=== PATIENT | female | born 1955 | race Caucasian/White ===

== ENCOUNTER 2020-07-19 09:12 | Outpatient (CLI) | payer MEDICARE, OTHER, SELFPAY ==
--- NOTE | 2020-07-19 11:00 | NEURO_ITS ---
Patient Number: [id number] Impression: # Complains of numbness of hands. Non-insulin dependent diabetic. # Mild right Carpal Tunnel Syndrome. # Needle/EMG exam revealed early neurogenic changes in left APB. # Clinical correlation recommended. Nerve Conduction Studies Anti Sensory Summary Table Stim Site NR Peak (ms) P-T Amp (?V) Site1 Site2 Delta-P (ms) Dist (cm) Pan (m/s) Left Median Anti Sensory (2-3nd Digit) Wrist 3.3 36.8 Wrist 2-3nd Digit 3.3 14.0 42 Wrist 3.4 30.0 Wrist 2-3nd Digit 3.3 14.0 42 Right Median Anti Sensory (2-3nd Digit) Wrist 4.1 25.8 Wrist 2-3nd Digit 4.1 14.0 34 Wrist 4.8 11.2 Wrist 2-3nd Digit 4.1 14.0 34 Left Radial Anti Sensory (Base 1st Digit) Wrist 2.3 19.4 Wrist Base 1st Digit 2.3 0.0 Right Radial Anti Sensory (Base 1st Digit) Wrist 2.3 14.5 Wrist Base 1st Digit 2.3 0.0 Left Ulnar Anti Sensory (5th Digit) Wrist 2.5 20.3 Wrist 5th Digit 2.5 14.0 56 Right Ulnar Anti Sensory (5th Digit) Wrist 2.4 58.2 Wrist 5th Digit 2.4 14.0 58 Motor Summary Table Stim Site NR Onset (ms) O-P Amp (mV) Site1 Site2 Delta-0 (ms) Dist (cm) Pan (m/s) Left Median Motor (Abd Poll Brev) Wrist 3.4 4.0 Elbow Wrist 5.2 30.0 58 Elbow 8.6 3.2 Right Median Motor (Abd Poll Brev) Wrist 3.6 0.9 Elbow Wrist 4.8 28.0 58 Elbow 8.4 1.0 Left Ulnar Motor (Abd Dig Minimi) Wrist 2.5 4.8 A Elbow Wrist 5.2 31.0 60 A Elbow 7.7 4.0 Right Ulnar Motor (Abd Dig Minimi) Wrist 2.5 3.6 A Elbow Wrist 4.5 28.0 62 A Elbow 7.0 2.9 F Wave Studies NR F-Lat (ms) L-R F-Lat (ms) Left Median (Mrkrs) (Abd Poll Brev) 28.24 0.10 Right Median (Mrkrs) (Abd Poll Brev) 28.13 0.10 Left Ulnar (Mrkrs) (Abd Dig Min) 27.76 0.00 Right Ulnar (Mrkrs) (Abd Dig Min) 27.76 0.00 EMG Side Muscle Nerve Root Ins Act Fibs Amp Dur Recrt Comment Right 1stDorInt Ulnar C8-T1 Nml Nml Nml Nml Nml Right Ext Indicis Radial (Post Int) C7-8 Nml Nml Nml Nml Nml Right Ext Digitorum Radial (Post Int) C7-8 Nml Nml Nml Nml Nml Right BrachioRad Radial C5-6 Nml Nml Nml Nml Nml Right PronatorTeres Median C6-7 Nml Nml Nml Nml Nml Right Abd Poll Brev Median C8-T1 Nml Nml Incr >12ms Reduced Left 1stDorInt Ulnar C8-T1 Nml Nml Nml Nml Nml Left Ext Indicis Radial (Post Int) C7-8 Nml Nml Nml Nml Nml Left Ext Digitorum Radial (Post Int) C7-8 Nml Nml Nml Nml Nml Left BrachioRad Radial C5-6 Nml Nml Nml Nml Nml Left PronatorTeres Median C6-7 Nml Nml Nml Nml Nml Left Abd Poll Brev Median C8-T1 Nml Nml Nml Nml Nml Right ABD Dig Min Ulnar C8-T1 Nml Nml Nml Nml Nml Left ABD Dig Min Ulnar C8-T1 Nml Nml Nml Nml Nml MTDD
== END 2020-07-19 09:13 | disposition home or self-care (01) ==
PROVIDERS: PCP Internal Medicine; Visit Provider Plastic Surgery
DX: R20.2 Paresthesia of skin (principal); G56.01 Carpal tunnel syndrome, right upper limb
CPT/HCPCS: 95886; 95911

== ENCOUNTER 2020-08-09 01:40 | Outpatient (CLI) | payer MEDICARE, OTHER, SELFPAY ==
[2020-08-09 19:05] LABS: SARS-CoV-2 RNA PCR Negative
== END 2020-08-09 01:41 | disposition home or self-care (01) ==
LOC: ANHCOVIDDT 01:41
PROVIDERS: PCP Internal Medicine; Visit Provider Plastic Surgery
DX: Z01.812 Encounter for preprocedural laboratory examination (principal); Z20.828 Contact with and (suspected) exposure to other viral communicable diseases
CPT/HCPCS: 87635; C9803; U0003

== ENCOUNTER 2020-08-09 08:49 | Outpatient (CLI) | payer MEDICARE, OTHER, SELFPAY ==
--- NOTE | 2020-08-09 08:52 | ECG_ITS ---
Measurements Intervals [place] Rate: 69 P: 58 HI: 149 QRS: 0 QRSD: 96 T: -1 QT: 405 QTc: 436 Interpretive Statements SINUS RHYTHM NONSPECIFIC ST & T-WAVE ABNORMALITY- ANT/INF LEADS BASELINE ARTIFACT- I, II, III, AVR BORDERLINE ECG Electronically Signed On 08-09-2020 9:57:30 CDT by Rodrigo Austin D.O.
[2020-08-09 09:29] LABS: Anion Gap 10 mmol/L (8-16); Blood Urea Nitrogen 11 mg/dL (7-17); Calcium 9.3 mg/dL (8.4-10.2); Carbon Dioxide 25 mmol/L (22-30); Chloride 103 mmol/L (98-107); Estimated Glomerular Filt Rate > 60; Glucose 206 mg/dL (65-105); Potassium 4.2 mmol/L (3.4-5.0); Sodium 138 mmol/L (137-145)
== END 2020-08-09 08:50 | disposition home or self-care (01) ==
LOC: ANHSURGERY 08:52
PROVIDERS: Anesthesiology; PCP Internal Medicine; Visit Provider Plastic Surgery
DX: Z01.818 Encounter for other preprocedural examination (principal); I10 Essential (primary) hypertension; E11.9 Type 2 diabetes mellitus without complications
CPT/HCPCS: 36415; 80048; 87635; 93005; C9803; U0003

== ENCOUNTER 2020-08-11 01:12 | Day surgery (SDC) | payer MEDICARE, OTHER, SELFPAY ==
[2020-08-03 12:21] VITALS: BMI 27.7
--- NOTE | 2020-08-11 06:58 | WPDHPUPDATE1 ---
History and Physical Update Update Date/Time: 08/11/20 06:58 History and Physical has been reviewed, including an updated exam of the patient. There are NO changes in the patient's condition. Risks, benefits, and alternatives have been discussed and questions answered. Patient agrees to proceed with procedure.
[2020-08-11 08:00] VITALS: BP 105/64; PULSE 70; RESP 18; TEMP 36.9; O2SAT 97
[2020-08-11] MEDS: LACTATED RINGERS 1,000 ML 30 ML IV CONT (08:00)
[2020-08-11 08:14] LABS: Glucose Point of Care 194 (65-105)
--- NOTE | 2020-08-11 08:35 | WPDANESEPPF ---
Anes - Initial Pre Proc Eval Procedure: Operation Date: 08/11/20 09:30 Proposed Procedures p Right Open Carpal Tunnel Release - Chaka Villaseñor MD Date/Time: 08/11/20 08:35 Surgeon: Chaka Villaseñor MD Pre Op Diagnosis: Right Carpal Tunnel Syndrome Patient Data Age: 64 Gender: F Height: 5 ft 6 in Weight: 77.2 kg Last Vital Signs Temp 36.9 C 08/11/20 08:00 Pulse 70 08/11/20 08:00 Resp 18 08/11/20 08:00 BP 105/64 08/11/20 08:00 Pulse Ox 97 08/11/20 08:00 Allergies Allergy/AdvReac Type Severity Reaction Status Date / Time erythromycin base AdvReac Unknown Abdominal Verified 08/11/20 08:21 Pain TAPE SILK Allergy Mild BLISTERS--PEELS Uncoded 08/11/20 08:21 OFF SKIN Home Medications Medication Instructions Recorded Confirmed Type albuterol sulfate [ProAir HFA] 2 puff INHALATION QID PRN 08/03/20 08/03/20 History atenolol 50 mg PO HS 08/03/20 08/11/20 History atorvastatin 20 mg PO HS 08/03/20 08/03/20 History citalopram 40 mg PO HS 08/03/20 08/03/20 History estradiol 1 mg PO HS 08/03/20 08/03/20 History glimepiride 4 mg PO BID PRN 08/03/20 08/03/20 History glycopyrrolate 2 mg PO BID 08/03/20 08/03/20 History hydrocodone-acetaminophen 1 tablet PO TID PRN 08/03/20 08/03/20 History lorazepam 1 mg PO TID PRN 08/03/20 08/03/20 History metformin 500 mg PO BID 08/03/20 08/03/20 History pregabalin 100 mg PO BID 08/03/20 08/03/20 History ropinirole 0.5 mg PO HS 08/03/20 08/03/20 History sumatriptan-naproxen 1 tablet PO BID PRN 08/03/20 08/03/20 History valacyclovir 500 mg PO HS 08/03/20 08/03/20 History Laboratory Tests 08/11/20 08:09 POC Capillary Glucose 194 mg/dl H mg/dl (65-105) Patient hx anesthesia problems: none Family hx anesthesia problems: none [facility] Past Medical History Medical History (Updated 08/11/20 @ 08:37 by Solomon English MD) Chronic back pain Chronic pain HTN (hypertension) DANNY (obstructive sleep apnea) Family History Family History Other Diabetes mellitus Social History Social History Smoking packs per day: 0.25 Smoking cigarettes per day: 5.0 Years smoked: 2 Smoking pack-years: 0.50 Smoking status: Current every day smoker Alcohol intake: current Alcohol use details: 1 DRINK/MONTH Substance use: never Living arrangements: with family Spiritual care concerns: No Anes - Eval Final PreProcedure Day of Procedure 08/11/20 08:35 Patient weight: overweight Heart: regular rate and rhythm Lungs: clear to auscultation Airway: Mallampati scale class II Neurological: alert and oriented Last oral intake: >/= 8 hours ASA classification: III Emergent: no Anesthetic plan: proceed Anesthesia type and monitoring: general GIVS and standard monitoring Informed Consent: The patient's anesthetic plan and its attendant risks and benefits were discussed with the patient/family/POA. Questions were solicited and answers provided to the satisfaction of the patient/family/POA.
[2020-08-11] MEDS: LIDO 1%/EPINEPHRINE 1:100,000 20 ML VIAL INFILTRATE (09:04)
[2020-08-11 09:15] VITALS: BP 103/55; PULSE 74; RESP 14; O2SAT 96
--- NOTE | 2020-08-11 09:26 | PM.OP ---
Procedure Note - Brief Procedure Note - Brief Date of procedure: 08/11/20 Pre-op diagnosis: Right Carpal Tunnel Syndrome Post-op diagnosis: same Procedure performed: R OCTR Anesthesia: GLMA Surgeon: Chaka Villaseñor MD Estimated blood loss (mL): 3 Tourniquet time (min): 0 Drains: No Packing: No Pathology: none sent Complications: No immediate complications Condition: stable Disposition: same day
--- NOTE | 2020-08-11 09:27 | P.OP_ITS ---
Procedure Note - Detailed Date of procedure: 08/11/20 Pre-op diagnosis: Right Carpal Tunnel Syndrome Post-op diagnosis: same Procedure performed: Right open carpal tunnel release Description of procedure: the right wrist was marked as patient waited in the holding area. She was taken to the operating room and placed supine on the operating table. Time-out was held and confirmed. Extremity was prepped and draped in usual fashion she was given LMA intubation. The site was remarked and locally infiltrated with 1% lidocaine with epinephrine. No tourniquet was utilized. Incision was made in the palm and carried bluntly through the subcutaneous tissue to the palmar fascia. This and the carpal ligament were incised with a 15. Blade 0pening the canal. Under 3 point retraction the ligament was divided distally and proximally to completely release it. There was no unusual anatomy. The skin was closed with interrupted 5 0 nylon suture. Usual bandage was applied she is discharge instructions in wound care and fo llow-up. She has a regular dose of hydrocodone supply to her by her primary care physician. We are sending an extra 5 tablets of hydrocodone 02/13/2025 for use postop period. Anesthesia: GLMA Surgeon: Chaka Villaseñor MD Estimated blood loss (mL): 3 Tourniquet time (min): 0 Drains: No Packing: No Pathology: none sent Complications: No immediate complications Condition: stable Disposition: same day
[2020-08-11 09:29] LABS: Glucose Point of Care 166 (65-105)
[2020-08-11 09:45] VITALS: BP 112/46; PULSE 71
[2020-08-11] MEDS: fentaNYL CITRATE INJ (*CRX) 100 MCG/2 ML VIAL 25 MCG IV PUSH ×2 (09:53→10:11)
[2020-08-11 10:15] VITALS: BP 102/54; PULSE 69
[2020-08-11 10:45] VITALS: BP 111/51; PULSE 70
== END 2020-08-11 11:07 | disposition home or self-care (01) ==
PROVIDERS: PCP Internal Medicine; Visit Provider Plastic Surgery
PROC: (CPT 64721; principal; 2020-08-11 09:30)
DX: G56.01 Carpal tunnel syndrome, right upper limb (principal); I10 Essential (primary) hypertension; G47.33 Obstructive sleep apnea (adult) (pediatric); F17.210 Nicotine dependence, cigarettes, uncomplicated
CPT/HCPCS: 64721; A9270; J2250; J3010; J7120

== ENCOUNTER → 2021-02-25 02:44 | Outpatient (CLI) | payer MEDICARE, OTHER, SELFPAY ==
[2021-02-25 19:43] LABS: SARS-CoV-2 RNA PCR Negative
== END ==
PROVIDERS: PCP Internal Medicine; Visit Provider Internal Medicine Gastroenterology
DX: Z01.812 Encounter for preprocedural laboratory examination (principal); Z20.822 Contact with and (suspected) exposure to COVID-19
CPT/HCPCS: C9803; U0003; U0005

== ENCOUNTER 2021-02-28 02:16 | Day surgery (SDC) | payer MEDICARE, OTHER, SELFPAY ==
[2021-02-14 15:08] VITALS: BMI 27.7
[2021-02-28 08:13] VITALS: BP 107/67; PULSE 65; RESP 18; TEMP 36.7; O2SAT 98; BMI 27.0
--- NOTE | 2021-02-28 08:15 | PM.HPGS ---
History of Present Illness History of Present Illness Consent: Risks, benefits, and alternatives have been discussed and questions answered. Patient agrees to proceed with procedure. Chief complaint: Positive Cologuard Narrative: Lisa Gabriel is a 65 year old female referred for colon cancer screening. A recent Cologuard test was positive. Review of Systems Review of Systems: All systems reviewed & are unremarkable except as noted in HPI and below PMFSH Past Medical History Medical History Anxiety Chronic back pain Chronic bronchitis Chronic pain Chronic, continuous use of opioids Depression Diabetes type 2, controlled Fibromyalgia HTN (hypertension) DANNY (obstructive sleep apnea) PONV (postoperative nausea and vomiting) RLS (restless legs syndrome) Surgical History Surgical History History of x2 History of hysterectomy Family History Family History Other Diabetes mellitus Social History Social History Smoking packs per day: 0.25 Smoking cigarettes per day: 5.0 Years smoked: 0.5 Smoking pack-years: 0.13 Smoking status: Current every day smoker Tobacco type: cigarettes Alcohol intake: current Alcohol use details: social Substance use: never Substance use type: does not use Living arrangements: with family Spiritual care concerns: No Meds Home Medications and Allergies Home Medications Medication Instructions Recorded Confirmed Type albuterol sulfate [ProAir HFA] 2 puff INHALATION QID PRN 08/03/20 02/28/21 History atenolol 50 mg PO DAILY 08/03/20 02/28/21 History atorvastatin 20 mg PO DAILY 08/03/20 02/28/21 History citalopram 40 mg PO DAILY 08/03/20 02/28/21 History estradiol 1 mg PO DAILY 08/03/20 02/28/21 History glimepiride 4 mg PO BID PRN 08/03/20 02/28/21 History glycopyrrolate 2 mg PO BID 08/03/20 02/28/21 History hydrocodone-acetaminophen 1 tablet PO TID PRN 08/03/20 02/28/21 History lorazepam 1 mg PO TID PRN 08/03/20 02/28/21 History metformin 500 mg PO BID 08/03/20 02/28/21 History pregabalin 100 mg PO BID 08/03/20 02/28/21 History ropinirole 0.5 mg PO DAILY 08/03/20 02/28/21 History sumatriptan-naproxen 1 tablet PO BID PRN 08/03/20 02/28/21 History valacyclovir 500 mg PO DAILY 08/03/20 02/28/21 History hydrocodone-acetaminophen 1 tablet PO Q6H PRN #5 tablet 08/11/20 02/28/21 Rx Allergies Allergy/AdvReac Type Severity Reaction Status Date / Time erythromycin base AdvReac Unknown Abdominal Verified 02/28/21 08:09 Pain TAPE SILK Allergy Mild BLISTERS--PEELS Uncoded 02/28/21 08:09 OFF SKIN Exam Resp: Auscultation: clear to auscultation bilaterally Cardio: Rate: regular rate Rhythm: regular rhythm GI: GI Palp: Yes Soft to palpation and No Tenderness to palpation present (GI) Assessment and Plan Assessment and plan (1) Positive colorectal cancer screening using Cologuard test: Code(s): R19.5 - Other fecal abnormalities Status: Acute Assessment and Plan: Colonoscopy with possible biopsy or polypectomy or cautery or injection of substances.
[2021-02-28] MEDS: LACTATED RINGERS 1,000 ML 150 ML IV CONT (08:18)
--- NOTE | 2021-02-28 08:18 | WPDANESEPPF ---
Anes - Initial Pre Proc Eval Procedure: Operation Date: 02/28/21 09:00 Proposed Procedures p Colonoscopy - Chan Guerrero MD Date/Time: 02/28/21 08:18 Surgeon: Chan Guerrero MD Pre Op Diagnosis: Positive Cologuard Patient Data Age: 65 Gender: F Height: 1.68 m Weight: 76 kg Last Vital Signs Temp 36.7 C 02/28/21 08:13 Pulse 65 02/28/21 08:13 Resp 18 02/28/21 08:13 BP 107/67 02/28/21 08:13 Pulse Ox 98 02/28/21 08:13 Allergies Allergy/AdvReac Type Severity Reaction Status Date / Time erythromycin base AdvReac Unknown Abdominal Verified 02/28/21 08:09 Pain TAPE SILK Allergy Mild BLISTERS--PEELS Uncoded 02/28/21 08:09 OFF SKIN Home Medications Medication Instructions Recorded Confirmed Type albuterol sulfate [ProAir HFA] 2 puff INHALATION QID PRN 08/03/20 02/28/21 History atenolol 50 mg PO DAILY 08/03/20 02/28/21 History atorvastatin 20 mg PO DAILY 08/03/20 02/28/21 History citalopram 40 mg PO DAILY 08/03/20 02/28/21 History estradiol 1 mg PO DAILY 08/03/20 02/28/21 History glimepiride 4 mg PO BID PRN 08/03/20 02/28/21 History glycopyrrolate 2 mg PO BID 08/03/20 02/28/21 History hydrocodone-acetaminophen 1 tablet PO TID PRN 08/03/20 02/28/21 History lorazepam 1 mg PO TID PRN 08/03/20 02/28/21 History metformin 500 mg PO BID 08/03/20 02/28/21 History pregabalin 100 mg PO BID 08/03/20 02/28/21 History ropinirole 0.5 mg PO DAILY 08/03/20 02/28/21 History sumatriptan-naproxen 1 tablet PO BID PRN 08/03/20 02/28/21 History valacyclovir 500 mg PO DAILY 08/03/20 02/28/21 History hydrocodone-acetaminophen 1 tablet PO Q6H PRN #5 tablet 08/11/20 02/28/21 Rx Patient hx anesthesia problems: none Family hx anesthesia problems: none PMFSH Past Medical History Medical History Anxiety Chronic back pain Chronic bronchitis Chronic pain Chronic, continuous use of opioids Depression Diabetes type 2, controlled Fibromyalgia HTN (hypertension) DANNY (obstructive sleep apnea) PONV (postoperative nausea and vomiting) RLS (restless legs syndrome) Surgical History Surgical History History of x2 History of hysterectomy Family History Family History Other Diabetes mellitus Social History Social History Smoking packs per day: 0.25 Smoking cigarettes per day: 5.0 Years smoked: 0.5 Smoking pack-years: 0.13 Smoking status: Current every day smoker Tobacco type: cigarettes Alcohol intake: current Alcohol use details: social Substance use: never Substance use type: does not use Living arrangements: with family Spiritual care concerns: No Anes - Eval Final PreProcedure Day of Procedure 02/28/21 08:18 Patient weight: overweight Heart: regular rate and rhythm Lungs: clear to auscultation and normal air movement Airway: Mallampati scale class II Neurological: alert and oriented Last oral intake: >/= 8 hours ASA classification: III Emergent: no Anesthetic plan: proceed Anesthesia type and monitoring: general GIVS and standard monitoring Informed Consent: The patient's anesthetic plan and its attendant risks and benefits were discussed with the patient/family/POA. Questions were solicited and answers provided to the satisfaction of the patient/family/POA.
[2021-02-28 08:29] LABS: Glucose Point of Care 226 (65-105)
[2021-02-28 09:13] VITALS: BP 129/62; PULSE 73; RESP 24; O2SAT 99
[2021-02-28 09:23] VITALS: BP 120/98; PULSE 77; RESP 19; O2SAT 100
[2021-02-28 09:33] VITALS: BP 127/60; PULSE 72; RESP 16; O2SAT 100
== END 2021-02-28 09:40 | disposition home or self-care (01) ==
PROVIDERS: PCP Internal Medicine; Visit Provider Internal Medicine Gastroenterology
PROC: 0DJD8ZZ Inspection of Lower Intestinal Tract, Via Natural or Artificial Opening Endoscopic (ICD-10-PCS; CPT 45378; principal; 2021-02-28 09:00)
DX: Z12.11 Encounter for screening for malignant neoplasm of colon (principal); D12.4 Benign neoplasm of descending colon; R19.5 Other fecal abnormalities; E11.9 Type 2 diabetes mellitus without complications; I10 Essential (primary) hypertension; G47.33 Obstructive sleep apnea (adult) (pediatric); F41.8 Other specified anxiety disorders; G25.81 Restless legs syndrome; M79.7 Fibromyalgia; G89.29 Other chronic pain; Z79.891 Long term (current) use of opiate analgesic; Z79.51 Long term (current) use of inhaled steroids; Z79.84 Long term (current) use of oral hypoglycemic drugs; F17.210 Nicotine dependence, cigarettes, uncomplicated
CPT/HCPCS: 45385; 82948; 88305; J2704; J7120

== ENCOUNTER 2021-06-13 15:29 | Emergency (ER) | payer MEDICARE, OTHER, SELFPAY ==
--- NOTE | ~2021-06-13 | CT_ITS ---
EXAMINATION: CT abdomen pelvis w con DATE: 06/13/2021 22:37 INDICATION: Left lower quadrant abdominal pain. TECHNIQUE: Computed tomography (CT) of the abdomen and pelvis was performed with 100 mL Omnipaque 350 intravenous contrast. Automated exposure control and iterative reconstruction technique were employe d. The dose-length product was 452.43 mGy-cm. COMPARISON: CT abdomen and pelvis 05/07/2016 FINDINGS: The visualized portions of the lung bases demonstrate mild atelectasis. No pleural effusion . The heart size is normal. No pericardial effusion. There is a small sliding hiatal hernia. There is diffuse hepatic steatosis. The gallbladder, spleen, pancreas, adrenal glands, and right kidney are n ormal. There is a 1 mm stone in left kidney. There are no dilated loops of bowel. The appendix is nor mal. There are no pathologically enlarged lymph nodes. There is no free intraperitoneal fluid. There are epidural electrodes in thoracic spine. There is mild lumbar spondylosis. IMPRESSION: 1. Small sliding hiatal hernia. 2. Diffuse hepatic steatosis. Reviewed, dictated and finalized at location A.
[2021-06-13 16:10] VITALS: BP 126/75; PULSE 76; RESP 18; TEMP 37.2; O2SAT 98
[2021-06-13 16:47] LABS: Basophils Percent Auto 0.2 % (0.2-1.2); Eosinophils Absolute Auto 0.2 K/mm3 (0-0.3); Eosinophils Percent Auto 1.8 % (0-4.4); Hematocrit 34.7 % (37.0-47.0); Hemoglobin 11.9 g/dL (12.0-15.0); Immature Granulocyte Absolute 0.04 K/mm3 (0.00-0.031); Immature Granulocyte Percent A 0.4 % (0-0.5); Lymphocytes Absolute Auto 3.68 K/mm3 (0.9-3.2); Lymphocytes Percent Auto 35.2 % (18.3-44.2); Mean Corpuscular HGB Conc 34.3 g/dl (32-36); Mean Corpuscular Hemoglobin 31.6 pg (26-34); Mean Corpuscular Volume 92.3 fl (80-100); Mean Platelet Volume 9.7 fl (7.4-10.4); Monocytes Absolute Auto 0.9 K/mm3 (0.1-0.6); Monocytes Percent Auto 8.6 % (2.6-8.5); Neutrophils Absolute Auto 5.6 K/mm3 (1.3-6.7); Neutrophils Percent Auto 53.8 % (45.5-73.1); Platelet Count Result 251 k/mm3 (150-375); Red Blood Count 3.76 M/mm3 (4.2-5.4); White Blood Count 10.5 K/mm3 (4.5-10.0)
[2021-06-13 16:51] LABS: Add Urine Microscopic? NO; Alanine Aminotransferase 26 U/L (4-35); Albumin Level 4.5 g/dL (3.5-5.1); Alkaline Phosphatase 68 U/L (38-126); Anion Gap 7 mmol/L (8-16); Appearance Urine Clear (Clear); Aspartate Amino Transferase 28 U/L (14-36); Bilirubin Urine Negative (Negative); Bilirubin,Total 0.6 mg/dL (0.2-1.3); Blood Urea Nitrogen 11 mg/dL (7-17); Blood Urine Negative (Negative); Calcium 9.5 mg/dL (8.4-10.2); Carbon Dioxide 25 mmol/L (22-30); Chloride 107 mmol/L (98-107); Color Urine Yellow (Yellow); Estimated CRCL calculation 71 ml/min; Estimated Glomerular Filt Rate > 60; Glucose 114 mg/dL (65-110); Glucose Urine UA Negative (Negative); Ketones Urine Negative (Negative); Leukocyte Esterase Ur Negative LEU/UL (Negative); Lipase 37 U/L (23-300); Nitrate Urine Negative (Negative); Potassium 4.3 mmol/L (3.4-5.0); Protein Urine Negative (Negative); Sodium 139 mmol/L (137-145); Urobilinogen Urine Negative mg/dL (<2.0)
[2021-06-13 20:30] VITALS: BP 114/69; PULSE 74; RESP 18; TEMP 36.3; O2SAT 100
[2021-06-13 21:06] VITALS: BP 149/81; PULSE 68; RESP 16; O2SAT 98
--- NOTE | 2021-06-13 21:40 | ED.ABDPAIN ---
HPI - Abdominal Pain General Chief Complaint: Abdominal Pain Stated Complaint: left flank pain, urinary retention Time Seen by Provider: 06/13/21 21:09 Source: patient Mode of arrival: ambulatory Limitations: no limitations History of Present Illness HPI narrative: Patient is a 65-year-old female complaining of left lower quadrant pain, 7 out of 10, sharp, radiating to her left flank that started 2 days ago. Patient states that she saw her work station support specialist, Dr. Mikael Evans, and was advised to go to the emergency room for CT scan. Patient denies any chest pain, shortness of breath, nausea, vomiting, diarrhea, fever or chills. Patient currently on Cipro, Percocet and hyoscyamine for bladder spasms that was diagnosed by her DOG OR ANIMAL SITTER last week. Related Data Home Medications Medication Instructions Recorded Confirmed albuterol sulfate [ProAir HFA] 2 puff INHALATION QID PRN 08/03/20 02/28/21 atenolol 50 mg PO DAILY 08/03/20 02/28/21 atorvastatin 20 mg PO DAILY 08/03/20 02/28/21 citalopram 40 mg PO DAILY 08/03/20 02/28/21 estradiol 1 mg PO DAILY 08/03/20 02/28/21 glimepiride 4 mg PO BID PRN 08/03/20 02/28/21 glycopyrrolate 2 mg PO BID 08/03/20 02/28/21 hydrocodone-acetaminophen 1 tablet PO TID PRN 08/03/20 02/28/21 lorazepam 1 mg PO TID PRN 08/03/20 02/28/21 metformin 500 mg PO BID 08/03/20 02/28/21 pregabalin 100 mg PO BID 08/03/20 02/28/21 ropinirole 0.5 mg PO DAILY 08/03/20 02/28/21 sumatriptan-naproxen 1 tablet PO BID PRN 08/03/20 02/28/21 valacyclovir 500 mg PO DAILY 08/03/20 02/28/21 Allergies Allergy/AdvReac Type Severity Reaction Status Date / Time erythromycin base AdvReac Unknown Abdominal Verified 02/28/21 08:09 Pain TAPE SILK Allergy Mild BLISTERS--PEELS Uncoded 02/28/21 08:09 OFF SKIN Review of Systems Review of Systems: All systems reviewed & are unremarkable except as noted in HPI and below Constitutional: Constitutional: Denies body ache(s), Denies chills, Denies excessive sweating, Denies fatigue, Denies fever(s), Denies headache(s), Denies lethargy, Denies malaise, Denies weakness and Denies weight loss Eyes: Eyes: Denies blurry vision, Denies change in vision and Denies loss of vision ENT: Denies dizziness, Denies ear discharge, Denies headache(s), Denies lip swelling, Denies epistaxis, Denies nasal congestion, Denies neck pain, Denies throat swelling and Denies tongue swelling Cardiovascular: Cardiovascular: Denies chest pain, Denies chest pain at rest, Denies chest pain with activity, Denies diaphoresis, Denies rapid heart rate, Denies edema, Denies irregular heart rhythm, Denies lightheadedness, Denies palpitations, Denies dyspnea and Denies dyspnea on exertion Respiratory: Respiratory: Denies chest congestion, Denies cough, Denies hemoptysis, Denies dyspnea and Denies dyspnea on exertion Gastrointestinal: Gastrointestinal: Denies melena, Denies hematochezia, Denies diarrhea, Denies nausea, Denies vomiting and Denies hematemesis Musculoskeletal: Musculoskeletal: Denies abnormal gait, Denies deformity, Denies joint swelling, Denies limited range of motion, Denies neck pain and Denies numbness Neurologic: Denies Abnormal speech present, Denies abnormal gait, Denies confusion, Denies dizziness, Denies headache(s), Denies focal weakness, Denies loss of vision, Denies numbness, Denies Other visual disturbances, Denies Sensory deficit (Neuro) and Denies weakness Psychiatric: Psychiatric: Denies confusion, Denies depression, Denies auditory hallucinations, Denies homicidal ideation and Denies suicidal ideation Endocrine: Endocrine: Denies cold intolerance, Denies excessive sweating, Denies fatigue, Denies heat intolerance and Denies palpitations Hematologic/Lymphatic: Hematologic/Lymphatic: Denies easy bleeding and Denies easy bruising Allergic/Immunologic: Allergic/Immunologic: Denies lip swelling, Denies throat swelling and Denies tongue swelling PMFSH Past Medical History Medical History (Reviewed 06/13/21 @ 21:4
[2021-06-13] MEDS: LACTATED RINGERS 1,000 ML 999 ML IV CONT (22:14)
[2021-06-13] MEDS: PROMETHAZINE HCL 25 MG/ML AMPUL 12.5 MG IV PUSH (22:14)
[2021-06-13] MEDS: HYDROmorphone HCL INJ (*CRX) 1 MG/ML SYR IV PUSH (22:14)
--- NOTE | 2021-06-13 22:25 | PC.NURSE ---
Pt to Ct via stretcher at this time.
[2021-06-13 23:20] VITALS: BP 134/76; PULSE 71; RESP 16; O2SAT 93
[2021-06-14 00:16] VITALS: BP 114/54; PULSE 66; RESP 18; O2SAT 98
== END 2021-06-14 00:20 | disposition home or self-care (01) ==
PROVIDERS: Emergency Medicine; Emergency Provider Emergency Medicine; PCP Internal Medicine
DX: R10.32 Left lower quadrant pain (principal); K76.0 Fatty (change of) liver, not elsewhere classified; F41.9 Anxiety disorder, unspecified; G89.29 Other chronic pain; F32.9 Major depressive disorder, single episode, unspecified; E11.9 Type 2 diabetes mellitus without complications; M79.7 Fibromyalgia; I10 Essential (primary) hypertension; G47.33 Obstructive sleep apnea (adult) (pediatric); G25.81 Restless legs syndrome; F17.210 Nicotine dependence, cigarettes, uncomplicated; Z87.19 Personal history of other diseases of the digestive system; Z79.899 Other long term (current) drug therapy
CPT/HCPCS: 36415; 74177; 80053; 81003; 81025; 83690; 85025; 96361; 96374; 96375; 99284; J1170; J2550; J7120; Q9967

== ENCOUNTER 2021-12-21 20:49 | Inpatient (IN) | payer MEDICARE, OTHER, SELFPAY ==
[2021-12-21] VITALS (8 sets, daily range): BP systolic 104–129; BP diastolic 74–90; PULSE 111–161; RESP 16–26; O2SAT 96–99
--- NOTE | ~2021-12-21 | XR_ITS ---
EXAMINATION: XR chest 1V portable DATE: 12/21/2021 21:12 INDICATION: Chest tightness, dizziness and heart palpitations TECHNIQUE: frontal view of the chest was obtained. COMPARISON: Chest radiograph and CT dated 10/21/2016 FINDINGS: The lungs remain clear with no focal airspace opacities, pulmonary edema, pleural effusion or pneumot horax. The cardiomediastinal silhouette is normal. Spinal stimulator leads projecting over the lower thoracic central canal. IMPRESSION: 1. No acute cardiopulmonary disease. Reviewed, dictated and finalized at location A. IS DIRECTOR
--- NOTE | 2021-12-21 20:52 | ECG_ITS ---
Measurements Intervals [place] Rate: 154 P: DC: 0 QRS: -3 QRSD: 94 T: 53 QT: 264 QTc: 423 Interpretive Statements ATRIAL FIBRILLATION WITH RAPID VENTRICULAR RESPONSE NONSPECIFIC ST & T-WAVE ABNORMALITY ABNORMAL RHYTHM ECG COMPARED TO ECG 08/09/2020 10:15:07 ATRIAL FIBRILLATION REPLACES SINUS RHYTHM Electronically Signed On 12-22-2021 7:12:19 [employer] SPECIALIST by Emilio Harris M.D.
[2021-12-21 21:02] LABS: Basophils Percent Auto 0.3 % (0.2-1.2); Eosinophils Absolute Auto 0.2 K/mm3 (0-0.3); Eosinophils Percent Auto 1.5 % (0-4.4); Hematocrit 36.4 % (37.0-47.0); Hemoglobin 12.5 g/dL (12.0-15.0); Immature Granulocyte Absolute 0.04 K/mm3 (0.00-0.031); Immature Granulocyte Percent A 0.3 % (0-0.5); Lymphocytes Absolute Auto 5.13 K/mm3 (0.9-3.2); Lymphocytes Percent Auto 38.3 % (18.3-44.2); Mean Corpuscular HGB Conc 34.3 g/dl (32-36); Mean Corpuscular Volume 93.1 fl (80-100); Mean Platelet Volume 9.6 fl (7.4-10.4); Monocytes Absolute Auto 1.1 K/mm3 (0.1-0.6); Monocytes Percent Auto 7.8 % (2.6-8.5); Neutrophils Absolute Auto 6.9 K/mm3 (1.3-6.7); Neutrophils Percent Auto 51.8 % (45.5-73.1); Platelet Count Result 270 k/mm3 (150-375); Red Blood Count 3.91 M/mm3 (4.2-5.4); Red Cell Distribution Width 12.6 % (11.5-14.5); White Blood Count 13.4 K/mm3 (4.5-10.0)
--- NOTE | 2021-12-21 21:03 | ED.GENADULT ---
HPI - General Adult General Chief complaint: Arrhythmia/Palpitations Stated complaint: SOB, chest tightness, arrhthymia Time Seen by Provider: 12/21/21 20:51 Source: RN notes reviewed History of Present Illness HPI narrative: Patient presents emergency department from home for rapid heart rate. Patient states approximate 1 hour ago she began to feel like she had a rapid heart rate she says associated with a feeling of shortness of breath and tightness across the chest patient states that she did have an episode of nausea vomiting this morning but it felt fine throughout the rest of the day and only this evening had a feeling of her heart racing states she had had a history of of a dysrhythmia before in the past and is on atenolol but is never been diagnosed with atrial fibrillation is not on any blood thinners she denies any fevers or chills abdominal pain or any other symptoms Related Data Home Medications Medication Instructions Recorded Confirmed albuterol sulfate [ProAir HFA] 2 puff INHALATION QID PRN 08/03/20 02/28/21 atenolol 50 mg PO DAILY 08/03/20 12/21/21 atorvastatin 20 mg PO DAILY 08/03/20 12/21/21 citalopram 40 mg PO DAILY 08/03/20 12/21/21 estradiol 1 mg PO DAILY 08/03/20 12/21/21 glimepiride 2 mg PO BID PRN 08/03/20 12/21/21 glycopyrrolate 2 mg PO BID 08/03/20 12/21/21 hydrocodone-acetaminophen 1 tablet PO TID PRN 08/03/20 12/21/21 lorazepam 1 mg PO QID PRN 08/03/20 12/21/21 metformin 1,000 mg PO BID 08/03/20 12/21/21 pregabalin 100 mg PO TID 08/03/20 12/21/21 ropinirole 0.5 mg PO BID 08/03/20 12/21/21 valacyclovir 500 mg PO DAILY 08/03/20 12/21/21 insulin glargine [Lantus U-100 10 unit SUBCUT .AM 12/21/21 12/21/21 Insulin] insulin glargine [Lantus U-100 12 unit SUBCUT .PM 12/21/21 12/21/21 Insulin] Allergies Allergy/AdvReac Type Severity Reaction Status Date / Time erythromycin base AdvReac Unknown Abdominal Verified 02/28/21 08:09 Pain TAPE SILK Allergy Mild BLISTERS--PEELS Uncoded 02/28/21 08:09 OFF SKIN Review of Systems Review of Systems: Gen.: Denies fevers or chills Eyes: Denies eye pain or visual change ENT: Denies congestion Respiratory: Ports shortness of breath CV: See HPI GI: Denies abdominal pain reports nausea vomiting this morning Musculoskeletal: Denies back pain or muscle pain Neuro: Denies numbness, tingling, weakness or focal weakness Skin: Denies rash Except as documented, all other systems reviewed and negative [facility] Past Medical History Medical History Anxiety Chronic back pain Chronic bronchitis Chronic pain Chronic, continuous use of opioids Depression Diabetes type 2, controlled Fibromyalgia HTN (hypertension) DANNY (obstructive sleep apnea) PONV (postoperative nausea and vomiting) RLS (restless legs syndrome) Surgical History Surgical History History of x2 History of hysterectomy Family History Family History Other Diabetes mellitus Social History Social History Smoking packs per day: 0.25 Smoking cigarettes per day: 5.0 Years smoked: 0.5 Smoking pack-years: 0.13 Smoking status: Current every day smoker Tobacco type: cigarettes Alcohol intake: current Alcohol use details: social Substance use: never Substance use type: does not use Spiritual care concerns: No Exam Narrative: APPEARANCE: No acute distress, nontoxic, resting in bed EYES: EOMI HEENT: Normocephalic, atraumatic, OMM RESPIRATORY: No respiratory distress Clear to auscultation bilaterally with no rhonchi wheezing or rales. CARDIOVASCULAR: Tachycardic and irregular without murmurs rubs or gallops. ABDOMINAL: Soft, nontender, nondistended, no rebound or guarding MUSCULOSKELETAl: Moves all extremities. No clubbing, cyanosis or jeromy
[2021-12-21 21:10] LABS: Prothrombin Time 12.7 Seconds (11.1-14.7)
[2021-12-21] MEDS: dilTIAZem HCl INJ 25 MG/5 ML VIAL 5 MG IV PUSH (21:11)
[2021-12-21 21:12] LABS: Partial Thromboplastin Time 31.8 SECONDS (22.3-36.8)
[2021-12-21 21:13] LABS: Alanine Aminotransferase 45 U/L (4-35); Albumin Level 4.8 g/dL (3.5-5.1); Alkaline Phosphatase 63 U/L (38-126); Anion Gap 12 mmol/L (8-16); Aspartate Amino Transferase 53 U/L (14-36); Bilirubin,Total 0.5 mg/dL (0.2-1.3); Blood Urea Nitrogen 18 mg/dL (7-17); Calcium 9.2 mg/dL (8.4-10.2); Carbon Dioxide 25 mmol/L (22-30); Chloride 103 mmol/L (98-107); Estimated CRCL calculation 69 ml/min; Estimated Glomerular Filt Rate > 60; Glucose 172 mg/dL (65-110); Lipase 55 U/L (23-300); Magnesium 1.3 mg/dL (1.6-2.3); Potassium 3.9 mmol/L (3.4-5.0); Sodium 140 mmol/L (137-145)
[2021-12-21] MEDS: dilTIAZem 100 MG/100 ML 100 MG/100 ML BAG IV CONT (21:18)
[2021-12-21 21:23] LABS: NT Pro B Type Natriuretic Pept 46 pg/mL (5-100); Troponin I < 0.012 ng/mL (0.000-0.034)
[2021-12-21] MEDS: MAGNESIUM SULF 2 GM/WATER 50ML 2 GM/50 ML BAG IVPB (22:11)
[2021-12-21] MEDS: SODIUM CHLORIDE 0.9% IV 1,000 ML 999 ML IV CONT (22:19)
[2021-12-21] MEDS: HYDROcodone/acetaminophen (*CRX) 5-325 MG TABLET 1 TAB PO (23:27)
[2021-12-21] MEDS: ENOXAPARIN 80 MG/0.8 ML SYRINGE 76 MG SUB-Q (23:27)
[2021-12-22] VITALS (24 sets, daily range): BP systolic 99–143; BP diastolic 50–89; PULSE 56–135; RESP 14–22; TEMP 35.7–37.1; O2SAT 95–99; BMI 27.7
--- NOTE | 2021-12-22 | ECHO_ITS ---
Patient Info Name: Lisa Gabriel Age: 65 years : 1955 Gender: Female Ht: 65 in Wt: 169 lbs BSA: 1.89 m2 HR: 87 bpm BP: 114 / 69 mmHg Technical Quality: Good Exam Date: 12/22/2021 11:09 AM Exam Location: [facility] Room: 203 Patient Status: Inpatient Admit Date: 12/21/2021 Staff Ordering Physician: Cecile Esparza DO [employer] Supervisor: Josephine Perez RDCS Attending Provider: Cecile Esparza DO Referring Physician: Vilma MARTINEZ; Exam Type: CA echo doppler color flow Study Info Indications - afib rvr new onset Complete two-dimensional, color flow and Doppler transthoracic echocardiogram is performed. Summary 1. Complete two-dimensional, color flow and Doppler transthoracic echocardiogram is performed. 2. Left ventricular chamber dimension is normal. 3. Left ventricular systolic function is normal, estimated at 60-65%. 4. The left ventricular diastolic function is grade III diastolic dysfunction. 5. E/e' 16 is elevated. 6. Left atrial chamber dimension is mildly enlarged. 7. Right atrial chamber dimension is mildly enlarged. 8. There is mild mitral valve regurgitation. 9. There is mild tricuspid valve regurgitation. 10. No pulmonary hypertension, estimated pulmonary arterial systolic pressure is 22 mmHg. Left Ventricle E/e' 16 is elevated. Left ventricular chamber dimension is normal. Left ventricular systolic function is normal, estimated at 60-65%. The left ventricular diastolic function is grade III diastolic dysfunction. Right Ventricle Right ventricular chamber dimension is normal. Right ventricular systolic function is normal. Left Atria Left atrial chamber dimension is mildly enlarged. Right Atria Right atrial chamber dimension is mildly enlarged. Aortic Valve The aortic valve is probable trileaflet. There is no aortic valve stenosis. There is no aortic valve regurgitation. Pulmonic Valve There is no pulmonic regurgitation. Mitral Valve There is no mitral valve stenosis. There is mild mitral valve regurgitation. Tricuspid Valve There is mild tricuspid valve regurgitation. No pulmonary hypertension, estimated pulmonary arterial systolic pressure is 22 mmHg. Pericardium/Pleural There is no pericardial effusion. Inferior Vena Cava Normal inferior vena cava with >50% collapse upon inspiration consistent with normal right atrial pressure, 5 mmHg. Aorta The aortic root size at the sinus of Valsalva is normal. Left Ventricular Outflow Tract Name Value Normal LVOT 2D LVOT Diameter 2.0 cm LVOT Doppler LVOT Peak Gradient 6 mmHg LVOT Mean Gradient 3 mmHg LVOT VTI 27 cm LVOT Stroke Volume 85 ml LVOT CO 16.6 l/min LVOT CI 8.8 l/min/m2 Pulmonic Valve Name Value Normal
[2021-12-22 00:35] LABS: Troponin I < 0.012 ng/mL (0.000-0.034)
--- NOTE | 2021-12-22 01:06 | ADMGEN ---
This patient, Lisa Gabriel, was admitted to IMU Room 203-01. Patient/family oriented to hospital policies and general routines including ID bracelet, bed and alarms, visiting hours, pain management, procedures, bathroom and other care routines, personal items, smoking policy, room service/diet, and visiting hours. Information on how to activate the Rapid Response Team has been discussed. Patient/Family are encouraged to report perceived risks to care and to ask questions if they do not understand what they are told or what they should do.
--- NOTE | 2021-12-22 02:14 | PCRCNOTE ---
Pt does not want hospital BIPAP, states ahe will have bring her own
[2021-12-22 02:40] LABS: Basophils Percent Auto 0.2 % (0.2-1.2); Eosinophils Absolute Auto 0.2 K/mm3 (0-0.3); Eosinophils Percent Auto 1.5 % (0-4.4); Hematocrit 35.4 % (37.0-47.0); Immature Granulocyte Absolute 0.05 K/mm3 (0.00-0.031); Immature Granulocyte Percent A 0.4 % (0-0.5); Lymphocytes Absolute Auto 5.57 K/mm3 (0.9-3.2); Lymphocytes Percent Auto 39.3 % (18.3-44.2); Mean Corpuscular HGB Conc 33.9 g/dl (32-36); Mean Corpuscular Hemoglobin 31.8 pg (26-34); Mean Corpuscular Volume 93.9 fl (80-100); Mean Platelet Volume 9.7 fl (7.4-10.4); Monocytes Absolute Auto 1.2 K/mm3 (0.1-0.6); Monocytes Percent Auto 8.3 % (2.6-8.5); Neutrophils Absolute Auto 7.1 K/mm3 (1.3-6.7); Neutrophils Percent Auto 50.3 % (45.5-73.1); Platelet Count Result 280 k/mm3 (150-375); Red Blood Count 3.77 M/mm3 (4.2-5.4); Red Cell Distribution Width 12.6 % (11.5-14.5); White Blood Count 14.2 K/mm3 (4.5-10.0)
[2021-12-22 02:52] LABS: Anion Gap 9 mmol/L (8-16); Blood Urea Nitrogen 17 mg/dL (7-17); Calcium 8.7 mg/dL (8.4-10.2); Carbon Dioxide 24 mmol/L (22-30); Chloride 107 mmol/L (98-107); Estimated CRCL calculation 62 ml/min; Estimated Glomerular Filt Rate > 60; Glucose 215 mg/dL (65-110); Potassium 3.9 mmol/L (3.4-5.0); Sodium 140 mmol/L (137-145)
[2021-12-22 02:57] LABS: Glucose Point of Care 263 mg/dl (65-105)
[2021-12-22 03:04] LABS: Troponin I 0.013 ng/mL (0.000-0.034)
[2021-12-22] MEDS: rOPINIRole HCL 1 MG TABLET PO ×3 (03:21→20:49)
[2021-12-22] MEDS: MAGNESIUM SULF 2 GM/WATER 50ML 2 GM/50 ML BAG IVPB (03:22)
[2021-12-22] MEDS: INSULIN GLARGINE (*BKC) 100 UNITS/ML 14 UNITS SUB-Q (03:25)
[2021-12-22] MEDS: dilTIAZem 100 MG/100 ML 100 MG/100 ML BAG 15 MG IV CONT ×3 (04:00→15:57)
[2021-12-22 08:22] LABS: Glucose Point of Care 132 mg/dl (65-105)
--- NOTE | 2021-12-22 08:39 | PM.IMHP ---
H&P: HPI History of Present Illness Date/Time: 12/22/21 08:39 65-year-old female with diabetes and hyperlipidemia BMI of 27.7 presents to the hospital with chief complaint of irregular heart. Patient states that she has been feeling her heart irregular for a few days with associated symptoms of feeling tired but yesterday she noted her heart began to skip beats, symptoms became significant causing her to feel nauseated with an episode of vomiting and reports that she felt her palpitations in her neck. She became worried so she sought medical attention. She denies known history of atrial fibrillation but has been treated for irregular heart rate for approximately 20 years with atenolol. She is not on any anticoagulants therapy and denies the use of antiplatelets. Chief Complaint: irregular heart beat Review of Systems Review of Systems: All systems reviewed & are unremarkable except as noted in HPI and below PMFSH Past Medical History Medical History (Updated 12/22/21 @ 00:39 by Chaka Schultz DO) Anxiety Chronic back pain Chronic bronchitis Chronic pain Chronic, continuous use of opioids Depression Diabetes type 2, controlled Fibromyalgia HTN (hypertension) DANNY (obstructive sleep apnea) PONV (postoperative nausea and vomiting) RLS (restless legs syndrome) Surgical History Surgical History (Updated 12/22/21 @ 11:44 by Suri Connor MD) H/O bilateral breast reduction surgery H/O foot surgery History of x2 History of hysterectomy History of tonsillectomy Family History Family History (Updated 12/22/21 @ 11:45 by Suri Connor MD) Other Breast cancer Diabetes mellitus Hypertension Social History Social History Smoking packs per day: 0.25 Smoking cigarettes per day: 5.0 Years smoked: 0.5 Smoking pack-years: 0.13 Smoking status: Current some day smoker Tobacco type: e-cigarettes/vaping Additional smoking assessment comments: quit smoking cigarettes approximately 6 months ago. Vapes occassionally Alcohol intake: never Alcohol use details: social Substance use: never Substance use type: does not use Spiritual care concerns: No Meds Home Medications and Allergies Home Medications Medication Instructions Recorded Confirmed Type albuterol sulfate [ProAir HFA] 2 puff INHALATION QID PRN 08/03/20 12/22/21 History atenolol 50 mg PO HS 08/03/20 12/22/21 History atorvastatin 20 mg PO HS 08/03/20 12/22/21 History citalopram 40 mg PO HS 08/03/20 12/22/21 History estradiol 1 mg PO HS 08/03/20 12/22/21 History glimepiride 2 mg PO BID PRN 08/03/20 12/21/21 History glycopyrrolate 2 mg PO Q12H 08/03/20 12/22/21 History hydrocodone-acetaminophen 1 tablet PO Q4-6H PRN 08/03/20 12/22/21 History lorazepam 1 mg PO QID PRN 08/03/20 12/21/21 History metformin 1,000 mg PO Q12H 08/03/20 12/22/21 History pregabalin 100 mg PO TID 08/03/20 12/21/21 History ropinirole 1 mg PO Q12H 08/03/20 12/22/21 History valacyclovir 500 mg PO HS 08/03/20 12/22/21 History insulin glargine [Lantus U-100 10 unit SUBCUT .AM 12/21/21 12/21/21 History Insulin] insulin glargine [Lantus U-100 12 unit SUBCUT .PM 12/21/21 12/21/21 History Insulin] acetaminophen [Acetaminophen Extra 1,000 mg PO Q6H PRN 12/22/21 12/22/21 History Strength] melatonin 3 mg PO HS PRN 12/22/21 12/22/21 History Allergies Allergy/AdvReac Type Severity Reaction Status Date / Time erythromycin base AdvReac Unknown Abdominal Verified 02/28/21 08:09 Pain TAPE SILK Allergy Mild BLISTERS--PEELS Uncoded 02/28/21 08:09 OFF SKIN Vital Signs Vital Signs - 24 hr 12/21/21 20:53 12/21/21 20:59 12/21/21 21:18 Temperature Pulse Rate 161 H 138 H Respiratory Rate 20 Blood Pressure 112/90 114/74 Pulse Oximetry 99 98 12/21/21 21:21 12/21/21 21:39 12/21/21 21:40 Temperature Pulse Rate 147 H 119 H 137 H Respiratory Rate 16 [address]
[2021-12-22] MEDS: HYDROcodone/acetaminophen (*CRX) 5-325 MG TABLET 1 TAB PO (09:20)
[2021-12-22] MEDS: GLYCOPYRROLATE 1 MG TABLET 2 MG PO ×2 (09:22→20:45)
[2021-12-22] MEDS: metFORMIN HCL XR 500 MG TAB.SR.24H 1000 MG PO ×2 (09:22→16:46)
[2021-12-22] MEDS: INSULIN GLARGINE (*BKC) 100 UNITS/ML SUB-Q ×2 (09:32→20:48)
[2021-12-22] MEDS: PREGABALIN (*CRX) 50 MG CAPSULE 100 MG PO ×3 (09:32→16:43)
[2021-12-22 11:54] LABS: Glucose Point of Care 159 mg/dl (65-105)
[2021-12-22 12:11] LABS: Magnesium 1.9 mg/dL (1.6-2.3)
[2021-12-22] MEDS: ENOXAPARIN 80 MG/0.8 ML SYRINGE 76 MG SUB-Q ×2 (12:16→20:46)
[2021-12-22 12:32] LABS: Hemoglobin A1C 7.1 % (<5.7)
[2021-12-22 16:18] LABS: Glucose Point of Care 118 mg/dl (65-105)
[2021-12-22] MEDS: SODIUM CHLORIDE 0.9% IV 1,000 ML 100 ML IV CONT (16:42)
[2021-12-22] MEDS: ONDANSETRON INJ 4 MG/2 ML VIAL IV PUSH (16:43)
[2021-12-22] MEDS: PANTOPRAZOLE SODIUM IV 40 MG VIAL IV PUSH ×2 (16:44→20:44)
[2021-12-22] MEDS: SUCRALFATE SUSP 100 MG/ML 10 ML UDC 1000 MG PO ×2 (16:44→20:45)
[2021-12-22] MEDS: atenoloL 50 MG TABLET PO (17:00)
--- NOTE | 2021-12-22 20:02 | PC.NURSE ---
Turned down cardizem from 10mg/hr to 5mg/hr.
[2021-12-22] MEDS: valACYclovir HCL 500 MG TABLET PO (20:45)
[2021-12-22] MEDS: estradioL 1 MG TABLET PO (20:45)
[2021-12-22] MEDS: CITALOPRAM HYDROBROMIDE 20 MG TABLET 40 MG PO (20:45)
[2021-12-22 20:46] LABS: Glucose Point of Care 109 mg/dl (65-105)
[2021-12-22] MEDS: ATORVASTATIN 20 MG TABLET PO (20:46)
[2021-12-23] VITALS (15 sets, daily range): BP systolic 106–133; BP diastolic 52–72; PULSE 62–99; RESP 16–18; TEMP 36.1–36.9; O2SAT 92–98
[2021-12-23] MEDS: SODIUM CHLORIDE 0.9% IV 1,000 ML 100 ML IV CONT (01:38)
[2021-12-23 05:17] LABS: Basophils Percent Auto 0.4 % (0.2-1.2); Eosinophils Absolute Auto 0.2 K/mm3 (0-0.3); Eosinophils Percent Auto 2.4 % (0-4.4); Hematocrit 30.7 % (37.0-47.0); Hemoglobin 10.6 g/dL (12.0-15.0); Immature Granulocyte Absolute 0.03 K/mm3 (0.00-0.031); Immature Granulocyte Percent A 0.3 % (0-0.5); Lymphocytes Absolute Auto 3.84 K/mm3 (0.9-3.2); Lymphocytes Percent Auto 42.7 % (18.3-44.2); Mean Corpuscular HGB Conc 34.5 g/dl (32-36); Mean Corpuscular Hemoglobin 32.2 pg (26-34); Mean Corpuscular Volume 93.3 fl (80-100); Mean Platelet Volume 9.7 fl (7.4-10.4); Monocytes Absolute Auto 0.6 K/mm3 (0.1-0.6); Monocytes Percent Auto 7.1 % (2.6-8.5); Neutrophils Absolute Auto 4.2 K/mm3 (1.3-6.7); Neutrophils Percent Auto 47.1 % (45.5-73.1); Platelet Count Result 222 k/mm3 (150-375); Red Blood Count 3.29 M/mm3 (4.2-5.4); Red Cell Distribution Width 12.5 % (11.5-14.5)
[2021-12-23 05:21] LABS: Anion Gap 3 mmol/L (8-16); Blood Urea Nitrogen 13 mg/dL (7-17); Carbon Dioxide 26 mmol/L (22-30); Chloride 110 mmol/L (98-107); Estimated CRCL calculation 69 ml/min; Estimated Glomerular Filt Rate > 60; Glucose 119 mg/dL (65-110); Magnesium 1.7 mg/dL (1.6-2.3); Potassium 4.4 mmol/L (3.4-5.0); Sodium 139 mmol/L (137-145)
[2021-12-23] MEDS: SUCRALFATE SUSP 100 MG/ML 10 ML UDC 1000 MG PO ×3 (06:24→17:24)
[2021-12-23 08:26] LABS: Glucose Point of Care 124 mg/dl (65-105)
[2021-12-23] MEDS: metFORMIN HCL XR 500 MG TAB.SR.24H 1000 MG PO ×2 (08:53→17:23)
[2021-12-23] MEDS: ENOXAPARIN 80 MG/0.8 ML SYRINGE 76 MG SUB-Q (08:54)
[2021-12-23] MEDS: INSULIN GLARGINE (*BKC) 100 UNITS/ML SUB-Q (08:54)
[2021-12-23] MEDS: PANTOPRAZOLE SODIUM IV 40 MG VIAL IV PUSH (08:55)
[2021-12-23] MEDS: GLYCOPYRROLATE 1 MG TABLET 2 MG PO (08:55)
[2021-12-23] MEDS: rOPINIRole HCL 1 MG TABLET PO (08:57)
[2021-12-23] MEDS: PREGABALIN (*CRX) 50 MG CAPSULE 100 MG PO ×3 (08:57→17:24)
[2021-12-23] MEDS: SODIUM CHLORIDE 0.9% IV 1,000 ML 100 ML (11:38)
[2021-12-23 12:42] LABS: Glucose Point of Care 103 mg/dl (65-105)
--- NOTE | 2021-12-23 13:48 | PM.CNCAR ---
Assessment and Plan Assessment and plan (1) Paroxysmal atrial fibrillation: Code(s): I48.0 - Paroxysmal atrial fibrillation Status: Acute Assessment and Plan: The patient has some type of arrhythmia 20 years ago, and now was admitted with AFib RVR even though she is compliant with her atenolol 50 mg q.h.s.. She has converted to sinus rhythm on diltiazem. The AFib may be related to age, sleep apnea. No valvular heart disease or cardiomyopathy. She does have the risk of recurrent atrial fibrillation. Her CHADS2 Vasc score is 3 (gender, age, diabetes). I recommend anticoagulation with Xarelto 20 mg q.h.s.. I also recommend changing and atenolol to metoprolol succinate 75 mg q.p.m.. Okay for discharge today Check TSH prior to discharge Counseled patient extensively about atrial fibrillation, complications, treatment Outpatient follow-up. (2) Chest pain: Code(s): R07.9 - Chest pain, unspecified Status: Acute Assessment and Plan: Troponins negative, EKG did not show acute ischemic changes. Chest pain secondary to AFib RVR. (3) Sleep apnea: Code(s): G47.30 - Sleep apnea, unspecified Status: Acute Assessment and Plan: Compliant with CPAP. (4) Psychological stress: Code(s): F43.9 - Reaction to severe stress, unspecified Status: Acute Assessment and Plan: Psychological stress may be a contributing factor. History of Present Illness History of Present Illness Consult date/time: 12/23/21 13:48 Requesting physician: Suri Connor MD Consult reason: atrial fibrillation Reason For Visit: A. fib with RVR, hypomagnesia Narrative: Lisa Gabriel this 65-year-old white female whom we were asked to see at the request of hospitalist Dr. Yessica Connor for advice and opinion regarding her AFib RVR, in consultation. She has a history of sleep apnea, and diabetes. Also: Fibromyalgia, sleep apnea, restless leg syndrome, chronic pain and anxiety. She does smoke and uses E cigarettes. Twenty years ago the patient had episode of racing and skipping of her heart beat and was admitted to [facility]. She was told she had any arrhythmia and started on atenolol 100 mg daily which was later reduced to 50 mg daily. No further episodes. Last week when she was visiting her mother in a custodial she had a sudden onset of nausea and vomiting. Yesterday December 23 she went to bring her mother lunch and had skipping of her heart, nausea and vomiting and went home. She felt her heart racing and developed severe heartburn and chest pressure radiating to her jaw. She was brought to the emergency room and found to have atrial fibrillation with heart rate of 154. She converted to sinus rhythm with IV diltiazem. The patient denies any history of hypertension. She does have sleep apnea and is compliant with CPAP. Rare alcohol consumption. No thyroid disease. No history of heart disease in the family. No history of exertional chest pain or pressure. She does feel she is under lot of stress recently particular since her mother, who lives with her, is now in rehab after a hip fracture. No bleeding problems. Review of Systems Constitutional: Constitutional: Reports fatigue Eyes: Eyes: Reports no additional eye complaints ENT: Denies epistaxis Cardiovascular: Cardiovascular: Reports chest pain, Denies pedal edema, Denies leg edema and Reports palpitations Respiratory: Respiratory: Denies cough, Denies dyspnea and Denies dyspnea on exertion Gastrointestinal: Gastrointestinal: Denies abdominal pain, Denies melena and Denies hematemesis Genitourinary: Genitourinary: Denies hematuria Musculoskeletal: Musculoskeletal: Reports arthralgias Integumentary/Breasts: Skin/Breast: Denies rash Neurologic: Denies Abnormal speech present Psychiatric: Psychiatric: Reports anxiety Endocrine: Endocrine: Reports fatigue PMFSH Past Medical History Medical History (Updated
[2021-12-23 14:41] LABS: Thyroid Stimulating Hormone 0.873 uIU/mL (0.465-4.680)
--- NOTE | 2021-12-23 15:32 | PM.DS ---
DS: Admitting Diagnosis Discharge Date 12/23/21 Admitting Diagnosis (1) Atrial fibrillation with rapid ventricular response: Code(s): I48.91 - Unspecified atrial fibrillation Status: Acute (2) Chest pain: Code(s): R07.9 - Chest pain, unspecified Status: Acute (3) Hypomagnesemia: Code(s): E83.42 - Hypomagnesemia Status: Acute (4) JENNY (generalized anxiety disorder): Code(s): F41.1 - Generalized anxiety disorder Status: Acute (5) Hypotension: Code(s): I95.9 - Hypotension, unspecified Status: Acute (6) Bradycardia: Code(s): R00.1 - Bradycardia, unspecified Status: Acute (7) Diabetes mellitus: Code(s): E11.9 - Type 2 diabetes mellitus without complications Status: Acute (8) Hyperlipidemia associated with type 2 diabetes mellitus: Code(s): E11.69 - Type 2 diabetes mellitus with other specified complication; E78.5 - Hyperlipidemia, unspecified Status: Acute (9) Paroxysmal atrial fibrillation: Code(s): I48.0 - Paroxysmal atrial fibrillation Status: Acute DS: Discharge Diagnosis Discharge Diagnosis (1) Atrial fibrillation with rapid ventricular response: Code(s): I48.91 - Unspecified atrial fibrillation Status: Acute (2) Chest pain: Code(s): R07.9 - Chest pain, unspecified Status: Acute (3) Hypomagnesemia: Code(s): E83.42 - Hypomagnesemia Status: Acute (4) JENNY (generalized anxiety disorder): Code(s): F41.1 - Generalized anxiety disorder Status: Acute (5) Hypotension: Code(s): I95.9 - Hypotension, unspecified Status: Acute (6) Bradycardia: Code(s): R00.1 - Bradycardia, unspecified Status: Acute (7) Diabetes mellitus: Code(s): E11.9 - Type 2 diabetes mellitus without complications Status: Acute (8) Hyperlipidemia associated with type 2 diabetes mellitus: Code(s): E11.69 - Type 2 diabetes mellitus with other specified complication; E78.5 - Hyperlipidemia, unspecified Status: Acute (9) Paroxysmal atrial fibrillation: Code(s): I48.0 - Paroxysmal atrial fibrillation Status: Acute (10) Sleep apnea: Code(s): G47.30 - Sleep apnea, unspecified Status: Acute (11) Psychological stress: Code(s): F43.9 - Reaction to severe stress, unspecified Status: Acute DS: Summary Hospital Course Reason for hospitalization: irregular heart rate Hospital Course: 65-year-old female admitted to the hospital with AFib RVR. Patient was admitted and placed on Cardizem drip and converted to normal sinus rhythm prior to discharge. Cardiology was consulted. Her home dose atenolol was changed to metoprolol. Patient was discharged home in stable condition on Xarelto indications to follow-up in the office of Dr. Robledo. 12/22/21 hypotension bradycardia diabetes melitis hyperlipidemia JENNY I suspect patient has had atrial fibrillation for approximately 20 years treated with atenolol. ChadVasc score 3 Full-dose Lovenox Continue atenolol Continue diltiazem drip Consult placed to Cardiology Anticipate titration of medical therapy for the treatment of atrial fibrillation by Cardiology upon consultation. Recommendations appreciated Continue home medication ECHO pending magnesium repleted am labs ordered Anticipate discharge home in 24-48 ortho statics 250cc bolus then 100cc /hr titrate off gtt as soon as possible atenolol when BP improved cont insulin for DM management cont BZD from home med list Pt will require > 48hrs of hospitalization cardiology consult pending 12/23/21 pt reports an arrhythmia for approximately 20 years treated with atenolol. spoke w Cardiology could be tx for frequent PVCs or other arrhythmia not necessarily h/o afib ChadVasc score 3 Full-dose Lovenox -> Xarelto (morning caregiver has been able to get prior auth for this drug) atenolol -> Metoprolol Succinate weaned
[2021-12-23 17:03] LABS: Glucose Point of Care 97 mg/dl (65-105)
[2021-12-23] MEDS: RIVAROXABAN 20 MG TABLET PO (17:25)
== END 2021-12-23 18:10 | disposition home or self-care (01) | DRG 310 ==
LOC: ANHED 22:18 → ANHIMU 12-22 00:30
PROVIDERS: Internal Medicine Cardiovascular Disease; Admitting Provider Internal Medicine; Emergency Provider Emergency Medicine; PCP Internal Medicine; Visit Provider Hospitalist
DX: I48.0 Paroxysmal atrial fibrillation (principal); G89.29 Other chronic pain; M54.9 Dorsalgia, unspecified; F32.A Depression, unspecified; E11.9 Type 2 diabetes mellitus without complications; M79.7 Fibromyalgia; I10 Essential (primary) hypertension; G47.33 Obstructive sleep apnea (adult) (pediatric); G25.81 Restless legs syndrome; F17.210 Nicotine dependence, cigarettes, uncomplicated; E83.42 Hypomagnesemia; I95.9 Hypotension, unspecified; E78.5 Hyperlipidemia, unspecified; F41.1 Generalized anxiety disorder; F43.9 Reaction to severe stress, unspecified; R00.1 Bradycardia, unspecified
CPT/HCPCS: 36415; 71045; 80048; 80053; 82948; 83036; 83690; 83735; 83880; 84443; 84484; 85025; 85610; 85730; 93005; 93306; 96361; 96365; 96366; 96372; 96375; 96376; 99285; A9270; C9113; G0378; J1650; J1815; J2405; J3475; J7030

== ENCOUNTER 2022-02-06 23:13 | Observation (INO) | payer MEDICARE, OTHER, SELFPAY ==
[2022-02-06] VITALS (9 sets, daily range): BP systolic 109–128; BP diastolic 66–90; PULSE 90–177; RESP 13–21; O2SAT 95–97
--- NOTE | ~2022-02-06 | NM_ITS ---
EXAMINATION: NM oumar stress w perfusion DATE: 02/08/2022 12:48 INDICATION: Chest pain. TECHNIQUE: Rest images were obtained following intravenous administration of 9.8 mCi Tc99m tetrofosmi n (Myoview). The patient was infused intravenously with Lexiscan (regadenoson). Then, 31.7 mCi Tc99m tetrofosmin (Myoview) was administered intravenously, and stress images were obtained. Data was recon structed into short axis and horizontal and vertical long axis SPECT images. Gated SPECT images were also obtained. COMPARISON: CT abdomen and pelvis 06/13/2021 FINDINGS: There is no definite reversible or fixed perfusion abnormality to suggest ischemia or infar ction. There is no segmental wall motion abnormality. Left ventricular ejection fraction measures > 70%. IMPRESSION: 1. No definite ischemia or infarct. 2. Normal left ventricular ejection fraction measuring >70%. Reviewed, dictated and finalized at location A.
--- NOTE | ~2022-02-06 | XR_ITS ---
EXAMINATION: XR chest 1V portable DATE: 02/06/2022 23:55 INDICATION: Chest pain. TECHNIQUE: A single frontal view of the chest was obtained. COMPARISON: Chest single view 12/21/2021, CT abdomen and pelvis 06/13/2021 FINDINGS: There is mild atelectasis in the lower lung zones. No pleural effusion or pneumothorax. The heart size is normal. Epidural electrodes are noted. IMPRESSION: 1. Mild atelectasis in the lower lung zones. Reviewed, dictated and finalized at location A.
--- NOTE | 2022-02-06 23:17 | ECG_ITS ---
Measurements Intervals [place] Rate: 148 P: [place]: 0 QRS: -10 QRSD: 89 T: -58 QT: 266 QTc: 417 Interpretive Statements ATRIAL FIBRILLATION WITH RAPID VENTRICULAR RESPONSE NONSPECIFIC ST & T-WAVE ABNORMALITY ABNORMAL RHYTHM ECG COMPARED TO ECG 12/21/2021 21:04:27 NO SIGNIFICANT CHANGES Electronically Signed On 02-07-2022 13:43:00 CDT by Luisa Robledo M.D.
--- NOTE | 2022-02-06 23:26 | PC.NURSE ---
2326 20 MG diltiazem administered IVP VORB ERP Welch
--- NOTE | 2022-02-06 23:29 | ED.ARRPALP ---
HPI - Arrhythmia/Palpitations General Chief Complaint: Arrhythmia/Palpitations Stated Complaint: palpitations/ SOB Time Seen by Provider: 02/06/22 23:20 Source: patient Mode of arrival: ambulatory Limitations: no limitations History of Present Illness HPI narrative: Pt presents with palpitations and rapid HR since about 2100. Pt has some pressure in her chest. Pt has Hx of A fib with RVR and was in the hospital a few weeks ago for same. Pt on eliquis. Pt saw diamond die polisher last week and everything was fine. MD complaint: rapid heart beat, heart racing , palpitations and irregular heart beat Onset (ago): hour(s) (2) Duration: constant Severity: similar to previous episodes Arrhythmia history: atrial fibrillation and on anti-coagulants Associated symptoms: chest pain Related Data Home Medications Medication Instructions Recorded Confirmed albuterol sulfate [ProAir HFA] 2 puff INHALATION QID PRN 08/03/20 12/22/21 atorvastatin 20 mg PO HS 08/03/20 12/22/21 citalopram 40 mg PO HS 08/03/20 12/22/21 estradiol 1 mg PO HS 08/03/20 12/22/21 glimepiride 2 mg PO BID PRN 08/03/20 12/21/21 glycopyrrolate 2 mg PO Q12H 08/03/20 12/22/21 hydrocodone-acetaminophen 1 tablet PO Q4-6H PRN 08/03/20 12/22/21 lorazepam 1 mg PO QID PRN 08/03/20 12/21/21 metformin 1,000 mg PO Q12H 08/03/20 12/22/21 pregabalin 100 mg PO TID 08/03/20 12/21/21 ropinirole 1 mg PO Q12H 08/03/20 12/22/21 valacyclovir 500 mg PO HS 08/03/20 12/22/21 Lantus U-100 Insulin 12 unit SUBCUT .PM 12/21/21 12/21/21 insulin glargine 10 unit SUBCUT .AM 12/21/21 12/21/21 acetaminophen [Acetaminophen Extra 1,000 mg PO Q6H PRN 12/22/21 12/22/21 Strength] melatonin 3 mg PO HS PRN 12/22/21 12/22/21 Allergies Allergy/AdvReac Type Severity Reaction Status Date / Time erythromycin base AdvReac Unknown Abdominal Verified 02/28/21 08:09 Pain TAPE SILK Allergy Mild BLISTERS--PEELS Uncoded 02/28/21 08:09 OFF SKIN Review of Systems Review of Systems: All systems reviewed & are unremarkable except as noted in HPI and below PMFSH Past Medical History Medical History (Updated 02/07/22 @ 01:20 by Selina Welch III, DO) Anxiety Chronic back pain Chronic bronchitis Chronic pain Chronic, continuous use of opioids Depression Diabetes type 2, controlled Fibromyalgia Hepatic steatosis Noted by CT scan 05/2021 HTN (hypertension) DANNY (obstructive sleep apnea) Paroxysmal atrial fibrillation PONV (postoperative nausea and vomiting) Psychological stress RLS (restless legs syndrome) Sleep apnea Surgical History Surgical History H/O bilateral breast reduction surgery H/O foot surgery History of x2 History of hysterectomy History of tonsillectomy Family History Family History Other Breast cancer Diabetes mellitus Hypertension Social History Social History Smoking packs per day: 0.25 Smoking cigarettes per day: 5.0 Years smoked: 0.5 Smoking pack-years: 0.13 Smoking status: Current some day smoker Tobacco type: e-cigarettes/vaping Additional smoking assessment comments: quit smoking cigarettes approximately 6 months ago. Vapes occassionally Alcohol intake: never Alcohol use details: social Substance use: never Substance use type: does not use Spiritual care concerns: No Exam Const: General: no acute distress Orientation/consciousness: patient oriented x3 Resp: Effort & Inspection: normal respiratory effort Auscultation: clear to auscultation bilaterally Cardio: Rate: tachycardic Rhythm: abnormal rhythm GI: Auscultation: normal bowel sounds Skin: General skin exam: normal color Neuro: General: patient oriented x3, moves all extremities and no focal motor deficits Extrem: General: normal to inspection and no clubbing, cyanosis or edema Psych:
[2022-02-06] MEDS: dilTIAZem 100 MG/100 ML 100 MG/100 ML BAG IV CONT (23:43)
[2022-02-06 23:44] LABS: Basophils Percent Auto 0.3 % (0.2-1.2); Eosinophils Absolute Auto 0.2 K/mm3 (0-0.3); Eosinophils Percent Auto 1.7 % (0-4.4); Hematocrit 33.8 % (37.0-47.0); Hemoglobin 12.1 g/dL (12.0-15.0); Immature Granulocyte Absolute 0.03 K/mm3 (0.00-0.031); Immature Granulocyte Percent A 0.3 % (0-0.5); Lymphocytes Percent Auto 39.6 % (18.3-44.2); Mean Corpuscular HGB Conc 35.8 g/dl (32-36); Mean Corpuscular Hemoglobin 31.9 pg (26-34); Mean Corpuscular Volume 89.2 fl (80-100); Monocytes Absolute Auto 1.2 K/mm3 (0.1-0.6); Monocytes Percent Auto 11.4 % (2.6-8.5); Neutrophils Absolute Auto 5.1 K/mm3 (1.3-6.7); Neutrophils Percent Auto 46.7 % (45.5-73.1); Platelet Count Result 262 k/mm3 (150-375); Red Blood Count 3.79 M/mm3 (4.2-5.4); Red Cell Distribution Width 12.6 % (11.5-14.5); White Blood Count 10.9 K/mm3 (4.5-10.0)
[2022-02-06 23:56] LABS: INR 2.8; Prothrombin Time 28.9 Seconds (11.1-14.7)
[2022-02-06 23:57] LABS: Partial Thromboplastin Time 68.6 SECONDS (22.3-36.8)
[2022-02-07] VITALS (28 sets, daily range): BP systolic 88–110; BP diastolic 53–76; PULSE 74–121; RESP 14–26; TEMP 36.4–36.9; O2SAT 95–100; BMI 28.3
[2022-02-07 00:11] LABS: Troponin I < 0.012 ng/mL (0.000-0.034)
[2022-02-07 00:38] LABS: Alanine Aminotransferase 22 U/L (4-35); Albumin Level 4.5 g/dL (3.5-5.1); Alkaline Phosphatase 79 U/L (38-126); Anion Gap 10 mmol/L (8-16); Aspartate Amino Transferase 29 U/L (14-36); Bilirubin,Total 0.3 mg/dL (0.2-1.3); Blood Urea Nitrogen 12 mg/dL (7-17); Calcium 9.2 mg/dL (8.4-10.2); Carbon Dioxide 22 mmol/L (22-30); Chloride 104 mmol/L (98-107); Estimated CRCL calculation 60 ml/min; Estimated Glomerular Filt Rate > 60; Glucose 144 mg/dL (65-110); Potassium 3.7 mmol/L (3.4-5.0); Sodium 136 mmol/L (137-145)
[2022-02-07 00:49] LABS: NT Pro B Type Natriuretic Pept 114 pg/mL (5-100)
--- NOTE | 2022-02-07 01:03 | PM.IMHP ---
H&P: HPI History of Present Illness Date/Time: 02/07/22 01:03 Chief Complaint: Palpitations. Narrative: This is a 66-year-old female with past medical history significant for atrial fibrillation, rate control and anticoagulated, type 2 diabetes mellitus, insulin dependent, restless leg syndrome, gastroesophageal reflux disease, dyslipidemia. 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 Patient states that she has been having palpitations with minimal exertion and shortness of breath with dizziness and nausea but no vomiting and chest pain with these episodes as well. Patient denies any fevers, rigors, chills, cough, sputum production, PND, orthopnea, leg swelling, syncope or near syncope. Preliminary workup was significant for atrial fibrillation with rapid ventricular response. Review of Systems Review of Systems: Palpitations, shortness of breath, chest pain. Constitutional: Constitutional: Denies chills, Denies fever(s), Denies malaise, Denies poor appetite and Denies weakness Eyes: Eyes: Denies change in vision ENT: Denies dysphagia, Denies vertigo, Reports dizziness, Denies nasal congestion, Denies nasal discharge, Denies nasal obstruction and Denies odynophagia Cardiovascular: Cardiovascular: Reports chest pain, Denies syncope, Denies pedal edema, Reports irregular heart rhythm, Denies leg edema, Reports lightheadedness, Denies radiating jaw, neck or arm pain, Reports palpitations, Reports dyspnea, Reports dyspnea on exertion and Denies orthopnea Respiratory: Respiratory: Denies cough Gastrointestinal: Gastrointestinal: Denies abdominal pain, Denies dyspepsia, Denies heartburn, Denies diarrhea, Reports nausea and Denies vomiting Genitourinary: Genitourinary: Denies dysuria Musculoskeletal: Musculoskeletal: Denies myalgias, Denies arthralgias and Denies joint swelling Integumentary/Breasts: Skin/Breast: Denies rash Neurologic: Denies focal weakness and Denies Sensory deficit (Neuro) Psychiatric: Psychiatric: Reports no additional psychiatric complaints and Reports as per HPI Endocrine: Endocrine: Denies cold intolerance, Denies heat intolerance, Denies polyphagia, Denies polydipsia, Denies polyuria and Denies palpitations Hematologic/Lymphatic: Hematologic/Lymphatic: Reports no additional hematologic/lymphatic complaints and Reports as per HPI Allergic/Immunologic: Allergic/Immunologic: Reports no additional allergic/immunologic complaints and Reports as per HPI [facility] Past Medical History Medical History (Updated 02/07/22 @ 04:18 by Derick Iraheta MD) Anxiety Chronic back pain Chronic bronchitis Chronic pain Chronic, continuous use of opioids Depression Diabetes type 2, controlled Fibromyalgia Hepatic steatosis Noted by CT scan 05/2021 HTN (hypertension) DANNY (obstructive sleep apnea) Paroxysmal atrial fibrillation PONV (postoperative nausea and vomiting) Psychological stress RLS (restless legs syndrome) Sleep apnea Surgical History Surgical History H/O bilateral breast reduction surgery H/O foot surgery History of x2 History of hysterectomy History of tonsillectomy Family History Family History Other Breast cancer Diabetes mellitus Hypertension Social History Social History Smoking packs per day: 0.25 Smoking cigarettes per day: 5.0 Years smoked: 0.5 Smoking pack-years: 0.13 Smoking status: Current some day smoker Tobacco type: e-cigarettes/vaping Additional smoking assessment comments: quit smoking cigarettes approximately 6 months ago. Vapes occassionally Alcohol intake: never Alcohol use details
--- NOTE | 2022-02-07 01:14 | PC.NURSE ---
ERP aware of pt. low blood pressures. RN instructed to titrate diltiazem drip to 2
--- NOTE | 2022-02-07 03:27 | ADMGEN ---
This patient, Lisa Gabriel, was admitted to IMU Room 207-01. Patient/family oriented to hospital policies and general routines including ID bracelet, bed and alarms, visiting hours, pain management, procedures, bathroom and other care routines, personal items, smoking policy, room service/diet, and visiting hours. Information on how to activate the Rapid Response Team has been discussed. Patient/Family are encouraged to report perceived risks to care and to ask questions if they do not understand what they are told or what they should do.
[2022-02-07 05:56] LABS: Troponin I < 0.012 ng/mL (0.000-0.034)
[2022-02-07] MEDS: PREGABALIN (*CRX) 50 MG CAPSULE 100 MG PO ×3 (09:31→17:40)
[2022-02-07] MEDS: HYDROcodone/acetaminophen (*CRX) 5-325 MG TABLET 1 TAB PO ×2 (09:31→17:41)
[2022-02-07] MEDS: GLYCOPYRROLATE 1 MG TABLET 2 MG PO ×2 (09:32→20:16)
[2022-02-07] MEDS: rOPINIRole HCL 1 MG TABLET PO ×2 (09:32→20:17)
[2022-02-07] MEDS: INSULIN GLARGINE (*BKC) 100 UNITS/ML SUB-Q ×2 (09:36→17:42)
[2022-02-07 09:41] LABS: Glucose Point of Care 174 mg/dl (65-105)
--- NOTE | 2022-02-07 14:15 | PM.CNCAR ---
Assessment and Plan Assessment and plan (1) Paroxysmal atrial fibrillation: Code(s): I48.0 - Paroxysmal atrial fibrillation Status: Acute Assessment and Plan: Recurrent AFib RVR despite metoprolol 75 mg daily. Appears we will need to step up therapy with an antiarrhythmic medication. Propafenone and flecainide are generic antiarrhythmics, but contraindicated in patients with ischemic heart disease. We should rule out ischemic heart disease with a stress test tomorrow since she has risk factors and has had some chest pains. If negative, she can be discharged tomorrow on flecainide or propafenone. If abnormal she may need further evaluation for ischemia and we can consider sotalol instead, which requires 3-4 days of telemetry in the hospital to watch for any proarrhythmic effects. Also can consider a fib ablation, though that is usually pursued if the patient has failed antiarrhythmic therapy. Perhaps add prn Cardizem for episodes at home. 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 Eliquis costs more. Discussed the use of warfarin. Patient prefers to continue Xarelto. (We assist w/ office samples.) (3) Chest pain: Code(s): R07.9 - Chest pain, unspecified Status: Acute Assessment and Plan: Atypical chest pain, during AFib RVR with negative troponins. Has risk factors for CAD, stress Cardiolite tomorrow. Hold metooprolol in a.m. Also has some chest discomfort while lying on the left side with each heartbeat, which is odd. Nothing to suggest pericarditis. (4) Hyperlipidemia associated with type 2 diabetes mellitus: Code(s): E11.69 - Type 2 diabetes mellitus with other specified complication; E78.5 - Hyperlipidemia, unspecified Status: Acute (5) DANNY (obstructive sleep apnea): Code(s): G47.33 - Obstructive sleep apnea (adult) (pediatric) Status: Acute Assessment and Plan: Compliant with CPAP History of Present Illness History of Present Illness Consult date/time: 02/07/22 14:15 Requesting physician: Derick Iraheta MD Consult reason: atrial fibrillation Reason For Visit: a fib with rvr Narrative: Lisa Gabriel is a 66-year-old female we have been asked to see at the request of Dr. Liao for our advice and opinion regarding her recurrent atrial fibrillation, in consultation. She also has a history of diabetes, DANNY on CPAP, restless legs syndrome, GERD, and dyslipidemia. Ms. Gabriel was admitted with new onset AFib RVR on 12/23/2021. She converted to sinus rhythm on diltiazem. Her atenolol was changed to metoprolol, and she was started on Xarelto and discharged for outpatient follow-up. Echo on admission showed EF 60-65, diastolic dysfunction, mild biatrial enlargement, and mild mitral and tricuspid regurgitation. Troponins and TSH were normal. She saw our nurse practitioner on Saturday, complaining of intermittent skipped beats and tachycardia with exertion. she also has been feeling chest pains w/ each heartbeat when she lies on her left side. No fevers or pleuritic CP. Compliant w/ meds, though XArelto costs $80/month. We have scheduled a stress test to rule out underlying ischemia (and therefore allow us to use propafenone or flecainide as an anti rhythmic) and a monitor. The patient returned to the emergency room late last night with palpitations and then sudden onset of a rapid heart beat with some chest pressure ( felt like my heart exploded! ) since 2099 last night. This was associated with dizziness and nausea. She was in atrial fib HR 148, and was started on a CArdizem drip and quickly converted to NSR. Review of Systems Constitutional: Constitutional: Reports fatigue ENT: Denies epistaxis Cardiovascular: Cardiovascular: Reports chest pain, Denies pedal edema, Denies leg
[2022-02-07 14:16] LABS: Glucose Point of Care 106 mg/dl (65-105)
[2022-02-07 16:04] LABS: Glucose Point of Care 108 mg/dl (65-105)
[2022-02-07] MEDS: RIVAROXABAN 20 MG TABLET PO (17:41)
[2022-02-07 19:52] LABS: Glucose Point of Care 231 mg/dl (65-105)
[2022-02-07] MEDS: CITALOPRAM HYDROBROMIDE 20 MG TABLET 40 MG PO (20:16)
[2022-02-07] MEDS: valACYclovir HCL 500 MG TABLET PO (20:17)
[2022-02-07] MEDS: estradioL 1 MG TABLET PO (20:17)
[2022-02-07] MEDS: ATORVASTATIN 20 MG TABLET PO (20:18)
[2022-02-08] VITALS (10 sets, daily range): BP systolic 105–116; BP diastolic 47–66; PULSE 68–89; RESP 15–18; TEMP 36.1–36.6; O2SAT 96–99
--- NOTE | 2022-02-08 08:03 | EST_ITS ---
Patient Info Name: Lisa Gabriel Age: 66 years : 1955 Gender: Female Ht: 65 in Wt: 169 lbs BSA: 1.89 m2 Heart Rhythm: Sinus Rhythm Exam Date: 02/08/2022 11:45 AM Exam Location: [facility] [place] Stress Patient Status: Inpatient Admit Date: 02/07/2022 Staff Ordering Physician: Luisa Robledo MD Attending Provider: Derick Iraheta MD Nurse: DANNIELLE RONQUILLO NP Exam Type: CA stress oumar w NM Study Info Indications I48.0 - Paroxysmal atrial fibrillation R07.9 - Chest pain, unspecified A regadenoson stress test was performed. Summary 1. No abnormal ST-T wave changes with lexiscan. 2. Nuclear test results to follow. Protocol: Lexiscan Stress ECG Details Stage: REST Duration (min): 5 min : 57 sec HR (bpm): 73 SBP (mmHg): 124 DBP (mmHg): 71 Stage: REST Duration (min): 13 min : 10 sec HR (bpm): 80 SBP (mmHg): 124 DBP (mmHg): 71 Stage: STAGE 1 Duration (min): 1 min : 0 sec HR (bpm): 97 SBP (mmHg): 117 DBP (mmHg): 77 Stage: RECOVERY Duration (min): 1 min : 0 sec HR (bpm): 100 SBP (mmHg): 124 DBP (mmHg): 76 Stage: RECOVERY Duration (min): 2 min : 0 sec HR (bpm): 93 SBP (mmHg): 124 DBP (mmHg): 76 Stage: RECOVERY Duration (min): 3 min : 0 sec HR (bpm): 95 SBP (mmHg): 119 DBP (mmHg): 72 Stage: RECOVERY Duration (min): 3 min : 43 sec HR (bpm): 86 SBP (mmHg): 119 DBP (mmHg): 72 Rest HR: 80 bpm Peak HR: 106 bpm Rest Sys BP: 124 mmHg Peak Sys BP: 124 mmHg Max Pred HR: 152 bpm % Max Pred HR: 70 % Target HR: 129 bpm Max RPP: 13,144 bpm*mmHg BP Response: Normal blood pressure response Termination Reason: Completed protocol Cardiac Symptoms: None Total Time: 1 min : 0 sec Rest Proctor BP: 71 mmHg Peak Proctor BP: 76 mmHg Total Dose: 0.4 mg Resting ECG Normal sinus rhythm - normal ECG. Stress ECG No abnormal ST/T wave changes with exercise. Arrhythmias None. Report Signatures
--- NOTE | 2022-02-08 08:47 | PM.IMPN ---
Progress Note: A&P Additional Plan #Atrial fibrillation with rapid ventricular response: -now rate controlled -managed with diltiazem drip -continue home meds -continue to monitor. 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 -appreciate cardiology recs. #HTN (hypertension): -continue home meds #DANNY (obstructive sleep apnea): -uses CPAP at nighttime #Diabetes mellitus: -continue home meds -Accu-Cheks AC and HS -Carb consistent diet #Fibromyalgia: -continue home meds. #Chronic back pain: -continue home meds Tylenol as needed Follow-up in outpatient setting. #RLS (restless legs syndrome): -continue ropinirole Time Spent With Patient Time with patient: 15 - 25 minutes Subjective Date/time seen: 02/08/22 08:47 No new complains. Exam Const: General: cooperative, comfortable and no acute distress Resp: Effort & Inspection: normal respiratory effort and able to speak in complete sentences Cardio: Rate: regular rate Rhythm: abnormal rhythm Heart sounds: S1 normal heart sound present and S2 normal heart sound present GI: Inspection: normal to inspection GI Palp: No abdominal tenderness Auscultation: normal bowel sounds Skin: General skin exam: normal color and no rashes or lesions noted Objective Data Vital Signs Vital Signs: Vital Signs - 24 hr 02/07/22 10:00 02/07/22 12:00 02/07/22 14:00 Temperature 98.5 F Pulse Rate 77 76 80 Respiratory Rate 18 Blood Pressure 107/53 L Pulse Oximetry 98 02/07/22 16:00 02/07/22 18:00 02/07/22 19:57 Temperature 98.4 F 97.6 F Pulse Rate 78 75 81 Respiratory Rate 16 16 Blood Pressure 106/61 110/68 Pulse Oximetry 96 99 02/07/22 20:00 02/07/22 21:27 02/08/22 00:00 Temperature 97.6 F Pulse Rate 83 79 72 Respiratory Rate 16 15 Blood Pressure 116/66 Pulse Oximetry 99 99 02/08/22 02:00 02/08/22 02:48 02/08/22 04:00 Temperature 96.9 F L Pulse Rate 74 73 Respiratory Rate 15 Blood Pressure 106/47 L Pulse Oximetry 96 96 02/08/22 05:58 02/08/22 08:00 Temperature 97.7 F Pulse Rate 78 72 Respiratory Rate 16 Blood Pressure 105/56 L Pulse Oximetry 98 Intake/Output Intake/Output: Intake & Output 02/05/22 02/06/22 02/07/22 02/08/22 23:59 23:59 23:59 23:59 Intake Total 2140 350 Output Total 1200 600 Balance 940 -250 Meds/Results Medications: Active Medications Generic Name Dose Route Start Last Admin Trade Name Freq PRN Reason Stop Dose Admin Acetaminophen 1,000 mg 02/07/22 08:59 Acetaminophen 500 Mg Tablet PO Q6H PRN Pain (Scale Score 4-6) Hydrocodone Bitart/Acetaminophen 1 tab 02/07/22 08:59 02/07/22 17:41 Hydrocodone/Acetaminophen (*Crx) 5-325 Mg Tablet PO 1 tab Q4-6H PRN Administration Pain (Scale Score 7-10) Albuterol 2 puff 02/07/22 08:59 Albuterol Sulfate (*Sp) Aerosol 1 Puff INHALATION QIDRT PRN Dyspnea Atorvastatin Calcium 20 mg 02/07/22 21:00 02/07/22 20:18 Atorvastatin 20 Mg Tablet PO 20 mg HS GEN Administration Citalopram Hydrobromide 40 mg 02/07/22 21:00 02/07/22 20:16 Citalopram Hydrobromide 20 Mg Tablet PO 40 mg HS GEN Administration Estradiol 1 mg 02/07/22 21:00 02/07/22 20:17 Estradiol 1 Mg Tablet PO 1 mg HS GEN Administration Glycopyrrolate 2 mg 02/07/22 09:00 02/07/22 20:16 Glycopyrrolate 1 Mg Tablet PO 2 mg Q12HR GEN Administration Insulin Glargine 12 - 14 units 02/07/22 18:00 02/07/22 17:42 Insulin Glargine (*Bkc) 100 Units/Ml SUB-Q 12 units QPM GEN Administration Protocol Insulin Glargine 8 - 10 units 02/07/22 09:00 02/07/22 09:36 Insulin Glargine (*Bkc) 100 Units/Ml SUB-Q 10 units DAILY GEN Administration Protocol Lorazepam 1 mg 02/07/22 08:59 Lorazepam (*Crx) 1 Mg Tablet PO QID PRN Anxiety Melatonin 3 mg 02/07/22 08:59 Melatonin 3 Mg Tablet PO HS PRN Sleep Pregabalin 100 mg 02/07/22 09:00 02/07/22 17:40
[2022-02-08] MEDS: HYDROcodone/acetaminophen (*CRX) 5-325 MG TABLET 1 TAB PO (09:39)
[2022-02-08] MEDS: GLYCOPYRROLATE 1 MG TABLET 2 MG PO (09:40)
[2022-02-08] MEDS: rOPINIRole HCL 1 MG TABLET PO (09:40)
[2022-02-08] MEDS: PREGABALIN (*CRX) 50 MG CAPSULE 100 MG PO ×3 (09:44→16:46)
[2022-02-08 09:52] LABS: Glucose Point of Care 114 mg/dl (65-105)
--- NOTE | 2022-02-08 12:13 | PM.PNCARD ---
Progress Note: A&P Assessment and Plan (1) Paroxysmal atrial fibrillation: Code(s): I48.0 - Paroxysmal atrial fibrillation <YESENIA Hodge - Last Filed: 02/08/22 12:55> Status: Acute <YESENIA Hodge - Last Filed: 02/08/22 12:55> Assessment and Plan: Recurrent AFib RVR despite metoprolol 75 mg daily. Appears we will need to step up therapy with an antiarrhythmic medication. Propafenone and flecainide are generic antiarrhythmics, but contraindicated in patients with ischemic heart disease. Underwent lexiscan stress test to rule out ischemia. Results are pending. If negative, she can be discharged tomorrow on flecainide or propafenone. If abnormal she may need further evaluation for ischemia and we can consider sotalol instead, which requires 3-4 days of telemetry in the hospital to watch for any proarrhythmic effects. Also can consider a fib ablation, though that is usually pursued if the patient has failed antiarrhythmic therapy. Perhaps add prn Cardizem for episodes at home. 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 Naveed costs more. Discussed the use of warfarin. Patient prefers to continue Xarelto. (We assist w/ office samples.) <YESENIA Hodge - Last Filed: 02/08/22 12:55> (3) Chest pain: Code(s): R07.9 - Chest pain, unspecified <YESENIA Hodge - Last Filed: 02/08/22 12:55> Status: Acute <YESENIA Hodge - Last Filed: 02/08/22 12:55> Assessment and Plan: Atypical chest pain, during AFib RVR with negative troponins. Has risk factors for CAD, nm stress test performed. More recommendations to follow when results are available. Also has some chest discomfort while lying on the left side with each heartbeat, which is odd. Nothing to suggest pericarditis. <YESENIA Hodge - Last Filed: 02/08/22 12:55> (4) Hyperlipidemia associated with type 2 diabetes mellitus: Code(s): E11.69 - Type 2 diabetes mellitus with other specified complication; E78.5 - Hyperlipidemia, unspecified <YESENIA Hodge - Last Filed: 02/08/22 12:55> Status: Acute <YESENIA Hodge - Last Filed: 02/08/22 12:55> (5) DANNY (obstructive sleep apnea): Code(s): G47.33 - Obstructive sleep apnea (adult) (pediatric) <YESENIA Hodge - Last Filed: 02/08/22 12:55> Status: Acute <YESENIA Hodge - Last Filed: 02/08/22 12:55> Assessment and Plan: Compliant with CPAP <YESENIA Hodge - Last Filed: 02/08/22 12:55> Additional Plan Addendum: Attending physician note S: Feeling much better, no further palpitations. at the bedside. Expresses concern about the cost of Xarelto. Eliquis is also expensive. O: Physical exam: Vital signs reviewed. General: Sitting on bed, no distress SHEENT: Extraocular muscles intact Cardiac: Regular rate and rhythm, no murmurs or gallops Lungs: Distant breath sounds, clear to auscultation, no respiratory distress Abdomen: Soft and nontender Extremities: No edema Skin: No lesions Neurologic: Alert and oriented, moved all extremities Psychiatric: Normal affect Telemetry: Normal sinus rhythm, no APCs, PVCs or atrial fibrillation Lexiscan: Normal perfusion, EF greater than 70% Assessment: 1. Paroxysmal atrial fibrillation, with recurrent AFib despite metoprolol. No evidence of structural heart disease so she will be able to take flecainide or propafenone with low risk. Counseled patient and regarding atrial fibrillation, treatment options, use of an antiarrhythmic such a
--- NOTE | 2022-02-08 15:13 | ECG_ITS ---
Measurements Intervals [place] Rate: 71 P: 66 MT: 150 QRS: 4 QRSD: 97 T: 10 QT: 407 QTc: 442 Interpretive Statements SINUS RHYTHM COMPARED TO ECG 02/06/2022 23:22:59 SINUS RHYTHM HAS BEEN RESTORED Electronically Signed On 02-08-2022 20:57:33 CDT by Luisa Robledo M.D.
--- NOTE | 2022-02-08 16:14 | PM.DS ---
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 Status: Acute (3) DANNY (obstructive sleep apnea): Code(s): G47.33 - Obstructive sleep apnea (adult) (pediatric) Status: Acute (4) Hypertension: Code(s): I10 - Essential (primary) hypertension Status: Acute DS: Summary Hospital Course Hospital Course: 66-year-old female with atrial fibrillation, type 2 diabetes mellitus, insulin dependent, restless leg syndrome, gastroesophageal reflux disease, dyslipidemia who presented to the emergency room, brought by her due to palpitations, shortness of breath, patient stated that she was just recently at her web marketing intern's office and has an appointment for a stress test and heart monitor or in the coming week. Patient stated that she has been having palpitations with minimal exertion and shortness of breath with dizziness and nausea but no vomiting and chest pain with these episodes as well. Patient denied any fevers, rigors, chills, cough, sputum production, PND, orthopnea, leg swelling, syncope or near syncope. Preliminary workup was significant for atrial fibrillation with rapid ventricular response. She was managed with diltiazem drip and by continuing her home metoprolol 75mg BID while on telemetry and rate control was achieved. Personnel Representative was consulted, they did stress test on 02/08/2022 which was negative, hence PO Flecainide 50mg BID was started and the patient is to follow up with web marketing intern in the office in 1 week. OK to discharge home per web marketing intern. Time Spent with Patient Time attestation: Total time spent providing and/or coordinating discharge services: 40 minutes Time spent: Greater than 30 minutes Exam Const: General: cooperative, comfortable and no acute distress Resp: Effort & Inspection: normal respiratory effort and able to speak in complete sentences Auscultation: clear to auscultation bilaterally Cardio: Jugular venous distension: no JVD Rate: regular rate Heart sounds: S1 normal heart sound present and S2 normal heart sound present GI: Inspection: normal to inspection and no edema GI Palp: No abdominal tenderness Auscultation: normal bowel sounds Neuro: General: oriented to person, oriented to place, oriented to time, patient oriented x3 and moves all extremities Extrem: Right lower extremity: normal to inspection Left lower extremity: normal to inspection DS: Data Data Completed and Pending Labs on day of discharge: Labs from last 24 hours 02/08/22 02/07/22 09:38 19:48 POC Capillary Glucose 114 H 231 H Discharge Plan Discharge Attending physician on discharge: Nati Deras Consulting providers: Luisa Robledo Discharging Clinician: Nati Deras Patient Disposition: Home, Self-Care Activity: may shower Diet: heart healthy Patient Instructions: Antibiotic Form, Rivaroxaban (By mouth), A-fib (Atrial Fibrillation) (DC), How to Stop Smoking (DC), Electronic Cigarettes and Your Health (GEN) Stand Alone Forms: General Discharge Information Follow-up/Referrals: Myers,Yovanny Garner MD [Primary Care Provider] - Luisa Robledo MD [Physician] - (YOU ARE SCHEDULED FOR AN EKG ON 02/25/22 AT 1:15. PLEASE ARRIVE AT 1:00) Discharge Medications: New flecainide 50 mg tablet 50 mg PO Q12H Qty: 30 RF: 5 Continued glycopyrrolate 1 mg tablet 2 mg PO Q12H RF: 0 atorvastatin 20 mg tablet 20 mg PO HS RF: 0 citalopram 40 mg tablet 40 mg PO HS RF: 0 hydrocodone-acetaminophen 5-325 mg tablet 1 tablet PO Q4-6H PRN (Reason: Pain (Scale Score 7-10)) RF: 0
[2022-02-08] MEDS: RIVAROXABAN 20 MG TABLET PO (16:46)
[2022-02-08] MEDS: FLECAINIDE ACETATE 50 MG TABLET PO (16:46)
== END 2022-02-08 17:01 | disposition home or self-care (01) ==
LOC: ANHED 02-07 01:20 → ANHIMU 02-07 03:51
PROVIDERS: Admitting Provider Internal Medicine; Emergency Provider Emergency Medicine; PCP Internal Medicine; Visit Provider Internal Medicine
DX: I48.0 Paroxysmal atrial fibrillation (principal); R07.89 Other chest pain; F17.290 Nicotine dependence, other tobacco product, uncomplicated; Z79.01 Long term (current) use of anticoagulants; E11.9 Type 2 diabetes mellitus without complications; Z79.4 Long term (current) use of insulin; K21.9 Gastro-esophageal reflux disease without esophagitis; E78.5 Hyperlipidemia, unspecified; I10 Essential (primary) hypertension; G47.33 Obstructive sleep apnea (adult) (pediatric); G25.81 Restless legs syndrome; M79.7 Fibromyalgia; M54.9 Dorsalgia, unspecified; G89.29 Other chronic pain
CPT/HCPCS: 36415; 71045; 78452; 80053; 82948; 83880; 84484; 85025; 85610; 85730; 93005; 93017; 96365; 96366; 99285; A9270; A9502; G0378; J1815; J2785

== ENCOUNTER 2022-04-20 08:51 | Emergency (ER) | payer MEDICARE, OTHER, SELFPAY ==
--- NOTE | ~2022-04-20 | CT_ITS ---
EXAMINATION: CT BRAIN W/O DATE: 04/20/2022 09:31 INDICATION: Headache TECHNIQUE: Computed tomography (CT) of the head was performed without intravenous contrast. The dose- length product was 605.33 mGy-cm. Automated exposure control and iterative reconstruction technique w ere employed. COMPARISON: No prior studies for comparison. FINDINGS: Normal brain parenchymal volume for age. Normal chavira-white differentiation. No acute intrac ranial hemorrhage, infarction, mass or mass effect. There are scattered mild periventricular and subc ortical white matter changes, most likely related to small vessel ischemic disease (microangiopathy). No ventriculomegaly or midline shift. Midline sagittal images demonstrate a normal corpus callosum, c raniovertebral junction and sella turcica. Basilar cisterns are patent. Paranasal sinuses and mastoids are pneumatized. No depressed skull fractures. IMPRESSION: 1. No acute intracranial abnormality. 2: Chronic age-related findings. Reviewed, dictated and finalized at location A.
--- NOTE | ~2022-04-20 | XR_ITS ---
EXAMINATION: XR chest 2V DATE: 04/20/2022 09:35 INDICATION: Dizziness and lightheadedness TECHNIQUE: PA and lateral views of the chest are obtained. COMPARISON: 02/06/2022 FINDINGS: The lungs are free of acute opacities. No pleural effusion or pneumothorax. The cardiomedia stinal silhouette is normal. There is mild thoracic spondylosis. Neurostimulator leads project over t he midthoracic spine in the central spinal canal. IMPRESSION: 1. No acute cardiopulmonary abnormality. Reviewed, dictated and finalized at location B.
[2022-04-20 09:03] VITALS: BP 137/94; PULSE 81; RESP 14; TEMP 36.8; O2SAT 100
--- NOTE | 2022-04-20 09:19 | ECG_ITS ---
Measurements Intervals [place]bert Rate: 75 P: 220 MD: 360 QRS: -16 QRSD: 104 T: -7 QT: 403 QTc: 451 Interpretive Statements SINUS RHYTHM NONSPECIFIC ST & T-WAVE ABNORMALITY- ANT/INF LEADS BASELINE ARTIFACT- II, III, AVR, AVL, AVF, V1-V6 BORDERLINE ECG Electronically Signed On 04-20-2022 15:28:39 CDT by Rodrigo Austin D.O.
--- NOTE | 2022-04-20 09:24 | ED.RECABL ---
HPI - Recheck/Abnormal Lab/Rx General Chief Complaint: Recheck/Abnormal Lab/Rx <Jennifer Allen PA-C - Last Filed: 04/20/22 11:09> Stated Complaint: inr too high 8.5 <Jennifer Allen PA-C - Last Filed: 04/20/22 11:09> Time Seen by Provider: 04/20/22 09:09 <TAYLOR Mcintosh Last Filed: 04/20/22 11:09> Source: patient <TAYLOR Mcintosh Last Filed: 04/20/22 11:09> Mode of arrival: ambulatory <TAYLOR Mcintosh Last Filed: 04/20/22 11:09> Limitations: no limitations <Jennifer Allen PA-C - Last Filed: 04/20/22 11:09> History of Present Illness HPI narrative: This is a 66-year-old female that presents to the emergency department for abnormal labs. 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 She takes warfarin daily for her history of atrial fibrillation. She has been on this medication for the last couple of weeks. Reports she has had some lightheadedness upon standing. Also reports some intermittent headaches over the last couple of days. She does report she has been having trouble with her sinuses currently though. She is on azithromycin for acute sinusitis. She denies any signs/symptoms of bleeding. Denies epistaxis, hematemesis, hematochezia, or hematuria. <Jennifer Allen PA-C - Last Filed: 04/20/22 11:09> Related Data Home Medications: Home Medications Medication Instructions Recorded Confirmed albuterol sulfate 90 mcg/actuation 2 puff inhalation QID PRN Dyspnea 08/03/20 02/07/22 aerosol inhaler (ProAir HFA) atorvastatin 20 mg tablet 20 mg PO HS 08/03/20 02/07/22 citalopram 40 mg tablet 40 mg PO HS 08/03/20 02/07/22 estradiol 1 mg tablet 1 mg PO HS 08/03/20 02/07/22 glimepiride 2 mg tablet 2 mg PO BID 08/03/20 02/07/22 glycopyrrolate 1 mg tablet 2 mg PO Q12H 08/03/20 02/07/22 hydrocodone 5 mg-acetaminophen 325 1 tablet PO Q4-6H PRN Pain (Scale 08/03/20 02/07/22 mg tablet Score 7-10) lorazepam 1 mg tablet 1 mg PO QID PRN Anxiety 08/03/20 02/07/22 metformin 500 mg tablet,extended 1,000 mg PO Q12H 08/03/20 02/07/22 release 24 hr pregabalin 100 mg capsule 100 mg PO TID 08/03/20 02/07/22 ropinirole 0.5 mg tablet 1 mg PO Q12H 08/03/20 02/07/22 valacyclovir 500 mg tablet 500 mg PO HS 08/03/20 02/07/22 insulin glargine 100 unit/mL 10 unit subcut .AM 12/21/21 02/07/22 subcutaneous cartridge insulin glargine 100 unit/mL 12 unit subcut .PM 12/21/21 02/07/22 subcutaneous solution (Lantus U-100 Insulin) acetaminophen 500 mg tablet 1,000 mg PO Q6H PRN Pain (Scale 12/22/21 02/07/22 (Acetaminophen Extra Strength) Score 4-6) melatonin 3 mg tablet 3 mg PO HS PRN Sleep 12/22/21 02/07/22 <Jennifer Allen PA-C - Last Filed: 04/20/22 11:09> Allergies/Adverse Reactions: Allergies Allergy/AdvReac Type Severity Reaction Status Date / Time erythromycin base AdvReac Unknown Abdominal Verified 02/28/21 08:09 Pain TAPE SILK Allergy Mild BLISTERS--PEELS Uncoded 02/28/21 08:09 OFF SKIN <Jennifer Allen PA-C - Last Filed: 04/20/22 11:09> Review of Systems Review of Systems: CONSTITUTIONAL: Denies fever ENT: Reports congestion CARDIOVASCULAR: Denies chest pain RESPIRATORY: Denies dyspnea. GENITOURINARY: Denies hematuria. NEUROLOGIC: Reports headache. Denies numbness, or weakness. <TAYLOR Mcintosh Last Filed: 04/20/22 11:09> All systems reviewed & are unremarkable except as noted in HPI and below <Jennifer Allen PA-C - Last Filed: 04/20/22 11:09> [facility] Past Medical History Medical History: Medical History Anxiety Chronic back pain Chronic bronchitis Chronic pain Chronic, continuous use of opioids Depression Diabetes type 2, controlled Fibromyalgia Hepatic steatosis Noted by CT scan 05/2021 HTN (hypertension) DANNY (obstructive sleep apnea) Paroxysmal atrial fibrillation PONV (postoperative nausea and vomitin
[2022-04-20 09:42] LABS: Basophils Percent Auto 0.5 % (0.2-1.2); Eosinophils Absolute Auto 0.2 K/mm3 (0-0.3); Eosinophils Percent Auto 2.6 % (0-4.4); Hematocrit 36.4 % (37.0-47.0); Hemoglobin 12.3 g/dL (12.0-15.0); Immature Granulocyte Absolute 0.03 K/mm3 (0.00-0.031); Immature Granulocyte Percent A 0.4 % (0-0.5); Lymphocytes Absolute Auto 3.14 K/mm3 (0.9-3.2); Lymphocytes Percent Auto 37.5 % (18.3-44.2); Mean Corpuscular HGB Conc 33.8 g/dl (32-36); Mean Corpuscular Hemoglobin 30.6 pg (26-34); Mean Corpuscular Volume 90.5 fl (80-100); Mean Platelet Volume 9.8 fl (7.4-10.4); Monocytes Absolute Auto 0.7 K/mm3 (0.1-0.6); Monocytes Percent Auto 8.2 % (2.6-8.5); Neutrophils Absolute Auto 4.3 K/mm3 (1.3-6.7); Neutrophils Percent Auto 50.8 % (45.5-73.1); Platelet Count Result 305 k/mm3 (150-375); Red Blood Count 4.02 M/mm3 (4.2-5.4); Red Cell Distribution Width 13.5 % (11.5-14.5); White Blood Count 8.4 K/mm3 (4.5-10.0)
[2022-04-20] MEDS: SODIUM CHLORIDE 0.9% IV 500 ML 999 ML IV CONT (09:47)
[2022-04-20 09:54] LABS: Alanine Aminotransferase 22 U/L (6-35); Albumin Level 4.5 g/dL (3.5-5.1); Alkaline Phosphatase 82 U/L (38-126); Anion Gap 7 mmol/L (8-16); Aspartate Amino Transferase 29 U/L (14-36); Bilirubin,Total 0.3 mg/dL (0.2-1.3); Blood Urea Nitrogen 8 mg/dL (7-17); Calcium 9.1 mg/dL (8.4-10.2); Carbon Dioxide 27 mmol/L (22-30); Chloride 103 mmol/L (98-107); Estimated CRCL calculation 71 ml/min; Estimated Glomerular Filt Rate > 60; Glucose 145 mg/dL (65-110); Potassium 3.6 mmol/L (3.4-5.0); Sodium 137 mmol/L (137-145)
[2022-04-20 09:58] LABS: Prothrombin Time 73.5 Seconds (11.1-14.7)
[2022-04-20 09:59] LABS: Partial Thromboplastin Time 98.7 SECONDS (22.3-36.8)
[2022-04-20 10:09] LABS: INR 9.4
[2022-04-20] MEDS: PHYTONADIONE 2.5 MG TAB PO (10:52)
[2022-04-20 11:15] VITALS: BP 128/82; PULSE 74; RESP 16; O2SAT 100
== END 2022-04-20 11:17 | disposition home or self-care (01) ==
PROVIDERS: Physician Assistant; Emergency Provider Emergency Medicine; PCP Internal Medicine
DX: R79.1 Abnormal coagulation profile (principal); R42 Dizziness and giddiness; I48.0 Paroxysmal atrial fibrillation; E11.9 Type 2 diabetes mellitus without complications; G25.81 Restless legs syndrome; G47.30 Sleep apnea, unspecified; Z79.4 Long term (current) use of insulin; Z79.84 Long term (current) use of oral hypoglycemic drugs; Z79.01 Long term (current) use of anticoagulants; F17.290 Nicotine dependence, other tobacco product, uncomplicated
CPT/HCPCS: 36415; 70450; 71046; 80053; 85025; 85610; 85730; 93005; 96360; 99284; A9270; J7040

== ENCOUNTER 2022-07-04 11:37 | Emergency (ER) | payer OTHER, MEDICARE, SELFPAY ==
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
[2022-07-04 11:42] VITALS: BP 134/77; PULSE 72; RESP 18; TEMP 36.8; O2SAT 97
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
[2022-07-04 12:11] LABS: Basophils Absolute Auto 0.1 K/mm3 (0.0-0.1); Basophils Percent Auto 0.4 % (0.2-1.2); Eosinophils Absolute Auto 0.4 K/mm3 (0-0.3); Eosinophils Percent Auto 2.8 % (0-4.4); Hematocrit 36.4 % (37.0-47.0); Hemoglobin 12.5 g/dL (12.0-15.0); Immature Granulocyte Percent A 0.8 % (0-0.5); Lymphocytes Absolute Auto 5.16 K/mm3 (0.9-3.2); Lymphocytes Percent Auto 39.4 % (18.3-44.2); Mean Corpuscular HGB Conc 34.3 g/dl (32-36); Mean Corpuscular Hemoglobin 31.3 pg (26-34); Mean Platelet Volume 9.3 fl (7.4-10.4); Monocytes Absolute Auto 1.1 K/mm3 (0.1-0.6); Monocytes Percent Auto 8.3 % (2.6-8.5); Neutrophils Absolute Auto 6.3 K/mm3 (1.3-6.7); Neutrophils Percent Auto 48.3 % (45.5-73.1); Platelet Count Result 315 k/mm3 (150-375); Red Cell Distribution Width 13.9 % (11.5-14.5); White Blood Count 13.1 K/mm3 (4.5-10.0)
[2022-07-04] MEDS: SODIUM CHLORIDE 0.9% IV 1,000 ML 999 ML IV CONT (12:11)
[2022-07-04] MEDS: MORPHINE SULFATE (*CRX) 4 MG/ML INJ IV PUSH (12:11)
[2022-07-04] MEDS: ONDANSETRON INJ 4 MG/2 ML VIAL IV PUSH (12:13)
[2022-07-04 12:21] LABS: Alanine Aminotransferase 34 U/L (6-35); Albumin Level 4.5 g/dL (3.5-5.1); Alkaline Phosphatase 82 U/L (38-126); Anion Gap 13 mmol/L (8-16); Aspartate Amino Transferase 33 U/L (14-36); Bilirubin,Total 0.4 mg/dL (0.2-1.3); Blood Urea Nitrogen 9 mg/dL (7-17); Calcium 8.8 mg/dL (8.4-10.2); Carbon Dioxide 24 mmol/L (22-30); Chloride 105 mmol/L (98-107); Estimated CRCL calculation 70 ml/min; Estimated Glomerular Filt Rate > 60; Glucose 91 mg/dL (65-110); Lipase 48 U/L (23-300); Potassium 3.7 mmol/L (3.4-5.0); Sodium 142 mmol/L (137-145)
[2022-07-04 13:43] LABS: Appearance Urine Clear (Clear); Bilirubin Urine Negative (Negative); Blood Urine Negative (Negative); Color Urine Yellow (Yellow); Glucose Urine UA Negative (Negative); Ketones Urine Negative (Negative); Leukocyte Esterase Ur Trace LEU/UL (Negative); Nitrate Urine Positive (Negative); Protein Urine Negative (Negative); Specific Grav Ur <= 1.005 (1.001-1.035); Urobilinogen Urine 0.2 mg/dL (<2.0); pH Urine 5.5 (5.0-9.0)
[2022-07-04 13:47] LABS: Add Urine Microscopic? YES
[2022-07-04 14:00] LABS: Mucus Urine Rare /lpf; RBC Urine 0-2 /hpf (0-2); Squamous Epithelial Cell Urine Few /hpf (Few)
[2022-07-04 15:05] VITALS: BP 130/74; PULSE 70; RESP 20; O2SAT 97
== END 2022-07-04 15:07 | disposition home or self-care (01) ==
PROVIDERS: Emergency Provider Emergency Medicine; PCP Internal Medicine
DX: N39.0 Urinary tract infection, site not specified (principal); M54.9 Dorsalgia, unspecified; G89.21 Chronic pain due to trauma; I48.0 Paroxysmal atrial fibrillation; E11.9 Type 2 diabetes mellitus without complications; I10 Essential (primary) hypertension; M79.7 Fibromyalgia; G47.33 Obstructive sleep apnea (adult) (pediatric); G25.81 Restless legs syndrome; F41.9 Anxiety disorder, unspecified; F32.A Depression, unspecified; Z90.710 Acquired absence of both cervix and uterus; F17.290 Nicotine dependence, other tobacco product, uncomplicated; Z79.4 Long term (current) use of insulin; Z79.84 Long term (current) use of oral hypoglycemic drugs; Z79.01 Long term (current) use of anticoagulants; K76.0 Fatty (change of) liver, not elsewhere classified; M47.814 Spondylosis without myelopathy or radiculopathy, thoracic region; M47.816 Spondylosis without myelopathy or radiculopathy, lumbar region
CPT/HCPCS: 36415; 74177; 80053; 81001; 83690; 85025; 96361; 96365; 96375; 99284; J0696; J2270; J2405; J7030; Q9967

== ENCOUNTER 2022-09-20 14:18 | Outpatient (CLI) | payer MEDICARE, OTHER, SELFPAY ==
[2022-09-20 14:51] LABS: INR 1.2; Prothrombin Time 14.7 Seconds (11.1-14.7)
== END 2022-09-20 14:19 | disposition home or self-care (01) ==
LOC: ANHLAB 14:23
PROVIDERS: PCP Internal Medicine; Visit Provider Physician Assistant
DX: R79.1 Abnormal coagulation profile (principal)
CPT/HCPCS: 36415; 85610

== ENCOUNTER 2023-01-30 10:00 | Outpatient (RCR) | payer MEDICARE, OTHER, SELFPAY ==
[2023-01-25 09:58] LABS: INR 4.5; Prothrombin Time 41.2 Seconds (11.1-14.7)
[2023-01-30 10:44] LABS: INR 2.8; Prothrombin Time 28.2 Seconds (11.1-14.7)
== END 2023-04-25 23:59 | disposition home or self-care (01) ==
LOC: ANHLAB 10:00
PROVIDERS: PCP Internal Medicine; Visit Provider Internal Medicine Cardiovascular Disease
DX: I48.0 Paroxysmal atrial fibrillation (principal)
CPT/HCPCS: 36415; 85610

== ENCOUNTER 2023-02-03 05:45 | Emergency (ER) | payer MEDICARE, OTHER, SELFPAY ==
[2023-02-03] VITALS (13 sets, daily range): BP systolic 110–137; BP diastolic 50–79; PULSE 68–98; RESP 16–18; TEMP 36.5–36.9; O2SAT 96–98
--- NOTE | ~2023-02-03 | CT_ITS ---
EXAMINATION: CT abdomen pelvis wo con DATE: 02/03/2023 08:09 INDICATION: Left lower quadrant and left flank pain TECHNIQUE: Computed tomography (CT) of the left was performed without intravenous contrast. The dose- length product (DLP) was 595.12 mGy-cm. Automated exposure control and iterative reconstruction techn ique were employed. COMPARISON: 07/04/2022 FINDINGS: Minimal dependent atelectasis is present in the lung bases. The heart size is normal. There is a small sliding hiatal hernia. The liver, spleen, pancreas, gallbladder, and adrenal glands are n ormal. The kidneys are unremarkable. No stones are identified in the kidneys, ureters, or bladder. No hydronephrosis or hydroureter. No pathologically enlarged abdominal or pelvic lymph nodes are identi fied. No free intraperitoneal gas or evidence of bowel obstruction. The appendix is normal. A moderat e volume of colonic stool is present. There is mild lumbar spondylosis. IMPRESSION: 1. No CT correlate for the patient's symptoms. Reviewed, dictated and finalized at location A.
[2023-02-03 06:14] LABS: Basophils Percent Auto 0.3 % (0.2-1.2); Eosinophils Absolute Auto 0.2 K/mm3 (0-0.3); Eosinophils Percent Auto 2.5 % (0-4.4); Hematocrit 33.6 % (37.0-47.0); Hemoglobin 11.5 g/dL (12.0-15.0); Immature Granulocyte Absolute 0.04 K/mm3 (0.00-0.031); Immature Granulocyte Percent A 0.4 % (0-0.5); Lymphocytes Absolute Auto 2.85 K/mm3 (0.9-3.2); Lymphocytes Percent Auto 31.8 % (18.3-44.2); Mean Corpuscular HGB Conc 34.2 g/dl (32-36); Mean Corpuscular Hemoglobin 32.3 pg (26-34); Mean Corpuscular Volume 94.4 fl (80-100); Mean Platelet Volume 9.6 fl (7.4-10.4); Monocytes Percent Auto 11.6 % (2.6-8.5); Neutrophils Absolute Auto 4.8 K/mm3 (1.3-6.7); Neutrophils Percent Auto 53.4 % (45.5-73.1); Platelet Count Result 250 k/mm3 (150-375); Red Blood Count 3.56 M/mm3 (4.2-5.4); Red Cell Distribution Width 13.2 % (11.5-14.5)
[2023-02-03 06:23] LABS: Alanine Aminotransferase 28 U/L (6-35); Albumin Level 4.4 g/dL (3.5-5.1); Alkaline Phosphatase 69 U/L (38-126); Anion Gap 6 mmol/L (8-16); Aspartate Amino Transferase 33 U/L (14-36); Bilirubin,Total 0.6 mg/dL (0.2-1.3); Blood Urea Nitrogen 13 mg/dL (7-17); Carbon Dioxide 27 mmol/L (22-30); Chloride 105 mmol/L (98-107); Estimated CRCL calculation 59 ml/min; Estimated Glomerular Filt Rate > 60; Glucose 126 mg/dL (65-110); Lipase 44 U/L (23-300); Potassium 4.4 mmol/L (3.4-5.0); Sodium 138 mmol/L (137-145)
[2023-02-03] MEDS: ONDANSETRON INJ 4 MG/2 ML VIAL IV PUSH (07:40)
[2023-02-03] MEDS: SODIUM CHLORIDE 0.9% IV 1,000 ML 999 ML IV CONT (07:40)
[2023-02-03] MEDS: MORPHINE SULFATE (*CRX) 4 MG/ML INJ IV PUSH (07:41)
--- NOTE | 2023-02-03 08:13 | ED.ABDPAIN ---
HPI - Abdominal Pain General Chief Complaint: Abdominal Pain Stated Complaint: LLQ abd pain Time Seen by Provider: 02/03/23 07:00 History of Present Illness HPI narrative: Patient is a 67-year-old female who presents ER with left lower quadrant abdominal pain. Sudden onset yesterday evening. Persistent throughout the night. Has urinary frequency but no dysuria. Has history of kidney stones and this feels similar. She has been having waves of nausea but no vomiting. No fevers or chills or sweats. No aggravating or alleviating factors. Patient has history of atrial fibrillation and she currently takes Coumadin. Related Data Home Medications Medication Instructions Recorded Confirmed albuterol sulfate 90 mcg/actuation 2 puff inhalation QID PRN Dyspnea 08/03/20 02/07/22 aerosol inhaler (ProAir HFA) atorvastatin 20 mg tablet 20 mg PO HS 08/03/20 02/07/22 citalopram 40 mg tablet 40 mg PO HS 08/03/20 02/07/22 estradiol 1 mg tablet 1 mg PO HS 08/03/20 02/07/22 glimepiride 2 mg tablet 2 mg PO BID 08/03/20 02/07/22 glycopyrrolate 1 mg tablet 2 mg PO Q12H 08/03/20 02/07/22 hydrocodone 5 mg-acetaminophen 325 1 tablet PO Q4-6H PRN Pain (Scale 08/03/20 02/07/22 mg tablet Score 7-10) lorazepam 1 mg tablet 1 mg PO QID PRN Anxiety 08/03/20 02/07/22 metformin 500 mg tablet,extended 1,000 mg PO Q12H 08/03/20 02/07/22 release 24 hr pregabalin 100 mg capsule 100 mg PO TID 08/03/20 02/07/22 ropinirole 0.5 mg tablet 1 mg PO Q12H 08/03/20 02/07/22 valacyclovir 500 mg tablet 500 mg PO HS 08/03/20 02/07/22 insulin glargine 100 unit/mL 10 unit subcut .AM 12/21/21 02/07/22 subcutaneous cartridge insulin glargine 100 unit/mL 12 unit subcut .PM 12/21/21 02/07/22 subcutaneous solution (Lantus U-100 Insulin) acetaminophen 500 mg tablet 1,000 mg PO Q6H PRN Pain (Scale 12/22/21 02/07/22 (Acetaminophen Extra Strength) Score 4-6) melatonin 3 mg tablet 3 mg PO HS PRN Sleep 12/22/21 02/07/22 Allergies Allergy/AdvReac Type Severity Reaction Status Date / Time erythromycin base AdvReac Unknown Abdominal Verified 02/28/21 08:09 Pain TAPE SILK Allergy Mild BLISTERS--PEELS Uncoded 02/28/21 08:09 OFF SKIN Review of Systems Review of Systems: All systems reviewed & are unremarkable except as noted in HPI and below Constitutional: Constitutional: Denies chills and Denies fever(s) Gastrointestinal: Gastrointestinal: Reports abdominal pain, Denies diarrhea, Reports nausea and Denies vomiting Genitourinary: Genitourinary: Denies hematuria, Reports nocturia, Denies dysuria and Denies flank pain Musculoskeletal: Musculoskeletal: Denies back pain PMFSH Past Medical History Medical History Anxiety Chronic back pain Chronic bronchitis Chronic pain Chronic, continuous use of opioids Depression Diabetes type 2, controlled Fibromyalgia Hepatic steatosis Noted by CT scan 05/2021 HTN (hypertension) DANNY (obstructive sleep apnea) Paroxysmal atrial fibrillation PONV (postoperative nausea and vomiting) Psychological stress RLS (restless legs syndrome) Sleep apnea Surgical History Surgical History H/O bilateral breast reduction surgery H/O foot surgery History of x2 History of hysterectomy History of tonsillectomy Family History Family History Other Breast cancer Diabetes mellitus Hypertension Social History Social History Social History: Elderly mother lives w/ pt who is her full-time caregiver. Smoking packs per day: 0.25 Smoking cigarettes per day: 5.0 Years smoked: 0.5 Smoking pack-years: 0.13 Smoking status: Current some day smoker Tobacco type: e-cigarettes/vaping Additional smoking assessment comments: quit smoking cigarettes approximately 6 months ago. Vapes occassional
--- NOTE | 2023-02-03 08:55 | PC.NURSE ---
PT NOTED TO HAVE BRUISE TO L LOWER ABDOMEN SUPRAPUBIC WHEN PERFORMING BLADDER SCAN. DENIES ANY TRAUMA OR INJURY. DR MERRILL MADE AWARE.
[2023-02-03 09:01] LABS: Prothrombin Time 30.4 Seconds (11.1-14.7)
[2023-02-03 09:01] LABS: Appearance Urine Clear (Clear); Bilirubin Urine Negative (Negative); Blood Urine Negative (Negative); Color Urine Yellow (Yellow); Glucose Urine UA Negative (Negative); Ketones Urine Negative (Negative); Leukocyte Esterase Ur Negative LEU/UL (Negative); Nitrate Urine Negative (Negative); Protein Urine Negative (Negative); Specific Grav Ur 1.012 (1.001-1.035)
[2023-02-03 09:02] LABS: Partial Thromboplastin Time 48.3 SECONDS (22.3-36.8)
[2023-02-03 09:14] LABS: Add Urine Microscopic? NO
== END 2023-02-03 11:05 | disposition home or self-care (01) ==
PROVIDERS: Emergency Medicine; Emergency Provider Emergency Medicine; PCP Internal Medicine
DX: R10.32 Left lower quadrant pain (principal); S30.1XXA Contusion of abdominal wall, initial encounter; R10.9 Unspecified abdominal pain; F17.290 Nicotine dependence, other tobacco product, uncomplicated; F41.9 Anxiety disorder, unspecified; F32.A Depression, unspecified; E11.9 Type 2 diabetes mellitus without complications; M79.7 Fibromyalgia; I10 Essential (primary) hypertension; I48.91 Unspecified atrial fibrillation; Z79.4 Long term (current) use of insulin; Z79.01 Long term (current) use of anticoagulants; X58.XXXA Exposure to other specified factors, initial encounter
CPT/HCPCS: 36415; 74176; 80053; 81003; 83690; 85025; 85610; 85730; 96361; 96374; 96375; 99284; J2270; J2405; J7030

== ENCOUNTER 2023-02-06 09:35 | Outpatient (CLI) | payer MEDICARE, OTHER, SELFPAY ==
[2023-02-06 10:20] LABS: INR 2.2; Partial Thromboplastin Time 41.8 SECONDS (22.3-36.8)
== END 2023-02-06 09:36 | disposition home or self-care (01) ==
LOC: ANHSURGERY 09:40
PROVIDERS: Anesthesiology; PCP Internal Medicine; Visit Provider Obstetrics & Gynecology
DX: R10.2 Pelvic and perineal pain (principal); Z79.01 Long term (current) use of anticoagulants
CPT/HCPCS: 36415; 85610; 85730; 86850; 86900; 86901

== ENCOUNTER 2023-02-08 00:20 | Day surgery (SDC) | payer MEDICARE, OTHER, SELFPAY ==
[2023-02-05 14:47] VITALS: BMI 27.6
--- NOTE | 2023-02-05 15:17 | PC.NURSE ---
PRE-OP INSTRUCTIONS, PLEASE READ CAREFULLY Report to the Outpatient Waiting Room, entrance under the green pavilion located off [facility], at time _0930_ on date _02/08/23_. Planned Procedure Time: _1130_. Time changes happen often and if your time is changed the preop area will call you the afternoon before. - You and your visitor will be asked to self-screen and do not enter if you have any COVID symptoms. - A mask is optional within the hospital at this time. Patients may have clear liquids (water, carbonated beverages, clear teas, apple juice) until 3 hours prior to surgery (0830 AM) with a maximum of 20 ounces. - No food from midnight until time of surgery Take the following medications with a SIP of water the morning of surgery: _* 1/2 DOSE OF AM INSULIN, METOPROLOL, PAIN PILL, LORAZEPAM & INHALER IF NEEDED_ DO NOT STOP ANY OF YOUR OTHER PRESCRIPTION MEDICATIONS PRIOR TO SURGERY ?EXCEPT THE FOLLOWING Medications to discontinue _PATIENT STATES - LAST DOSE OF WARFARIN WAS 02/04/23__ Please no make-up, nail romanian, hairspray, perfume, deodorant, or body powder the day of surgery. No jewelry (including any body piercings) or valuables the day of surgery, leave them at home. Please take a shower or bath the night before, or the morning of, surgery with an antibacterial soap. Wear comfortable, loose fitting clothing. - Jewelry must be removed prior to entering the operating room. Rings and piercings that are not removed may be cut off. - The hospital will not accept responsibility for valuables. - Please leave all valuables, including medications, at home the day of surgery. If you are going home after surgery, a licensed stage driver must drive you home. - NO public transportation without another adult if you receive anesthesia. - We recommend that an adult stay with you for 24 hours following discharge. - We also recommend that you do not drive, make important decision, drink alcoholic beverages, or take any drugs that were not prescribed by your health care provider for at least 24 hours after your discharge time. Follow any additional instructions given to you from your surgeon. If you or anyone in your household have experienced Covid symptoms in the past week, please notify your surgeon or the nurse liaison at the phone number below for possible testing. Telephone instructions given to _PATIENT_and asked if any additional questions and then verbalized understanding. Patient advised to call surgeon office or pre surgery nurse liaison [phone] if any additional questions.
--- NOTE | 2023-02-07 16:15 | PM.IMHP ---
H&P: HPI History of Present Illness Date/Time: 02/07/23 16:15 Chief Complaint: Severe abdominal pain Narrative: this is a 67-year-old female admitted for laparoscopy secondary to severe abdominal pain. She was seen in the ER complaining of severe pain and had a normal CT with normal white count CMP etc.. Her pain has been worsening. She has long history of adhesions and is admitted for lysis of adhesions. Risks and benefits reviewed in great detail [facility] Past Medical History Medical History Anxiety Chronic back pain Chronic bronchitis Chronic pain Chronic, continuous use of opioids Depression Diabetes type 2, controlled Fibromyalgia Hepatic steatosis Noted by CT scan 05/2021 HTN (hypertension) DANNY (obstructive sleep apnea) Paroxysmal atrial fibrillation PONV (postoperative nausea and vomiting) Psychological stress RLS (restless legs syndrome) Sleep apnea Surgical History Surgical History H/O bilateral breast reduction surgery H/O foot surgery History of x2 History of hysterectomy History of tonsillectomy Family History Family History Other Breast cancer Diabetes mellitus Hypertension Social History Social History Social History: Elderly mother lives w/ pt who is her full-time caregiver. Smoking packs per day: 0.25 Smoking cigarettes per day: 5.0 Years smoked: 0.5 Smoking pack-years: 0.13 Smoking status: Former smoker Tobacco type: cigarettes and e-cigarettes/vaping Second hand tobacco smoke exposure: No Additional smoking assessment comments: STATES VAPES OCCASIONALLY Alcohol intake: current Alcohol use details: STATES RARELY 1-2/MONTH Substance use: never Substance use type: does not use Living arrangements: with family Spiritual care concerns: No Meds Home Medications and Allergies Home Medications Medication Instructions Recorded Confirmed Type albuterol sulfate 90 mcg/actuation 2 puff inhalation QID PRN Dyspnea 08/03/20 02/05/23 History aerosol inhaler (ProAir HFA) atorvastatin 20 mg tablet 20 mg PO HS 08/03/20 02/05/23 History citalopram 40 mg tablet 40 mg PO HS 08/03/20 02/05/23 History estradiol 1 mg tablet 1 mg PO HS 08/03/20 02/05/23 History glimepiride 2 mg tablet 2 mg PO BID 08/03/20 02/05/23 History glycopyrrolate 1 mg tablet 2 mg PO Q12H 08/03/20 02/05/23 History lorazepam 1 mg tablet 1 mg PO QID PRN Anxiety 08/03/20 02/05/23 History metformin 500 mg tablet,extended 1,000 mg PO Q12H 08/03/20 02/05/23 History release 24 hr pregabalin 100 mg capsule 100 mg PO TID 08/03/20 02/05/23 History ropinirole 0.5 mg tablet 1 mg PO Q12H 08/03/20 02/05/23 History valacyclovir 500 mg tablet 500 mg PO HS 08/03/20 02/05/23 History insulin glargine 100 unit/mL See Rx Instructions .Route .COMPLEX 12/21/21 02/05/23 History subcutaneous cartridge insulin glargine 100 unit/mL 12 unit subcut .PM 12/21/21 02/05/23 History subcutaneous solution (Lantus U-100 Insulin) acetaminophen 500 mg tablet 1,000 mg PO Q6H PRN Pain (Scale 12/22/21 02/05/23 History (Acetaminophen Extra Strength) Score 4-6) metoprolol succinate 25 mg 75 mg PO QPM 30 days #90 tabs 12/23/21 02/05/23 Rx tablet,extended release 24 hr (Toprol XL) flecainide 50 mg tablet 50 mg PO Q12H #30 tabs 02/08/22 02/05/23 Rx hydrocodone 5 mg-acetaminophen 325 1 tablet PO Q6H PRN pain #10 tabs 02/03/23 02/05/23 Rx mg tablet warfarin 4 mg tablet See Rx Instructions .Route .COMPLEX 02/05/23 02/05/23 History Allergies Allergy/AdvReac Type Severity Reaction Status Date / Time erythromycin base AdvReac Unknown Abdominal Verified 02/05/23 14:33 Pain TAPE SILK Allergy Mild BLISTERS--PEELS Uncoded 02/05/23 14:33 OFF SKIN Exam Const: Gen
[2023-02-08] VITALS (11 sets, daily range): BP systolic 95–124; BP diastolic 51–73; PULSE 64–83; RESP 12–16; TEMP 36.6; O2SAT 92–100; BMI 26.7
--- NOTE | 2023-02-08 05:58 | WPDHPUPDATE1 ---
History and Physical Update Update Date/Time: 02/08/23 05:58 History and Physical has been reviewed, including an updated exam of the patient. There are NO changes in the patient's condition. Risks, benefits, and alternatives have been discussed and questions answered. Patient agrees to proceed with procedure.
[2023-02-08] MEDS: LACTATED RINGERS 1,000 ML 30 ML IV CONT (10:00)
[2023-02-08] MEDS: ACETAMINOPHEN 500 MG TABLET 1000 MG PO (10:09)
[2023-02-08] MEDS: KETOROLAC 15 MG/ML VIAL (*BKC) IV PUSH (10:09)
[2023-02-08 10:39] LABS: INR 1.2; Prothrombin Time 16.1 Seconds (11.1-14.7)
[2023-02-08 10:40] LABS: Partial Thromboplastin Time 31.6 SECONDS (22.3-36.8)
--- NOTE | 2023-02-08 10:43 | WPDANESEPPF ---
Anes - Initial Pre Proc Eval Procedure: Operation Date: 02/08/23 11:30 Proposed Procedures p Laparoscopic Lysis of Adhesions - Solomon Evans MD Date/Time: 02/08/23 10:43 Surgeon: Solomon Evans MD Pre Op Diagnosis: severe pelvic pain Patient Data Age: 67 Gender: F Height: 1.66 m Weight: 76.36 kg Allergies Allergy/AdvReac Type Severity Reaction Status Date / Time erythromycin base AdvReac Unknown Abdominal Verified 02/05/23 14:33 Pain TAPE SILK Allergy Mild BLISTERS--PEELS Uncoded 02/05/23 14:33 OFF SKIN Home Medications Medication Instructions Recorded Confirmed Type albuterol sulfate 90 mcg/actuation 2 puff inhalation QID PRN Dyspnea 08/03/20 02/05/23 History aerosol inhaler (ProAir HFA) atorvastatin 20 mg tablet 20 mg PO HS 08/03/20 02/05/23 History citalopram 40 mg tablet 40 mg PO HS 08/03/20 02/05/23 History estradiol 1 mg tablet 1 mg PO HS 08/03/20 02/05/23 History glimepiride 2 mg tablet 2 mg PO BID 08/03/20 02/05/23 History glycopyrrolate 1 mg tablet 2 mg PO Q12H 08/03/20 02/05/23 History lorazepam 1 mg tablet 1 mg PO QID PRN Anxiety 08/03/20 02/05/23 History metformin 500 mg tablet,extended 1,000 mg PO Q12H 08/03/20 02/05/23 History release 24 hr pregabalin 100 mg capsule 100 mg PO TID 08/03/20 02/05/23 History ropinirole 0.5 mg tablet 1 mg PO Q12H 08/03/20 02/05/23 History valacyclovir 500 mg tablet 500 mg PO HS 08/03/20 02/05/23 History insulin glargine 100 unit/mL See Rx Instructions .Route .COMPLEX 12/21/21 02/05/23 History subcutaneous cartridge insulin glargine 100 unit/mL 12 unit subcut .PM 12/21/21 02/05/23 History subcutaneous solution (Lantus U-100 Insulin) acetaminophen 500 mg tablet 1,000 mg PO Q6H PRN Pain (Scale 12/22/21 02/05/23 History (Acetaminophen Extra Strength) Score 4-6) metoprolol succinate 25 mg 75 mg PO QPM 30 days #90 tabs 12/23/21 02/05/23 Rx tablet,extended release 24 hr (Toprol XL) flecainide 50 mg tablet 50 mg PO Q12H #30 tabs 02/08/22 02/05/23 Rx hydrocodone 5 mg-acetaminophen 325 1 tablet PO Q6H PRN pain #10 tabs 02/03/23 02/05/23 Rx mg tablet warfarin 4 mg tablet See Rx Instructions .Route .COMPLEX 02/05/23 02/05/23 History hydrocodone 5 mg-acetaminophen 325 1 tablet PO Q4H PRN pain #20 tabs 02/08/23 Rx mg tablet Laboratory Tests 02/08/23 10:00 PT Pending INR Pending APTT Pending Patient hx anesthesia problems: none Family hx anesthesia problems: post op nausea/vomiting Results Review: All pre-operative results and documents have been reviewed as part of the pre-operative evaluation. [facility] Past Medical History Medical History Anxiety Chronic back pain Chronic bronchitis Chronic pain Chronic, continuous use of opioids Depression Diabetes type 2, controlled Fibromyalgia Hepatic steatosis Noted by CT scan 05/2021 HTN (hypertension) DANNY (obstructive sleep apnea) Paroxysmal atrial fibrillation PONV (postoperative nausea and vomiting) Psychological stress RLS (restless legs syndrome) Sleep apnea Surgical History Surgical History H/O bilateral breast reduction surgery H/O foot surgery History of x2 History of hysterectomy History of tonsillectomy Family History Family History Other Breast cancer Diabetes mellitus Hypertension Social History Social History Social History: Elderly mother lives w/ pt who is her full-time caregiver. Smoking packs per day: 0.25 Smoking cigarettes per day: 5.0 Years smoked: 0.5 Smoking pack-years: 0.13 Smoking status: Former smoker Tobacco type: cigarettes and e-cigarettes/vaping Second hand tobacco smoke exposure: No Additional smoking assessment comments: STATES VAP
[2023-02-08] MEDS: SCOPOLAMINE 1.5 MG PATCH TRANSDERM (10:51)
--- NOTE | 2023-02-08 11:10 | SUR.PREOP ---
1110- Notified Dr. Mikael Evans and Dr. Mckeon of patient's coag results. Patient's PT 16.1 on today's lab draw- PTT and INR WNL both MD's OK to proceed.
[2023-02-08 11:15] LABS: Glucose Point of Care 106 mg/dl (65-105)
--- NOTE | 2023-02-08 12:22 | W.PM.PROC2 ---
Procedure Note - Detailed Date of Procedure 02/08/23 Pre-op Diagnosis severe pelvic pain Post-op Diagnosis Other (Pelvic adhesions) Procedure Performed laparoscopic lysis of adhesions Surgeon Solomon Evans MD Anesthesia General Indications this is 6 9 year status post hysterectomy bilateral salpingo-oophorectomy severe pelvic pain abnormal findings labs CT Findings absent uterus ovaries tubes. Multiple adhesions in pelvis bilaterally. Normal-appearing appendix gallbladder and liver edge Description of Procedure patient is prepped draped in the normal sterile fashion placed in dorsal lithotomy position. Under excellent general trach anesthesia sponge stick was placed in vagina. The bladder drained of clear urine the weighted speculum was removed. Gloves were changed. A supraumbilical incision made the Veress needle passed in the abdomen. Abdomen filled with CO2 gas to 15 of mercury. The 5mm trocar advanced under direct visualization assuring no injury. Patient placed in Trendelenburg and a suprapubic incision made. The 5mm trocar advanced under visualization assuring no injury. The above findings were seen in photo documentation was undertaken. Using sharp dissection the adhesions on the right the left-hand side were sharply dissected and then irrigation undertaken until clear the appendix gallbladder and liver edge all appeared within normal limits and photo documentation undertaken no other abnormality was seen. Lower site removed. The gas removed from the abdomen. The upper site removed. The incisions closed with 4-0 Monocryl glue. Instruments removed from the vagina and the patient went recovery in satisfactory condition. All sponge, needle, instrument counts were correct. There were no immediate complications noted Estimated Blood Loss 5 Drains No Packing No Pathology None sent Complications No immediate complications Condition Stable Disposition PACU
[2023-02-08] MEDS: fentaNYL CITRATE INJ (*CRX) 100 MCG/2 ML VIAL 25 MCG IV PUSH ×4 (12:55→13:06)
[2023-02-08 12:59] LABS: Glucose Point of Care 101 mg/dl (65-105)
[2023-02-08] MEDS: ONDANSETRON INJ 4 MG/2 ML VIAL IV PUSH (13:12)
[2023-02-08] MEDS: diphenhydrAMINE HCl INJ 50 MG/ML VIAL 25 MG IV PUSH (13:28)
[2023-02-08] MEDS: oxyCODONE HCL (*CRX) 5 MG TAB IR PO (14:59)
== END 2023-02-08 15:38 | disposition home or self-care (01) ==
PROVIDERS: Anesthesiology; PCP Internal Medicine; Visit Provider Obstetrics & Gynecology
PROC: (CPT 49320; principal; 2023-02-08 11:30)
DX: N73.6 Female pelvic peritoneal adhesions (postinfective) (principal); I10 Essential (primary) hypertension; E11.9 Type 2 diabetes mellitus without complications; I48.0 Paroxysmal atrial fibrillation; M79.7 Fibromyalgia; F41.9 Anxiety disorder, unspecified; F32.A Depression, unspecified; G47.30 Sleep apnea, unspecified; G25.81 Restless legs syndrome; Z79.891 Long term (current) use of opiate analgesic; Z79.51 Long term (current) use of inhaled steroids; Z79.84 Long term (current) use of oral hypoglycemic drugs; Z79.4 Long term (current) use of insulin; Z79.01 Long term (current) use of anticoagulants; F17.290 Nicotine dependence, other tobacco product, uncomplicated
CPT/HCPCS: 49329; 36415; 82948; 85610; 85730; A9270; J0330; J1100; J1200; J1885; J2250; J2405; J2704; J3010; J7030; J7120

== ENCOUNTER 2023-02-23 03:12 | Emergency (ER) | payer MEDICARE, OTHER, SELFPAY ==
[2023-02-23] VITALS (13 sets, daily range): BP systolic 101–137; BP diastolic 51–69; PULSE 69–87; RESP 14–22; TEMP 36.9; O2SAT 92–97
--- NOTE | 2023-02-23 04:40 | ED.GENADULT ---
HPI - General Adult General Chief complaint: Unspecified Stated complaint: back/injury Time Seen by Provider: 02/23/23 03:31 History of Present Illness HPI narrative: this is a 67-year-old female with chronic pain presenting to ED with neck pain. The patient says that she has been having neck and shoulder pain for the last week. She has been seeing her chiropractor daily for manipulations. It has been doing well until today when it became more severe. It is a shooting pain on the right side of her neck that radiates into her head. Is 10/10 in intensity and constant. She has had pain before like this in the past. Despite having multiple chronic pain issues she has not taken anything for pain control. She denies any other complaints. Related Data Home Medications Medication Instructions Recorded Confirmed albuterol sulfate 90 mcg/actuation 2 puff inhalation QID PRN Dyspnea 08/03/20 02/05/23 aerosol inhaler (ProAir HFA) atorvastatin 20 mg tablet 20 mg PO HS 08/03/20 02/05/23 citalopram 40 mg tablet 40 mg PO HS 08/03/20 02/05/23 estradiol 1 mg tablet 1 mg PO HS 08/03/20 02/05/23 glimepiride 2 mg tablet 2 mg PO BID 08/03/20 02/05/23 glycopyrrolate 1 mg tablet 2 mg PO Q12H 08/03/20 02/05/23 lorazepam 1 mg tablet 1 mg PO QID PRN Anxiety 08/03/20 02/05/23 metformin 500 mg tablet,extended 1,000 mg PO Q12H 08/03/20 02/05/23 release 24 hr pregabalin 100 mg capsule 100 mg PO TID 08/03/20 02/05/23 ropinirole 0.5 mg tablet 1 mg PO Q12H 08/03/20 02/05/23 valacyclovir 500 mg tablet 500 mg PO HS 08/03/20 02/05/23 insulin glargine 100 unit/mL See Rx Instructions .Route .COMPLEX 12/21/21 02/05/23 subcutaneous cartridge insulin glargine 100 unit/mL 12 unit subcut .PM 12/21/21 02/08/23 subcutaneous solution (Lantus U-100 Insulin) acetaminophen 500 mg tablet 1,000 mg PO Q6H PRN Pain (Scale 12/22/21 02/05/23 (Acetaminophen Extra Strength) Score 4-6) warfarin 4 mg tablet See Rx Instructions .Route .COMPLEX 02/05/23 02/05/23 Allergies Allergy/AdvReac Type Severity Reaction Status Date / Time erythromycin base AdvReac Unknown Abdominal Verified 02/23/23 03:14 Pain TAPE SILK Allergy Mild BLISTERS--PEELS Uncoded 02/08/23 11:15 OFF SKIN PMFSH Past Medical History Medical History Anxiety Chronic back pain Chronic bronchitis Chronic pain Chronic, continuous use of opioids Depression Diabetes type 2, controlled Fibromyalgia Hepatic steatosis Noted by CT scan 05/2021 HTN (hypertension) DANNY (obstructive sleep apnea) Paroxysmal atrial fibrillation PONV (postoperative nausea and vomiting) Psychological stress RLS (restless legs syndrome) Sleep apnea Surgical History Surgical History H/O bilateral breast reduction surgery H/O foot surgery History of x2 History of hysterectomy History of tonsillectomy Family History Family History Other Breast cancer Diabetes mellitus Hypertension Social History Social History Social History: Elderly mother lives w/ pt who is her full-time caregiver. Smoking packs per day: 0.25 Smoking cigarettes per day: 5.0 Years smoked: 0.5 Smoking pack-years: 0.13 Smoking status: Former smoker Tobacco type: cigarettes and e-cigarettes/vaping Second hand tobacco smoke exposure: No Additional smoking assessment comments: STATES VAPES OCCASIONALLY Alcohol intake: current Alcohol use details: STATES RARELY 1-2/MONTH Substance use: never Substance use type: does not use Living arrangements: with family Spiritual care concerns: No Exam Narrative: APPEARANCE: Patient is lying on her right side using her right arm to hold the hair on the side of her head to support her neck. Head: atraumatic. EYES: EOMI, NOSE: Atraumatic
[2023-02-23] MEDS: ONDANSETRON HCL ODT 4 MG TABLET PO (04:43)
[2023-02-23] MEDS: diazePAM (*CRX) 5 MG TABLET PO (04:48)
[2023-02-23] MEDS: ACETAMINOPHEN 325 MG TABLET 650 MG PO (04:48)
[2023-02-23] MEDS: HYDROcodone/acetaminophen (*CRX) 5-325 MG TABLET 1 TAB PO (04:48)
== END 2023-02-23 06:15 | disposition home or self-care (01) ==
PROVIDERS: Emergency Provider Emergency Medicine; PCP Internal Medicine
DX: M54.2 Cervicalgia (principal); I10 Essential (primary) hypertension; I48.0 Paroxysmal atrial fibrillation; E11.9 Type 2 diabetes mellitus without complications; Z87.891 Personal history of nicotine dependence
CPT/HCPCS: 99283; A9270

== ENCOUNTER 2023-04-01 04:26 | Emergency (ER) | payer MEDICARE, OTHER, SELFPAY ==
[2023-04-01 04:30] VITALS: BP 116/57; PULSE 80; RESP 18; TEMP 36.3; O2SAT 95
--- NOTE | 2023-04-01 05:03 | ED.GENADULT ---
HPI - General Adult General Chief complaint: Extremity Problem,Nontraumatic Stated complaint: I think i have a clot in my right foot. Time Seen by Provider: 04/01/23 04:51 History of Present Illness HPI narrative: this is a 67-year-old female presenting to the ED with pain in her right foot. Patient noticed a tiny lump on the top of her foot and was concerned that it was a blood clot. She has been rubbing it most of the day and is becoming more painful. She was then unable to sleep and has been pushing on it all day. Now she is complaining of burning and tingling to her entire foot. Patient states that she has a history of diabetic neuropathy but it feels different than this pain. Patient denies any other complaints. Related Data Home Medications Medication Instructions Recorded Confirmed albuterol sulfate 90 mcg/actuation 2 puff inhalation QID PRN Dyspnea 08/03/20 02/05/23 aerosol inhaler (ProAir HFA) atorvastatin 20 mg tablet 20 mg PO HS 08/03/20 02/05/23 citalopram 40 mg tablet 40 mg PO HS 08/03/20 02/05/23 estradiol 1 mg tablet 1 mg PO HS 08/03/20 02/05/23 glimepiride 2 mg tablet 2 mg PO BID 08/03/20 02/05/23 glycopyrrolate 1 mg tablet 2 mg PO Q12H 08/03/20 02/05/23 lorazepam 1 mg tablet 1 mg PO QID PRN Anxiety 08/03/20 02/05/23 metformin 500 mg tablet,extended 1,000 mg PO Q12H 08/03/20 02/05/23 release 24 hr pregabalin 100 mg capsule 100 mg PO TID 08/03/20 02/05/23 ropinirole 0.5 mg tablet 1 mg PO Q12H 08/03/20 02/05/23 valacyclovir 500 mg tablet 500 mg PO HS 08/03/20 02/05/23 insulin glargine 100 unit/mL See Rx Instructions .Route .COMPLEX 12/21/21 02/05/23 subcutaneous cartridge insulin glargine 100 unit/mL 12 unit subcut .PM 12/21/21 02/08/23 subcutaneous solution (Lantus U-100 Insulin) acetaminophen 500 mg tablet 1,000 mg PO Q6H PRN Pain (Scale 12/22/21 02/05/23 (Acetaminophen Extra Strength) Score 4-6) warfarin 4 mg tablet See Rx Instructions .Route .COMPLEX 02/05/23 02/05/23 Allergies Allergy/AdvReac Type Severity Reaction Status Date / Time erythromycin base AdvReac Unknown Abdominal Verified 04/01/23 04:44 Pain TAPE SILK Allergy Mild BLISTERS--PEELS Uncoded 04/01/23 04:44 OFF SKIN PMFSH Past Medical History Medical History Anxiety Chronic back pain Chronic bronchitis Chronic pain Chronic, continuous use of opioids Depression Diabetes type 2, controlled Fibromyalgia Hepatic steatosis Noted by CT scan 05/2021 HTN (hypertension) DANNY (obstructive sleep apnea) Paroxysmal atrial fibrillation PONV (postoperative nausea and vomiting) Psychological stress RLS (restless legs syndrome) Sleep apnea Surgical History Surgical History H/O bilateral breast reduction surgery H/O foot surgery History of x2 History of hysterectomy History of tonsillectomy Family History Family History Other Breast cancer Diabetes mellitus Hypertension Social History Social History Social History: Elderly mother lives w/ pt who is her full-time caregiver. Smoking packs per day: 0.25 Smoking cigarettes per day: 5.0 Years smoked: 0.5 Smoking pack-years: 0.13 Smoking status: Former smoker Tobacco type: cigarettes and e-cigarettes/vaping Second hand tobacco smoke exposure: No Additional smoking assessment comments: STATES VAPES OCCASIONALLY Alcohol intake: current Alcohol use details: STATES RARELY 1-2/MONTH Substance use: never Substance use type: does not use Living arrangements: with family Spiritual care concerns: No Exam Narrative: APPEARANCE: No apparent distress. Head: atraumatic. EYES: EOMI, NOSE: Atraumatic NECK: Trachea midline RESPIRATORY: No increased rate of breathing CARDIOVASCULAR: RRR, ABDOMINAL: Non-distende
== END 2023-04-01 05:15 | disposition home or self-care (01) ==
PROVIDERS: Emergency Provider Emergency Medicine; PCP Internal Medicine
DX: M79.7 Fibromyalgia (principal); R22.41 Localized swelling, mass and lump, right lower limb; F41.9 Anxiety disorder, unspecified; E11.9 Type 2 diabetes mellitus without complications; I10 Essential (primary) hypertension; G47.33 Obstructive sleep apnea (adult) (pediatric); I48.0 Paroxysmal atrial fibrillation; M54.9 Dorsalgia, unspecified; G89.29 Other chronic pain; G47.30 Sleep apnea, unspecified; G25.81 Restless legs syndrome; F32.A Depression, unspecified; Z90.710 Acquired absence of both cervix and uterus; F17.210 Nicotine dependence, cigarettes, uncomplicated; F17.290 Nicotine dependence, other tobacco product, uncomplicated; Z79.01 Long term (current) use of anticoagulants; Z79.4 Long term (current) use of insulin; Z79.84 Long term (current) use of oral hypoglycemic drugs
CPT/HCPCS: 99281

== ENCOUNTER 2023-05-29 10:37 | Outpatient (RCR) | payer MEDICARE, OTHER, SELFPAY ==
[2023-03-18 11:03] LABS: INR 3.8; Prothrombin Time 40.8 Seconds (11.1-14.7)
[2023-03-28 12:57] LABS: INR 2.4
[2023-04-23 08:57] LABS: INR 4.6; Prothrombin Time 47.7 Seconds (11.1-14.7)
[2023-05-24 12:36] LABS: INR 4.9; Prothrombin Time 50.3 Seconds (11.1-14.7)
[2023-05-29 11:17] LABS: INR 2.9; Prothrombin Time 32.8 Seconds (11.1-14.7)
== END 2023-06-16 23:59 | disposition home or self-care (01) ==
LOC: ANHLAB 10:37
PROVIDERS: PCP Internal Medicine; Visit Provider Internal Medicine Cardiovascular Disease
DX: Z51.81 Encounter for therapeutic drug level monitoring (principal); I48.0 Paroxysmal atrial fibrillation; Z79.01 Long term (current) use of anticoagulants
CPT/HCPCS: 36415; 85610

== ENCOUNTER 2023-09-30 09:39 | Outpatient (RCR) | payer MEDICARE, OTHER, SELFPAY ==
[2023-07-08 17:22] LABS: INR 1.5; Prothrombin Time 19.3 Seconds (11.1-14.7)
[2023-07-29 12:02] LABS: INR 1.6; Prothrombin Time 20.4 Seconds (11.1-14.7)
[2023-09-30 10:27] LABS: INR 1.3; Prothrombin Time 17.3 Seconds (11.1-14.7)
== END 2023-10-06 23:59 | disposition home or self-care (01) ==
LOC: ANHLAB 09:39
PROVIDERS: PCP Internal Medicine; Visit Provider Internal Medicine Cardiovascular Disease
DX: Z51.81 Encounter for therapeutic drug level monitoring (principal); I48.0 Paroxysmal atrial fibrillation; Z79.01 Long term (current) use of anticoagulants
CPT/HCPCS: 36415; 85610

== ENCOUNTER 2023-09-30 09:40 | Outpatient (CLI) | payer MEDICARE, OTHER, SELFPAY ==
[2023-09-30 10:17] LABS: Basophils Percent Auto 0.4 % (0.2-1.2); Eosinophils Absolute Auto 0.3 K/mm3 (0-0.3); Eosinophils Percent Auto 4.3 % (0-4.4); Hematocrit 34.6 % (37.0-47.0); Hemoglobin 11.6 g/dL (12.0-15.0); Immature Granulocyte Absolute 0.02 K/mm3 (0.00-0.031); Immature Granulocyte Percent A 0.3 % (0-0.5); Lymphocytes Absolute Auto 2.85 K/mm3 (0.9-3.2); Lymphocytes Percent Auto 39.5 % (18.3-44.2); Mean Corpuscular HGB Conc 33.5 g/dl (32-36); Mean Corpuscular Hemoglobin 31.4 pg (26-34); Mean Corpuscular Volume 93.5 fl (80-100); Mean Platelet Volume 9.6 fl (7.4-10.4); Monocytes Absolute Auto 0.6 K/mm3 (0.1-0.6); Monocytes Percent Auto 8.9 % (2.6-8.5); Neutrophils Absolute Auto 3.4 K/mm3 (1.3-6.7); Neutrophils Percent Auto 46.6 % (45.5-73.1); Platelet Count Result 240 k/mm3 (150-375); Red Cell Distribution Width 13.5 % (11.5-14.5); White Blood Count 7.2 K/mm3 (4.5-10.0)
[2023-09-30 10:34] LABS: Cholesterol 181 mg/dL (0-200); HDL Direct 40 mg/dL; Triglycerides 184 mg/dL (<150)
[2023-09-30 10:46] LABS: LDL Cholesterol Direct 78 mg/dL
[2023-09-30 11:03] LABS: Free T4 Free Thyroxine 1.06 ng/mL (0.78-2.19); Vitamin D 25 Hydroxy 38.7 ng/mL
== END 2023-09-30 09:41 | disposition home or self-care (01) ==
LOC: ANHLAB 09:43
PROVIDERS: PCP Internal Medicine; Visit Provider Internal Medicine
DX: I48.0 Paroxysmal atrial fibrillation (principal); E78.00 Pure hypercholesterolemia, unspecified; E55.9 Vitamin D deficiency, unspecified
CPT/HCPCS: 36415; 80061; 82306; 84439; 84443; 85025; 85610

== ENCOUNTER 2023-12-02 11:10 | Outpatient (CLI) | payer MEDICARE, OTHER, SELFPAY ==
[2023-12-03 17:53] LABS: Amphetamines NEGATIVE ng/mL (<500); Barbiturates NEGATIVE ng/mL (<300); Benzodiazepines NEGATIVE ng/mL (<100); Cocaine Metabolite NEGATIVE ng/mL (<150); Marijuana Metabolite NEGATIVE ng/mL (<20); Methadone Metabolite NEGATIVE ng/mL (<100); Opiates POSITIVE ng/mL (<100); Oxidant NEGATIVE mcg/mL (<200); pH 6.1 (4.5-9.0)
== END 2023-12-02 11:11 | disposition home or self-care (01) ==
PROVIDERS: PCP Internal Medicine; Visit Provider Internal Medicine
DX: Z79.891 Long term (current) use of opiate analgesic (principal)
CPT/HCPCS: 36415; 80307; 85610

== ENCOUNTER 2024-01-23 08:48 | Outpatient (CLI) | payer MEDICARE, OTHER, SELFPAY ==
[2024-01-23 09:29] LABS: Basophils Percent Auto 0.3 % (0.2-1.2); Eosinophils Absolute Auto 0.3 K/mm3 (0-0.3); Eosinophils Percent Auto 3.9 % (0-4.4); Hematocrit 35.9 % (37.0-47.0); Immature Granulocyte Absolute 0.04 K/mm3 (0.00-0.031); Immature Granulocyte Percent A 0.6 % (0-0.5); Lymphocytes Absolute Auto 2.28 K/mm3 (0.9-3.2); Lymphocytes Percent Auto 32.6 % (18.3-44.2); Mean Corpuscular HGB Conc 33.4 g/dl (32-36); Mean Corpuscular Hemoglobin 31.7 pg (26-34); Monocytes Absolute Auto 0.7 K/mm3 (0.1-0.6); Monocytes Percent Auto 9.3 % (2.6-8.5); Neutrophils Absolute Auto 3.7 K/mm3 (1.3-6.7); Neutrophils Percent Auto 53.3 % (45.5-73.1); Platelet Count Result 209 k/mm3 (150-375); Red Blood Count 3.78 M/mm3 (4.2-5.4); Red Cell Distribution Width 13.5 % (11.5-14.5)
[2024-01-23 09:50] LABS: Alanine Aminotransferase 34 U/L (6-35); Albumin Level 4.1 g/dL (3.5-5.1); Alkaline Phosphatase 89 U/L (38-126); Anion Gap 6 mmol/L (4-12); Aspartate Amino Transferase 39 U/L (14-36); Bilirubin,Total 0.6 mg/dL (0.2-1.3); Blood Urea Nitrogen 10 mg/dL (7-17); Calcium 8.8 mg/dL (8.4-10.2); Carbon Dioxide 24 mmol/L (22-30); Chloride 107 mmol/L (98-107); Cholesterol 179 mg/dL (0-200); Estimated Glomerular Filt Rate > 60; Glucose 174 mg/dL (65-110); HDL Direct 46 mg/dL; Potassium 4.2 mmol/L (3.4-5.0); Sodium 137 mmol/L (137-145); Triglycerides 256 mg/dL (<150)
[2024-01-23 10:01] LABS: LDL Cholesterol Direct 83 mg/dL
[2024-01-23 10:06] LABS: Creatinine Urine 97.6 mg/dL
[2024-01-23 10:09] LABS: MALB Creatinine Ratio 14.5 mg/g (0-30); Microalbumin Urine Random 14.2 mg/L (0-16.7)
[2024-01-23 10:47] LABS: Hemoglobin A1C 6.9 % (<5.7)
[2024-01-23 11:17] LABS: Free T4 Free Thyroxine 0.95 ng/mL (0.78-2.19)
== END 2024-01-23 08:49 | disposition home or self-care (01) ==
LOC: ANHLAB 08:53
PROVIDERS: PCP Internal Medicine; Visit Provider Internal Medicine
DX: E78.00 Pure hypercholesterolemia, unspecified (principal); E11.9 Type 2 diabetes mellitus without complications; Z79.01 Long term (current) use of anticoagulants
CPT/HCPCS: 36415; 80053; 80061; 82043; 83036; 84439; 84443; 85025; 85610

== ENCOUNTER 2024-01-28 08:25 | Outpatient (CLI) | payer MEDICARE, OTHER, SELFPAY ==
--- NOTE | 2024-02-04 19:51 | P.SLEEP_ITS ---
Sleep Study Date of Study: 01/28/24 Ordering Provider: Yovanny Myers, Interpreting Physician: Nuria Natarajan DO Sleep Study Type: Split Polysomnogram Height: 1.65 m Weight: 70.76 kg Body Mass Index: 25.9 Neck Circumference (inches): 16 [place]: 13 Reason for Sleep Study Snoring, daytime hypersomnia Sleep History The patient is a 68-year-old female with diabetes, paroxysmal atrial fibrillation, hyperlipidemia, osteoporosis, irritable bowel syndrome, neuropathy, migraine and chronic pain that had a sleep study ordered by her primary care physician for evaluation of sleep apnea. The patient denies awakening from sleep short of breath. She occasionally awakens at night with heartburn, belching or cough. She constantly snores loudly enough that others complain. She constantly has trouble sleeping when she has a cold. She rarely wakes up gasping for air throughout the night. She rarely has breathing problems at night observed by herself or others. She occasionally sweats excessively at night. She occasionally has heart palpitations or irregular heartbeats during the night. She constantly falls asleep during the day but rarely falls asleep while driving. She rarely experiences loss of muscle tone when extremely emotional. She constantly has trouble at school or work due to sleepiness. She denies sleep paralysis. She rarely experiences vivid dreamlike scenes upon awakening or falling asleep. She occasionally feels afraid of going to sleep. She frequently has nightmares. She rarely remembers her dreams. He rarely has thoughts racing through her mind. She rarely feels sad or depressed. She occasionally has anxiety. She occasionally has muscular tension. She occasionally notices part of her body jerk. She frequently kicks during the night. She constantly has crawling and aching feelings in her legs and constantly has leg pain during the night. She constantly grinds her teeth during sleep and occasionally awakens with morning jaw pain. She is occasionally bothered by pain during the day and frequently awakened by pain during the night. She frequently wakes up feeling stiff in the morning. She frequently wakes up with sore or achy muscles. She frequently wakes up with pain in the neck, spine and other joints. She goes to bed at 8:30 p.m. on both weekdays and weekends. It takes her 30-60 minutes to fall asleep. She wakes up 2-3 times throughout the night for unknown reasons. she wakes up at 6:30 a.m. on both weekdays and weekends. She typically gets 4-6 hours of sleep per night. She will stay in bed for 10 minutes after waking up in the morning. She currently lives with her . She denies consuming any caffeinated beverages within 2 hours of bedtime. She denies engaging in physical exercise before bedtime. She will read and watch television before falling asleep. She will take naps in the afternoon or the evening but they are not refreshing. She consumes 2 caffeinated beverages per day. She is a former smoker. She denies alcohol and recreational drug use. [facility] Past Medical History Medical History Anxiety Chronic back pain Chronic bronchitis Chronic pain Chronic, continuous use of opioids Depression Diabetes type 2, controlled Fibromyalgia Hepatic steatosis Noted by CT scan 05/2021 HTN (hypertension) DANNY (obstructive sleep apnea) Paroxysmal atrial fibrillation PONV (postoperative nausea and vomiting) Psychological stress RLS (restless legs syndrome) Sleep apnea Surgical History Surgical History H/O bilateral breast reduction surgery H/O foot surgery History of x2 History of hysterectomy History of tonsillectomy Family History Family History Other Breast cancer Diabetes mellitus Hypertension Social History Social History Social History: Elderly mother lives w/ pt who is her full-time caregiver. Smoking packs per day: 0.25 Smoking cigarettes per day: 5.0 Years smoked: 0.5 Smoking pack-years: 0.13 Smoking status: Former smoker Tobacco type: cigarettes and e-cigarettes/vaping Second hand tobacco smoke exposure: No Additional smoking assessment comments: STATES VAPES OCCASIONALLY Alcohol intake: current Alcohol use details: STATES RARELY 1-2/MONTH Substance use: never Substance use type: does not use Living arrangements: with family Spiritual care concerns: No Medications Home Medications Medication Instructions Recorded Confirmed Type albuterol sulfate 90 mcg/actuation 2 puff inhalation QID PRN Dyspnea 08/03/20 02/05/23 History aerosol inhaler (ProAir HFA) atorvastatin 20 mg tablet 20 mg PO HS 08/03/20 02/05/23 History citalopram 40 mg tablet 40 mg PO HS 08/03/20 02/05/23 History estradiol 1 mg tablet 1 mg PO HS 08/03/20 02/05/23 History glimepiride 2 mg tablet 2 mg PO BID 08/03/20 02/05/23 History glycopyrrolate 1 mg tablet 2 mg PO Q12H 08/03/20 02/05/23 History lorazepam 1 mg tablet 1 mg PO QID PRN Anxiety 08/03/20 02/05/23 History metformin 500 mg tablet,extended 1,000 mg PO Q12H 08/03/20 02/05/23 History release 24 hr pregabalin 100 mg capsule 100 mg PO TID 08/03/20 02/05/23 History ropinirole 0.5 mg tablet 1 mg PO Q12H 08/03/20 02/05/23 History valacyclovir 500 mg tablet 500 mg PO HS 08/03/20 02/05/23 History insulin glargine 100 unit/mL See Rx Instructions .Route .COMPLEX 12/21/21 02/05/23 History subcutaneous cartridge insulin glargine 100 unit/mL 12 unit subcut .PM 12/21/21 02/08/23 History subcutaneous solution (Lantus U-100 Insulin) acetaminophen 500 mg tablet 1,000 mg PO Q6H PRN Pain (Scale 12/22/21 02/05/23 History (Acetaminophen Extra Strength) Score 4-6) metoprolol succinate 25 mg 75 mg PO QPM 30 days #90 tabs 12/23/21 02/08/23 Rx tablet,extended release 24 hr (Toprol XL) flecainide 50 mg tablet 50 mg PO Q12H #30 tabs 02/08/22 02/05/23 Rx hydrocodone 5 mg-acetaminophen 325 1 tablet PO Q6H PRN pain #10 tabs 02/03/23 02/08/23 Rx mg tablet warfarin 4 mg tablet See Rx Instructions .Route .COMPLEX 02/05/23 02/05/23 History hydrocodone 5 mg-acetaminophen 325 1 tablet PO Q4H PRN pain #20 tabs 02/08/23 Rx mg tablet acetaminophen 500 mg tablet 1,000 mg PO TID PRN dale 7 days #42 02/23/23 Rx tabs diazepam 5 mg tablet (Valium) 5 mg PO BID PRN muscle spasm #10 02/23/23 Rx tabs methocarbamol 750 mg tablet 750 mg PO TID #30 tabs 02/23/23 Rx ondansetron 4 mg disintegrating 4 mg PO Q8H PRN nausea and 02/23/23 Rx tablet vomiting #30 tabs Sleep Procedure A full night polysomnogram using the [employer] multi-channel system recorded the standard physiologic parameters including EEG, EOG, submentalis EMG, anterior tibialis EMG, EKG, body position, nasal and oral airflow using nasal pressure sensor and thermistor.? Respiratory parameters of chest and abdominal movements were recorded with Respiratory Inductance Plethysmography belts. Oxygen saturation was recorded by pulse oximetry. Video monitoring was also performed. Sleep stages, periodic limb movements, and EEG arousals were scored in 30 second epochs according to the criteria of the AASM Scoring Manual. The Apnea-Hypopnea Index was calculated using CMS guidelines for definition of hypopnea with 4% O2 desaturations while scoring respiratory events. Sleep Architecture During the diagnostic portion of the study, the total recording time was 190.7 minutes. The total sleep time was 126.5 minutes. Sleep latency was 50.7 minutes.? REM sleep was not achieved during this portion of the study. Sleep Efficiency was 66.3%. The patient had 11 awakenings for an awakening index of 5.2. Wake after sleep onset time was 13.5 minutes. The patient spent 37.0 minutes, 29.2% of total sleep time in Stage N1. The patient spent 89.5 minutes, 70.8% in Stage N2. The patient spent 0.0 minutes, 0.0% in Stage N3. The patient spent 0.0 minutes, 0.0% in Stage REM sleep. ? At 12:49:18 AM the patient was placed on PAP treatment and was started on 5 cm [id number] further titration. During the treatment portion of the study, the total recording time was 303.5 minutes.? The total sleep time was 244.0 minutes. Sleep latency was 19.0 minutes. REM latency was 33.0 minutes. Sleep Efficiency was 80.4%. Wake after Sleep Onset time was 40.5 minutes. The patient spent 8.5 minutes, 3.5% of total sleep time in Stage N1. The patient spent 131.5 minutes, 53.9% in Stage N2. The patient spent 0.0 minutes, 0.0% in Stage N3. The patient spent 104.0 minutes, 42.6% in Stage REM. Respiratory Analysis During the diagnostic portion of the study, the patient had 5 hypopneas and 24 obstructive apneas for an overall Apnea Hypopnea Index of 13.8 events per hour. The REM Apnea Hypopnea Index was 0. The NREM Apnea Hypopnea Index was 13.8. The patient had a Central Apnea Hypopnea Index of 0. There was no evidence of Jeff-Hubbard Respirations. During the treatment portion of the study, the patient had no respiratory events for an overall Apnea Hypopnea Index of 0 events per hour. The REM Apnea Hypopnea Index was 0. The NREM Apnea Hypopnea Index was 0. The patient had a Central Apnea Hypopnea Index of 0. There was no evidence of Jeff-Hubbard Respirations. The patient was started on CPAP 5 cm H2O without further titration. She was able to achieve a residual AHI less than 5 with both NREM and REM sleep. On CPAP 5 cm H2O, the patint spent 140 minutes in NREM and 104 minutes in REM with no respiratory events, resulting in an AHI of 0. The patient had a sleep efficiency of 80.4% on this pressure. Arousals During the diagnostic portion of the study, there were a total of 138 arousals for an arousal index of 65.5.? There were 19 respiratory arousals for an index of 9.0. There were 3 periodic limb movement arousals for an index of 1.4.? There were no arousals due to isolated limb movements. There were 116 spontaneous arousals for an index of 55.0. During the treatment portion of the study, there were a total of 48 arousals for an index of 11.8.? There were no arousals due to respiratory events and isolated/periodic limb movements. There were 48 spontaneous arousals for an index of 11.8. Periodic Limb Movements During the diagnostic portion of the study, the patient had 0 isolated limb movements with an index of 0. The patient had 6 periodic limb movements with an index of 2.8. The patient had a total of 6 limb movements with a total limb movement index of 2.8. During the treatment portion of the study, the patient had 0 isolated limb movements with an index of 0. The patient had 0 periodic limb movements with an index of 0. The patient had a total of 0 limb movements with a total limb movement index of 0. Oximetry Data During the diagnostic portion of the study, the patient had an average oxygen saturation of 95% in wake with a minimum oxygen saturation of 89% and a maximum oxygen saturation of 98%. The patient had an average oxygen saturation of 94.7% in sleep with a minimum oxygen saturation of 89.0% and a maximum oxygen saturation of 97.0%. The patient had 11 oxygen desaturations resulting in an Oxygen Desaturation Index of 5.2. The patient spent 0 minutes of total sleep time with an oxygen saturation less than 88%. During the treatment portion of the study, the patient had an average oxygen saturation of 95.7% in wake with a minimum oxygen saturation of 92.0% and a maximum oxygen saturation of 98.0%. The patient had an average oxygen saturation of 95.4% in sleep with a minimum oxygen saturation of 94.0% and a maximum oxygen saturation of 97.0%. The patient had 0 oxygen desaturations resulting in an Oxygen Desaturation Index of 0. The patient spent 0 minutes of total sleep time with an oxygen saturation less than 88%. Snoring Profile Moderate to loud snoring was present in the baseline portion of the study. Cardiac Profile The EKG lead showed normal sinus rhythm. No arrhythmias or PVCs were seen. During the diagnostic portion of the study, the average pulse rate was 73.2 bpm.? The minimum pulse rate was 69.0 bpm. The maximum pulse rate was 91.0 bpm. During the treatment portion of the study, the average pulse rate was 65.7 bpm.? The minimum pulse rate was 60.0 bpm. The maximum pulse rate was 85.0 bpm. EEG Profile No signs of seizure activity seen. Assessment and Plan Assessment and Plan (1) DANNY (obstructive sleep apnea): Code(s): G47.33 - Obstructive sleep apnea (adult) (pediatric) Status: Acute Assessment and Plan: In the diagnostic portion of the study, the patient had an overall AHI of 13.8 with desaturation down to 89%. This is consistent with mild sleep apnea. Due to the patient's paroxysmal atrial fibrillation, she qualifies for PAP therapy. The patient was started on CPAP 5 cm H2O and further titration was not needed. I recommend that the patient be prescribed Resmed AirSense 11 CPAP at 5 cm H2O, size medium Resmed AirFit P30i nasal cushions, CPAP filters/tubing and heated humidity. This should be used with all episodes of sleep.? Compliance should be reviewed within 31-90 days of starting therapy for usage greater than 4 hours per night greater than 70% of the nights. The patient should be asked about symptoms such as?excessive daytime sleepiness, quality of sleep, decreased nocturia, increased?mental functioning such as memory, mood, and concentration. The patient's sleep history is suggestive of Restless Leg Syndrome which can be worsened by neuropathy. I recommend that the patient have a serum ferritin drawn for evaluation of iron deficiency anemia. If the patient has a serum ferritin less than 75 ng/mL, I recommend starting a daily iron supplement and a Vitamin C supplement for better absorption. If the serum ferritin is greater than 75 ng/mL, I recommend starting a dopamine agonist and titrating the dose until symptoms resolve. There are nonpharmacological methods to treat limb movements including daily exercise, stretching calf muscles before bed, avoiding excessive amounts of caffeine and alcohol, vitamin B supplementation, magnesium lotion massaged into legs before bed, and use of a weighted blanket. Data The data obtained during this sleep study is adequate for interpretation. Certification This sleep study has been reviewed by a board certified sleep medicine physician.
[2024-02-04 19:52] VITALS: BMI 25.9
== END 2024-01-29 06:21 | disposition home or self-care (01) ==
LOC: ANHCSM 08:28
PROVIDERS: PCP Internal Medicine; Visit Provider Internal Medicine
DX: G47.33 Obstructive sleep apnea (adult) (pediatric) (principal); G47.30 Sleep apnea, unspecified
CPT/HCPCS: 95811

== ENCOUNTER 2024-03-02 07:04 | Outpatient (RCR) | payer MEDICARE, OTHER, SELFPAY ==
[2024-03-02 07:54] LABS: INR 2.8; Prothrombin Time 31.4 Seconds (11.1-14.7)
== END 2024-05-31 23:59 | disposition home or self-care (01) ==
LOC: ANHLAB 07:04
PROVIDERS: PCP Internal Medicine; Visit Provider Internal Medicine Cardiovascular Disease
DX: Z51.81 Encounter for therapeutic drug level monitoring (principal); I48.0 Paroxysmal atrial fibrillation; Z79.01 Long term (current) use of anticoagulants
CPT/HCPCS: 36415; 85610

== ENCOUNTER 2024-04-10 00:18 | Day surgery (SDC) | payer MEDICARE, OTHER, SELFPAY ==
--- NOTE | 2024-04-09 06:45 | PM.IMHP ---
H&P: HPI History of Present Illness Date/Time: 04/09/24 06:45 Chief Complaint: pelvic pain Narrative: this is a 68-year-old female with history of severe pelvic adhesions admitted for laparoscopy. She has undergone an lysis of adhesions before the past and that was very helpful. She has had a colonoscopy within the last 3 years. Her pain is such that she asked for laparoscopy and lysis of adhesions. Risks and benefits reviewed degree detail. She received the ACOG handout entitled laparoscopy. She had all questions answered. She asked to proceed PMFSH Past Medical History Medical History Anxiety Chronic back pain Chronic bronchitis Chronic pain Chronic, continuous use of opioids Depression Diabetes type 2, controlled Fibromyalgia Hepatic steatosis Noted by CT scan 05/2021 HTN (hypertension) DANNY (obstructive sleep apnea) Paroxysmal atrial fibrillation PONV (postoperative nausea and vomiting) Psychological stress RLS (restless legs syndrome) Sleep apnea Surgical History Surgical History H/O bilateral breast reduction surgery H/O foot surgery History of x2 History of hysterectomy History of tonsillectomy Family History Family History Other Breast cancer Diabetes mellitus Hypertension Social History Social History Social History: Elderly mother lives w/ pt who is her full-time caregiver. Smoking packs per day: 0.25 Smoking cigarettes per day: 5.0 Years smoked: 0.5 Smoking pack-years: 0.13 Smoking status: Former smoker Tobacco type: cigarettes and e-cigarettes/vaping Second hand tobacco smoke exposure: No Additional smoking assessment comments: STATES VAPES OCCASIONALLY Alcohol intake: current Alcohol use details: STATES RARELY 1-2/MONTH Substance use: never Substance use type: does not use Living arrangements: with family Spiritual care concerns: No Meds Home Medications and Allergies Home Medications Medication Instructions Recorded Confirmed Type albuterol sulfate 90 mcg/actuation 2 puff inhalation QID PRN Dyspnea 08/03/20 02/05/23 History aerosol inhaler (ProAir HFA) atorvastatin 20 mg tablet 20 mg PO HS 08/03/20 02/05/23 History citalopram 40 mg tablet 40 mg PO HS 08/03/20 02/05/23 History estradiol 1 mg tablet 1 mg PO HS 08/03/20 02/05/23 History glimepiride 2 mg tablet 2 mg PO BID 08/03/20 02/05/23 History glycopyrrolate 1 mg tablet 2 mg PO Q12H 08/03/20 02/05/23 History lorazepam 1 mg tablet 1 mg PO QID PRN Anxiety 08/03/20 02/05/23 History metformin 500 mg tablet,extended 1,000 mg PO Q12H 08/03/20 02/05/23 History release 24 hr pregabalin 100 mg capsule 100 mg PO TID 08/03/20 02/05/23 History ropinirole 0.5 mg tablet 1 mg PO Q12H 08/03/20 02/05/23 History valacyclovir 500 mg tablet 500 mg PO HS 08/03/20 02/05/23 History insulin glargine 100 unit/mL See Rx Instructions .Route .COMPLEX 12/21/21 02/05/23 History subcutaneous cartridge insulin glargine 100 unit/mL 12 unit subcut .PM 12/21/21 02/08/23 History subcutaneous solution (Lantus U-100 Insulin) acetaminophen 500 mg tablet 1,000 mg PO Q6H PRN Pain (Scale 12/22/21 02/05/23 History (Acetaminophen Extra Strength) Score 4-6) metoprolol succinate 25 mg 75 mg PO QPM 30 days #90 tabs 12/23/21 02/08/23 Rx tablet,extended release 24 hr (Toprol XL) flecainide 50 mg tablet 50 mg PO Q12H #30 tabs 02/08/22 02/05/23 Rx hydrocodone 5 mg-acetaminophen 325 1 tablet PO Q6H PRN pain #10 tabs 02/03/23 02/08/23 Rx mg tablet warfarin 4 mg tablet See Rx Instructions .Route .COMPLEX 02/05/23 02/05/23 History hydrocodone 5 mg-acetaminophen 325 1 tablet PO Q4H PRN pain #20 tabs 02/08/23 Rx mg tablet acetaminophen 500 mg tablet 1,000 mg PO TID PRN dale 7 days
[2024-04-09 14:59] VITALS: BMI 26.7
--- NOTE | 2024-04-09 15:27 | PC.NURSE ---
Report to the Outpatient Waiting Room, entrance under the green pavilion located off [facility], at time __8:15AM on date ____04/10/24___. Planned Procedure Time: __10:15AM . Time changes happen often and if your time is changed the preop area will call you the afternoon before. - You and your visitor will be asked to self-screen and do not enter if you have any COVID symptoms. - A mask is optional within the hospital at this time. Patients may have clear liquids (water, carbonated beverages, clear teas, apple juice) until 3 hours prior to surgery with a maximum of 20 ounces. - No food from midnight until time of surgery - Infants may have breast milk until 4 hours before surgery, infant formula 6 hours prior to surgery. - Children will be allowed to drink immediately following surgery. If applicable, please bring a bottle or sippy cup to assist with drinking. Juice, water, soda, and popsicles are readily available. For infants on formula, please bring formula the day of surgery. Pacifiers are allowed. Take the following medications with a SIP of water the morning of surgery: ____CIPRO, FLECAINIDE, GLYCOPYRROLATE, PREGABALIN. MAY TAKE ALBUTEROL INHALER, DIAZEPAM, HYDROCODONE, LORAZEPAM, ZOFRAN DO NOT STOP ANY OF YOUR OTHER PRESCRIPTION MEDICATIONS PRIOR TO SURGERY ?EXCEPT THE FOLLOWING Medications to discontinue per physician ___HOLD COUMADIN PER DR LAU- STATES LAST DOSE 04/06/24. Please no make-up, nail belgian, hairspray, perfume, deodorant, or body powder the day of surgery. No jewelry (including any body piercings) or valuables the day of surgery, leave them at home. Please take a shower or bath the night before, or the morning of, surgery with an antibacterial soap. Wear comfortable, loose fitting clothing. Children are encouraged to wear pajamas. - Jewelry must be removed prior to entering the operating room. Rings and piercings that are not removed may be cut off. - The hospital will not accept responsibility for valuables. - Please leave all valuables, including medications, at home the day of surgery. If you are going home after surgery, a licensed [employer] driver must drive you home. - NO public transportation without another adult if you receive anesthesia. - We recommend that an adult stay with you for 24 hours following discharge. - We also recommend that you do not drive, make important decision, drink alcoholic beverages, or take any drugs that were not prescribed by your health care provider for at least 24 hours after your discharge time. For Pediatric surgeries, we recommend two adults accompany the child home. Follow any additional instructions given to you from your surgeon. If you or anyone in your household have experienced Covid symptoms in the past week, please notify your surgeon or the nurse liaison at the phone number below for possible testing. Telephone instructions given to ____PATIENT and asked if any additional questions and then verbalized understanding. Patient advised to call surgeon office or pre surgery nurse liaison [phone] if any additional questions.
--- NOTE | 2024-04-10 04:42 | WPDHPUPDATE1 ---
History and Physical Update Update Date/Time: 04/10/24 04:42 History and Physical has been reviewed, including an updated exam of the patient. There are NO changes in the patient's condition. Risks, benefits, and alternatives have been discussed and questions answered. Patient agrees to proceed with procedure.
[2024-04-10 07:52] VITALS: BP 109/56; PULSE 77; RESP 14; TEMP 36.7; O2SAT 97; BMI 27.1
--- NOTE | 2024-04-10 08:31 | ECG_ITS ---
Test Date: 2024-04-10 09:16:44 Measurements Intervals [place] Rate: 68 P: 45 MO: 164 QRS: -5 QRSD: 96 T: 6 QT: 438 QTc: 466 Interpretive Statements SINUS RHYTHM MINOR NONSPECIFIC ST AND T ABNORMALITY BORDERLINE ECG No previous ECG available for comparison Electronically Signed On 04-10-2024 15:46:29 CDT by Emilio Harris M.D.
[2024-04-10 09:07] LABS: Anion Gap 7 mmol/L (4-12); Blood Urea Nitrogen 13 mg/dL (7-17); Calcium 8.8 mg/dL (8.4-10.2); Carbon Dioxide 22 mmol/L (22-30); Chloride 109 mmol/L (98-107); Estimated CRCL calculation 47 ml/min; Estimated Glomerular Filt Rate > 60; Glucose 170 mg/dL (65-110); Potassium 4.1 mmol/L (3.4-5.0); Sodium 138 mmol/L (137-145)
[2024-04-10 09:12] LABS: Prothrombin Time 60.3 Seconds (11.1-14.7)
[2024-04-10 09:13] LABS: Partial Thromboplastin Time 75.2 Seconds (22.3-36.8)
--- NOTE | 2024-04-10 09:48 | SUR.PREOP ---
0948- Patient's providers Dr. Mikael Evans and Dr. Mckeon aware of elevated INR and have canceled procedure- patient aware.
--- NOTE | 2024-04-10 09:48 | SUR.PREOP ---
critical lab INR, 7, DR MEDINA AND DR LAU AWARE.
--- NOTE | 2024-04-10 09:51 | WPDHPUPDATE1 ---
History and Physical Update Update Date/Time: 04/10/24 09:51 History and Physical has been reviewed, including an updated exam of the patient. There are NO changes in the patient's condition. Risks, benefits, and alternatives have been discussed and questions answered. Patient agrees to proceed with procedure. INR elevated. reschedule procedure
[2024-04-10 15:07] VITALS: BMI 27.1
== END 2024-04-10 10:10 | disposition home or self-care (01) ==
PROVIDERS: Anesthesiology; PCP Internal Medicine; Visit Provider Obstetrics & Gynecology
PROC: (CPT 49320; principal; 2024-04-10 10:15)
DX: R10.2 Pelvic and perineal pain (principal); R79.1 Abnormal coagulation profile; Z53.09 Procedure and treatment not carried out because of other contraindication
CPT/HCPCS: 36415; 80048; 85610; 85730; 86850; 86900; 86901; 93005; 99212; G0463

== ENCOUNTER 2024-04-13 12:22 | Outpatient (CLI) | payer MEDICARE, OTHER, SELFPAY ==
[2024-04-13 13:34] LABS: INR 4.7; Partial Thromboplastin Time 67.4 Seconds (22.3-36.8); Prothrombin Time 45.3 Seconds (11.1-14.7)
== END 2024-04-13 12:23 | disposition home or self-care (01) ==
LOC: ANHSURGERY 12:33
PROVIDERS: Anesthesiology; PCP Internal Medicine; Visit Provider Obstetrics & Gynecology
DX: Z01.818 Encounter for other preprocedural examination (principal); Z92.29 Personal history of other drug therapy
CPT/HCPCS: 36415; 85610; 85730

== ENCOUNTER 2024-04-15 01:29 | Day surgery (SDC) | payer MEDICARE, OTHER, SELFPAY ==
--- NOTE | 2024-04-13 09:52 | PC.NURSE ---
Report to the Outpatient Waiting Room, entrance under the green pavilion located off [id number] AM on date __04/15/24 . Planned Procedure Time: _1200 NOON . Time changes happen often and if your time is changed the preop area will call you the afternoon before. - You and your visitor will be asked to self-screen and do not enter if you have any COVID symptoms. - A mask is optional within the hospital at this time. Patients may have clear liquids (water, carbonated beverages, clear teas, apple juice) until 3 hours prior to surgery( 9:00 AM) with a maximum of 20 ounces. - No food from midnight until time of surgery - Infants may have breast milk until 4 hours before surgery, infant formula 6 hours prior to surgery. - Children will be allowed to drink immediately following surgery. If applicable, please bring a bottle or sippy cup to assist with drinking. Juice, water, soda, and popsicles are readily available. For infants on formula, please bring formula the day of surgery. Pacifiers are allowed. Take the following medications with a SIP of water the morning of surgery: INHALER IF NEEDED,DIAZEPAM,FLECAINIDE,HYDROCODONE IF NEEDED FOR PAIN,,LORAZEPAM,PREGABALIN,TAKE HALF OF AM INSULIN DOSE DO NOT STOP ANY OF YOUR OTHER PRESCRIPTION MEDICATIONS PRIOR TO SURGERY ?EXCEPT THE FOLLOWING Medications to discontinue per physician ____PT STATES LAST DOSE WARFARIN 04/06/24 Please no make-up, nail citizen of [place], hairspray, perfume, deodorant, or body powder the day of surgery. No jewelry (including any body piercings) or valuables the day of surgery, leave them at home. Please take a shower or bath the night before, or the morning of, surgery with an antibacterial soap. Wear comfortable, loose fitting clothing. Children are encouraged to wear pajamas. - Jewelry must be removed prior to entering the operating room. Rings and piercings that are not removed may be cut off. - The hospital will not accept responsibility for valuables. - Please leave all valuables, including medications, at home the day of surgery. If you are going home after surgery, a licensed van driver must drive you home. - NO public transportation without another adult if you receive anesthesia. - We recommend that an adult stay with you for 24 hours following discharge. - We also recommend that you do not drive, make important decision, drink alcoholic beverages, or take any drugs that were not prescribed by your health care provider for at least 24 hours after your discharge time. For Pediatric surgeries, we recommend two adults accompany the child home. Follow any additional instructions given to you from your surgeon. If you or anyone in your household have experienced Covid symptoms in the past week, please notify your surgeon or the nurse liaison at the phone number below for possible testing. Telephone instructions given to ___PATIENT and asked if any additional questions and then verbalized understanding. Patient advised to call surgeon office or pre surgery nurse liaison [phone] if any additional questions.
[2024-04-13 11:06] VITALS: BMI 27.1
[2024-04-15] VITALS (9 sets, daily range): BP systolic 97–151; BP diastolic 60–74; PULSE 67–82; RESP 13–18; TEMP 36–36.9; O2SAT 96–98
--- NOTE | 2024-04-15 05:56 | WPDHPUPDATE1 ---
History and Physical Update Update Date/Time: 04/15/24 05:56 History and Physical has been reviewed, including an updated exam of the patient. There are NO changes in the patient's condition. Risks, benefits, and alternatives have been discussed and questions answered. Patient agrees to proceed with procedure.
[2024-04-15] MEDS: ACETAMINOPHEN 500 MG TABLET 1000 MG PO (10:35)
[2024-04-15] MEDS: LACTATED RINGERS 1,000 ML 30 ML IV CONT ×3 (10:50→12:59)
[2024-04-15 10:56] LABS: Glucose Point of Care 138 mg/dl (65-105)
[2024-04-15] MEDS: KETOROLAC 15 MG/ML VIAL (*BKC) IV PUSH (11:02)
[2024-04-15 11:11] LABS: INR 2.4; Prothrombin Time 26.7 Seconds (11.1-14.7)
--- NOTE | 2024-04-15 11:40 | WPDANESEPPF ---
Anes - Initial Pre Proc Eval Procedure: Operation Date: 04/15/24 12:00 Proposed Procedures p Laparoscopy with Lysis of Adhesions - Solomon Evans MD Date/Time: 04/15/24 11:40 Surgeon: Solomon Evans MD Pre Op Diagnosis: pelvic pain, pelvic adhesions Patient Data Age: 68 Gender: F Height: 1.66 m Weight: 76.1 kg Last Vital Signs Temp 36.9 C 04/15/24 10:56 Pulse 71 04/15/24 10:56 Resp 16 04/15/24 10:56 BP 119/71 04/15/24 10:56 Pulse Ox 97 04/15/24 10:56 O2 Del Method Room Air 04/15/24 10:56 Allergies Allergy/AdvReac Type Severity Reaction Status Date / Time erythromycin base AdvReac Unknown Abdominal Verified 04/15/24 10:56 Pain TAPE SILK AdvReac Mild BLISTERS--PEELS Uncoded 04/15/24 10:56 OFF SKIN, REDNESS Home Medications Medication Instructions Recorded Confirmed Type albuterol sulfate 90 mcg/actuation 2 puff inhalation QID PRN Dyspnea 08/03/20 04/15/24 History aerosol inhaler (ProAir HFA) atorvastatin 20 mg tablet 20 mg PO HS 08/03/20 04/15/24 History citalopram 40 mg tablet 40 mg PO HS 08/03/20 04/15/24 History estradiol 1 mg tablet 1 mg PO HS 08/03/20 04/15/24 History glimepiride 2 mg tablet 2 mg PO BID 08/03/20 04/15/24 History glycopyrrolate 1 mg tablet 2 mg PO Q12H 08/03/20 04/15/24 History (Antonio) lorazepam 1 mg tablet 1 mg PO QID PRN Anxiety 08/03/20 04/15/24 History metformin 500 mg tablet,extended 1,000 mg PO QAM 08/03/20 04/15/24 History release 24 hr pregabalin 100 mg capsule 100 mg PO TID 08/03/20 04/15/24 History ropinirole 0.5 mg tablet 1 mg PO Q12H 08/03/20 04/15/24 History valacyclovir 500 mg tablet 500 mg PO HS 08/03/20 04/15/24 History insulin glargine 100 unit/mL 12 unit subcut DIRECTED 12/21/21 04/15/24 History subcutaneous solution (Lantus U-100 Insulin) acetaminophen 500 mg tablet 1,000 mg PO Q6H PRN Pain (Scale 12/22/21 04/15/24 History (Acetaminophen Extra Strength) Score 4-6) metoprolol succinate 25 mg 75 mg PO QPM 30 days #90 tabs 12/23/21 04/15/24 Rx tablet,extended release 24 hr (Toprol XL) flecainide 50 mg tablet 50 mg PO Q12H #30 tabs 02/08/22 04/15/24 Rx hydrocodone 5 mg-acetaminophen 325 1 tablet PO Q6H PRN pain #10 tabs 02/03/23 04/15/24 Rx mg tablet warfarin 4 mg tablet See Rx Instructions .Route .COMPLEX 02/05/23 04/15/24 History diazepam 5 mg tablet (Valium) 5 mg PO BID PRN muscle spasm #10 02/23/23 04/15/24 Rx tabs ondansetron 4 mg disintegrating 4 mg PO Q8H PRN nausea and 02/23/23 04/15/24 Rx tablet vomiting #30 tabs semaglutide 0.25 mg or 0.5 mg (2 0.5 mg subcut WEEKLY 04/09/24 04/15/24 History mg/3 mL) subcutaneous pen injector (Ozempic) hydrocodone 5 mg-acetaminophen 325 1 tablet PO Q4H PRN pain #20 tabs 04/10/24 04/13/24 Rx mg tablet Laboratory Tests 04/15/24 04/15/24 10:31 10:52 PT 26.7 H D Seconds (11.1-14.7) INR 2.4 APTT 42.0 H Seconds (22.3-36.8) POC Capillary Glucose 138 H mg/dl (65-105) Patient hx anesthesia problems: none Family hx anesthesia problems: none Results Review: All pre-operative results and documents have been reviewed as part of the pre-operative evaluation. [facility] Past Medical History Medical History Anxiety Chronic back pain Chronic bronchitis Chronic pain Chronic, continuous use of opioids Depression Diabetes type 2, controlled Fibromyalgia Hepatic steatosis Noted by CT scan 05/2021 HTN (hypertension) DANNY (obstructive sleep apnea) Paroxysmal atrial fibrillation PONV (postoperative nausea and vomiting) Psychological stress RLS (restless legs syndrome) Sleep apnea Surgical History Surgical History H/O bilateral breast reduction surgery H/O foot surgery History of x2 History of hysterectomy History of tonsillectomy Family History Family
--- NOTE | 2024-04-15 12:20 | W.PM.PROC2 ---
Procedure Note - Detailed Date of Procedure 04/15/24 Pre-op Diagnosis pelvic pain, pelvic adhesions Post-op Diagnosis Same Procedure Performed Laparoscopic lysis of adhesions Surgeon Solomon Evans MD Anesthesia General Indications cis 68-year-old female history of adhesions status hysterectomy Findings absent uterus ovaries and tubes. Multiple adhesions especially to the left side of the pelvis Description of Procedure patient was prepped draped in sterile fashion placed in dorsal lithotomy position. Under excellent general endotracheal anesthesia sponge stick was placed vagina. Bladder was drained with red rubber catheter of clear urine. The weighted speculum was removed and the gloves were changed. A supraumbilical incision made the Veress needle passed in the abdomen. Abdomen filled with CO2 gas [id number]. The 5mm trocar advanced in the abdomen under direct visualization assuring injury. Patient placed in Trendelenburg and a suprapubic incision made. 5Mm trocar advanced under direct visualization assuring injury ovaries tubes and uterus were absent the right side was fairly clear with some adhesions using Endo Jackie as were sharply dissected. The colon was markedly adherent on the left side and using Endo Jackie the adhesions were sharply dissected until the colon moved freely. Irrigation undertaken to clear and hemostasis assured. A sponge stick was in the vagina was used for manipulation and showed total freedom in the vaginal cuff area. The gas removed from the abdomen the. The trocars removed and the incisions closed with 4-0 Monocryl and glue. Patient was awakened and went to recovery in satisfactory condition. All sponge, needle, instrument counts were correct. There were no immediate complications blood loss was 5cc Estimated Blood Loss 5 Drains No Packing No Pathology None sent Complications No immediate complications Condition Stable Disposition PACU
--- NOTE | 2024-04-15 12:22 | SUR.PREOP ---
1030- Pt INR 2.5. Reviewed with Dr. Mikael Evans and he stated pt can go back to OR.
[2024-04-15 12:56] LABS: Glucose Point of Care 125 mg/dl (65-105)
[2024-04-15] MEDS: fentaNYL CITRATE INJ (*CRX) 100 MCG/2 ML VIAL 25 MCG IV PUSH (13:08)
[2024-04-15] MEDS: oxyCODONE HCL (*CRX) 5 MG TAB IR PO (13:46)
--- NOTE | 2024-04-15 17:07 | SUR.PHASEII ---
Patient contacted on when to resume blood thinner. Patient states she will call her Quirk Sander in the morning. Per Mikael Evans d/kp instructions patient to follow up with provider.
== END 2024-04-15 14:26 | disposition home or self-care (01) ==
PROVIDERS: PCP Internal Medicine; Visit Provider Obstetrics & Gynecology
PROC: (CPT 49320; principal; 2024-04-15 12:00)
DX: K66.0 Peritoneal adhesions (postprocedural) (postinfection) (principal); R10.2 Pelvic and perineal pain; I48.0 Paroxysmal atrial fibrillation; I10 Essential (primary) hypertension; G47.33 Obstructive sleep apnea (adult) (pediatric); E11.9 Type 2 diabetes mellitus without complications; M79.7 Fibromyalgia; G25.81 Restless legs syndrome; F41.9 Anxiety disorder, unspecified; F32.A Depression, unspecified; M54.9 Dorsalgia, unspecified; G89.29 Other chronic pain; K76.0 Fatty (change of) liver, not elsewhere classified; Z87.891 Personal history of nicotine dependence; Z79.891 Long term (current) use of opiate analgesic; Z79.51 Long term (current) use of inhaled steroids; Z79.84 Long term (current) use of oral hypoglycemic drugs; Z79.4 Long term (current) use of insulin; Z79.01 Long term (current) use of anticoagulants; Z79.85 Long-term (current) use of injectable non-insulin antidiabetic drugs
CPT/HCPCS: 44180; 36415; 82948; 85610; 85730; A9270; J1100; J1885; J2250; J2405; J2704; J3010; J7120

== ENCOUNTER 2024-06-29 15:17 | Outpatient (CLI) | payer MEDICARE, OTHER, SELFPAY ==
[2024-06-29 11:49] LABS: Cholesterol 175 mg/dL (0-200); HDL Direct 45 mg/dL; Triglycerides 301 mg/dL (<150)
[2024-06-29 12:00] LABS: LDL Cholesterol Direct 61 mg/dL
[2024-06-29 12:16] LABS: Hemoglobin A1C 6.6 % (<5.7)
== END 2024-06-29 15:18 | disposition home or self-care (01) ==
PROVIDERS: PCP Internal Medicine; Visit Provider Internal Medicine
DX: E78.00 Pure hypercholesterolemia, unspecified (principal); E11.9 Type 2 diabetes mellitus without complications
CPT/HCPCS: 36415; 80061; 83036

== ENCOUNTER 2024-08-04 15:18 | Emergency (ER) | payer MEDICARE, OTHER, SELFPAY ==
--- NOTE | ~2024-08-04 | XR_ITS ---
XR toe 2nd LT min 2V Ordering provider: Lorie Woods MD History: . NO INJURY/ PAST INJURY OR SURGERY PAIN, 2ND DIGIT . Comparison: None. FINDINGS: BONES: Healing fracture is seen in the proximal metaphysis of the first left metatarsal tarsal bone m ost likely postsurgical. JOINT SPACES: Normal. SOFT TISSUES: Normal. IMPRESSION: Healing fracture in the proximal metaphysis of the first metatarsal bone which may be postsurgical. C linical correlation advised. Reviewed, dictated and finalized at location A. IMPRESSION: Healing fracture in the proximal metaphysis of the first metatarsal bone which may be postsurgical. Clinical correlation advised.
[2024-08-04 15:28] VITALS: BP 104/48; PULSE 69; RESP 17; TEMP 36.7; O2SAT 96
--- NOTE | 2024-08-04 15:29 | ED.GENADULT ---
HPI - General Adult General Chief complaint: Unspecified Stated complaint: toe pain Time Seen by Provider: 08/04/24 15:29 History of Present Illness HPI narrative: Patient presents with severe left 2nd toe pain, atraumatic. Related Data Home Medications Medication Instructions Recorded Confirmed albuterol sulfate 90 mcg/actuation 2 puff inhalation QID PRN Dyspnea 08/03/20 04/15/24 aerosol inhaler (ProAir HFA) atorvastatin 20 mg tablet 20 mg PO HS 08/03/20 04/15/24 citalopram 40 mg tablet 40 mg PO HS 08/03/20 04/15/24 estradiol 1 mg tablet 1 mg PO HS 08/03/20 04/15/24 glimepiride 2 mg tablet 2 mg PO BID 08/03/20 04/15/24 glycopyrrolate 1 mg tablet 2 mg PO Q12H 08/03/20 04/15/24 (Antonio) lorazepam 1 mg tablet 1 mg PO QID PRN Anxiety 08/03/20 04/15/24 metformin 500 mg tablet,extended 1,000 mg PO QAM 08/03/20 04/15/24 release 24 hr pregabalin 100 mg capsule 100 mg PO TID 08/03/20 04/15/24 ropinirole 0.5 mg tablet 1 mg PO Q12H 08/03/20 04/15/24 valacyclovir 500 mg tablet 500 mg PO HS 08/03/20 04/15/24 insulin glargine 100 unit/mL 12 unit subcut DIRECTED 12/21/21 04/15/24 subcutaneous solution (Lantus U-100 Insulin) acetaminophen 500 mg tablet 1,000 mg PO Q6H PRN Pain (Scale 12/22/21 04/15/24 (Acetaminophen Extra Strength) Score 4-6) warfarin 4 mg tablet See Rx Instructions .Route .COMPLEX 02/05/23 04/15/24 semaglutide 0.25 mg or 0.5 mg (2 0.5 mg subcut WEEKLY 04/09/24 04/15/24 mg/3 mL) subcutaneous pen injector (Ozempic) Allergies Allergy/AdvReac Type Severity Reaction Status Date / Time adhesive tape AdvReac Mild SILK TAPE= Verified 04/15/24 11:45 BLISTERS,PEELS OFF SKIN, REDNESS erythromycin base AdvReac Unknown Abdominal Verified 04/15/24 10:56 Pain Review of Systems Review of Systems: All systems reviewed & are unremarkable except as noted in HPI and below PMFSH Past Medical History Medical History Anxiety Chronic back pain Chronic bronchitis Chronic pain Chronic, continuous use of opioids Depression Diabetes type 2, controlled Fibromyalgia Hepatic steatosis Noted by CT scan 05/2021 HTN (hypertension) DANNY (obstructive sleep apnea) Paroxysmal atrial fibrillation PONV (postoperative nausea and vomiting) Psychological stress RLS (restless legs syndrome) Sleep apnea Surgical History Surgical History H/O bilateral breast reduction surgery H/O foot surgery History of x2 History of hysterectomy History of tonsillectomy Family History Family History Other Breast cancer Diabetes mellitus Hypertension Social History Social History Social History: Elderly mother lives w/ pt who is her full-time caregiver. Smoking packs per day: 0.2 Smoking cigarettes per day: 4.0 Years smoked: 3 Smoking pack-years: 0.60 Smoking status: Former smoker Tobacco type: cigarettes Second hand tobacco smoke exposure: No Smoking end date: 04/13/19 Additional smoking assessment comments: STATES VAPES OCCASIONALLY Alcohol intake: current Alcohol use details: 2 DRINK PER MONTH Substance use: never Substance use type: does not use Living arrangements: with family Additional living arrangements comments: HUSB Spiritual care concerns: No Exam Narrative: EXAMINATION OF ORGAN SYSTEMS/BODY AREAS: Constitutional: Vital signs per nursing GENERAL: Wincing every so often HEAD: Normal with no signs of head trauma. EYES: EOMI, conjunctiva normal ENT: Hearing grossly intact LUNGS: Nonlabored breathing. HEART: [Regular rate and rhythm], normal capillary refill, normal and strong DP pulse ABD: [Soft], [nontender to palpation] EXT: Normal range of motion; no swelling or deformity to toes. Tender to palpation to the 2nd left toe SKIN: [No rashes or lesions.] No overlying redness. NEURO: [Alert and oriented x 3. No gross focal sensory or strength deficits.] PSYCH: Normal affect Course Vital Signs Vital signs: Vital Signs Temperature 98.0 F 10/22/24 15:28 Pulse Rate 69 08/04/24 15:28 Respiratory Rate 17 08/04/24 15:28 Blood Pressure 104/48 L 08/04/24 15:28 Pulse Oximetry 96 08/04/24 15:28 Temperature 98.0 F 08/04/24 15:28 Pulse Rate 69 08/04/24 15:28 Respiratory Rate 17 08/04/24 15:28 Blood Pressure 104/48 L 08/04/24 15:28 Pulse Oximetry 96 08/04/24 15:28 Procedures Nerve Block Nerve Block 1: Nerve block date: 08/04/24 Local Anesthetic: bupivacaine 0.5% Amount of anesthesia used (mL): 2 Side: left Nerve Blocks: digital Procedure Successful: Yes Patient Tolerated Procedure: well and no complications Medical Decision Making MDM Narrative Medical decision making narrative: Patient presents with severe atraumatic pain to her 2nd left toe, she has great pulses, there is no leg swelling or pain and she is already on warfarin for DVT. She is neurovascularly intact. X-ray did not show any obvious acute fracture. I will trial a course of steroids, I have low concern for infection without any overlying redness, fevers or chills, or pain with movement of her toes. Will trial nerve block with improvement in symptoms. Follow-up to psychological stress evaluator provided. She was discharged with return precautions. Vital Signs Vital Signs: Vital Signs Temperature 98.0 F 08/04/24 15:28 Pulse Rate 69 08/04/24 15:28 Respiratory Rate 17 08/04/24 15:28 Blood Pressure 104/48 L 08/04/24 15:28 Pulse Oximetry 96 08/04/24 15:28 Temperature 98.0 F 08/04/24 15:28 Pulse Rate 69 08/04/24 15:28 Respiratory Rate 17 08/04/24 15:28 Blood Pressure 104/48 L 08/04/24 15:28 Pulse Oximetry 96 08/04/24 15:28 Discharge Plan Discharge Clinical Impression: Pain in toe Patient Disposition: Home, Self-Care Condition: Stable Instructions: Antibiotic Form, Arthralgia (ED) Additional Instructions: Please follow-up with a psychological stress evaluator, try the steroids as prescribed, and come back to the emergency room for any worsening pain or other issues. Prescriptions: New prednisone 20 mg tablet 40 mg PO DAILY 5 Days Qty: 10 0RF No Action warfarin 4 mg tablet See Rx Instructions .ROUTE .COMPLEX Rx Instructions: 2MG-SATURDAY, SATURDAY, SATURDAY, SATURDAY, SATURDAY. 4MG- SATURDAY AND SATURDAY glycopyrrolate [Robinul] 1 mg tablet 2 mg PO Q12H Rx Instructions: EXCESSIVE SWEATING atorvastatin 20 mg tablet 20 mg PO HS citalopram 40 mg tablet 40 mg PO HS valacyclovir 500 mg tablet 500 mg PO HS glimepiride 2 mg tablet 2 mg PO BID estradiol 1 mg tablet 1 mg PO HS ropinirole 0.5 mg tablet 1 mg PO Q12H lorazepam 1 mg tablet 1 mg PO QID PRN (Reason: Anxiety) albuterol sulfate [ProAir HFA] 90 mcg/actuation HFA aerosol inhaler 2 puff INHALATION QID PRN (Reason: Dyspnea) metformin 500 mg tablet extended release 24 hr 1,000 mg PO QAM Rx Instructions: 1,000 mg orally pregabalin 100 mg capsule 100 mg PO TID insulin glargine [Lantus U-100 Insulin] 100 unit/mL Solution 12 unit SUBCUT DIRECTED Rx Instructions: Pt takes 12 units AM AND 14 UNITS PM. PLUS if <120 if >120 takes 14 units acetaminophen [Acetaminophen Extra Strength] 500 mg Tablet 1,000 mg PO Q6H PRN (Reason: Pain (Scale Score 4-6)) metoprolol succinate [Toprol XL] 25 mg Tablet Extended Release 24 Hr 75 mg PO QPM 30 Days Qty: 90 0RF flecainide 50 mg tablet 50 mg PO Q12H Qty: 30 5RF hydrocodone-acetaminophen 5-325 mg tablet 1 tablet PO Q6H PRN (Reason: pain) Qty: 10 0RF ondansetron 4 mg tablet,disintegrating 4 mg PO Q8H PRN (Reason: nausea and vomiting) Qty: 30 0RF diazepam [Valium] 5 mg tablet 5 mg PO BID PRN (Reason: muscle spasm) Qty: 10 0RF Rx Instructions: MUSCLE SPASMS OR ANXIETY Ozempic 0.25 mg or 0.5 mg (2 mg/3 mL) pen injector 0.5 mg SUBCUT WEEKLY Rx Instructions: FRIDAYS hydrocodone-acetaminophen 5-325 mg tablet 1 tablet PO Q4H PRN (Reason: pain) Qty: 20 0RF Follow-up/Referrals: Clemente Serna Jr., DPM [Physician] - 2 Days Louis,Yovanny Garner MD [Primary Care Provider] -
[2024-08-04] MEDS: predniSONE 20 MG TABLET 40 MG PO (16:00)
== END 2024-08-04 16:10 | disposition home or self-care (01) ==
PROVIDERS: Emergency Provider Emergency Medicine; PCP Internal Medicine
DX: M79.675 Pain in left toe(s) (principal); I10 Essential (primary) hypertension; I48.0 Paroxysmal atrial fibrillation; E11.9 Type 2 diabetes mellitus without complications; G47.33 Obstructive sleep apnea (adult) (pediatric); G25.81 Restless legs syndrome; G47.30 Sleep apnea, unspecified; M79.7 Fibromyalgia; F41.9 Anxiety disorder, unspecified; F32.A Depression, unspecified; F17.290 Nicotine dependence, other tobacco product, uncomplicated; Z90.710 Acquired absence of both cervix and uterus; Z79.899 Other long term (current) drug therapy; Z79.4 Long term (current) use of insulin; Z79.85 Long-term (current) use of injectable non-insulin antidiabetic drugs; Z79.84 Long term (current) use of oral hypoglycemic drugs; Z79.01 Long term (current) use of anticoagulants
CPT/HCPCS: 64455; 73660; 99283; J7512

== ENCOUNTER 2024-08-10 14:44 | Emergency (ER) | payer MEDICARE, OTHER, SELFPAY ==
--- NOTE | ~2024-08-10 | XR_ITS ---
EXAMINATION: XR foot RT min 3V DATE: 08/10/2024 15:32 INDICATION: Right toe injury. TECHNIQUE: 4 views of right foot were obtained. COMPARISON: Right foot radiographs 02/20/2013 FINDINGS: There are changes of bunionectomy. There is a screw in neck of second metatarsal. No fractu re. There is mild osteoarthritis of first metatarsophalangeal joint and some of the midfoot joints. T here are enthesophytes at the posterior and plantar aspects of calcaneal tuberosity. IMPRESSION: 1. Mild polyarticular osteoarthritis. Reviewed, dictated and finalized at location B.
[2024-08-10 14:54] VITALS: BP 124/58; PULSE 85; RESP 16; TEMP 36.5; O2SAT 97
--- NOTE | 2024-08-10 15:09 | ED.LOWEXIN ---
HPI - Extremity Injury (Lower) General Chief Complaint: Extremity Injury, Lower <Madison Rodriguez APRN - Last Filed: 08/10/24 15:13> Stated Complaint: R great toe injury <Madison Rodriguez APRN - Last Filed: 08/10/24 15:13> Time Seen by Provider: 08/10/24 15:00 <Madison Rodriguez APRN - Last Filed: 08/10/24 15:13> Focused HPI: Patient is a 68-year-old female who reports to the ER with complaints of right toe pain. She reports approximately 5 days ago she bumped her foot while she was walking at night. Patient reports since then her right toe has been oozing pus and bleeding. She reports last night she was pacing because she could not sleep due to the pain. Patient reports this morning the swelling seemed to have gone up her foot. She denies being febrile. Patient reports she has a history of diabetes and is concerned she will lose her right big toe. She denies any other pertinent medical history related to this ER. GENERAL: Well-appearing, well-nourished, and in no acute distress. HEAD: Normocephalic, atraumatic. CHEST: Clear to auscultation. ?No respiratory distress. HEART: Regular rate and rhythm.? NEURO: ?Alert and oriented x3. SKIN: R great toe is swollen, red, and has pus coming from the inner L portion toenail. Patient screened in triage and initial orders placed.? ?Additional care and disposition to be based upon?diagnostic testing and treatment. <Madison Rodriguez APRN - Last Filed: 08/10/24 15:13> Related Data Home Medications: Home Medications Medication Instructions Recorded Confirmed albuterol sulfate 90 mcg/actuation 2 puff inhalation QID PRN Dyspnea 08/03/20 04/15/24 aerosol inhaler (ProAir HFA) atorvastatin 20 mg tablet 20 mg PO HS 08/03/20 04/15/24 citalopram 40 mg tablet 40 mg PO HS 08/03/20 04/15/24 estradiol 1 mg tablet 1 mg PO HS 08/03/20 04/15/24 glimepiride 2 mg tablet 2 mg PO BID 10/21/20 07/03/24 glycopyrrolate 1 mg tablet 2 mg PO Q12H 08/03/20 04/15/24 (Robinul) lorazepam 1 mg tablet 1 mg PO QID PRN Anxiety 08/03/20 04/15/24 metformin 500 mg tablet,extended 1,000 mg PO QAM 08/03/20 04/15/24 release 24 hr pregabalin 100 mg capsule 100 mg PO TID 08/03/20 04/15/24 ropinirole 0.5 mg tablet 1 mg PO Q12H 08/03/20 04/15/24 valacyclovir 500 mg tablet 500 mg PO HS 08/03/20 04/15/24 insulin glargine 100 unit/mL 12 unit subcut DIRECTED 12/21/21 04/15/24 subcutaneous solution (Lantus U-100 Insulin) acetaminophen 500 mg tablet 1,000 mg PO Q6H PRN Pain (Scale 12/22/21 04/15/24 (Acetaminophen Extra Strength) Score 4-6) warfarin 4 mg tablet See Rx Instructions .Route .COMPLEX 02/05/23 04/15/24 semaglutide 0.25 mg or 0.5 mg (2 0.5 mg subcut WEEKLY 04/09/24 04/15/24 mg/3 mL) subcutaneous pen injector (Ozempic) <Madison Rodriguez APRN - Last Filed: 08/10/24 15:13> Allergies/Adverse Reactions: Allergies Allergy/AdvReac Type Severity Reaction Status Date / Time adhesive tape AdvReac Mild SILK TAPE= Verified 08/10/24 14:55 BLISTERS,PEELS OFF SKIN, REDNESS erythromycin base AdvReac Unknown Abdominal Verified 08/10/24 14:55 Pain <Mdaison Rodriguez APRN - Last Filed: 08/10/24 15:13> Review of Systems Review of Systems: CONSTITUTIONAL: Denies fever SKIN: Reports redness and swelling MUSCULOSKELETAL: Reports joint pain, and myalgia. NEUROLOGIC: Denies numbness <Jennifer Allen PA-C - Last Filed: 08/10/24 20:31> All systems reviewed & are unremarkable except as noted in HPI and below <Jennifer Allen PA-C - Last Filed: 08/10/24 20:31> [facility] Past Medical History Medical History: Medical History Anxiety Chronic back pain Chronic bronchitis Chronic pain Chronic, continuous use of opioids Depression Diabetes type 2, controlled Fibromyalgia Hepatic steatosis Noted by CT scan 05/2021 HTN (hypertension) DANNY (obstructive sleep apnea) Paroxysmal atrial fibrillation PONV (postoperative nausea and vomiting) Psychological stress RLS (restless legs syndrome) Sleep apnea <Madison Rodriguez APRN - Last Filed: 08/10/24 15:13> Surgical History Surgical History: Surgical History H/O bilateral breast reduction surgery H/O foot surgery History of x2 History of hysterectomy History of tonsillectomy <Madison Rodriguez APRN - Last Filed: 08/10/24 15:13> Family History Family History: Family History Other Breast cancer Diabetes mellitus Hypertension <Madison Rodriguez APRN - Last Filed: 08/10/24 15:13> Social History Social History: Social History Social History: Elderly mother lives w/ pt who is her full-time caregiver. Smoking packs per day: 0.2 Smoking cigarettes per day: 4.0 Years smoked: 3 Smoking pack-years: 0.60 Smoking status: Former smoker Tobacco type: cigarettes Second hand tobacco smoke exposure: No Smoking end date: 04/13/19 Additional smoking assessment comments: STATES VAPES OCCASIONALLY Alcohol intake: current Alcohol use details: 2 DRINK PER MONTH Substance use: never Substance use type: does not use Living arrangements: with family Additional living arrangements comments: [facility] Spiritual care concerns: No <Madison Rodriguez APRN - Last Filed: 08/10/24 15:13> Exam Narrative: GENERAL: Well-appearing, well-nourished, and in no acute distress. HEAD: Normocephalic, atraumatic. EYES: EOMI. EXTREMITIES: Normal range of motion. Mild edema about the right great toe with some redness surrounding an area of swelling to the medial nail. No lymphangitic streaking. Normal DP pulse SKIN: Warm, dry, no rash. NEURO: No focal deficits. Alert and oriented x3. PSYCH: Normal mood and affect <Jennifer Allen PA-C - Last Filed: 08/10/24 20:31> Course Course Emergency Course: Patient updated on her workup and agrees with plan of care <TAYLOR Mcintosh Last Filed: 08/10/24 20:31> Consultations Consultation #1: Spoke with Dr. Harris, will get message to his office to follow up for further management of her Warfarin <Jennifer Allen PA-C - Last Filed: 08/10/24 20:31> Date: 08/10/24 <TAYLOR Mcintosh Last Filed: 08/10/24 20:31> Vital Signs Vital signs: Vital Signs Temperature 97.7 F 08/10/24 14:54 Pulse Rate 85 08/10/24 14:54 Respiratory Rate 16 08/10/24 14:54 Blood Pressure 124/58 L 08/10/24 14:54 Pulse Oximetry 97 08/10/24 14:54 Temperature 97.7 F 08/10/24 14:54 Pulse Rate 73 08/10/24 18:10 Respiratory Rate 18 08/10/24 18:10 Blood Pressure 111/66 08/10/24 18:10 Pulse Oximetry 98 08/10/24 18:10 <Madison Rodriguez APRN - Last Filed: 08/10/24 15:13> Vital Signs Temperature 97.7 F 08/10/24 14:54 Pulse Rate 85 08/10/24 14:54 Respiratory Rate 16 08/10/24 14:54 Blood Pressure 124/58 L 08/10/24 14:54 Pulse Oximetry 97 08/10/24 14:54 Temperature 97.7 F 08/10/24 14:54 Pulse Rate 73 08/10/24 18:10 Respiratory Rate 18 08/10/24 18:10 Blood Pressure 111/66 08/10/24 18:10 Pulse Oximetry 98 08/10/24 18:10 <TAYLOR Mcintosh Last Filed: 08/10/24 20:31> Procedures Abscess I/D foot: Date of Incision: 08/10/24 <TAYLOR Mcintosh Filed: 08/10/24 20:31> Time of Incision: 20:30 <Jennifer Allen PA-C - Last Filed: 08/10/24 20:31> Side (if applicable): right <TAYLOR Mcintosh Last Filed: 08/10/24 20:31> Local Anesthetic: lidocaine 1% <Jennifer Allen PA-C - Last Filed: 08/10/24 20:31> Amount of anesthesia used (mL): 2 <TAYLOR Mcintosh Last Filed: 08/10/24 20:31> Technique: incised with #11 blade <TAYLOR Mcintosh Last Filed: 08/10/24 20:31> Irrigation: Yes <TAYLOR Mcintosh Last Filed: 08/10/24 20:31> Packing used?: none <TAYLOR Mcintosh Last Filed: 08/10/24 20:31> I&D Results: Blood <TAYLOR Mcintosh Last Filed: 08/10/24 20:31> MDM - Extremity Injury (Lower) MDM Narrative Medical decision making narrative: Patient presents to the emergency department after a toe injury 4 days ago. Started to have some redness and swelling yesterday. She is afebrile and nontoxic appearing. CBC with mild leukocytosis to 11.3. Inflammatory markers are mildly elevated. Right foot x-ray shows osteoarthritis. I did trim patient's ingrown toenail, attempt at I and D just produced blood. Instructed on further care with warm soapy soaks and antibiotic ointment. Patient will be started on oral antibiotics. She was given 1st dose of antibiotics in the ER. She does have follow-up with a driller machine in 2 days. Patient had reported to me that she was unable to get her INR checked recently and it has been elevated in the past. INR is elevated at 5.1. She has no other signs of active bleeding. Given a dose of oral vitamin K. Will hold her warfarin. Spoke with Dr. Harris, will get message to his office to follow up for further management of her Warfarin. She was given warnings to return to the ER <Jennifer Allen PA-C - Last Filed: 08/10/24 20:31> Differential Diagnosis Differential diagnosis: Likely fracture of toe and other (Paronychia, abscess) <Jennifer Allen PA-C - Last Filed: 08/10/24 20:31> Lab Data Attestation: I reviewed the patient's lab results. <Jennifer Allen PA-C - Last Filed: 08/10/24 20:31> Result diagrams: 08/10/24 19:27 08/10/24 19:27 <Madison Rodriguez APRN - Last Filed: 08/10/24 15:13> Labs: Lab Results 08/10/24 Range/Units 19:27 WBC 11.3 H (4.5-10.0) K/mm3 RBC 3.48 L (4.2-5.4) M/mm3 Hgb 11.3 L (12.0-15.0) g/dL Hct 32.5 L (37.0-47.0) % MCV 93.4 (80-100) fl MCH 32.5 (26-34) pg MCHC 34.8 (32-36) g/dl RDW 14.0 (11.5-14.5) % Plt Count 240 (150-375) k/mm3 MPV 9.7 (7.4-10.4) fl Immature Gran % (Auto) 1.0 H (0-0.5) % Neut % (Auto) 53.6 (45.5-73.1) % Lymph % (Auto) 32.4 (18.3-44.2) % [place] % (Auto) 9.4 H (2.6-8.5) % Eos % (Auto) 3.3 (0-4.4) % Baso % (Auto) 0.3 (0.2-1.2) % Lymph # (Auto) 3.65 H (0.9-3.2) K/mm3 [place] # (Auto) 1.1 H (0.1-0.6) K/mm3 Eos # (Auto) 0.4 H (0-0.3) K/mm3 Baso # (Auto) 0.0 (0.0-0.1) K/mm3 Abs Immat Gran (auto) 0.11 H (0.00-0.031) K/mm3 Absolute Neuts (auto) 6.0 (1.3-6.7) K/mm3 Absolute Nucleated RBC 0.000 (0.0-0.012) K/mm3 Nucleated RBC % 0.0 (0.0-0.2) % ESR 32 H (0-20) mm/hr PT 47.1 H (11.1-14.7) Seconds INR 5.1 H* APTT 73.9 H (22.3-36.8) Seconds Sodium 138 (137-145) mmol/L Potassium 4.3 (3.4-5.0) mmol/L Chloride 103 (98-107) mmol/L Carbon Dioxide 27 (22-30) mmol/L Anion Gap 8 (4-12) mmol/L BUN 13 (7-17) mg/dL Creatinine 0.80 (0.7-1.0) mg/dL Estim Creat Clear Calc 53 ml/min Estimated GFR > 60 (59 - ) Glucose 147 H (65-110) mg/dL Calcium 8.8 (8.4-10.2) mg/dL C-Reactive Protein 1.6 H (<1.0) mg/dL <Madison Rodriguez, [employer]BB[employer]OM [employer]AVER - Last Filed: 08/10/24 15:13> Lab Results 08/10/24 Range/Units 19:27 WBC 11.3 H (4.5-10.0) K/mm3 RBC 3.48 L (4.2-5.4) M/mm3 Hgb 11.3 L (12.0-15.0) g/dL Hct 32.5 L (37.0-47.0) % MCV 93.4 (80-100) fl MCH 32.5 (26-34) pg MCHC 34.8 (32-36) g/dl RDW 14.0 (11.5-14.5) % Plt Count 240 (150-375) k/mm3 MPV 9.7 (7.4-10.4) fl Immature Gran % (Auto) 1.0 H (0-0.5) % Neut % (Auto) 53.6 (45.5-73.1) % Lymph % (Auto) 32.4 (18.3-44.2) % [place] % (Auto) 9.4 H (2.6-8.5) % Eos % (Auto) 3.3 (0-4.4) % Baso % (Auto) 0.3 (0.2-1.2) % Lymph # (Auto) 3.65 H (0.9-3.2) K/mm3 [place] # (Auto) 1.1 H (0.1-0.6) K/mm3 Eos # (Auto) 0.4 H (0-0.3) K/mm3 Baso # (Auto) 0.0 (0.0-0.1) K/mm3 Abs Immat Gran (auto) 0.11 H (0.00-0.031) K/mm3 Absolute Neuts (auto) 6.0 (1.3-6.7) K/mm3 Absolute Nucleated RBC 0.000 (0.0-0.012) K/mm3 Nucleated RBC % 0.0 (0.0-0.2) % ESR 32 H (0-20) mm/hr PT 47.1 H (11.1-14.7) Seconds INR 5.1 H* APTT 73.9 H (22.3-36.8) Seconds Sodium 138 (137-145) mmol/L Potassium 4.3 (3.4-5.0) mmol/L Chloride 103 (98-107) mmol/L Carbon Dioxide 27 (22-30) mmol/L Anion Gap 8 (4-12) mmol/L BUN 13 (7-17) mg/dL Creatinine 0.80 (0.7-1.0) mg/dL Estim Creat Clear Calc 53 ml/min Estimated GFR > 60 (59 - ) Glucose 147 H (65-110) mg/dL Calcium 8.8 (8.4-10.2) mg/dL C-Reactive Protein 1.6 H (<1.0) mg/dL <Jennifer Allen PA-C - Last Filed: 08/10/24 20:31> Imaging Data Radiologist's impression: ITS Impressions Foot X-Ray 08/10/24 15:34 IMPRESSION: 1. Mild polyarticular osteoarthritis. <Jennifer Allen PA-C - Last Filed: 08/10/24 20:31> Critical Care Time Critical Care Time Critical Care Time: No <Jennifer Allen PA-C - Last Filed: 08/10/24 20:31> Discharge Plan Discharge Clinical Impression: Ingrowing toenail of right foot, Supratherapeutic INR <Madison Rodriguez APRN - Last Filed: 08/10/24 15:13> Patient Disposition: Home, Self-Care <Madison Rodriguez APRN - Last Filed: 08/10/24 15:13> Condition: Stable <Madison Rodriguez APRN - Last Filed: 08/10/24 15:13> Instructions: Antibiotic Form, Paronychia (ED), Ingrown Nail (ED) <Madison Rodriguez APRN - Last Filed: 08/10/24 15:13> Additional Instructions: Return if symptoms worsen or concerns: any increase in redness, swelling, pain or fever over 101 Take antibiotics as directed. Soak your toe in warm soapy water for 10 minutes twice daily. Apply antibiotic ointment and a nonstick bandage. DO NOT take your Warfarin today or tomorrow. Your cardiologists office should be calling you tomorrow for further management of your Warfarin Follow up with your driller machine at your scheduled appointment <Madison Rodriguez APRN - Last Filed: 08/10/24 15:13> Prescriptions: New cephalexin 500 mg capsule 500 mg PO Q6H 7 Days Qty: 28 0RF No Action warfarin 4 mg tablet See Rx Instructions .ROUTE .COMPLEX Rx Instructions: 2MG-SATURDAY, SATURDAY, SATURDAY, SATURDAY, SATURDAY. 4MG- SATURDAY AND SATURDAY glycopyrrolate [Robinul] 1 mg tablet 2 mg PO Q12H Rx Instructions: EXCESSIVE SWEATING atorvastatin 20 mg tablet 20 mg PO HS citalopram 40 mg tablet 40 mg PO HS valacyclovir 500 mg tablet 500 mg PO HS glimepiride 2 mg tablet 2 mg PO BID estradiol 1 mg tablet 1 mg PO HS ropinirole 0.5 mg tablet 1 mg PO Q12H lorazepam 1 mg tablet 1 mg PO QID PRN (Reason: Anxiety) albuterol sulfate [ProAir HFA] 90 mcg/actuation HFA aerosol inhaler 2 puff INHALATION QID PRN (Reason: Dyspnea) metformin 500 mg tablet extended release 24 hr 1,000 mg PO QAM Rx Instructions: 1,000 mg orally pregabalin 100 mg capsule 100 mg PO TID insulin glargine [Lantus U-100 Insulin] 100 unit/mL Solution 12 unit SUBCUT DIRECTED Rx Instructions: Pt takes 12 units AM AND 14 UNITS PM. PLUS if <120 if >120 takes 14 units acetaminophen [Acetaminophen Extra Strength] 500 mg Tablet 1,000 mg PO Q6H PRN (Reason: Pain (Scale Score 4-6)) metoprolol succinate [Toprol XL] 25 mg Tablet Extended Release 24 Hr 75 mg PO QPM 30 Days Qty: 90 0RF flecainide 50 mg tablet 50 mg PO Q12H Qty: 30 5RF hydrocodone-acetaminophen 5-325 mg tablet 1 tablet PO Q6H PRN (Reason: pain) Qty: 10 0RF ondansetron 4 mg tablet,disintegrating 4 mg PO Q8H PRN (Reason: nausea and vomiting) Qty: 30 0RF diazepam [Valium] 5 mg tablet 5 mg PO BID PRN (Reason: muscle spasm) Qty: 10 0RF Rx Instructions: MUSCLE SPASMS OR ANXIETY Ozempic 0.25 mg or 0.5 mg (2 mg/3 mL) pen injector 0.5 mg SUBCUT WEEKLY Rx Instructions: FRIDAYS hydrocodone-acetaminophen 5-325 mg tablet 1 tablet PO Q4H PRN (Reason: pain) Qty: 20 0RF prednisone 20 mg tablet 40 mg PO DAILY 5 Days Qty: 10 0RF <Madison Rodriguez APRN - Last Filed: 08/10/24 15:13> Follow-up/Referrals: Myers,Yovanny Garner MD [Primary Care Provider] - <Madison Rodriguez APRN - Last Filed: 08/10/24 15:13>
[2024-08-10] MEDS: HYDROcodone/acetaminophen (*CRX) 5-325 MG TABLET 1 TAB PO (15:32)
[2024-08-10 18:10] VITALS: BP 111/66; PULSE 73; RESP 18; O2SAT 98
[2024-08-10 19:35] LABS: Basophils Percent Auto 0.3 % (0.2-1.2); Eosinophils Absolute Auto 0.4 K/mm3 (0-0.3); Eosinophils Percent Auto 3.3 % (0-4.4); Hematocrit 32.5 % (37.0-47.0); Hemoglobin 11.3 g/dL (12.0-15.0); Immature Granulocyte Absolute 0.11 K/mm3 (0.00-0.031); Lymphocytes Absolute Auto 3.65 K/mm3 (0.9-3.2); Lymphocytes Percent Auto 32.4 % (18.3-44.2); Mean Corpuscular HGB Conc 34.8 g/dl (32-36); Mean Corpuscular Hemoglobin 32.5 pg (26-34); Mean Corpuscular Volume 93.4 fl (80-100); Mean Platelet Volume 9.7 fl (7.4-10.4); Monocytes Absolute Auto 1.1 K/mm3 (0.1-0.6); Monocytes Percent Auto 9.4 % (2.6-8.5); Neutrophils Percent Auto 53.6 % (45.5-73.1); Platelet Count Result 240 k/mm3 (150-375); Red Blood Count 3.48 M/mm3 (4.2-5.4); White Blood Count 11.3 K/mm3 (4.5-10.0)
[2024-08-10 19:48] LABS: Prothrombin Time 47.1 Seconds (11.1-14.7)
[2024-08-10 19:49] LABS: Partial Thromboplastin Time 73.9 Seconds (22.3-36.8)
[2024-08-10 19:52] LABS: INR 5.1
[2024-08-10 19:55] LABS: Anion Gap 8 mmol/L (4-12); Blood Urea Nitrogen 13 mg/dL (7-17); CRP 1.6 mg/dL (<1.0); Calcium 8.8 mg/dL (8.4-10.2); Carbon Dioxide 27 mmol/L (22-30); Chloride 103 mmol/L (98-107); Estimated CRCL calculation 53 ml/min; Estimated Glomerular Filt Rate > 60; Glucose 147 mg/dL (65-110); Potassium 4.3 mmol/L (3.4-5.0); Sodium 138 mmol/L (137-145)
[2024-08-10 20:03] LABS: Erythrocyte Sedimentation Rate 32 mm/hr (0-20)
[2024-08-10] MEDS: CEPHALEXIN 500 MG CAPSULE PO (20:21)
[2024-08-10] MEDS: PHYTONADIONE 2.5 MG TAB PO (20:21)
[2024-08-10 20:35] VITALS: BP 127/63; PULSE 78; RESP 18; TEMP 36.7; O2SAT 99
== END 2024-08-10 20:36 | disposition home or self-care (01) ==
PROVIDERS: Emergency Provider Physician Assistant; PCP Internal Medicine
DX: L60.0 Ingrowing nail (principal); L03.031 Cellulitis of right toe; E11.9 Type 2 diabetes mellitus without complications; I10 Essential (primary) hypertension; I48.0 Paroxysmal atrial fibrillation; J42 Unspecified chronic bronchitis; G47.33 Obstructive sleep apnea (adult) (pediatric); M79.7 Fibromyalgia; G25.81 Restless legs syndrome; F41.9 Anxiety disorder, unspecified; F32.A Depression, unspecified; M19.071 Primary osteoarthritis, right ankle and foot; Z79.01 Long term (current) use of anticoagulants; Z79.4 Long term (current) use of insulin; Z79.84 Long term (current) use of oral hypoglycemic drugs; Z79.85 Long-term (current) use of injectable non-insulin antidiabetic drugs; Z79.899 Other long term (current) drug therapy
CPT/HCPCS: 10060; 10140; 11750; 36415; 73630; 80048; 85025; 85610; 85652; 85730; 86140; 99283; A9270

== ENCOUNTER 2024-08-14 07:09 | Outpatient (RCR) | payer MEDICARE, OTHER, SELFPAY ==
[2024-06-02 11:04] LABS: INR 3.6; Prothrombin Time 36.9 Seconds (11.1-14.7)
[2024-06-22 09:36] LABS: INR 2.6; Prothrombin Time 28.4 Seconds (11.1-14.7)
[2024-08-14 08:08] LABS: Prothrombin Time 22.6 Seconds (11.1-14.7)
== END 2024-08-31 23:59 | disposition home or self-care (01) ==
LOC: ANHLAB 07:09
PROVIDERS: PCP Internal Medicine; Visit Provider Internal Medicine
DX: Z51.81 Encounter for therapeutic drug level monitoring (principal); I48.0 Paroxysmal atrial fibrillation; Z79.01 Long term (current) use of anticoagulants
CPT/HCPCS: 36415; 85610

== ENCOUNTER 2024-08-27 14:53 | Outpatient (CLI) | payer MEDICARE, OTHER, SELFPAY ==
--- NOTE | ~2024-08-27 | XR_ITS ---
Clinical Indication: Wheezing PA and lateral views of the chest: Comparison: 04/20/2022 Findings: The lungs are clear, without evidence of focal consolidation or pleural effusion. Possible COPD. Cardiomediastinal silhouette is within normal limits. Bones and soft tissues are stable. Impression: Clear lungs. Possible COPD. Reviewed, dictated and finalized at location . 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 Possible COPD.
== END 2024-08-27 14:54 | disposition home or self-care (01) ==
LOC: GOSHIMG 14:55
PROVIDERS: PCP Internal Medicine; Visit Provider Internal Medicine
DX: R06.2 Wheezing (principal)
CPT/HCPCS: 71046

== ENCOUNTER 2024-11-12 14:52 | Outpatient (CLI) | payer MEDICARE, OTHER, SELFPAY ==
--- OUTSIDE RECORDS SUMMARY | 2024-11-12 15:27 | XMS_ITS | CONTINUITY OF CARE DOCUMENT ---
Author Name payam, payam Address Unknown Organization [facility] Address [address] [facility] [address] [place] [address] Phone [phone] Care Team Providers Care Healthcare Risk Control Consultant Name Role Phone Reji SULLIVAN, Carmen Unavailable DOLORES SULLIVAN, JORGE Unavailable [phone] JORGE BERNAL MD Unavailable [phone] PROBLEMS Condition Status Date Provider Notes DIABETES MELLITUS active Navjot Harding MD HYPERLIPIDEMIA active Navjot Harding MD Tobacco abuse active Carmen Mendoza MD Chest pain-improved, nl stre ss nuclear and echo active Carmen Mendoza MD Fibromyalgia active Carmen Mendoza MD PALPITATIONS active Charles Lin MD CHEST PAIN, NON-CARDIAC completed - Carmen Mendoza MD ENCOUNTERS Date Type Provider Location Encounter Diag nosis - In-person encounter Office Visit Carmen Mendoza MD [facility] Chest pain-improved, nl stress nuclear and echo - In-person encounter Office Visit Carmne Mendoza MD [facility] CHEST PAIN, NON-CARDIACFibromyalg iaChest pain-improved, nl stress nuclear and echoTobacco abuse - In-person encounter Office Visit Navjot Harding MD [facility] - In-person encounter Office Visit Charles Lin MD [facility] PALPITATIONS - In-person encounter Office Visit Navjot Harding MD [facility] - In-person encounter Office Visit Navjot Harding MD [facility] VITAL SIGNS Date Observation Value Provider Body Mass Index (Ratio) 25.98 kg/m2 Shawn Mendoza MD blood pressure, cuff size regular Micheal Smith blood pressure, diastolic 70 mm[Hg] Rosamaria Santiago blood pressure, systolic 110 mm[Hg] Concha fatimahzach Santiago oxygen saturation, oximetry 97 % Luba Santiago respiratory rate E&M 16 /min Luba Santiago pulse rate 80 /min Luba Santiago weight E&M 161 [lb_av] Luba Santiago height E&M 66 [in_i] Luba Santiago Body Mass Index (Ratio) 25.24 kg/m2 Shawn Mendoza MD blood pressure, diastolic 80 mm[Hg] Radha Garner blood pressure, systolic 126 mm[Hg] Umu Garner oxygen saturation, oximetry 94 % Nyasia Garner respiratory rate E&M 18 /min Kee Garner pulse rate 82 /min Nyasia mueller weight E&M 156.4 [lb_av] Nyasia fraga height E&M 66 [in_i] Nyasia mueller blood pressure, diastolic 70 mm[Hg] Te carolyn Fagan blood pressure, systolic 106 mm[Hg] Mederos pulse rate 79 /min Liss Fagan oxygen saturation, oximetry 97 % Liss Fagan respiratory rate E&M 16 /min Liss connell weight E&M 167 [lb_av] Liss Fagan blood pressure, diastolic 76 mm[Hg] Te carolyn Fagan blood pressure, systolic 114 mm[Hg] Mederos pulse rate 78 /min Liss Fagan oxygen saturation, oximetry 99 % Liss Fagan respiratory rate E&M 18 /min Liss connell weight E&M 168 [lb_av] Liss Fagan blood pressure, diastolic 79 mm[Hg] Te carolyn Fagan blood pressure, systolic 125 mm[Hg] Mederos pulse rate 82 /min Liss Fagan oxygen saturation, oximetry 98 % Liss Fagan respiratory rate E&M 18 /min Liss connell blood pressure, diastolic, right arm 80 m m[Hg] Liss Fagan blood pressure, systolic, right arm 122 m m[Hg] Liss Fagan blood pressure, diastolic 79 mm[Hg] Te carolyn Fagan blood pressure, systolic 125 mm[Hg] Mederos pulse rate 82 /min Liss Fagan oxygen saturation, oximetry 98 % Liss Fagan respiratory rate E&M 18 /min Liss connell weight E&M 173 [lb_av] Liss Fagan ALLERGIES Allergy Name Onset Date Reaction Criticality Status ZOCOR muscle pain muscle pain Low Critical ity active CODEINE High Criticality active ERYTHROMYCIN High Criticality active HISTORY OF MEDICATION USE Medication Status Instructions Dates Provider Indications Com ments PRAVASTATIN SODIUM 10 MG ORAL TABLET active ONE TAB. DAILY Carmen Mendoza MD ZOCOR 20 MG ORAL TABLET completed ONE TAB. AT BEDTIME - Luba Santiago TREXIMET 85-500 MG ORAL TABLET active as directed Nyasia Garner ROBINUL 1 MG ORAL TABLET active 2 tabs in AM, 3 tabs in PM Nyasia Garner REQUIP 0.5 MG ORAL TABLET active 1 tab in AM, 2 tabs in PM Nyasia Garner OSCAL 500/200 D-3 TABLET active twice daily Nyaisa Garner LYRICA 100 MG ORAL CAPSULE active twice daily Nyasia Garner INVOKAMET XR 150-500 MG ORAL TABLET EXTENDED RELEASE 24 HOUR active twice daily Nyasia Garner ESTRADIOL 1 MG ORAL TABLET completed once daily - Luba Santiago COVARYX 1.25-2.5 MG ORAL TABLET active once daily Nyasia Garner CELEXA 40 MG ORAL TABLET active ONE TAB. DAILY Nyasia Garner ATIVAN 1 MG ORAL TABLET active once daily Nyasia Garner ATENOLOL 50 MG ORAL TABLET active ONE TAB. DAILY Nyasia Garner AMARYL 2 MG ORAL TABLET active once daily Nyasia Garner ESTRATEST 1.25-2.5 MG TABS completed q hs - Nyasia Garner CITALOPRAM HYDROBROMIDE TABLET completed daily - Nyasia Garner GLYCOPYRROLATE SOLN completed - Nyasia Garner VITAMIN D-400 TABLET completed - Nyasia Pascual SIMVASTATIN 20 MG ORAL TABLET completed hs - Nyasia Garner ASPIRIN 81 MG ORAL TABLET completed ONE TAB. DAILY - Liss Fagan LOPRESSOR completed - Lsis Fagan ATENOLOL 100 MG ORAL TABLET completed ONE TAB. DAILY - Liss Fagan METFORMIN HCL 500 MG ORAL TABLET completed - Nyasia Garner ZOCOR completed - Liss Fagan SOCIAL HISTORY Date Observation Value Provider social history reviewed E&M ricco ewed - no changes required Carmen Mendoza MD smoking, year quit 2016 Luba saenz physical exercise, frequency, days per week yes Luba Santiago alcohol use, average drinks per day social basis only Luba Santiago caffeine use, averag e drinks per day yes Luba Santiago cigarette use yes Luba Santiago smoking status Former smoker Luba Santiago social history reviewed E&M ricco priceed - no changes required Carmen Mendoza MD cigarette use yes Nyasia fraga smoking status Current some day smoker Radha Garner social history reviewed E&M reviewed Navjot Harding MD social history E&M Marital Statu s: Addy weinberg with family/friends E thnicity: Charles Lin MD physical exercise, frequency, days per week yes [facility] caffeine use, averag e drinks per day yes [facility] alcohol use, average drinks per day social basis only [facility] smoking status Non-smoker [facility] physical exercise, frequency, days per week yes [facility] caffeine use, averag e drinks per day yes [facility] alcohol use, average drinks per day social basis only [facility] smoking status Non-smoker [facility] physical exercise, frequency, days per week yes [facility] caffeine use, averag e drinks per day yes [facility] alcohol use, average drinks per day social basis only [facility] smoking status Non-smoker [facility] physical exercise, frequency, days per week yes [facility] caffeine use, averag e drinks per day yes [facility] alcohol use, average drinks per day social basis only [facility] smoking status Non-smoker [facility] alcohol use, average drinks per day social basis only [facility] smoking status Non-smoker [facility] MENTAL STATUS Date Observation Value Provider assessment of judgme nt and insight E&M Alert and oriented to time, place and person. Mood and affect are normal. Navjot Harding MD assessment of judgme nt and insight E&M Alert and oriented to time, place and person. Mood and affect are normal. Charles Lin MD FAMILY HISTORY Family Member Condition First Degree Blood Relative No Known Fam puja History INSURANCE PROVIDERS Payer name Policy type / Coverage type Waterproof red democrat ID Pet Insurance Quotes [id number] ADVANCE DIRECTIVES Name Date DISCUSSED - NO DECISION MADE TREATMENT PLAN Date Name Performer Cardiology Follow up Carmen ryan MD Cardiology Follow up Carmen ryan MD Cardiology Follow up Carmen ryan MD Cardiology Carmen Mendoza MD Cardiology Carmen Mendoza MD Cardiology Carmen Mendoza MD Cardiology Carmen Mendoza MD Cardiology Carmen Mendoza MD routine:due to palps. Navjot allred MD routine: H er updated medication list for this problem includes: Simvastatin 20 Mg Tabs (Simvastatin) ..... Hs Navjot Harding MD routine:appears to h ave worsened. her bp is borderline and seems to be quite affected . I am not comfortable giving an antiarrhythmic so i will restart atnolol and she can let me know if it has helped. i will at that time refer her to ep if this does not help. 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 Navjot Harding MD ov : T he following medications were removed from the medication list: Atenolol 100 Mg Tabs (Atenolol) ..... One tab. daily Aspirin 81 Mg Tabs (Aspirin) ..... One tab. daily Charles Lin MD ov : H er updated medication list for this problem includes: Simvastatin 20 Mg Tabs (Simvastatin) ..... Hs Charles Lin MD ov : T he following medications were removed from the medication list: Atenolol 100 Mg Tabs (Atenolol) ..... One tab. daily Aspirin 81 Mg Tabs (Aspirin) ..... One tab. daily Orders: C omplete Echo ([id number]) E vent Recorder (*) Charles Lin MD ov : T he following medications were removed from the medication list: Aspirin 81 Mg Tabs (Aspirin) ..... One tab. daily Her updated medication list for this problem includes: Metformin Hcl 500 Mg Tabs (Metformin hcl) Charles Lin MD Date Name Event Recorder Complete Echo HISTORY OF PROCEDURES Procedure Date Procedure Name Provider Procedure Notes S tatus SNOMED-CT: 63591417 Physical Exam, Performed: Pulse Exam of Foot Carmen Mendoza MD completed SNOMED-CT: 918191519 [id number] Current Medications Documented Carmen Mendoza MD completed Stress EKG Dhaval Will MD complet ed Regadenoson, 4 units Carmen Mendoza MD completed Cardiolite, 2 units Carmen Mendoza MD completed SPECT Images Dhaval Will MD compl eted SNOMED-CT: 05593255 Physical Exam, Performed: Pulse Exam of Foot Carmen Mendoza MD completed EKG Carmen Mendoza MD completed SNOMED-CT: 368153176 [id number] Current Medications Documented Carmen Mendoza MD completed
--- OUTSIDE RECORDS SUMMARY | 2024-11-12 15:27 | XMS_ITS | Referral Summary ---
Author Organization [place] [id number] [facility] Address [address] [place] [address] Care Team Providers Care Acoustical Engineer Name Role Phone Yovanny Myers MD Primary Care Provider Encounters Date Type Department Care Team Description 09/24/2024 Anticoagulation Visit [facility] Cardiology [address] [address] [address] [place] [address] Maya Sorensen RN Paroxysmal atrial fibrillation (CMS/HCC) (HCC) (Primary Dx) 09/18/2024 Telephone [facility] Card[facility] [address] [place] [address] [place] [phone] Alla Sheets MD 08/14/2024 Anticoagulation Visit [facility]iology [address] [place] [address] [place] [phone] Maya Sorensen RN Paroxysmal atrial fibrillation (CMS/HCC) (HCC) (Primary Dx) 08/14/2024 Telephone [facility] Cardiology [address] [facility] [address] [place] [phone] Alla Sheets MD from Last 3 Months Allergies Active Allergy Reactions Criticality Noted Date Comments Adhesive Itching,Rash,Blisters High 02/27/2022 Erythromycin Medications atorvastatin (LIPITOR) 20 mg tablet Take 1 tablet (20 mg total) by mouth daily Active citalopram (CeleXA) 40 mg tablet Take 1 tablet (40 mg total) by mouth daily 2 Active valACYclovir (VALTREX) 500 mg tablet Take 1 tablet (500 mg total) by mouth daily 2 Active LANTUS 100 unit/mL (3 mL) pen for injection Inject 8 Units under the skin 2 (two) times a day 2 Active metFORMIN (GLUCOPHAGE) 1,000 mg tablet Take 1 tablet (1,000 mg total) by mouth daily with breakfast 2 Active Ozempic 0.25 mg or 0.5 mg(2 mg/1.5 mL) pen injector injection Inject 2 mg under the skin once a week 2 Active rOPINIRole (REQUIP) 0.5 mg tablet Take 1 tablet (0.5 mg total) by mouth 2 (two) times a day Active LORazepam (ATIVAN) 1 mg tablet Take 1 tablet (1 mg total) by mouth as needed 2 Active albuterol HFA (PROVENTIL HFA,VENTOLIN HFA,PROAIR HFA) 90 mcg/actuation inhaler Active estradioL (ESTRACE) 1 mg tablet 2 Active HYDROcodone-thierry taminophen (NORCO) 5-325 mg per tablet hydrocodone 5 mg-acetaminophen 325 mg tablet TAKE 1 TABLET BY MOUTH THREE TIMES DAILY DX: G43.90 Active hyoscyamine ER (LEVBID) 0.375 mg 12 hr tablet Acti ve glycopyrrolate (ROBINUL) 1 mg tablet 3 Active ondansetron (ZOFRAN) 4 mg tablet 3 Active metoprolol XL (TOPROL-XL) 25 mg extended release tablet TAKE 1 TABLET EVERY DAY 90 tablet 3 3 Active warfarin (COUMADIN) 4 mg tablet TAKE 1 TABLET EVERY DAY 90 tablet 3 4 Active flecainide (TAMBOCOR) 50 mg tablet Take 1 tablet (50 mg total) by mouth every 12 (twelve) hours 28 tablet 4 Active Active Problems Problem Noted Date Diagnosed Date Chronic fatigue 12/25/2023 Low blood pressure reading 12/25/2023 Chronic anticoagulation 06/25/2022 Hyperlipidemia associated with type 2 diabetes mackenzie lux 06/25/2022 Medication monitoring encounter 06/25/2022 Former tobacco use 06/25/2022 Obstructive sleep apnea 06/25/2022 Paroxysmal atrial fibrillation (CMS/HCC) 022 Disorder of breast 04/06/2015 Social History Tobacco Use Types Packs/Day Years Used Date Smoking Tobacco: Former Cigarettes Q uit: 02/03/2020 Tobacco Cessation:Counseling Given: Not Answered Personal Safety Answer Date Recorded Getting School Help Needed Not on file 09/30 Comments Unknown Sex and Gender Information Value Date Recorded Sex Assigned at Not on file Legal Sex Female 2:24 AM PUBLIC HEALTH TECHNOLOGIST Gender Identity Not on file Sexual Orientation Not on file Last Filed Vital Signs Vital Sign Reading Time Taken Comments Blood Pressure 96/52 12/25/2023 8:56 AM CDT Pulse 80 12/25/2023 8:56 AM CDT Temperature - - Respiratory Rate - - Oxygen Saturation 96% 12/25/2023 8:56 AM CDT Inhaled Oxygen Concentration - - Weight 74.4 kg (164 lb) 12/25/2023 8:56 AM CDT Height 167.6 cm (5' 6 ) 12/25/2023 8:56 AM CDT Body Mass Index 26.47 12/25/2023 8:56 AM CDT Plan of Treatment Not on file Procedures Procedure Name Priority Date/Time Associated Diagnosis Comments PROTIME-INR Routine 09/24/2024 PROTIME-INR Routine 08/14/2024 DIAGNOSTIC MAMMOGRAM BILATERAL W JAY Routine 01/09/2024 8:26 AM CDT Abnormal mammogram LIPID PANEL Routine 09/30/2023 3:03 PM PUBLIC HEALTH TECHNOLOGIST from Last 3 Months or Most Recently Relevant to Health Maintenance Results * (ABNORMAL) Protime-INR (09/24/2024) INR 2.30(A) 0.90 - 1.10 [facility] Blood us Historical Provider LAB BLOOD ORDERABLES Liliana alvarez Result [facility] * (ABNORMAL) Protime-INR (08/14/2024) INR 2.00(A) 0.90 - 1.10 [facility] Blood us Historical Provider LAB BLOOD ORDERABLES Liliana alvarez Result EXTERNAL LAB * Diagnostic Mammogram Bilateral W Jay (01/09/2024 8:26 AM CDT) Anatomical Region Laterality Modality Breast Bilateral Mammography 01/09/2024 8:36 AM CDT Impressions 01/09/2024 9:51 AM CDT Postsurgical changes of bilateral breast reduction. Previously seen bilateral developing asymmetries do not persist on additional views and represent normal dense breast tissue. OVERALL FINAL ASSESSMENT: BI-RADS Category 2: Benign. RECOMMENDATION: Annual screening mammography is recommended. Dictated by: Barbara Zavala MD The radiology attending physician has personally reviewed this study, and had reviewed and/or edited this written report and agrees with it. Electronically signed by: Sujatha Fields M.D. Narrative 01/09/2024 9:51 AM CDT EXAMINATION: BILATERAL DIGITAL DIAGNOSTIC MAMMOGRAM INCLUDING CAD AND BILATERAL DIGITAL BREAST TOMOSYNTHESIS HISTORY: 68-year-old woman here as screening call back for 2 developing asymmetries in the right breast and one developing asymmetry in the left breast. ??History of bilateral breast reduction in 1999. COMPARISON: Multiple prior studies dating back to 04/29/2015, most recently screening mammogram 12/11/2023 TECHNIQUE: ??Full field digital mammographic views of BOTH breasts were performed, including computer aided detection (CAD) and BILATERAL digital breast tomosynthesis (DBT). BREAST PARENCHYMAL COMPOSITION: The breasts are heterogenously dense, which may obscure small masses. MAMMOGRAM FINDINGS: Previously seen 2 developing asymmetries in the right upper outer breast and 1 developing asymmetry in the left upper outer breast do not persist on spot compression views and likely represent normal dense breast tissue. Postsurgical changes of bilateral breast reduction. ??No suspicious finding in either breast. ?? Procedure Note Sujatha Fields MD - 01/09/2024 EXAMINATION: BILATERAL DIGITAL DIAGNOSTIC MAMMOGRAM INCLUDING CAD AND BILATERAL DIGITAL BREAST TOMOSYNTHESIS HISTORY: 68-year-old woman here as screening call back for 2 developing asymmetries in the right breast and one developing asymmetry in the left breast. History of bilateral breast reduction in 1999. COMPARISON: Multiple prior studies dating back to 04/29/2015, most recently screening mammogram 12/11/2023 TECHNIQUE: Full field digital mammographic views of BOTH breasts were performed, including computer aided detection (CAD) and BILATERAL digital breast tomosynthesis (DBT). BREAST PARENCHYMAL COMPOSITION: The breasts are heterogenously dense, which may obscure small masses. MAMMOGRAM FINDINGS: Previously seen 2 developing asymmetries in the right upper outer breast and 1 developing asymmetry in the left upper outer breast do not persist on spot compression views and likely represent normal dense breast tissue. Postsurgical changes of bilateral breast reduction. No suspicious finding in either breast. IMPRESSION: Postsurgical changes of bilateral breast reduction. Previously seen bilateral developing asymmetries do not persist on additional views and represent normal dense breast tissue. OVERALL FINAL ASSESSMENT: BI-RADS Category 2: Benign. RECOMMENDATION: Annual screening mammography is recommended. Dictated by: Barbara Zavala MD The radiology attending physician has personally reviewed this study, and had reviewed and/or edited this written report and agrees with it. Electronically signed by: Sujatha Fields M.D. Yovanny Myers MD IMG MAMMO PROCEDURES F inal Result * (ABNORMAL) Lipid panel (09/30/2023 3:03 PM PUBLIC HEALTH TECHNOLOGIST) SCRIBED Cholesterol, Total 181 < - 200 EXTERNAL LAB SCRIBED HDL 10 > - 40 EXTERNAL LAB SCRIBED LDL 78 < - 100 EXTERNAL LAB SCRIBED Triglycerides 184(A) < - 150 EXTERNAL LAB Blood Historical Provider LAB BLOOD ORDERABLES Edit ed Result - Final EXTERNAL LAB from Last 3 Months or Most Recently Relevant to Health Maintenance Insurance MEDICARE [facility] MEDICARE [facility] [place] [id number] Care Teams Acoustical Engineer Relationship Specialty Start Date End Date Yovanny Myers MD PCP - General 01/11/17
--- OUTSIDE RECORDS SUMMARY | 2024-11-12 15:27 | XMS_ITS | Data Portability ---
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 Plan of Treatment Reminders Order Date Submit Date Provider Last Modified By Organization Details Last Modified Time Details Appointments None recorded. Lab HbA1c (hemoglobi n A1c), blood 2023 024 [facility], [address], [place], [address], 4 16:02:09 microalbum in/creatin ine, mass ratio, urine 2023 024 [id number] [facility], [address], [place], [address], 4 16:02:09 lipid panel, serum 2023 024 [id number] [facility], [address], [place], [address], 4 16:02:08 CMP, serum or plasma 2023 024 [id number] [facility], [address], [place], [address], 4 16:02:09 TSH, ultra-sens itive, serum 2023 024 [id number] [facility], [address], [place], [address], 4 16:02:09 unlisted lab - T4, free 2023 024 [facility], [address], [place], [address], 4 16:02:09 CBC w/ auto diff 2023 024 [email or web address] [facility], [address], [place], [address], 4 16:02:09 HbA1c (hemoglobi n A1c), blood 2023 024 [id number] [facility], [address], [place], [address], 4 17:48:22 lipid panel, serum 2023 024 [email or web address] [facility], [address], [place], [address], 4 17:48:22 Referral None recorded. Procedures None recorded. Surgeries None recorded. Imaging None recorded. Medication Orders None recorded. Patient TargetsNo targets recorded. Patient Instructions Encounter Date Encounter Id Patient Instructions Last Modified By Organization Details Last Modified Time 12/27/2023 [id number] Follow-up hyperlipidemia, type 2 diabetes, paroxysmal atrial fibrillation, sleep apnea and chronic pain syndrome. The patient is having problems with wearing her mask at home. Wishes to consider the possibility inspire device. Will set up for a home sleep study see what the current status of her sleep apnea is and proceed accordingly. Does need blood work in the form of CBC, CMP, lipid, thyroid, hemoglobin A1c and microalbumin. Follow-up in four months Portions of the record may have been created with voice recognition software. Occasional wrong-word or ? [id number]? substitutions may have occurred due to the inherent limitations of voice recognition software. Read the chart carefully and recognize, using context, where substitutions have occurred. Needs to be set up for home sleep study to assess her current control status of her sleep apnea. He is being considered for possible inspire device. Not available 12/27/2023 15:23:40 04/28/2024 [id number] dementia rating scale-2* [email or web address] Not available 04/28/2024 15:44:09 alcohol misuse* [email or web address] Not available 04/28/2024 15:44:09 depression screening* [email or web address] Not available 04/28/2024 15:44:09 Timed Up and Go test (TUG)* Not available 04/28/2024 15:44:09 multi-dimensiona health assessment questionnaire* Not available 04/28/2024 15:44:08 Personalized [facility] lt Plan and Screening Recommendations Advance Directives - Do you have one? Advance Directives - Do we have your advance directive on file in your health record? Primary Prevention/Interven tion (prevents or decreases the chance of common diseases from occurring) Smoking Risk: Non Smoker Alcohol Misuse Screening: Negative Weight: Appropriate Physical activity: Nutrition: Good Average Fall Risk (screened today): Low Vaccines Pneumococcal: Ordered Recommended today Recommended today, but you have declined No further needed Influenza: Chronic Disease Risks Stroke: Low Risk Intermediate Risk I have no recommendations Act edd diagnosis, Continue current treatment plan Heart Attack: Low risk Intermediate Risk I have no recommendations Act edd diagnosis, Continue current treatment plan Clogging of the Arteries: Low risk Intermediate Risk I have no recommendations Act edd diagnosis, Continue current treatment plan Diabetes: Low Risk Intermediate Risk Secondary Prevention/Interven tion (detects treatable diseases before they may cause symptoms, disability, or ) Breast Cancer Screening with mammogram: Cervical/Uterine/Ov garth Cancer Screening: Osteoporosis Screening: Your next DEXA in: Ordered Recomme nded today Date Screening Last Performed: Colon Cancer Screening: Colonoscopy In: Ordered Recomme nded Date Screening Last Performed: ___2020___ Eye Disease Screening: Dementia Risk: Low I have no recommendations Depression Screening: Negative [email or web address] Not available 04/28/2024 15:23:42 [facility] risk assessment stable. Follow-up for paroxysmal atrial fibrillation, hyperlipidemia, type 2 diabetes, neuropathy secondary to diabetes and chronic pain syndrome secondary to diabetic neuropathy. Plan at this time continue on current Rx. Is followed by Endocrinology as well as Neurology and Cardiology. Will continue on current Rx at this time. Will check a hemoglobin A1c and lipid panel. Needs be set up for a bone density scan already has a colonoscopy scheduled. Additional Orders and/or Directives: 1. Bone density scan 2. Colonoscopy Next Appointment: 4 Months Approximate Date: 08/26/2024 Portions of the record may have been created with voice recognition software. Occasional wrong-word or ? [id number]? substitutions may have occurred due to the inherent limitations of voice recognition software. Read the chart carefully and recognize, using context, where substitutions have occurred. [email or web address] Not available 04/28/2024 15:43:51 08/31/2024 [id number] Bronchitis slowl y improving. Will continue on current medications. Follow-up in six months Follow Up: 6 Months Approximate Date: 02/27/2025 [email or web address] Not available 08/31/2024 12:23:44 Reason for Referral None Reported. Results Created Date Observation Date Name Description Value Unit Range Abnormal Flag Note LastModifiedBy Organization Detail LastModifiedTime 12/31/19 24 12/11/2023 MAMMO , scree shayla, bilat eral No observ ation record ed. [email or web address] Not Available 2023 12:33:18 02/04/20 24 01/28/2024 sleep study , diagn ostic (PROC ) No observ ation record ed. [address], [address], 02/05/2024 06:49:55 02/24/20 sleep study , diagn ostic (PROC ) No observ ation record ed. [email or web address] Not Available 2023 12:11:29 02/24/2001/28/2024 sleep study , diagn ostic (PROC ) No observ ation record ed. [address], [address], 02/24/2024 14:10:24 08/04/20 24 08/04/2024 XR, foot No observ ation record ed. [address], [address], 08/04/2024 17:55:01 08/10/20 24 08/10/2024 XR, foot No observ ation record ed. [address], [place], [address], 08/11/2024 07:51:57 08/27/20 24 08/27/2024 XR, chest , 1 view No observ ation record ed. [email or web address] Not Available 2023 21:28:35 Result Notes None recorded. Problems Name Problem SNOMED Code Status Onset Date Resolution Date Notes Provider Name and Address Organization Details Recorded Time Renewal of prescription Active 2021 Not Available [facility] 3 06:10:52 Irritable bowel syndrome 37348475 Active Not Available [facility] 3 06:10:52 Acute sinusitis 21343430 Active 2022 Not Available [facility] 3 06:10:52 Right flank pain 208851903 Active 2021 Not Available [facility] 3 06:10:52 Nausea and vomiting 14602655 Active 2021 Not Available [facility] 3 06:10:53 Senile osteoporosis 76088295 Active 2021 Not Available [facility] 3 06:10:53 Menopausal symptom 74022419 Active Not Available [facility] 3 06:10:53 Sciatica 44962306 Active Not Available [facility] 3 06:10:53 Neuropathy due to diabetes mellitus 312375842 Active Not Available [facility] 3 06:10:53 Pure hypercholeste rolemia 520016050 Active Not Available [facility] 3 06:10:53 Paroxysmal atrial fibrillation 406578041 Active 2021 Not Available [facility] 3 06:10:53 Premature beats 36467730 Active Not Available [facility] 3 06:10:53 Chronic pain syndrome 969055075 Active 2018 Not Available [facility] 3 06:10:53 Migraine 96330933 Active Not Available [facility] 3 06:10:53 Acute urinary tract infection 623307139 Active 2021 Not Available [facility] 3 06:10:53 Type 2 diabetes mellitus 10919514 Active Not Available [facility] 3 06:10:53 Cervical radiculopathy 76767893 Active Not Available [facility] 3 06:10:53 Sleep apnea 51622590 Active Not Available [facility] 3 06:10:53 Diabetes mellitus without complication 790748768 Active 2022 DAVID Freeman, [place] [facility] 3 16:19:33 Vitamin D deficiency 30232176 Active 2022 Jorge Myers MD [address] [facility], [address], [address] , [facility] 3 16:04:28 Chronic sinusitis 05074081 Active 2023 Annmarie Pham CMA null, [place] [facility] 4 12:46:04 Acute bronchitis 04723639 Active 2023 Jorge Myers MD [address] [facility], [address], [address] , [facility] 4 10:36:45 Wheezing 68862817 Active 2023 Annmarie Pham CMA null, [place] [facility] 4 15:36:50 Problem Notes None recorded. Procedures Surgical History Date Name Laterality Status Provider Name and Address Organization Details Recorded Time 04/28/20 Medicare Wellness CPT Code, subsequent completed Ele Castaneda RN [facility] [employer] [facility] 04/28/2024 15:17:35 04/09/20 Chronic care management services completed Ilana Posada RN [facility] [employer] [facility] 04/09/2024 16:41:07 03/06/20 Chronic care management services completed Ilana Posada RN [facility] [employer] [facility] 03/11/2024 17:44:36 02/20/20 23 Medicare Wellness CPT Code, subsequent completed Sara Ramirez RN [place] [facility] 02/19/2023 16:17:59 02/29/20 21 Date of Last Colonoscopy completed Not Available [facility] 12/12/2022 06:07:34 Imaging Results Imaging Date Name Status LastModified by Organiz ation Details LastModified Time 12/11/2023 MAMMO, screening, bilateral completed [email or web address] Information not available 12/31/2023 12:33:18 01/28/2024 sleep study, diagnostic (PROC) completed [address], [address], 02/05/2024 06:49:55 02/24/2024 sleep study, diagnostic (PROC) completed [email or web address] Information not available 03/03/2024 12:11:29 01/28/2024 sleep study, diagnostic (PROC) completed [address], [address], 02/24/2024 14:10:24 08/04/2024 XR, foot completed [address], [address], 08/04/2024 17:55:01 08/10/2024 XR, foot completed [address], [address], 08/11/2024 07:51:57 08/27/2024 XR, chest, 1 view completed [email or web address] Information not available 08/27/2024 21:28:35 Procedure Notes None recorded. Medical Equipment None Reported. Allergies Allergen ID Allergen Name Allergen Category Reaction Reaction Severity Criticality Documentation Date Start Date Code Code System Note Provider Name and Address Organization Details Recorded Time 87793 erythromy manda medicatio n nausea Not available Not available 12/12/2022 4053 RxNorm Not Available [facility] 3 06:15:34 07038 Zocor medicatio n myalgias (muscle pain) Not available Not available 12/12/2022 77557 3 RxNorm Not Available [facility] 3 06:15:34 00811 Substance with sulfonami de structure and antibacte rial mechanism of action (substanc e) medicatio n rash Not available Not available 12/12/2022 72354 8003 SNOMED Not Available [facility] 3 06:15:34 37761 codeine medicatio n other Not available Not available 12/12/2022 2670 RxNorm abdom inal pain Not Available [facility] 3 06:15:34 58295 E-Mycin medicatio n other Not available Not available 12/12/2022 02424 8 RxNorm abdom inal pain Not Available [facility] 3 06:15:35 35264 Glucophag e medicatio n other Not available Not available 12/12/2022 00511 7 RxNorm GI Distu rbanc e Not Available [facility] 3 06:15:35 Medications Name Sig Start Date Stop Date Status Note LastModified by Organization Details LastModified Time glycopyrr olate 1 mg tablet TAKE 2 TABLETS IN THE MORNING AND TAKE 3 TABLETS IN THE EVENING active Not Available Not Available No t Available cyclobenz aprine 10 mg tablet Take 1 tablet 3 times a day by oral route. 04/28 completed Not Available Not Available Not Available amoxicill in 500 mg capsule TAKE 1 CAPSULE BY MOUTH THREE TIMES DAILY FOR 7 DAYS active Not Available Not Available No t Available clotrimaz ole 10 mg ty Take 1 tablet 5 times a day by oral route. 10/11 completed Not Available Not Available Not Available neomycin- polymyxin -hydrocor t 3.5 mg/mL-10, 000 unit/mL-1 % ear solution INSTILL 4 DROPS INTO AFFECTED EAR(S) BY OTIC ROUTE 3 TIMES PER DAY 05/29 completed Not Available Not Available Not Available doxycycli ne hyclate 100 mg capsule TAKE 1 CAPSULE BY MOUTH TWICE DAILY active Not Available Not Available No t Available atorvasta tin 20 mg tablet TAKE 1 TABLET EVERY DAY 2024 active Not Available Not Available Not Avai lable clindamyc in HCl 300 mg capsule TAKE 1 CAPSULE BY MOUTH TWICE DAILY FOR 7 DAYS active Not Available Not Available No t Available citalopra m 40 mg tablet TAKE 1 TABLET EVERY DAY 2024 active Not Available Not Available Not Avai lable azithromy manda 250 mg tablet TAKE 2 TABLETS BY MOUTH ON DAY 1, AND THEN TAKE 1 TABLET BY MOUTH ONCE A DAY ON DAY 2 THROUGH DAY 5 04/28 completed Not Available Not Available Not Available fluconazo le 150 mg tablet Take 1 tablet every day by oral route. 04/21 completed Not Available Not Available Not Available benzonata te 200 mg capsule TAKE 1 CAPSULE BY MOUTH THREE TIMES DAILY active Not Available Not Available No t Available sumatript an 100 mg tablet Take one tablet at onset of headache and may repeat times one in two hours not to exceed two tablets (200 mg) daily 12/17 completed Not Available Not Available Not Available hydrocodo ne 5 mg-acetam inophen 325 mg tablet active Not Available Not Available Not Available fluconazo le 200 mg tablet TAKE 2 TABLETS BY MOUTH TODAY THEN ONE TABLET DAILY FOR 14 DAYS TOTAL active Not Available Not Available No t Available phenazopy ridine 200 mg tablet TAKE 1 TABLET BY MOUTH THREE TIMES DAILY active Not Available Not Available No t Available metronida zole 0.75 % (37.5 mg/5 gram) vaginal gel INSERT ONE APPLICAT ORFUL VAGINALL Y ONCE DAILY AT BEDTIME FOR FIVE NIGHTS 04/28 completed Not Available Not Available Not Available ondansetr on HCl 4 mg tablet TAKE 2 TABLETS BY MOUTH TWICE DAILY 04/28 completed Not Available Not Available Not Available prednison e 20 mg tablet TAKE 2 TABLETS BY MOUTH ONCE DAILY FOR 5 DAYS active Not Available Not Available No t Available alclometa sone 0.05 % topical cream 02/19 completed Not Available Not Available Not Available Tuberculi n Syringe 1 mL 02/22 completed [facility] # [id number] 2-21 Not Available Not Available Not Available metronida zole 500 mg tablet TAKE 1 TABLET BY MOUTH EVERY 8 HOURS UNTIL GONE 04/28 completed Not Available Not Available Not Available valacyclo vir 500 mg tablet TAKE 1 TABLET EVERY DAY active Not Available Not Available No t Available ciproflox acin 500 mg tablet TAKE 1 TABLET BY MOUTH TWICE DAILY FOR 7 DAYS 04/28 completed Not Available Not Available Not Available Tamiflu 75 mg capsule Take 1 capsule twice a day by oral route for 5 days. 06/14 completed Not Available Not Available Not Available sulfameth oxazole 800 mg-trimet hoprim 160 mg tablet TAKE 1 TABLET BY MOUTH EVERY 12 HOURS 04/28 completed Not Available Not Available Not Available doxycycli ne monohydra te 100 mg tablet Take 1 tablet twice a day by oral route. 02/20 completed Not Available Not Available Not Available tramadol 50 mg tablet 04/28 completed Not Available Not Available Not Available glimepiri de 2 mg tablet TAKE 1 TABLET BY MOUTH EVERY DAY 02/20 completed Not Available Not Available Not Available warfarin 4 mg tablet TAKE ONE TABLET BY MOUTH ONCE DAILY FIVE DAYS A WEEK AND ONE-HALF TABLET THE OTHER TWO DAYS OF THE WEEK OR DIRECTED BY THE DOCTOR. PT NEEDS INR DRAWN FOR NEXT REFILL active Not Available Not Available No t Available Macrobid 100 mg capsule Take 1 capsule every 12 hours by oral route for 7 days. 06/27 completed Not Available Not Available Not Available Amaryl 1 mg tablet Take 1 tablet every day by oral route. 12/18 completed Not Available Not Available Not Available oxycodone -acetamin ophen 5 mg-325 mg tablet TAKE 1 TO 2 TABLETS BY MOUTH EVERY 6 HOURS NEEDED FOR PAIN 02/20 completed Not Available Not Available Not Available Tessalon Perles 100 mg capsule Take 1 capsule 3 times a day by oral route. 05/29 completed Not Available Not Available Not Available amoxicill in 875 mg tablet TK 1 T PO BID TAT 12/13 completed Not Available Not Available Not Available citalopra m 20 mg tablet Take 1 tablet every day by oral route. 02/22 completed Not Available Not Available Not Available potassium chloride ER 20 mEq tablet,ex tended release(p art/cryst ) Take 1 tablet every day by oral route. 2012 active Not Available Not Available Not Avai lable methocarb micah 750 mg tablet TAKE 1 TABLET BY MOUTH THREE TIMES DAILY 04/28 completed Not Available Not Available Not Available estradiol 1 mg tablet TAKE 1 TABLET BY MOUTH EVERY DAY active Not Available Not Available No t Available hyoscyami ne ER 0.375 mg tablet,ex tended release,1 2 hr TAKE 1 TO 2 TABLETS BY MOUTH EVERY 12 HOURS NEEDED active Not Available Not Available No t Available OneTouch Ultra Test strips USE TO TEST BLOOD SUGAR TWICE DAILY DIRECTED active Not Available Not Available No t Available Proctozon e-HC 2.5 % topical cream perineal applicato r SUSSY THIN LAYER EXT AA 2 TO 4 XD 02/20 completed Not Available Not Available Not Available meclizine 25 mg tablet Take 1 tablet 3 times a day by oral route. active Not Available Not Available No t Available baclofen 10 mg tablet Take 1 tablet 3 times a day by oral route. 04/28 completed Not Available Not Available Not Available Xanax 0.25 mg tablet Take 1 tablet 3 times a day by oral route. 10/11 completed Not Available Not Available Not Available dexametha sone 2 mg tablet One Tablet TID for 3 Days One Tablet BID for 3 Days One Table once daily 3 days 02/20 completed Not Available Not Available Not Available cephalexi n 500 mg capsule TAKE 1 CAPSULE BY MOUTH EVERY 6 HOURS FOR 7 DAYS active Not Available Not Available No t Available simvastat in 20 mg tablet TAKE 1 TABLET BY MOUTH EVERY DAY AT BEDTIME 06/01 completed Not Available Not Available Not Available metformin 1,000 mg tablet TAKE 1 TABLET TWICE DAILY active Not Available Not Available No t Available neomycin- polymyxin -dexameth 3.5 mg/mL-10, 000 unit/mL-0 .1% eye drops INSTILL 1 DROP INTO RIGHT EYE 4 TIMES DAILY, SHAKE WELL BEFORE USE 04/28 completed Not Available Not Available Not Available ropinirol e 0.5 mg tablet TAKE 2 TABLETS BY MOUTH EVERY MORNING AND 3 TABLETS BY MOUTH IN THE EVENING active Not Available Not Available No t Available clotrimaz ole-betam ethasone 1 %-0.05 % topical cream APPLY TO THE AFFECTED AND SURROUND ING AREAS OF SKIN BY TOPICAL ROUTE 2 TIMES PER DAY IN THE MORNING AND EVENING FOR 2 WEEKS 08/25 completed Not Available Not Available Not Available warfarin 2 mg tablet alternat e 2mg and 4mg 2021 active Not Available Not Available Not Avai lable flecainid e 50 mg tablet TAKE 1 TABLET BY MOUTH EVERY 12 HOURS active Not Available Not Available No t Available Levaquin 500 mg tablet Take 1 tablet every 24 hours by oral route. 12/18 completed Not Available Not Available Not Available permethri n 1 % topical liquid APPLY A SUFFICIE NT AMOUNT OF SHAMPOO BY TOPICAL ROUTE ONCE ALLOW TO REMAIN ON HAIR FOR 10 MINUTES BEFORE RINSING OFF WITH WATER 05/29 completed Not Available Not Available Not Available metoprolo l succinate ER 25 mg tablet,ex tended release 24 hr TAKE 1 TABLET BY MOUTH ONCE DAILY active Not Available Not Available No t Available lorazepam 1 mg tablet TAKE 1 TO 2 TABLETS AT BEDTIME NEEDED active Not Available Not Available No t Available methylpre dnisolone 4 mg tablets in a dose pack Take by oral route as per package insert 02/19 completed Not Available Not Available Not Available albuterol sulfate HFA 90 mcg/actua tion aerosol inhaler INHALE 2 PUFFS BY MOUTH EVERY 4 HOURS active Not Available Not Available No t Available Vitamin D2 1,250 mcg (50,000 unit) capsule Take 1 capsule every week by oral route. 05/29 completed Not Available Not Available Not Available ondansetr on 4 mg disintegr ating tablet DISSOLVE 1 TABLET IN MOUTH EVERY 8 HOURS NEEDED FOR NAUSEA AND VOMITING active Not Available Not Available No t Available cefdinir 300 mg capsule Take 1 capsule every 12 hours by oral route. active Not Available Not Available No t Available metformin ER 500 mg tablet,ex tended release 24 hr TAKE 1 TABLET TWICE A DAY WITH MEALS active Not Available Not Available No t Available atenolol 50 mg tablet TAKE 1 TABLET DAILY 01/16 completed Not Available Not Available Not Available diazepam 5 mg tablet TAKE 1 TABLET BY MOUTH TWICE DAILY NEEDED FOR MUSCLE SPASM 04/28 completed Not Available Not Available Not Available amoxicill in 875 mg-potass ium clavulana te 125 mg tablet TAKE 1 TABLET BY MOUTH EVERY 12 HOURS 04/28 completed Not Available Not Available Not Available neomycin 3.5 mg/g-poly myxin B 10,000 unit/g-de xameth 0.1 % eye oint APPLY A SMALL AMOUNT TO EYELID THREE TIMES DAILY 04/28 completed Not Available Not Available Not Available metoprolo l tartrate 25 mg tablet Take 1 tablet twice a day by oral route. 06/02 completed was used as a substitu e when atenolol was on back order Not Available Not Available Not Available pregabali n 100 mg capsule TAKE 1 CAPSULE THREE TIMES DAILY 2024 active Not Available Not Available Not Avai lable Bactrim DS 1 twice daily x 10 days 04/28 completed Not Available Not Available Not Available Os-Marie 500 + D3 one twice a day 04/28 completed Not Available Not Available Not Available Culturell e 1 daily while on ATB and for 2 wks after 04/28 completed Not Available Not Available Not Available metformin ER 500 mg 24 hr tablet,ex tended release (gastric retention ) one tablet twice daily with meals 08/25 completed Not Available Not Available Not Available Covaryx 1.25 mg-2.5 mg tablet TAKE 1 TABLET BY ORAL ROUTE FOR 21 CONSECUT EDD DAYS, FOLLOWED BY 7 DAYS OFF 10/11 completed Not Available Not Available Not Available Lantus Solostar U-100 Insulin 100 unit/mL (3 mL) subcutane ous pen 8-10 untis am and 12-14 units pm active Not Available Not Available No t Available sumatript an 85 mg-naprox en 500 mg tablet one as directed 04/28 completed Not Available Not Available Not Available Xarelto 20 mg tablet Take 1 tablet every day by oral route. 05/11 completed Not Available Not Available Not Available Vascepa 1 gram capsule Take 2 capsules twice a day by oral route before meals for 90 days. active Not Available Not Available No t Available Invokana 100 mg tablet Take 1 tablet every day by oral route. 08/25 completed Not Available Not Available Not Available Farxiga 5 mg tablet Take 1 tablet every day by oral route. 09/18 completed Not Available Not Available Not Available Tanzeum 30 mg/0.5 mL subcutane ous pen injector Inject subcutan eously 0.5 mL every week 05/29 completed Not Available Not Available Not Available Invokamet 150 mg-500 mg tablet Take 1 tablet twice a day by oral route. 08/01 completed Not Available Not Available Not Available Droplet Pen Needle 29 gauge x 1/2 USE TO INJECT INSULIN EVERY NIGHT AT BEDTIME active Not Available Not Available No t Available metoprolo l tartrate 75 mg tablet Take 1 tablet every day by oral route. 04/28 completed Not Available Not Available Not Available Bydureon BCise 2 mg/0.85 mL subcutane ous auto-inje ctor Inject 2 mg every week by subcutan eous route with meals for 30 days. 06/14 completed Not Available Not Available Not Available Ozempic 0.25 mg or 0.5 mg (2 mg/1.5 mL) subcutane ous pen injector Inject 0.5 mg every week by subcutan eous route at dinner for 90 days. 06/19 completed Not Available Not Available Not Available OneTouch Ultra Blue Test Strip TEST BLOOD SUGAR TWICE DAILY DIRECTED active Not Available Not Available No t Available FreeStyle Emiliano 2 Sensor kit USE DAILY active Not Available Not Available No t Available FreeStyle Emiliano 2 [place] DAILY active Not Available Not Available Not Available FreeStyle Emiliano 2 Sensor use to monitor blood sugar daily active Not Available Not Available No t Available Ozempic 0.25 mg or 0.5 mg (2 mg/3 mL) subcutane ous pen injector INJECT 0.5MG SUBCUTAN EOUSLY ONCE WEEKLY FOR FOUR WEEKS THEN CALL OFFICE FOR FURTHER INSTRUCT IONS active Not Available Not Available No t Available Vitals Date Recorded Body height Body mass index (BMI) Body weight Heart rate Body temperature Oxygen saturation Oxygen saturation in Arterial blood by Pulse oximetry Systolic blood pressure Diastolic blood pressure Provider Name and Address Organization Details Last Updated DateTime 4 170.18 cm 25.7 kg/m2 42125.1 5 g 69 /min 97 [degF] 96 % 96 % 128 mm[Hg] 64 mm[Hg] Yuki [employer] [address] 4 14:49:07 Date Recorded Body height Provider Name an d Address Organization Details Last Updated DateTime 04/08/2024 170.18 cm Ilana Posada RN [facility] [employer] 04/09/2024 16:11:49 Date Recorded Body height Body mass index (BMI) Body weight Heart rate Body temperature Oxygen saturation Oxygen saturation in Arterial blood by Pulse oximetry Systolic blood pressure Diastolic blood pressure Provider Name and Address Organization Details Last Updated DateTime 4 170.18 cm 25.2 kg/m2 26136.3 7 g 71 /min 97 [degF] 97 % 97 % 118 mm[Hg] 60 mm[Hg] Yuki [employer] [address] 4 15:12:14 Date Recorded Body height Body mass index (BMI) Body weight Heart rate Body temperature Oxygen saturation Oxygen saturation in Arterial blood by Pulse oximetry Systolic blood pressure Diastolic blood pressure Provider Name and Address Organization Details Last Updated DateTime 4 170.18 cm 25.9 kg/m2 84231.5 4 g 62 /min 97 [degF] 97 % 97 % 128 mm[Hg] 70 mm[Hg] JAN Olivares [facility] 4 11:55:12 Social History Question Answer Notes LastModified by Organizat ion Details LastModified Time Tobacco Smoking Status Former Smoker Ele Castaneda RN [facility], [facility] 04/28/2024 15:18:24 Do You Have An Advance Directive? No [id number] Information not available 12/12/2022 What Is Your Level Of Alcohol Consumption? Occasional [email or web address] Information not available 04/28/2024 Are You Blind Or Do You Have Difficulty Seeing? No MIGRATION.[id number] Information not available 12/12/2022 Is Blood Transfusion Acceptable In An Emergency? Yes Information not available 04/09/2024 What Is Your Level Of Caffeine Consumption? Moderate MIGRATION.[id number] Information not available 12/12/2022 Are You Deaf Or Do You Have Serious Difficulty Hearing? No MIGRATION.59671 [id number] Information not available 12/12/2022 What Type Of Diet Are You Following? REGULAR MIGRATION.10269 69204 Information not available 12/12/2022 Have There Been Any Changes To Your Family Or Social Situation? No MIGRATION.11442 96494 Information not available 12/12/2022 What Is The Fluoride Status Of Your Home? Unknown [email or web address] Information not available 04/28/2024 Are There Any Guns Present In Your Home? No MIGRATION.10090 55597 Information not available 12/12/2022 Do You Use Insect Repellent Routinely? Yes Information not available 02/19/2023 Where Do You Live? [place] MIGRATION.[id number] Information not available 12/12/2022 Presence Of Domestic Violence No Information not available 02/19/2023 Guns Present In The Home? No Information not available 02/19/2023 Are You Able To Care For Yourself? Yes Information not available 02/19/2023 Are You Blind Or Do Yo Have Difficulty Seeing? No Information not available 02/19/2023 Are You Deaf Or Do You Have Serious Difficulty Hearing? No Information not available 02/19/2023 General Stress Level? Low Information not available 02/19/2023 Live Alone Of With Others? With Others Information not available 02/19/2023 Are You Following A Low Salt Diet? No MIGRATION.00874 49060 Information not available 12/12/2022 Do You Have A Medical Power Of Nursing Program Director? No MIGRATION.32351 [id number] Information not available 12/12/2022 What Was The Date Of Your Most Recent Tobacco Screening? 04/28/2024 [email or web address] Information not available 04/28/2024 Have You Ever Been Counseled For Unhealthy Alcohol Use? No MIGRATION.13454 54763 Information not available 12/12/2022 Do You Have Any Pets? Yes [email or web address] Information not available 04/28/2024 What Is Your Relationship Status? MIGRATION.[id number] Information not available 12/12/2022 Do You Use Your Seat Belt Or Car Seat Routinely? Yes MIGRATION.43098 73043 Information not available 12/12/2022 Do You Have Smoke And Carbon Monoxide Detectors In Your Home? Yes MIGRATION.80132 13387 Information not available 12/12/2022 Are You Passively Exposed To Smoke? No MIGRATION.09069 91021 Information not available 12/12/2022 Are There Any Smokers In Your House? No Information not available 02/19/2023 Do You Feel Stressed (tense, Restless, Nervous, Or Anxious, Or Unable To Sleep At Night)? [id number] Information not available 04/09/2024 Do You Use Sunscreen Routinely? Yes Information not available 02/19/2023 Have You Recently Traveled Abroad? No MIGRATION.13238 68413 Information not available 12/12/2022 Do You Have Any Dietary Restrictions? Yes Diabetic MIGRATION.01647 15456 Information not available 12/12/2022 Do You Or Have You Ever Used Any Other Forms Of Tobacco Or Nicotine? Yes Information not available 02/19/2023 Sex: Female Functional Status Question Answer Note LastModified by Organizat ion Details LastModified Time Do you have difficulty walking or climbing stairs? No MIGRATION.[id number] Information not available 12/12/2022 Do you have transportation difficulties? No MIGRATION.[id number] 026 Information not available 12/12/2022 Are you able to walk? YESWOREST MIGRATION.[id number] 026 Information not available 12/12/2022 Do you have difficulty doing errands alone? No MIGRATION.[id number] 026 Information not available 12/12/2022 Are you able to care for yourself? Yes MIGRATION.[id number] 026 Information not available 12/12/2022 Do you have difficulty dressing or bathing? No MIGRATION.[id number] 026 Information not available 12/12/2022 What is your exercise level? None Information not available 02/19/2023 Mental Status Question Answer Note LastModified by Organizat ion Details LastModified Time Do you have difficulty concentrating, remembering or making decisions? No MIGRATION.[id number] Information not available 12/12/2022 Family History Relationship Description Onset Age of this Age Resolved Age Notes LastModified by Organization Details LastModified Time Mother Osteoporosis MIGRATION.0 [id number] Not available 12/12/2022 06:07:35 Mother Malignant tumor of breast MIGRATION.[id number] Not available 12/12/2022 06:07:35 Maternal Grandmother Type 1 diabetes mellitus MIGRATION.[id number] Not available 12/12/2022 06:07:35 Notes:Mother 88 yea rs old Father 45 years old 3 Brothers 3 Living 1 Sisters 1 Living Mother Hx Ca of Breast, dementia, PE, DVT Father Hx Accidental Medical History Condition Response NERVE DISEASE N BLINDNESS N RHEUMATIC FEVER N KIDNEY STONES N BLADDER PROBLEMS N MRSA N OTHER # 1 N POLIO N LUNG DISEASE/DISORDER N RADIATION / CHEMOTHERAPY N COPD N Other # 2 N BLOOD DISEASES N EAR OR HEARING PROBLEMS N MUMPS N DEPRESSION (INCLUDING POST ) N BOWEL PROBLEMS Y STROKE/TIA N ULCERS N BENIGN PROSTATIC HYPERPLASIA N MEASLES N MYOCARDIAL INFARCTION N OBESITY N GERD/NAUSEA N ANEURYSM N URINARY/BLADDER/KIDNEY PROBLEMS N CORONARY ARTERY DISEASE (CAD) N ADDICTION CONCERNS N Impotence N ENDOMETRIOSIS N USE OF BLOOD THINNERS N SKIN PROBLEMS N GASTROINTESTINAL DISORDER N PERIPHERAL VASCULAR DISEASE N MUSCLE,JOINT OR BONE PROBLEMS N GASTROINTESTINAL BLEEDING N BLOOD CLOTS Y ASTHMA N CATARACTS N ERECTILE DYSFUNCTION N VARICOSITIES N GI PROBLEMS N Low Testosterone N INFERTILITY N AIDS/HIV N CHEMOTHERAPY / RADIATION N LIVER DISEASE N MALE HYPOGONADISM N HYPERTENSION N Deficiency N TOURETTE'S N ANXIETY DISORDER N BLOOD TRANSFUSION N ANEMIA/BLOOD DISORDER N CHRONIC EAR INFECTIONS N BRONCHITIS N TUBERCULOSIS N GLAUCOMA N FOOT PROBLEM N DIVERTICULITIS N SLEEP APNEA Y CHICKENPOX N INFECTIOUS DISEASE N PROSTATE N HEART ARRHYTHMIA N INSOMNIA Y HIGH CHOLESTEROL / HYPERLIPIDEMIA Y HYPERTHYROIDISM N EYE PROBLEMS Y EDEMA N CHRONIC PAIN SYNDROME N HYPOTHYROIDISM N CONSTIPATION N CAROTID BLOCKAGE N BACK / NECK PROBLEMS Y HAVE YOU BEEN HOSPITALIZED OR SEEN IN [facility] IN THE PAST YEAR ? Y ATHEROSCLEROSIS N BREAST PROBLEMS N DIALYSIS N ECZEMA N OSTEOPOROSIS N ARTHRITIS N NO SIGNIFICANT PAST MEDICAL HISTORY N APPENDICITIS N DIABETES, TYPE Y BAD TEETH N ENT N HEARTBURN / REFLUX N AUTISM SPECTRUM DISORDER (ASD) N HEPATITIS / LIVER DISEASE N GOUT N SLEEP DISORDER N ALZHEIMER'S DISEASE N Brain Problems N HERPES N DEMENTIA N SEIZURES/EPILEPSY N HEADACHES/MIGRAINES Y VASCULAR DISEASE N PACEMAKER N Blood Disorder N DIZZINESS N KIDNEY DISEASE N HEART DISEASE/HEART PROBLEMS N MULTIPLE SCLEROSIS N CARDIAC ARRHYTHMIA Y CANCER: SPECIFY N Gall Stones N ATRIAL FIBRILLATION N PULMONARY EMBOLISM N AUTOIMMUNE DISEASE N Gynecological History Statement/Question Response Date of Last Mammogram 02/20/2021 Date of Last Colonoscopy 02/28/2021 Obstetrics History GPAL:G 0 P 0 0 0 0 Immunizations Vaccine Type Date Status Note Provider [facility] e and Address Organization Details Recorded Time pneumococcal polysaccharide PPV23 0 completed SUZAN Marr, [facility] [employer] [facility] 02/19/2023 16:18:31 Pneumococcal conjugate PCV 13 0 completed SUZAN Marr, [facility] [employer] [facility] 02/19/2023 16:18:49 SARS-COV-2 (COVID-19) vaccine, UNSPECIFIED 1 completed Not Available [facility] 12/12/2022 06:15:23 SARS-COV-2 (COVID-19) vaccine, UNSPECIFIED 1 completed Not Available [facility] 12/12/2022 06:15:23 Influenza, split virus, quadrivalent, preservative 2 completed Not Available [facility] 12/12/2022 06:15:23 COVID-19, mRNA, LNP-S, bivalent, PF, 10 mcg/0.2 mL dose 2 completed Not Available [facility] 12/12/2022 06:15:23 SARS-COV-2 (COVID-19) vaccine, UNSPECIFIED 1 completed Not Available [facility] 12/12/2022 06:15:23 Influenza, split virus, quadrivalent, preservative 1 completed Not Available [facility] 12/12/2022 06:15:23 Influenza, split virus, quadrivalent, PF 8 completed Not Available [facility] 12/12/2022 06:15:23 Past Encounters Encounter ID Performer Location Encounter Start Date Encounter Closed Date Diagnosis/Indication Diagnosis SNOMED-CT Code Diagnosis ICD10 Code Diagnosis Note [id number] [facility] [place] [address] [place] [address] y , [place] [address] 12/13/2020 00:00:00 12/13/2020 14:55:46 [id number] [facility] [place] [address] [place] [address] [place] [address] 04/25/2021 00:00:00 04/25/2021 17:22:51 [id number] [facility] [address] [place] [address] [place] [address] 08/22/2021 00:00:00 08/22/2021 17:03:57 [id number] [facility] [place] [address] [place] [address] 11/20/2021 00:00:00 11/20/2021 15:52:57 [id number] [facility] [place] [address] [place] [address] 01/22/2022 00:00:00 01/22/2022 15:14:03 [id number] [facility] [place] [address] [place] [address] y , [place] [address] 02/20/2022 00:00:00 02/20/2022 16:47:44 [id number] [facility] [address], [facility] [address] [place] [address] 06/27/2022 00:00:00 06/27/2022 14:41:43 [id number] [facility] [place] [address] [facility] [place] [address] 08/21/2022 00:00:00 08/21/2022 16:17:05 [id number] Jorge Myers MD [facility] [place] [address] [facility] y , [place] [address] 02/19/2023 15:42:12 02/19/2023 16:47:12 Adult health examination 934311983 Z00.00 Screening for disorder 071425214 Z13.9 Paroxysmal atrial fibrillation 148780464 I48.0 Pure hypercholesterolemia 530392442 E78.00 Type 2 debora betes mellitus 66203990 E11.9 Sleep apnea 45800742 G47 .30 [id number] Jorge Myers MD [facility] [place] [address] [facility] y , [place] [address] 09/20/2023 15:02:22 09/20/2023 16:09:34 Neuropathy due to diabetes mellitus 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 Pure hypercholesterolemia 895928821 E78.00 Type 2 debora betes mellitus 13612752 E11.9 Migraine 94403944 G43.90 9 Paroxysmal atrial fibrillation 985574128 I48.0 Vitamin D deficiency 347 51827 E55.9 [id number] Jorge Myers MD [facility] [place] [address] [facility] y , [place] [address] 12/27/2023 14:29:41 12/27/2023 15:30:31 Chronic pain syndrome 033559673 G89.4 Pure hypercholesterolemia 920866408 E78.00 Type 2 debora betes mellitus 45245439 E11.9 Paroxysmal atrial fibrillation 876409976 I48.0 Sleep apnea 03068321 G47 .30 [id number] Jorge Myers MD [facility] Internal Med [facility] [address] [address] 03/06/2024 16:56:36 07/16/2024 11:38:48 Diabetes mellitus without complication 175500583 E11.9 Chronic pain syndrome 37 7203818 G89.4 Pure hypercholesterolemia 637542563 E78.00 Paroxysmal atrial fibrillation 976829782 I48.0 [id number] Jorge Myers MD [facility] Internal Med [facility] [address] [address] 04/09/2024 12:33:03 04/10/2024 09:26:15 Acute urinary tract infection 586194146 N39.0 Chronic pain syndrome 37 3882268 G89.4 Type 2 debora betes mellitus 03778934 E11.9 Pure hypercholesterolemia 089771885 E78.00 Paroxysmal atrial fibrillation 608114689 I48.0 [id number] Jorge Myers MD [facility] Internal [address] [place] [address] 04/28/2024 14:39:03 04/28/2024 16:02:23 Adult health examination 343797298 Z00.00 Screening for disorder 350791687 Z13.9 Paroxysmal atrial fibrillation 715055148 I48.0 Pure hypercholesterolemia 954281209 E78.00 Type 2 debora betes mellitus 27549731 E11.9 Neuropathy due to diabetes mellitus 341942208 E11.40 Chronic pain syndrome 37 4491534 G89.4 [id number] Jorge Myers MD [facility] Internal [facility] [address] [address] 08/31/2024 11:15:49 08/31/2024 12:28:08 Acute bronchitis 19107852 J20.9 Goals Section Goal Description Status Start Date LastModified by Organization Details LastModified Time Effective Pain Management Reports or exhibits adequate pain relief as determined by appropriate pain scale Goal not achieved Ilana Posada RN Information not available 04/09/2024 20:44:04 Exercise Regularly Follows a regular exercise regimen or instructed exercise plan as per care team recommendation( s) Goal not achieved Ilana Posada RN Information not available 04/09/2024 20:44:06 Medication Regimen Follows medication regimen as per care team recommendation( s) Goal not achieved 024 Ilana Posada RN Information not available 05/12/2024 00:01:57 Blood Glucose Maintains blood glucose within target range Goal not achieved 024 Ilana Posada RN Information not available 04/09/2024 20:44:12 Healthy Diet Stress i mportance of and maintaining a healthy diet for both Diabetes & HLD as recommended by your care team Goal not achieved Ilana Posada RN Information not available 04/09/2024 20:44:15 awareness of Heart beat Pt will report and/or schedule appt to be seen for any episodes of A-Fib Goal not achieved Ilana Posada RN Information not available 04/09/2024 20:44:18 Smoking Cessation Quits smoking Goal not achieved Ilana Posada RN Information not available 04/09/2024 20:45:25 Exercise Regularly Follows a regular exercise regimen or instructed exercise plan as per care team recommendation( s) Goal not achieved Ilana Posada RN Information not available 04/09/2024 20:45:25 Food Security Reports ability to access and obtain foods to meet nutritional needs Goal not achieved Ilana Posada RN Information not available 04/09/2024 20:45:25 Activities of Daily Living Performs activities of daily living independently or with minimal assistance Goal not achieved Ilana Posada RN Information not available 04/09/2024 20:45:25 Medication Regimen Follows medication regimen as per care team recommendation( s) Goal not achieved Ilana Posada RN Information not available 04/09/2024 20:45:25 Follow-up Appointment(s) Attends referral and/or follow-up appointment(s) as per care team recommendation( s) Goal not achieved Ilana Posada RN Information not available 04/09/2024 20:45:25 Vaccination Status Remains up to date on vaccines as per care team recommendation( s) Goal not achieved Ilana Posada RN Information not available 04/09/2024 20:45:26 Decreased Alcohol Consumption Reports decreased alcohol consumption as per care team recommendation( s) Goal not achieved Ilana Posada RN Information not available 04/09/2024 20:45:26 Chronic Disease Symptom Management Reports no new or worsening symptoms Goal not achieved Ilana Posada RN Information not available 04/09/2024 20:45:26 Stroke/TIA Risk Reduction Reduces risk factors for stroke Goal not achieved Ilana Posada RN Information not available 04/09/2024 20:45:26 Effective Coping Manages life events with effective coping methods Goal not achieved Ilana Posada RN Information not available 04/09/2024 20:45:26 Heart Rate Control Achieves target heart rate as defined by care team Goal not achieved Ilana Posada RN Information not available 04/09/2024 20:45:26 Fall Safety Reports no recent falls and/or fall injuries Goal not achieved Ilana Posada RN Information not available 04/09/2024 20:45:26 Knowledge of Disease or Condition Demonstrates understanding of disease(s) or condition(s) Goal not achieved Ilana Posada RN Information not available 04/09/2024 20:45:26 Diet Adherence Follows prescribed or recommended diet Goal not achieved Ilana Posada RN Information not available 04/09/2024 20:45:27 Financial Stability Reports financial status and/or income meets needs Goal not achieved Ilana Posada RN Information not available 04/09/2024 20:45:27 Chronic Condition Action Plan Follows action plan for any worsening of chronic condition(s) as per care team recommendation( s) Goal not achieved Ilana Posada RN Information not available 05/12/2024 00:01:57 Adequate Sleep Achieves adequate, well-rested sleep with minimal disruption Goal not achieved Ilana Posada RN Information not available 04/09/2024 20:45:27 Family and Social Support Reports family and/or social support needs are met Goal not achieved Ilana Posada RN Information not available 05/12/2024 00:01:57 Mobility Maintains or improves baseline mobility and/or moves independently Goal not achieved Ilana Posada RN Information not available 04/09/2024 20:45:27 Home/Environme nt Safety Reports having a safe environment that promotes independence and prevents injury Goal not achieved Ilana Posada RN Information not available 04/09/2024 20:45:27 Quality of Life Reports satisfaction with quality of life Goal not achieved Ilana Posada RN Information not available 04/09/2024 20:45:27 Self-Advocacy Advocates effectively for self by communicating desires, feelings and concerns to care team Goal not achieved Ilana Posada RN Information not available 04/09/2024 20:45:27 Effective Pain Management Reports or exhibits adequate pain relief as determined by appropriate pain scale Goal not achieved Ilana Posada RN Information not available 04/09/2024 20:45:27 Balance Maintains or improves baseline balance Goal not achieved Ilana Posada RN Information not available 04/09/2024 20:45:28 Pain Management Plan Reports satisfaction with current pain management plan (e.g., medication and non-medication pain relief interventions) Goal not achieved Ilana Posada RN Information not available 04/09/2024 20:45:28 Blood Glucose Maintains blood glucose within target range Goal not achieved Ilana Posada RN Information not available 04/09/2024 20:45:28 Hemoglobin A1C Lowers or maintains hemoglobin A1C (HbA1c) as per care team recommendation( s) [TARGET: less than or equal to 7%] Goal not achieved Ilana Posada RN Information not available 04/09/2024 20:45:28 Lipid Levels Maintains normal lipid levels as defined by care team Goal not achieved Ilana Posada RN Information not available 04/09/2024 20:45:28 Weight Loss Decreases body weight as per care team recommendation( s) Goal not achieved Ilana Posada RN Information not available 04/09/2024 20:45:28 Recreational Activities Participates in recreational activities Goal not achieved Ilana Posada RN Information not available 04/09/2024 20:45:29 Healthy Weight Maintain a healthy body weight as recommended by your care team Goal not achieved Ilana Posada RN Information not available 04/09/2024 20:45:29 Blood Pressure Maintains blood pressure goal as defined by care team Goal not achieved Ilana Posada RN Information not available 04/09/2024 20:45:29 Smoking Cessation Quits smoking Goal not achieved Ilana Posada RN Information not available 04/09/2024 20:49:17 Exercise Regularly Follows a regular exercise regimen or instructed exercise plan as per care team recommendation( s) Goal not achieved Ilana Posada RN Information not available 04/09/2024 20:49:18 Activities of Daily Living Performs activities of daily living independently or with minimal assistance Goal not achieved Ilana Posada RN Information not available 04/09/2024 20:49:18 Food Security Reports ability to access and obtain foods to meet nutritional needs Goal not achieved Ilana Posada RN Information not available 04/09/2024 20:49:18 Follow-up Appointment(s) Attends referral and/or follow-up appointment(s) as per care team recommendation( s) Goal not achieved Ilana Posada RN Information not available 04/09/2024 20:49:18 Decreased Alcohol Consumption Reports decreased alcohol consumption as per care team recommendation( s) Goal not achieved Ilana Posada RN Information not available 04/09/2024 20:49:18 Medication Regimen Follows medication regimen as per care team recommendation( s) Goal not achieved Ilana Posada RN Information not available 04/09/2024 20:49:18 Heart Rate Control Achieves target heart rate as defined by care team Goal not achieved Ilana Posada RN Information not available 04/09/2024 20:49:19 Chronic Disease Symptom Management Reports no new or worsening symptoms Goal not achieved Ilana Posada RN Information not available 04/09/2024 20:49:19 Vaccination Status Remains up to date on vaccines as per care team recommendation( s) Goal not achieved Ilana Posada RN Information not available 04/09/2024 20:49:19 Knowledge of Disease or Condition Demonstrates understanding of disease(s) or condition(s) Goal not achieved Ilana Posada RN Information not available 04/09/2024 20:49:19 Stroke/TIA Risk Reduction Reduces risk factors for stroke Goal not achieved Ilana Posada RN Information not available 04/09/2024 20:49:20 Effective Coping Manages life events with effective coping methods Goal not achieved Ilana Posada RN Information not available 04/09/2024 20:49:20 Diet Adherence Follows prescribed or recommended diet Goal not achieved Ilana Posada RN Information not available 04/09/2024 20:49:20 Financial Stability Reports financial status and/or income meets needs Goal not achieved Ilana Posada RN Information not available 04/09/2024 20:49:20 Fall Safety Reports no recent falls and/or fall injuries Goal not achieved Ilana Posada RN Information not available 04/09/2024 20:49:20 Chronic Condition Action Plan Follows action plan for any worsening of chronic condition(s) as per care team recommendation( s) Goal not achieved Ilana Posada RN Information not available 04/09/2024 20:49:20 Quality of Life Reports satisfaction with quality of life Goal not achieved Ilana Posada RN Information not available 04/09/2024 20:49:21 Home/Environme nt Safety Reports having a safe environment that promotes independence and prevents injury Goal not achieved Ilana Posada RN Information not available 04/09/2024 20:49:21 Effective Pain Management Reports or exhibits adequate pain relief as determined by appropriate pain scale Goal not achieved Ilana Posada RN Information not available 05/12/2024 00:01:57 Self-Advocacy Advocates effectively for self by communicating desires, feelings and concerns to care team Goal not achieved Ilana Posada RN Information not available 04/09/2024 20:49:21 Balance Maintains or improves baseline balance Goal not achieved Ilana Posada RN Information not available 04/09/2024 20:49:21 Family and Social Support Reports family and/or social support needs are met Goal not achieved Ilana Posada RN Information not available 04/09/2024 20:49:22 Hemoglobin A1C Lowers or maintains hemoglobin A1C (HbA1c) as per care team recommendation( s) [TARGET: less than or equal to 7%] Goal not achieved Ilana Posada RN Information not available 04/09/2024 20:49:22 Pain Management Plan Reports satisfaction with current pain management plan (e.g., medication and non-medication pain relief interventions) Goal not achieved Ilana Posada RN Information not available 04/09/2024 20:49:22 Adequate Sleep Achieves adequate, well-rested sleep with minimal disruption Goal not achieved Ilana Posada RN Information not available 04/09/2024 20:49:23 Blood Glucose Maintains blood glucose within target range Goal not achieved Ilana Posada RN Information not available 04/09/2024 20:49:23 Mobility Maintains or improves baseline mobility and/or moves independently Goal not achieved Ilana Posada RN Information not available 04/09/2024 20:49:23 Lipid Levels Maintains normal lipid levels as defined by care team Goal not achieved Ilana Posada RN Information not available 04/09/2024 20:49:23 Weight Loss Decreases body weight as per care team recommendation( s) Goal not achieved Ilana Posada RN Information not available 04/09/2024 20:49:23 Blood Pressure Maintains blood pressure goal as defined by care team Goal not achieved Ilana Posada RN Information not available 04/09/2024 20:49:23 Recreational Activities Participates in recreational activities Goal not achieved Ilana Posada RN Information not available 04/09/2024 20:49:24 Healthy Weight Maintain a healthy body weight as recommended by your care team Goal not achieved Ilana Posada RN Information not available 04/09/2024 20:49:24 Exercise Regularly Follows a regular exercise regimen or instructed exercise plan as per care team recommendation( s) Goal not achieved Ilana Posada RN Information not available 05/12/2024 00:01:57 Food Security Reports ability to access and obtain foods to meet nutritional needs Goal not achieved Ilana Posada RN Information not available 04/09/2024 20:57:28 Activities of Daily Living Performs activities of daily living independently or with minimal assistance Goal not achieved Ilana Posada RN Information not available 04/09/2024 20:57:28 Smoking Cessation Quits smoking Goal not achieved Ilana Posada RN Information not available 04/09/2024 20:57:28 Medication Regimen Follows medication regimen as per care team recommendation( s) Goal not achieved Ilana Posada RN Information not available 04/09/2024 20:57:28 Follow-up Appointment(s) Attends referral and/or follow-up appointment(s) as per care team recommendation( s) Goal not achieved Ilana Posada RN Information not available 04/09/2024 20:57:28 Decreased Alcohol Consumption Reports decreased alcohol consumption as per care team recommendation( s) Goal not achieved Ilana Posada RN Information not available 04/09/2024 20:57:29 Chronic Disease Symptom Management Reports no new or worsening symptoms Goal not achieved Ilana Posada RN Information not available 04/09/2024 20:57:29 Vaccination Status Remains up to date on vaccines as per care team recommendation( s) Goal not achieved Ilana Posada RN Information not available 04/09/2024 20:57:30 Stroke/TIA Risk Reduction Reduces risk factors for stroke Goal not achieved Ilana Posada RN Information not available 04/09/2024 20:57:30 Heart Rate Control Achieves target heart rate as defined by care team Goal not achieved Ilana Posada RN Information not available 04/09/2024 20:57:30 Effective Coping Manages life events with effective coping methods Goal not achieved Ilana Posada RN Information not available 04/09/2024 20:57:30 Knowledge of Disease or Condition Demonstrates understanding of disease(s) or condition(s) Goal not achieved Ilana Posada RN Information not available 04/09/2024 20:57:31 Diet Adherence Follows prescribed or recommended diet Goal not achieved Ilana Posada RN Information not available 04/09/2024 20:57:31 Financial Stability Reports financial status and/or income meets needs Goal not achieved Ilana Posada RN Information not available 04/09/2024 20:57:31 Fall Safety Reports no recent falls and/or fall injuries Goal not achieved Ilana Posada RN Information not available 04/09/2024 20:57:31 Chronic Condition Action Plan Follows action plan for any worsening of chronic condition(s) as per care team recommendation( s) Goal not achieved Ilana Posada RN Information not available 04/09/2024 20:57:31 Adequate Sleep Achieves adequate, well-rested sleep with minimal disruption Goal not achieved Ilana Posada RN Information not available 04/09/2024 20:57:31 Quality of Life Reports satisfaction with quality of life Goal not achieved Ilana Posada RN Information not available 04/09/2024 20:57:33 Mobility Maintains or improves baseline mobility and/or moves independently Goal not achieved Ilana Posada RN Information not available 04/09/2024 20:57:33 Effective Pain Management Reports or exhibits adequate pain relief as determined by appropriate pain scale Goal not achieved Ilana Posada RN Information not available 04/09/2024 20:57:33 Self-Advocacy Advocates effectively for self by communicating desires, feelings and concerns to care team Goal not achieved Ilana Posada RN Information not available 04/09/2024 20:57:33 Family and Social Support Reports family and/or social support needs are met Goal not achieved Ilana Posada RN Information not available 04/09/2024 20:57:33 Home/Environme nt Safety Reports having a safe environment that promotes independence and prevents injury Goal not achieved Ilana Posada RN Information not available 04/09/2024 20:57:33 Pain Management Plan Reports satisfaction with current pain management plan (e.g., medication and non-medication pain relief interventions) Goal not achieved Ilana Posada RN Information not available 04/09/2024 20:57:34 Balance Maintains or improves baseline balance Goal not achieved Ilana Posada RN Information not available 04/09/2024 20:57:34 Hemoglobin A1C Lowers or maintains hemoglobin A1C (HbA1c) as per care team recommendation( s) [TARGET: less than or equal to 7%] Goal not achieved Ilana Posada RN Information not available 04/09/2024 20:57:34 Lipid Levels Maintains normal lipid levels as defined by care team Goal not achieved Ilana Posada RN Information not available 04/09/2024 20:57:34 Blood Glucose Maintains blood glucose within target range Goal not achieved Ilana Posada RN Information not available 04/09/2024 20:57:35 Weight Loss Decreases body weight as per care team recommendation( s) Goal not achieved Ilana Posada RN Information not available 04/09/2024 20:57:35 Healthy Weight Maintain a healthy body weight as recommended by your care team Goal not achieved Ilana Posada RN Information not available 04/09/2024 20:57:36 Recreational Activities Participates in recreational activities Goal not achieved Ilana Posada RN Information not available 04/09/2024 20:57:36 Blood Pressure Maintains blood pressure goal as defined by care team Goal not achieved Ilana Posada RN Information not available 04/09/2024 20:57:36 Activities of Daily Living Performs activities of daily living independently or with minimal assistance Goal not achieved Ilana Posada RN Information not available 04/09/2024 21:05:32 Medication Regimen Follows medication regimen as per care team recommendation( s) Goal not achieved Ilana Posada RN Information not available 04/09/2024 21:07:54 Food Security Reports ability to access and obtain foods to meet nutritional needs Goal not achieved Ilana Posada RN Information not available 04/09/2024 21:05:33 Smoking Cessation Quits smoking Goal not achieved Ilana Posada RN Information not available 04/09/2024 21:05:33 Follow-up Appointment(s) Attends referral and/or follow-up appointment(s) as per care team recommendation( s) Goal not achieved Ilana Posada RN Information not available 04/09/2024 21:05:33 Exercise Regularly Follows a regular exercise regimen or instructed exercise plan as per care team recommendation( s) Goal not achieved Ilana Posada RN Information not available 04/09/2024 21:05:34 Decreased Alcohol Consumption Reports decreased alcohol consumption as per care team recommendation( s) Goal not achieved Ilana Posada RN Information not available 04/09/2024 21:05:34 Vaccination Status Remains up to date on vaccines as per care team recommendation( s) Goal not achieved Ilana Posada RN Information not available 04/09/2024 21:05:35 Stroke/TIA Risk Reduction Reduces risk factors for stroke Goal not achieved Ilana Posada RN Information not available 04/09/2024 21:05:35 Heart Rate Control Achieves target heart rate as defined by care team Goal not achieved Ilana Posada RN Information not available 04/09/2024 21:05:36 Effective Coping Manages life events with effective coping methods Goal not achieved Ilana Posada RN Information not available 04/09/2024 21:05:36 Chronic Disease Symptom Management Reports no new or worsening symptoms Goal not achieved Ilana Posada RN Information not available 05/12/2024 00:01:57 Diet Adherence Follows prescribed or recommended diet Goal not achieved Ilana Posada RN Information not available 04/09/2024 21:07:35 Chronic Condition Action Plan Follows action plan for any worsening of chronic condition(s) as per care team recommendation( s) Goal not achieved Ilana Posada RN Information not available 04/09/2024 21:05:37 Knowledge of Disease or Condition Demonstrates understanding of disease(s) or condition(s) Goal not achieved Ilana Posada RN Information not available 05/12/2024 00:01:57 Fall Safety Reports no recent falls and/or fall injuries Goal not achieved Ilana Posada RN Information not available 05/12/2024 00:01:57 Adequate Sleep Achieves adequate, well-rested sleep with minimal disruption Goal not achieved Ilana Posada RN Information not available 05/12/2024 00:01:57 Financial Stability Reports financial status and/or income meets needs Goal not achieved Ilana Posada RN Information not available 04/09/2024 21:05:38 Quality of Life Reports satisfaction with quality of life Goal not achieved Ilana Posada RN Information not available 04/09/2024 21:05:38 Mobility Maintains or improves baseline mobility and/or moves independently Goal not achieved Ilana Posada RN Information not available 04/09/2024 21:05:39 Self-Advocacy Advocates effectively for self by communicating desires, feelings and concerns to care team Goal not achieved Ilana Posada RN Information not available 04/09/2024 21:07:22 Family and Social Support Reports family and/or social support needs are met Goal not achieved Ilana Posada RN Information not available 04/09/2024 21:05:40 Home/Environme nt Safety Reports having a safe environment that promotes independence and prevents injury Goal not achieved Ilana Posada RN Information not available 04/09/2024 21:05:40 Effective Pain Management Reports or exhibits adequate pain relief as determined by appropriate pain scale Goal not achieved Ilana Posada RN Information not available 04/09/2024 21:05:41 Balance Maintains or improves baseline balance Goal not achieved Ilana Posada RN Information not available 04/09/2024 21:05:41 Pain Management Plan Reports satisfaction with current pain management plan (e.g., medication and non-medication pain relief interventions) Goal not achieved Ilana Posdaa RN Information not available 04/09/2024 21:07:11 Blood Glucose Maintains blood glucose within target range Goal not achieved Ilana Posada RN Information not available 04/09/2024 21:05:42 Weight Loss Decreases body weight as per care team recommendation( s) Goal not achieved 024 Ilana Posada RN Information not available 04/09/2024 21:05:43 Lipid Levels Maintains normal lipid levels as defined by care team Goal not achieved 024 Ilana Posada RN Information not available 04/09/2024 21:05:43 Hemoglobin A1C Lowers or maintains hemoglobin A1C (HbA1c) as per care team recommendation( s) [TARGET: less than or equal to 7%] Goal not achieved 024 Ilana Posada RN Information not available 04/09/2024 21:05:43 Health Concerns Section Related Observation LastModified by Organization Detai ls LastModified Time Not Available Not Available Not Available Not Availabl e Concern Status LastModified by Organization Details LastModified Time Pure hypercholesterolemia Active Ludmila Posada RN Not Available 03/11/2024 20:31:34 Chronic pain syndrome Active Ilana Posada RN Not Available 03/11/2024 20:31:04 Type 2 diabetes mellitus Active Arpit Posada RN Not Available 03/11/2024 20:31:49 Paroxysmal atrial fibrillation Active Ilana Posada RN Not Available 03/11/2024 20:31:19 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 Ilana Posada RN Not Available 05/12/2024 00:01:57 Advance Directives Directive N: Payers Encounter Date Sequence Insurance Name Policy Number Policy Nguyen Covered Member ID Nguyen Member ID Guarantor Name 12/27/2023 2 [email or web address] (MEDICARE SUPPLEMENT) Lisa A Berends [id number] Lisa A Berends 12/27/2023 1 [place] Lisa A Berends [id number] Lisa A Berends 03/06/2024 2 [email or web address] (MEDICARE SUPPLEMENT) Lisa A Berends [id number] Lisa A Berends 03/06/2024 1 [place] Lisa A Berends [id number] Lisa A Berends 04/08/2024 2 [email or web address] (MEDICARE SUPPLEMENT) Lisa A Berends [id number] Lisa A Berends 04/08/2024 1 [place] Lisa A Berends [id number] Lisa A Berends 04/28/2024 2 [email or web address] (MEDICARE SUPPLEMENT) Ilsa A Berends [id number] Lisa A Berends 04/28/2024 1 [place] Lisa A Berends [id number] Lisa A Berends 08/31/2024 2 [employer] (MEDICARE SUPPLEMENT) Lisa A Berends [id number] Lisa A Berends 08/31/2024 1 [place] Lisa A Berends [id number] Lisa A Berends Notes Date Note Type Note Provider Name and Address Organization Details Recorded Time 12/27/2023 text/html Patient Name: Ilene GabrielDate Of Service: Saturday ( 12.27.2023 ): 1955 Age: 67 There has been approximately a 2 lb weight loss since 02/19/2023. This represents approximately a 1.2% change in weight. Weight change attributable to lifestyle changes. Vital Signs:Blood Pressure: Sitting Rt. Arm 128/64Pulse: Sitting 96 /min and RegularRespiratory Rate: 12Height 67 in or 1.7 mWeight 164 lb or 74.4 kgBMI 25.7Temperature: 97 F or 36.1 CPulse Oximetry: 96 % at rest on no oxygen Chief Complaint: Addressed in HPI Problems or conditions discussed in the HPI were the only ones reviewed during the encounter.Only social and family history addressed in the HPI were reviewed during this encounter. Attendant(s): NoneConstitutional and Systemic Symptoms:none Medication Reconciliation: by patient. Cakzplmxglr26/19/2000 22: Holter monitor 14 days duration on 2021 showed no significant arrhythmias. 02/03/2023: CT scan of the abdomen and pelvis for left lower quadrant and flank pain negative for any type of renal calculi or any other findings suggestive of an explanation for the pain. History of Present Illness #1. Type II Hypercholesterolaemia: Currently taking medication and tolerating well. No interval complaints of any muscle pain or arthralgia. No significant liver changes with medications. Last lipid panel: fair control. Therapy reviewed regarding treatment of cholesterol management and include diet and Lipitor. #2. Type II Diabetes: Has had no polyuria polyphagia or polydipsia. Has had no hypoglycemic like responses. No new history of any numbness, tingling, weakness or visual problems. No nausea, anorexia or other constitutional symptoms. There has been no foot problems or non healing lesions. The last HAIC was DCCT HAIC: 7.0 Calculated MB mg%. Average blood sugars 100-115 mg%. Checking sugars : several times a week Medication Types Include: Metformin and GLP-1 Secondary complications include none. Macro-vascular complications include none. Therapy reviewed regarding diabetic management and include Metformin Hydrochloride and Ozempic Compliance: good Renal Protection: not required at this stage Lipid management: statins Urinary microalbumin: A1 . Ophthalmological: has seen eye doctor within the last year #3. Atrial Fibrillation: Type: Paroxysmal with recurrent episodes lasting less than 7 days. Further classification: Non-valvular. Associated history of none. No attending hx of any shortness of breath, palpitations, syncopal or neurological symptoms. Current medications: Flecainide Acetate. Rate control: rapid ventricular response [id number] Criteria: Age 65-74 for embolic phenomenon. Anticoagulation: Warfarin #4. Sleep Apnea: Type: DANNY Current doing well. No significant daytime somnolence or problems performing daily chores. Intermittently using because she cannot tolerate the apparatus. . Overall has shown considerable improvement.[place] Sleepiness ScaleSitting and ReadinWatching TV: 2Sitting Inactive in a Public Place: 2Passenger in a Car: 2Lying Down in Afternoon: 1Sitting and Talking to someone: 1Sitting quietly after lunch: 2In a car while stopped or drivinScore Interpretation: 10-15 Abnormally sleepy #5. Dd: #6. Chronic pain management for chronic generalized joint pain Since last examination no significant change since last examination Interval Testing: noneHas tried NSAIDS not tried. Pain Description: exacerbated by activity and interferes with enjoyment and ability to perform activities of daily living. Currently seeing or has seen in the past a [employer]: Yes .Pain - Enjoyment of Life - General Activity ScalePain on Average: 4Enjoyment of Live: 4General Activity: 5Enjoyment of Life - General Activity Scale: 4Currently regimen consists of [place] as prescribed with no evidence of abuse or self prescribing. Current Average Morphine Milligram Approximate Equivalent: 20 mg approximated if taking full dosage daily. Recommend: NA.Benzodiazepines or other hypnotics: yes and have discussed reducing dose.Alternative pain management modalities (acupuncture - behavior therapy- additional PT - SNRIs) have been discussed and have either been tried in the past or not acceptable alternatives to patient or not available in our location.Will kept medications the same.Urine Testing: not indicated and this time.Controlled substance database yes and no discrepancies or multiple prescribers noted. Pill counts when available have been acceptable. No other signs of any abuse.Patient reports condition is stable and is able to function with the medication. Denies any misuse or adverse effects.TREATMENT OBJECTIVE: Enhance ability to manage pain independently, improved function and sustain quality of life. Recommendations or alternative therapies and lifestyle changes are discussed on each visit. Has shown improvement inf functionality. Has been educated on the side effects,risks and any black box warnings. Has verbalized the dangers of some of the medications regarding driving and cooperating heavy machinery and have advised against this. Active Medication ListEstradiol 1 MG (TABLET - ORAL) DailyRobinul 1 MG (TABLET - ORAL) Two Am And Three HsAtivan 1 MG (TABLET - ORAL) 1-2 Tablets At BedtimeOs-marie D 500 MG One BidCpap 13 Cm P01Skfvyz 0.5 MG (TABLET - ORAL) Two Am And Three Hs For Restless LegTreximet 500 MG- 85 MG (TABLET - ORAL) One At Onset Of Headache And May Repeat In 2 HoursWarfarin Sodium 2 MG (TABLET - ORAL) Alternate 1 And 2 TabletsLantus 100 UNITS/ ML (INJECTABLE - INJECTION) 8-10 Units Am And 12-14 In PmMetoprolol Tartrate 75 MG (TABLET - ORAL) Once DailyLyrica 100 MG (CAPSULE - ORAL) One Three Times DailyLipitor 20 MG (TABLET - ORAL) Once DailyOzempic 0.25 MG Once WeeklyFlecainide Acetate 50 MG (TABLET - ORAL) One BidNorco 325 MG-5 MG (TABLET - ORAL) One Four Times A DayMetformin Hydrochloride 1 GM (TABLET - ORAL) One BidValtrex 500 MG (TABLET - ORAL) Qd Prn Adverse Drug Reactions ReviewedE-mycin Abdominal PainCodeine Abdominal DiscomfortSulfa Drugs RashGlucophage Gi Vaccination and [id number] Kjjushywf0842-28 Covid [id number] [id number] Prevnar 13 Gc Surgical Yggibxo1674-52 Rt. [id number] Spinal Cord Mlyyeifaii8583-57 Right Trigger [id number] Laporoscopy for Epzunrcsn0782-65 Breast Llyatcyhh5050-51 Cory. Foot Amtawjl1274-19 [facility] [id number] Xlckofpxyws0586-09 Laporoscopy Preventative Tnkixob3109/17/2022 MAMMOGRAM / ALBUMIN 4.3 G/DL N110/30/2020 MICRO ALBUMIN 9.5 UG/ML N110/30/2020 HAIC 7.0 % H002/28/2021 COLONOSCOPY (3 YEARS) /09/2021 COLOGUARD /03/2021 OWKODNPFX14/09/2005 CT THORAX Social HistoryDoes not smoke cigarettes. Drinking Hx: 1 Cup of coffee per day.Exercise: WeeklySexual Hx: Sexually Active Family HistoryMother 88 years oldFather 45 years old3 Brothers 3 Living1 Sisters 1 LivingMother Hx: Ca of Breast, dementia, PE, DVTFather Hx: Accidental Jorge Myers MD [address], [place] [address], [place], [address], [employer] 12/27/2023 15:24:05 04/08/2024 text/html Pt currently has an UTI. Placed on Bactrim DS. Suggested [place] while on ATB and for 2 wks after Jorge Myers MD [address], [address], [place], [address], [employer] 04/09/2024 16:50:39 04/28/2024 text/html Patient Name: Ilene GabrielDate Of Service: Saturday ( 04.28.2024 ): 1955 Age: 68 There has been approximately a 3 lb weight gain since 12/27/2023. This represents approximately a 1.8% change in weight. Weight change attributable to lifestyle changes. Vital Signs:Blood Pressure: Sitting Rt. Arm 118/60Pulse: Sitting 71 /min and RegularRespiratory Rate: 14Height 67 in or 1.7 mWeight 167 lb or 75.7 kgBMI 26.2Temperature: 97 F or 36.1 CPulse Oximetry: 97 % at rest on no oxygen Chief Complaint: Addressed in HPI Problems or conditions discussed in the HPI were the only ones reviewed during the encounter.Only social and family history addressed in the HPI were reviewed during this encounter. A significant, separate E/M service was performed to evaluate the current and new problems. Attendant(s): NoneConstitutional and Systemic Symptoms:none Medication Reconciliation: from medication list. Qthkqpxcnvw04/23/2023: CT scan of the abdomen and pelvis for left lower quadrant and flank pain negative for any type of renal calculi or any other findings suggestive of an explanation for the pain. History of Present Illness Reviewed the findings of the preventative health visit. Addressed all areas with the patient, patient's family or caregivers. Preventative examinations and testing immunizations - vaccinations, colonic neoplasm screening and mammograms all reviewed and ordered where patient was amenable to the recommendations. Cognitive function was normal. Depression addressed and where necessary medications were adjusted or instituted. End of life and living will briefly discussed with patient and where these can be filled out and legally executed. Other blood and imaging studies were ordered if considered necessary. Other recommendations may be found in the encounter note. #1. Atrial Fibrillation: Type: Paroxysmal with recurrent episodes lasting less than 7 days. Further classification: Non-valvular. Associated history of HTN and diabetes. No attending hx of any shortness of breath, palpitations, syncopal or neurological symptoms. Current medications: Flecainide Acetate and Metoprolol Succinate Er. Rate control: controlled ventricular response [id number] Criteria: Age 65-74 for embolic phenomenon. Anticoagulation: Warfarin #2. Type II Hypercholesterolaemia: Currently taking medication and tolerating well. No interval complaints of any muscle pain or arthralgia. No significant liver changes with medications. Last lipid panel: fair control. Therapy reviewed regarding treatment of cholesterol management and include diet and Lipitor. #3. Type II Diabetes: Has had no polyuria polyphagia or polydipsia. Has had no hypoglycemic like responses. No new history of any numbness, tingling, weakness or visual problems. No nausea, anorexia or other constitutional symptoms. There has been no foot problems or non healing lesions. The last HAIC was 6.5-7.0. Average blood sugars 116-125 mg%. Checking sugars : with a FreeStyle Linda and doing well. Medication Types Include: Metformin, GLP-1 and Insulin Secondary complications include neuropathy. Macro-vascular complications include none. Therapy reviewed regarding diabetic management and include Lantus, Metformin Hydrochloride and Ozempic Compliance: excellent Renal Protection: not required at this stage Lipid management: statins Urinary microalbumin: A1 . Ophthalmological: has seen eye doctor within the last year #4. Neuropathy: History of neuropathy involving both legs. No interval complaints of any increasing numbness, tingling, weakness or ataxia. ADL: no limitations Number(s) of falls: none since last examination. Using support device: none Medication: Brinkhaven. #5. Chronic pain management for chronic neuropathy Since last examination somewhat improved Interval Testing: noneHas tried NSAIDS partial relief requiring additional medication. Pain Description: constant, exacerbated by activity and interferes with enjoyment and ability to perform activities of daily living. Currently seeing or has seen in the past a Electronic Equipment Repairmen: No .Pain - Enjoyment of Life - General Activity ScalePain on Average: 5Enjoyment of Live: 5General Activity: 4Enjoyment of Life - General Activity Scale: 5Currently regimen consists of Lyrica and Brink[place] as prescribed with no evidence of abuse or self prescribing. Current Average Morphine Milligram Approximate Equivalent: 20 mg approximated if taking full dosage daily. Recommend: NA.Benzodiazepines or other hypnotics: yes and have discussed reducing dose.Alternative pain management modalities (acupuncture - behavior therapy- additional PT - SNRIs) have been discussed and have either been tried in the past or not acceptable alternatives to patient or not available in our location.Will kept medications the same.Urine Testing: not indicated and this time.Controlled substance database yes and no discrepancies or multiple prescribers noted. Pill counts when available have been acceptable. No other signs of any abuse.Patient reports condition is stable and is able to function with the medication. Denies any misuse or adverse effects.TREATMENT OBJECTIVE: Enhance ability to manage pain independently, improved function and sustain quality of life. Recommendations or alternative therapies and lifestyle changes are discussed on each visit. Has shown improvement inf functionality. Has been educated on the side effects,risks and any black box warnings. Has verbalized the dangers of some of the medications regarding driving and cooperating heavy machinery and have advised against this. Active Medication ListEstradiol 1 MG (TABLET - ORAL) DailyRobinul 1 MG (TABLET - ORAL) Two Am And Three HsAtivan 1 MG (TABLET - ORAL) 1-2 Tablets At BedtimeOs-marie D 500 MG One BidCpap 13 Cm E89Cmnzdz 0.5 MG (TABLET - ORAL) Two Am And Three Hs For Restless LegTreximet 500 MG- 85 MG (TABLET - ORAL) One At Onset Of Headache And May Repeat In 2 HoursWarfarin Sodium 2 MG (TABLET - ORAL) 4mg Alt 2 MgLantus 100 UNITS/ ML (INJECTABLE - INJECTION) 8-10 Units Am And 12-14 In PmMetoprolol Succinate Er 25 MG TABLET, EXTENDED RELEASE Once DailyLyrica 100 MG (CAPSULE - ORAL) One Three Times DailyLipitor 20 MG (TABLET - ORAL) Once DailyOzempic 0.25 MG Once WeeklyFlecainide Acetate 50 MG (TABLET - ORAL) One BidNorco 325 MG-5 MG (TABLET - ORAL) One Four Times A DayMetformin Hydrochloride 1 GM (TABLET - ORAL) One BidValtrex 500 MG (TABLET - ORAL) Qd PrnFreeStyle Linda Adverse Drug Reactions ReviewedE-mycin Abdominal PainCodeine Abdominal DiscomfortSulfa Drugs RashGlucophage Gi Vaccination and Manbjxlzhldo4983-45 Qzbjoehjv5554-04 Covid Uwjvsa2309-44 Pdpvgvfkz3769-85 Prevnar 13 Gc Surgical Edhjhcm7718-29 Laparoscopic pamhqbmcr9738-56 Rt. AIY1222-50 Spinal Cord Mffvbcuhof0198-06 Right Trigger Elcziz0661-01 Laporoscopy for Eqqtmcscq5543-12 Breast Piwsplcxm6266-98 Cory. Foot Pjpwgfz8302-69 [facility] IFO0474-01 Vtcimquqdyd5274-17 Laporoscopy Preventative Kmhejql1701/09/2024 MAMMOGRAM 511/ ALBUMIN 4.3 G/DL N110/30/2020 MICRO ALBUMIN 9.5 UG/ML N110/30/2020 HAIC 7.0 % H002/28/2021 COLONOSCOPY (3 YEARS) /09/2021 COLOGUARD /03/2021 MAZVBDRTF58/09/2005 CT [place] Social HistoryDoes not smoke cigarettes. Drinking Hx: 1 Cup of coffee per day.Exercise: WeeklySexual Hx: Sexually Active Family HistoryMother 88 years oldFather 45 years old3 Brothers 3 Living1 Sisters 1 LivingMother Hx: Ca of Breast, dementia, PE, DVTFather Hx: Accidental Deathental Jorge Myers MD [address] [facility], [facility] [address], [place], [address], [facility] [place] [place] [employer] 04/28/2024 15:50:40 08/31/2024 text/html Patient Name: Ilene LindquistendsDate Of Service: Saturday ( 08.31.2024 ): 1955 Age: 68 There has been approximately a 1.5 lb weight loss since 04/28/2024. This represents approximately a .9% change in weight. Weight change attributable to lifestyle changes. Vital Signs:Blood Pressure: Sitting Rt. Arm 128/70Pulse: Sitting 62 /min and RegularRespiratory Rate: 16Height 67 in or 1.7 mWeight 165.5 lb or 75.1 kgBMI 25.9Temperature: 97 F or 36.1 CPulse Oximetry: 97 % at rest on no oxygen Chief Complaint: Addressed in HPI Problems or conditions discussed in the HPI were the only ones reviewed during the encounter.Only social and family history addressed in the HPI were reviewed during this encounter. Attendant(s): NoneConstitutional and Systemic Symptoms:none Medication Reconciliation: from medication list. History of Present Illness #1. Resolving bronchitis clinically stable. Nonproductive cough persist. Will continue on current medications. Instructed let us know if there is any deterioration symptomatology in the form due to shortness of breath, fever, chills or any additional cardiovascular symptoms.: Active Medication ListEstradiol 1 MG (TABLET - ORAL) DailyRobinul 1 MG (TABLET - ORAL) Two Am And Three HsAtivan 1 MG (TABLET - ORAL) 1-2 Tablets At BedtimeOs-marie D 500 MG One BidCpap 13 Cm I53Oirvmu 0.5 MG (TABLET - ORAL) Two Am And Three Hs For Restless LegTreximet 500 MG- 85 MG (TABLET - ORAL) One At Onset Of Headache And May Repeat In 2 HoursWarfarin Sodium 2 MG (TABLET - ORAL) 4mg Alt 2 MgFreestyle Emiliano One DailyLantus 100 UNITS/ ML (INJECTABLE - INJECTION) 8-10 Units Am And 12-14 In PmMetoprolol Succinate Er 25 MG TABLET, EXTENDED RELEASE Once DailyLyrica 100 MG (CAPSULE - ORAL) One Three Times DailyLipitor 20 MG (TABLET - ORAL) Once DailyOzempic 0.25 MG Once WeeklyFlecainide Acetate 50 MG (TABLET - ORAL) One BidNorco 325 MG-5 MG (TABLET - ORAL) One Four Times A DayMetformin Hydrochloride 1 GM (TABLET - ORAL) One BidValtrex 500 MG (TABLET - ORAL) Qd Prn Adverse Drug Reactions ReviewedE-mycin Abdominal PainCodeine Abdominal DiscomfortSulfa Drugs RashGlucophage Gi Vaccination and Immunization(X) 2022- INFLUENZA( ) 2019-10 PREVNAR 13 GC( ) 2020-09 PNEUMOVAX(X) 2021-08 COVID Secret Escapes Surgical Avbhegl0298-88 Laparoscopic whiszjkkh2658-09 Rt. FKK9860-61 Spinal Cord Khcwvdcdfl2458-74 Right Trigger Hdrrey8713-27 Laporoscopy for Bxozxmjmk3428-32 Breast Ciqvbfrlj0861-42 Cory. Foot Pbzognf6560-03 HAILEE JVA4134-61 Ifowiveogla4072-63 Laporoscopy Preventative Testing( ) 06/29/2024 HAIC 6.6( ) 01/09/2024 Mammogram 01/08/2026( ) 08/30/2021 Albumin 4.3 G/DL N( ) 08/30/2021 Micro Albumin 9.5 UG/ML N(X) 02/28/2021 Colonoscopy (3 Years) 02/29/2024( ) 11/19/2020 Optometry( ) 12/20/2004 CT [place] Social HistoryDoes not smoke cigarettes. Drinking Hx: 1 Cup of coffee per day.Exercise: WeeklySexual Hx: Sexually Active Family HistoryMother 88 years oldFather 45 years old3 Brothers 3 Living1 Sisters 1 LivingMother Hx: Ca of Breast, dementia, PE, DVTFather Hx: Accidental Jorge Myers MD [address] [facility], [facility] [address], [place], [address], [place] [facility] [place] [facility] 08/31/2024 12:24:37 OBGyn Episode No OBEpisode recorded.
--- OUTSIDE RECORDS SUMMARY | 2024-11-12 15:27 | XMS_ITS | Clinical Summary ---
Author Organization [address] Address [facility] [place] [address] Care Team Providers Care Education Officer Name Role Phone Yovanny Myers MD Primary Care Provider Allergies Active Allergy Reactions Criticality Noted Date [...] 06/25/2022 Hyperlipidemia associated with type 2 diabetes m abigailitus 06/25/2022 Medication monitoring encounter 06/25/2022 Former tobacco use 06/25/2022 Obstructive sleep apnea 06/25/2022 Paroxysmal atrial fibrillation (CMS/HCC) 022 Disorder of breast 04/06/2015 Encounters Date Type Department Care Team Description 09/24/2024 Anticoagulation Visit [facility] [address] [facility] [address] [place] [address] Maya Sorensen RN Paroxysmal atrial fibrillation (CMS/HCC) (HCC) (Primary Dx) 09/18/2024 Telephone [facility]iology [address] [place] [address] [address] [facility] [place] [address] Alla Sheets MD 08/14/2024 Anticoagulation Visit [facility] [address] [facility] [address] [place] [address] Maya Sorensen RN Paroxysmal atrial fibrillation (CMS/HCC) (HCC) (Primary Dx) 08/14/2024 Telephone [facility] Cardiology [address] [place] [address] Alla Sheets MD from Last 3 Months Surgical History Surgery Date Site/Laterality Comments HYSTERECTOMY SECTION FOOT SURGERY TONSILLECTOMY REDUCTION MAMMAPLASTY Medical History Medical History Date Comments Hypertension High cholesterol Diabetes (HCC) Anemia Sleep apnea Chronic back pain Chronic bronchitis (HCC) Depression Fibromyalgia Restless legs syndrome (RLS) Atrial fibrillation (CMS/HCC) (HCC) Chest pain Hypomagnesemia JENNY (generalized anxiety disorder) Bradycardia Family History Medical History Relation Name Comments No Known Problems Brother Father Breast cancer Mother Adenocarcinoma of breast - (Added by TW Conv) Dementia Mother No Known Problems Sister Relation Name Status Comments Brother Alive Father (Age 30) Mother Alive Sister Alive Social History Tobacco Use Types Packs/Day Years Used Date Smoking Tobacco: Former Cigarettes Q uit: 02/03/2020 Tobacco Cessation:Counseling Given: Not Answered Personal Safety Answer Date Recorded Getting School Help Needed Not on file 09/30 Comments Unknown Sex and Gender Information Value Date Recorded Sex Assigned at Not on file Legal Sex 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 Gender Identity Not on file Sexual Orientation Not on file Obstetrics History Last Filed Vital Signs Vital Sign Reading [...] 12/25/2023 8:56 AM CDT Plan of Treatment Health Maintenance Due Date Last Done Comments Albumin Creatinine Ratio, Urine 1955 Colon Cancer Screening-Colonoscopy 1955 Depression Screening 1955 Fall Risk Assessment 1955 Hemoglobin A1C 1955 Hepatitis C Screening 1955 Osteoporosis Screening-Bone Density Scan 1955 eGFR 1955 Dilated Eye Exam 1955 Foot Exam 1955 DTaP/Tdap/Td Vaccine (1 - Tdap) 1964 Hepatitis B Screening 12/29/1971 Zoster Vaccine (1 of 2) 12/29/2003 Well Visit 65+ 2018 Covid-19 Vaccine (5 - 2023-2 5 season) 2024 07/23/2022, 08/14/2021, 01/07/2021, Additional history exists Influenza Vaccine (#1) 2024 , 07/23/2022, 08/14/2021, Additional history exists Lipid Panel 09/30/2024 09/30/2023 Breast Cancer Screening-Mammogram 01/08/2025 01/09/2024, 12/31/2023, 12/11/2023, Additional history exists Pneumococcal vaccine 65+ Completed 020, 09/20/2020, 10/14/2019, Additional history exists Procedures Procedure Name Priority Date/Time Associated Diagnosis Comments PROTIME-INR Routine 09/24/2024 PROTIME-INR Routine 08/14/2024 DIAGNOSTIC MAMMOGRAM BILATERAL W JAY Routine 01/09/2024 8:26 AM CDT Abnormal mammogram LIPID PANEL Routine 09/30/2023 3:03 PM MANAGER OF CORPORATE COMMUNICATIONS from Last 3 Months or Most Recently Relevant to Health Maintenance Results * (ABNORMAL) Protime-INR (09/24/2024) INR 2.30(A) 0.90 - 1.10 [facility] Blood Historical Provider LAB BLOOD ORDERABLES Liliana alvarez Result [facility] * (ABNORMAL) Protime-INR (08/14/2024) INR 2.00(A) 0.90 - 1.10 [facility]TER[facility] LAB Blood Historical Provider LAB BLOOD ORDERABLES Liliana kim Result EXTERNAL LAB * Diagnostic Mammogram Bilateral [...] * (ABNORMAL) Lipid panel (09/30/2023 3:03 PM MANAGER OF CORPORATE COMMUNICATIONS) SCRIBED Cholesterol, Total 181 < - 200 EXTERNAL LAB SCRIBED HDL 10 > - 40 EXTERNAL LAB SCRIBED LDL 78 < - 100 EXTERNAL LAB SCRIBED Triglycerides 184(A) < - 150 EXTERNAL LAB Blood Historical Provider LAB BLOOD ORDERABLES Edit ed Result - Final EXTERNAL LAB from Last 3 Months or Most Recently Relevant to Health Maintenance Insurance MEDICARE [employer] MEDICARE [employer] MEDICARE [facility] Care Teams Education Officer Relationship Specialty Start Date End Date Yovanny Myers MD PCP - General 01/11/17
[2024-11-13 22:44] LABS: Amphetamines NEGATIVE ng/mL (<500); Barbiturates NEGATIVE ng/mL (<300); Benzodiazepines NEGATIVE ng/mL (<100); Cocaine Metabolite NEGATIVE ng/mL (<150); Marijuana Metabolite NEGATIVE ng/mL (<20); Methadone Metabolite NEGATIVE ng/mL (<100); Opiates POSITIVE ng/mL (<100); Oxidant NEGATIVE mcg/mL (<200); PCP NEGATIVE ng/mL (<25); pH 5.7 (4.5-9.0)
== END 2024-11-12 14:53 | disposition home or self-care (01) ==
PROVIDERS: PCP Internal Medicine; Visit Provider Internal Medicine
DX: Z79.891 Long term (current) use of opiate analgesic (principal)
CPT/HCPCS: 80307

== ENCOUNTER 2024-11-12 14:55 | Outpatient (RCR) | payer MEDICARE, OTHER, SELFPAY ==
[2024-09-24 11:59] LABS: INR 2.3
[2024-11-12 17:20] LABS: INR 1.6; Prothrombin Time 19.9 Seconds (11.1-14.7)
== END 2024-12-23 23:59 | disposition home or self-care (01) ==
LOC: ANHLAB 14:55
PROVIDERS: PCP Internal Medicine; Visit Provider Internal Medicine
DX: Z51.81 Encounter for therapeutic drug level monitoring (principal); I48.0 Paroxysmal atrial fibrillation; Z79.01 Long term (current) use of anticoagulants
CPT/HCPCS: 36415; 85610

== ENCOUNTER 2025-03-10 10:35 | Outpatient (RCR) | payer MEDICARE, OTHER, SELFPAY ==
[2025-01-06 11:58] LABS: INR 3.8; Prothrombin Time 38.6 Seconds (11.1-14.7)
[2025-01-15 09:55] LABS: INR 3.5; Prothrombin Time 35.2 Seconds (11.1-14.7)
[2025-03-10 11:50] LABS: Prothrombin Time 22.5 Seconds (11.1-14.7)
== END 2025-04-06 23:59 | disposition home or self-care (01) ==
LOC: ANHLAB 10:35
PROVIDERS: PCP Internal Medicine; Visit Provider Internal Medicine
DX: Z51.81 Encounter for therapeutic drug level monitoring (principal); I48.0 Paroxysmal atrial fibrillation; Z79.01 Long term (current) use of anticoagulants
CPT/HCPCS: 36415; 85610

== ENCOUNTER 2025-04-13 11:09 | Outpatient (CLI) | payer MEDICARE, OTHER, SELFPAY ==
--- NOTE | ~2025-04-13 | XR_ITS ---
XR finger 1st RT min 2V Ordering provider: Kizzy Bird MD History: . M67.449 - Ganglion, unspecified hand . Comparison: None. FINDINGS: BONES: Possible fracture at the base of the distal phalanx of the right thumb which is seen in the ob lique view. Clinical correlation and follow-up advised. JOINT SPACES: Osteoarthritic changes of the first metacarpophalangeal and interphalangeal joints. SOFT TISSUES: Soft tissue swelling over the interphalangeal joint of the right thumb IMPRESSION: Possible bone fracture at the base of the distal phalanx of the right thumb. Polyarticular osteoarthritic changes. Reviewed, dictated and finalized at location A.
== END 2025-04-13 11:10 | disposition home or self-care (01) ==
PROVIDERS: PCP Internal Medicine; Visit Provider Plastic Surgery
DX: M79.644 Pain in right finger(s) (principal); M67.449 Ganglion, unspecified hand
CPT/HCPCS: 73140

== ENCOUNTER 2025-05-03 07:35 | Outpatient (CLI) | payer MEDICARE, OTHER, SELFPAY ==
--- OUTSIDE RECORDS SUMMARY | 2025-05-03 07:39 | XMS_ITS | Encounter Summary ---
Author Organization [facility] Healthcare Address [address] [place] [address] Care Team Providers Care Clerical Administrative Assistant Name Role Phone Yovanny Myers MD Primary Care Provider Encounter Details Date Type Department Care Team (Late st Contact Info) Description 08/14/2024 Orders Only [facility] Health Information Management [address] [place] [address] Scanning, Provider Social History Tobacco Use Types Packs/Day Years Used Date Smoking Tobacco: Former Cigarettes Q uit: 02/03/2020 Comments Unknown Sex and Gender Information Value Date Recorded Sex Assigned at Not on file 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
--- OUTSIDE RECORDS SUMMARY | 2025-05-03 07:39 | XMS_ITS | Referral Summary ---
Author Organization [place] [id number] Address [address] [place] [address] Care Team Providers Care Wrapper Hand Name Role Phone Yovanny Myers MD Primary Care Provider Encounters Date Type Department Care Team Description 04/29/2025 Telephone [facility] Card[facility] [address] [place] [address] [place] [phone] Emilio Harris MD 04/28/2025 10:00 AM CDT Office Visit [facility] Cardiology at [address] [place] [address] Emilio Harris MD Paroxysmal atrial fibrillation (HCC) (Primary Dx); Lipid screening 03/19/2025 Telephone [facility] Cardiology [address] [place] [address] [place] [phone] Emilio Harris MD 03/11/2025 Anticoagulation Visit [facility] Cardiology [address] [place] [address] [address] [place] [phone] Anselmo Chang RN Paroxysmal atrial fibrillation (HCC) (Primary Dx) from Last 3 Months Allergies Active Allergy Reactions Criticality Noted Date Comments Adhesive Itching,Rash,Blisters High 02/27/2022 Erythromycin Medications atorvastatin (LIPITOR) 20 mg tablet Take 1 tablet (20 mg total) by mouth daily Active citalopram (CeleXA) 40 mg tablet Take 1 tablet (40 mg total) by mouth daily 12/26/19 22 Active valACYclovir (VALTREX) 500 mg tablet Take 1 tablet (500 mg total) by mouth daily 01/31/20 22 Active LANTUS 100 unit/mL (3 mL) pen for injection Inject 8 Units under the skin 2 (two) times a day 01/31/20 22 Active metFORMIN (GLUCOPHAGE) 1,000 mg tablet Take 1 tablet (1,000 mg total) by mouth daily with breakfast 11/16/19 22 Active Ozempic 0.25 mg or 0.5 mg(2 mg/1.5 mL) pen injector injection Inject 2 mg under the skin once a week 11/20/19 22 Active rOPINIRole (REQUIP) 0.5 mg tablet Take 1 tablet (0.5 mg total) by mouth 2 (two) times a day Active LORazepam (ATIVAN) 1 mg tablet Take 1 tablet (1 mg total) by mouth as needed 11/17/19 22 Active albuterol HFA (PROVENTIL HFA,VENTOLIN HFA,PROAIR HFA) 90 mcg/actuation inhaler Active estradioL (ESTRACE) 1 mg tablet 12/14/19 22 Active HYDROcodone-thierry taminophen (NORCO) 5-325 mg per tablet hydrocodone 5 mg-acetaminoph en 325 mg tablet TAKE 1 TABLET BY MOUTH THREE TIMES DAILY DX: G43.90 Active hyoscyamine ER (LEVBID) 0.375 mg 12 hr tablet Acti ve glycopyrrolate (ROBINUL) 1 mg tablet 10/21/19 23 Active ondansetron (ZOFRAN) 4 mg tablet 10/19/19 23 Active warfarin (COUMADIN) 4 mg tablet TAKE 1 TABLET EVERY DAY 90 tablet 3 09/17/20 24 Active flecainide (TAMBOCOR) 50 mg tablet Take 1 tablet (50 mg total) by mouth 2 (two) times a day 60 tablet 01/16/20 25 026 Active warfarin (COUMADIN) 2 mg tabletIndicatio ns:atrial fibrillation Take 1 tablet (2 mg total) by mouth daily 30 tablet 3 01/16/20 25 Active metoprolol XL (TOPROL-XL) 25 mg extended release tablet TAKE 1 TABLET DAILY 90 tablet 04/06/20 25 Active flecainide (TAMBOCOR) 50 mg tablet TAKE 1 TABLET EVERY 12 HOURS 180 tablet 04/06/20 25 Active metoprolol XL (TOPROL-XL) 25 mg extended release tablet Take 1 tablet (25 mg total) by mouth daily 90 tablet 01/16/20 25 025 Discontinued flecainide (TAMBOCOR) 50 mg tablet Take 1 tablet (50 mg total) by mouth every 12 (twelve) hours 180 tablet 01/16/20 25 025 Discontinued Active Problems Problem Noted Date Diagnosed Date Chronic fatigue 12/25/2023 Low blood pressure reading 12/25/2023 Chronic anticoagulation 06/25/2022 Hyperlipidemia associated with type 2 diabetes m ellitus 06/25/2022 Medication monitoring encounter 06/25/2022 Former tobacco use 06/25/2022 Obstructive sleep apnea 06/25/2022 Paroxysmal atrial fibrillation 02/02/2022 Disorder of breast 04/06/2015 Social History Tobacco Use Types Packs/Day Years Used Date Smoking Tobacco: Former Cigarettes Q uit: 02/03/2020 Tobacco Cessation:Counseling Given: Not Answered Comments Unknown Sex and Gender Information Value Date Recorded Sex Assigned at Not on file Legal Sex 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 Gender Identity Not on file Sexual Orientation Not on file Last Filed Vital Signs Vital Sign Reading Time Taken Comments Blood Pressure 118/70 04/28/2025 10:05 AM CDT Pulse 82 04/28/2025 10:05 AM CDT Temperature - - Respiratory Rate - - Oxygen Saturation 97% 04/28/2025 10:05 AM CDT Inhaled Oxygen Concentration - - Weight 76.2 kg (168 lb) 04/28/2025 10:05 AM CDT Height 166.4 cm (5' 5.5) 04/28/2025 10:05 AM CD T Body Mass Index 27.53 04/28/2025 10:05 AM CDT Plan of Treatment Not on file Procedures Procedure Name Priority Date/Time Associated Diagnosis Comments POCT LIPID PANEL Routine 04/28/2025 9:59 AM CDT Lipid screening PROTIME-INR Routine 03/10/2025 DIAGNOSTIC MAMMOGRAM BILATERAL W JAY Routine 01/09/2024 8:26 AM CDT Abnormal mammogram from Last 3 Months or Most Recently Relevant to Health Maintenance Results * (ABNORMAL) POCT lipid panel (04/28/2025 9:59 AM CDT) Cholesterol, POC 183 <200 MG/DL HDL, POC 33(A) >=40 mg/dL Triglycerides, POC 230(A) <=149 mg/dL LDL Cholesterol POC 104 <=129 mg/dL Chol/HDL Ratio, POC 5.5 NONE Non-HDL Cholesterol, POC 149 NONE mg/dL Cholesterol Total, POC 183 30 - 199 mg/dL Capillary blood 04/28/2025 9 :59 AM CDT Emilio Harris MD POINT OF CARE TEST ORDER MARCIN Final Result * (ABNORMAL) Protime-INR (03/10/2025) INR 2.00(A) 0.90 - 1.10 EXTERNAL LAB Blood 03/10/2025 Historical Provider LAB BLOOD ORDERABLES Edit ed Result - Final EXTERNAL LAB * Diagnostic Mammogram Bilateral W [...] reduction. No suspicious finding in either breast. Procedure Note Sujatha Fields MD - 01/09/2024 [...] it. Electronically signed by: Sujatha Fields M.D. us Yovanny Myers MD IMG MAMMO PROCEDURES F inal Result from Last 3 Months or Most Recently Relevant to Health Maintenance Insurance MEDICARE [facility] MEDICARE [facility] Care Teams Wrapper Hand Relationship Specialty Start Date End Date Yovanny Myers MD PCP - General 01/11/17
--- OUTSIDE RECORDS SUMMARY | 2025-05-03 07:39 | XMS_ITS | Patient Health Record ---
Author Organization [facility] Address [address] [address] Care Team Providers Care Supervisor Sign Shop Name Role Phone MEET MALAGON Unavailable [phone] Allergies Allergen (clinical drug ingredient) Drug/Non Drug Allergy documented on EMR Reaction Allergy Type Onset Date Status azithromycin Azithromycin Unknown Drug Allergy A ctive Reason For Referral No Information Medications Medication SIG (Take, Route, Fr equency, Duration) Notes Start Date End Date Status CeleXA 20 MG 1 tablet Orally Once a day for 30 day(s) Active Atenolol 50 MG 1 tablet Orally Once a day for 30 day(s) Active Robinul Active Social History Tobacco Use: Social History Observation Description Date Details (start date - stop date) Never Smoker NA - NA Tobacco Use/Smoking Question Answer Notes Are you a nonsmoker Problems Problem Type SNOMED Code ICD Code Onset Dates Problem Status W/U Status Risk Notes Problem [id number] Spider veins (I78.1) Active confirmed Plan Of Treatment No Information Insurance Providers Payer Name Payer Address Payer Phone Subscriber Number Group Number Insured Name Patient Relationship to Insured Coverage Start Date Coverage End Date [address] [place], [place] [id number] Lisa Gabriel Self - patient is the insured 0 Medical (General) History Medical History History ICD Code varicose veins
--- OUTSIDE RECORDS SUMMARY | 2025-05-03 07:39 | XMS_ITS | Data Portability ---
Author Organization [place] - [facility], Main Office Address [address] [place] [address] Care Team Providers Care Chest Painting Leader Name Role Phone JORGE MYERS Primary Care Provider ILANA POSADA Ash Handler Assessment No assessment recorded. Plan of Treatment Reminders Order Date Submit Date Provider Last Modified By Organization Details Last Modified Time Details Appointments None recorded. Lab HbA1c (hemoglobi n A1c), blood 2023 024 [facility], [address], [place], [address], 4 17:48:22 lipid panel, serum 2023 024 [email or web address] [facility], 2022 [address], [place], [address], 4 17:48:22 HbA1c (hemoglobi n A1c), blood 2023 024 [facility], [address], [place], [address], 4 16:02:09 microalbum in/creatin ine, mass ratio, urine 2023 024 [facility], 20[address], [place], [address], 4 16:02:09 lipid panel, serum 2023 024 [email or web address] [facility], 2022 [address], [place], [address], 4 16:02:08 CMP, serum or plasma 2023 024 [facility], [address], [place], [address], 4 16:02:09 TSH, ultra-sens itive, serum 2023 024 [email or web address] [facility], 20[address], [place], [address], 4 16:02:09 unlisted lab - T4, free 2023 [email or web address] [facility], [address], [place], [address], 4 16:02:09 CBC w/ auto diff 2023 024 [email or web address] [facility], [address], [place], [address], 4 16:02:09 Referral None recorded. Procedures None recorded. Surgeries None recorded. Imaging None recorded. Medication Orders None recorded. Patient TargetsNo targets recorded. Patient Instructions Encounter Date Encounter Id Patient Instructions Last Modified By Organization Details Last Modified Time 12/27/2023 [id number] Follow-up hyperlipidemia, type 2 diabetes, paroxysmal atrial [...] with voice recognition software. Occasional wrong-word or sefxt-v-gyse substitutions may have occurred due to the inherent limitations of voice recognition software. Read the chart carefully and recognize, using context, where substitutions have occurred. Needs to be set up for home sleep study to assess her current control status of her sleep apnea. He is being considered for possible inspire device. [email or web address] Not available 12/27/2023 15:23:40 04/28/2024 [id number] dementia rating scale-2* [email or web address] Not available 04/28/2024 15:44:09 alcohol misuse* [email or web address] Not available 04/28/2024 15:44:09 depression screening* [email or web address] Not available 04/28/2024 15:44:09 Timed Up and Go test (TUG)* [email or web address] Not available 04/28/2024 15:44:09 multi-dimensiona health assessment questionnaire* [email or web address] Not available 04/28/2024 15:44:08 [facility] Plan and Screening Recommendations Advance Directives - Do you have one? No Advance Directives - Do we have your advance directive on file in your health record? Primary Prevention/Interven tion (prevents or decreases the chance of common diseases from occurring) Smoking Risk: Non Smoker Alcohol Misuse Screening: Negative Weight: Appropriate Physical activity: Need more exercise/physical activity Nutrition: Average Eat heart healthy diet Fall Risk (screened today): Low Vaccines Pneumococcal: No further needed Influenza: Your next one in the fall of this year Chronic Disease Risks Stroke: Intermediate Risk Active diagnosis, Continue current treatment plan Heart Attack: Intermediate Risk Active diagnosis, Continue current treatment plan Clogging of the Arteries: Intermediate Risk Active diagnosis, Continue current treatment plan Diabetes: Intermediate Risk Active diagnosis, Continue current treatment plan Secondary Prevention/Interven tion (detects treatable diseases before they may cause symptoms, disability, or ) Breast Cancer Screening with mammogram: up to date Cervical/Uterine/Ov garth Cancer Screening: No screening necessary Osteoporosis Screening: Recommended today Date Screening Last Performed: Colon Cancer Screening: Colonoscopy Recommended Date Screening Last Performed: ___2020___ Eye Disease Screening: Your next exam in: goes yearly Dementia Risk: Low I have no recommendations Depression Screening: Negative I have no recommendations [email or web address] Not available 04/28/2024 15:23:42 Medicare [facility] evaluation risk assessment stable. Follow-up for [...] with voice recognition software. Occasional wrong-word or vcpda-d-tghz substitutions may have occurred due to the inherent limitations of voice recognition software. Read the chart carefully and recognize, using context, where substitutions have occurred. [email or web address] Not available 04/28/2024 15:43:51 08/31/2024 [id number] Bronchitis slowl y improving. Will continue on current medications. Follow-up in six months Follow Up: 6 Months Approximate Date: 02/27/2025 [email or web address] Not available 08/31/2024 12:23:44 Reason for Referral None Reported. Results Created Date Observation Date Name Description Value Unit Range Abnormal Flag Note LastModifiedBy Organization Detail LastModifiedTime 12/31/19 24 12/11/2023 MAMMO , scree shayla, bilat eral No observ ation record ed. [email or web address] Not Available 2023 12:33:18 02/04/20 24 01/28/2024 sleep study , diagn ostic (PROC ) No observ ation record ed. [address], [address], 02/05/2024 06:49:55 02/24/20 sleep study , diagn ostic (PROC ) No observ ation record ed. [email or web address] Not Available 2023 12:11:29 02/24/2001/28/2024 sleep study , diagn ostic (PROC ) No observ ation record ed. [address], [address], 02/24/2024 14:10:24 08/04/20 24 08/04/2024 XR, foot No observ ation record ed. [address], [address], 08/04/2024 17:55:01 08/10/20 24 08/10/2024 XR, foot No observ ation record ed. [place] [address] [facility] [address], [place], [address], 08/11/2024 07:51:57 08/27/20 24 08/27/2024 XR, chest , 1 view No observ ation record ed. [email or web address] Not Available 2023 21:28:35 04/14/20 25 04/13/2025 XR, hand No observ ation record ed. [address] [facility] [address], [place], [address], 04/14/2025 19:41:11 Result Notes None recorded. 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 Not Available [facility] 3 06:10:53 Pure hypercholeste rolemia 561635034 Active Not Available [facility] 3 06:10:53 Premature beats 45608810 Active Not Available [facility] 3 06:10:53 Migraine 23639236 Active Not Available [facility] 3 06:10:53 Type 2 diabetes mellitus 71329095 Active Not Available [facility] 3 06:10:53 Cervical radiculopathy 15032914 Active Not Available [facility] 3 06:10:53 Sleep apnea 87674976 Active Not Available [facility] 3 06:10:53 Chronic pain syndrome 272100246 Active 2018 Not Available [facility] 3 06:10:53 Renewal of prescription Active 2021 Not Available [facility] 3 06:10:52 Nausea and vomiting 47611506 Active 2021 Not Available [facility] 3 06:10:53 Senile osteoporosis 85034853 Active 2021 Not Available [facility] 3 06:10:53 Paroxysmal atrial fibrillation 593167019 Active 2021 Not Available [facility] 3 06:10:53 Acute urinary tract infection 451466422 Active 2021 Not Available [facility] 3 06:10:53 Right flank pain 840842627 Active 2021 Not Available [facility] 3 06:10:52 Acute sinusitis 26269199 Active 2022 Not Available [facility] 3 06:10:52 Diabetes mellitus without complication 326206667 Active 2022 DAVID Freeman, [place] [facility] 3 16:19:33 Vitamin D deficiency 00282003 Active 2022 Jorge Myers MD [address] [facility], [address], [address] , [place] [facility] 3 16:04:28 Chronic sinusitis 46589963 Active 2023 DAVID Freeman[place] [facility] 4 12:46:04 Acute bronchitis 91764852 Active 2023 Jorge Myers MD [address] [facility], [facility] [address], [place], [address] , [place] [facility] 4 10:36:45 Wheezing 19770264 Active 2023 DAVID Freeman, [place] [facility] 4 15:36:50 Hyperhidrosis 489405009 Active 2024 DAVID [place] [facility] 5 15:58:03 Nausea 118586450 Active 2024 DAVID Freeman[place] [facility] 5 15:58:42 Problem Notes None recorded. Procedures Surgical History Date Name Laterality Status Provider Name and Address Organization Details Recorded Time 04/28/20 24 Medicare Wellness CPT Code, subsequent completed Ele Castaneda RN [facility] 04/28/2024 15:17:35 04/09/20 24 Chronic care management services completed Ilana Posada RN [facility] 04/09/2024 16:41:07 03/06/20 24 Chronic care management services completed Ilana Posaad RN [facility] 03/11/2024 17:44:36 02/20/20 23 Medicare Wellness CPT Code, subsequent completed Sara Ramirez RN [facility] 02/19/2023 16:17:59 02/29/20 21 Date of Last Colonoscopy completed Not Available [facility] 12/12/2022 06:07:34 Imaging Results None recorded. Procedure Notes None recorded. Medical Equipment None Reported. Allergies Allergen ID Allergen Name Allergen Category Reaction Reaction Severity Criticality Documentation Date Start Date Code Code System Note Provider Name and Address Organization Details Recorded Time 00363 erythromy manda medicatio n nausea Not available Not available 12/12/2022 4053 RxNorm Not Available [facility] 3 06:15:34 14701 Zocor medicatio n myalgias (muscle pain) Not available Not available 12/12/2022 94919 3 RxNorm Not Available [facility] 3 06:15:34 80089 Substance with sulfonami de structure and antibacte rial mechanism of action (substanc e) medicatio n rash Not available Not available 12/12/2022 00037 8003 SNOMED Not Available [facility] 3 06:15:34 97131 codeine medicatio n other Not available Not available 12/12/2022 2670 RxNorm abdom inal pain Not Available [facility] 3 06:15:34 34664 E-Mycin medicatio n other Not available Not available 12/12/2022 05922 8 RxNorm abdom inal pain Not Available [facility] 3 06:15:35 28277 Glucophag e medicatio n other Not available Not available 12/12/2022 72664 7 RxNorm GI Distu rbanc e Not Available [facility] 3 06:15:35 Medications Name Sig Start Date Stop Date Status Note LastModified by Organization Details LastModified Time glycopyrr olate 1 mg tablet TAKE 2 TABLETS IN THE MORNING AND TAKE 3 TABLETS IN THE EVENING 2024 active Not Available Not Available Not Avai lable cyclobenz aprine 10 mg tablet Take 1 [...] ne 5 mg-acetam inophen 325 mg tablet TAKE 1 TABLET BY MOUTH THREE TIMES DAILY FOR CHRONIC MIGRAINE S active Not Available Not Available No t Available fluconazo le 200 mg tablet TAKE [...] Tuberculi n Syringe 1 mL 02/22 completed [facility] # [id number] 2-21 Not Available Not Available Not Available [...] Available Not Available warfarin 2 mg tablet TAKE 1 TABLET BY MOUTH ONCE DAILY active Not Available Not Available No t Available flecainid e 50 mg tablet TAKE 1 TABLET BY MOUTH TWICE DAILY active Not Available [...] 8 HOURS NEEDED FOR NAUSEA AND VOMITING 2024 active Not Available Not Available Not Avai lable cefdinir 300 mg capsule Take 1 capsule [...] n 100 mg capsule TAKE 1 CAPSULE BY MOUTH THREE TIMES DAILY active Not Available Not Available No t Available Bactrim DS 1 twice daily x 10 [...] Available No t Available FreeStyle Emiliano 2 [place] DAILY active Not Available Not Available Not [...] in Arterial blood by Pulse oximetry Systolic And Diastolic Provider Name and Address Organization Details Last Updated DateTime 4 170.18 cm 25.7 kg/m2 62271.1 5 g 69 /min 97 [degF] 96 % 96 % 128/64 mm[Hg] [facility] 4 14:49:07 Date Recorded Body height Provider Name an d Address Organization Details Last Updated DateTime 04/08/2024 170.18 cm Ilana Posada RN [facility] [facility] 04/09/2024 16:11:49 Date Recorded Body height Body mass index (BMI) Body weight Heart rate Body temperature Oxygen saturation Oxygen saturation in Arterial blood by Pulse oximetry Systolic And Diastolic Provider Name and Address Organization Details Last Updated DateTime 4 170.18 cm 25.2 kg/m2 28432.3 7 g 71 /min 97 [degF] 97 % 97 % 118/60 mm[Hg] [facility] 4 15:12:14 Date Recorded Body height Body mass index (BMI) Body weight Heart rate Body temperature Oxygen saturation Oxygen saturation in Arterial blood by Pulse oximetry Systolic And Diastolic Provider Name and Address Organization Details Last Updated DateTime 4 170.18 cm 25.9 kg/m2 77159.5 4 g 62 /min 97 [degF] 97 % 97 % 128/70 mm[Hg] JAN Olivares [facility] [employer] [facility] 4 11:55:12 Social History Question Answer Notes LastModified by Organizat ion Details LastModified Time Tobacco Smoking Status Former Smoker Ele Castaneda RN [facility], [facility] [facility] 04/28/2024 15:18:24 Do You Have An Advance Directive? No MIGRATION.[id number] Information not available 12/12/2022 Are You Blind Or Do You Have Difficulty Seeing? No MIGRATION.01054 71749 Information not available 12/12/2022 Is Blood Transfusion Acceptable In An Emergency? Yes Information not available 04/09/2024 What Is Your Level Of Caffeine Consumption? Moderate MIGRATION.21873 88539 Information not available 12/12/2022 Are You Deaf Or Do You Have Serious Difficulty Hearing? No MIGRATION.90948 55614 Information not available 12/12/2022 What Type Of Diet Are You Following? REGULAR MIGRATION.21495 55353 Information not available 12/12/2022 Have There Been Any Changes To Your Family Or Social Situation? No MIGRATION.48424 93485 Information not available 12/12/2022 What Is The Fluoride Status Of Your Home? Unknown [email or web address] Information not available 04/28/2024 Are There Any Guns Present In Your Home? No MIGRATION.17526 34508 Information not available 12/12/2022 Do You Use Insect Repellent Routinely? Yes Information not available 02/19/2023 Where Do You Live? [place]House MIGRATION.02045 42039 Information not available 12/12/2022 Presence Of Domestic [...] You Following A Low Salt Diet? No MIGRATION.91874 59627 Information not available 12/12/2022 Do You Have A Medical Power Of Internet Marketing Analyst? No MIGRATION.53756 16316 Information not available 12/12/2022 What Was The Date Of Your Most Recent Tobacco Screening? 04/28/2024 [email or web address] Information not available 04/28/2024 Have You Ever Been Counseled For Unhealthy Alcohol Use? No MIGRATION.73511 24380 Information not available 12/12/2022 Do You Have Any Pets? Yes [email or web address] Information not available 04/28/2024 What Is Your Relationship Status? MIGRATION.76691 41859 Information not available 12/12/2022 Do You Use Your Seat Belt Or Car Seat Routinely? Yes MIGRATION.15222 92543 Information not available 12/12/2022 Do You Have Smoke And Carbon Monoxide Detectors In Your Home? Yes MIGRATION.61897 28864 Information not available 12/12/2022 Are You Passively Exposed To Smoke? No MIGRATION.78010 61454 Information not available 12/12/2022 Are There Any Smokers In Your House? No Information not available 02/19/2023 Do You Use Sunscreen Routinely? Yes Information not available 02/19/2023 Have You Recently Traveled Abroad? No MIGRATION.98434 27083 Information not available 12/12/2022 Do You Have Difficulty Walking Or Climbing Stairs? No MIGRATION.80242 86777 Information not available 12/12/2022 Do You Have Any Dietary Restrictions? Yes Diabetic MIGRATION.72398 95729 Information not available 12/12/2022 Sex: Female Functional Status Question Answer Note LastModified by Visier ion Details LastModified Time Do you or have you ever used any other forms of tobacco or nicotine? Yes Information not available 02/19/2023 What is your level of alcohol consumption? Occasional [email or web address] Information not available 04/28/2024 Do you have transportation difficulties? No MIGRATION.8033231 026 Information not available 12/12/2022 Are you able to walk? YESWOREST MIGRATION.5461277 026 Information not available 12/12/2022 Do you have difficulty doing errands alone? No MIGRATION.2517217 026 Information not available 12/12/2022 Are you able to care for yourself? Yes MIGRATION.4167360 026 Information not available 12/12/2022 Do you have difficulty dressing or bathing? No MIGRATION.9449961 026 Information not available 12/12/2022 What is your exercise level? None Information not available 02/19/2023 Mental Status Question Answer Note LastModified by Organizat ion Details LastModified Time Do you feel stressed (tense, restless, nervous, or anxious, or unable to sleep at night)? [id number] Information not available 04/09/2024 Do you have difficulty concentrating, remembering or making decisions? No MIGRATION.29262571 26 Information not available 12/12/2022 Family History Relationship Description Onset Age of this Age Resolved Age Notes LastModified by Organization Details LastModified Time Mother Osteoporosis MIGRATION.0 30 [id number] Not available 12/12/2022 06:07:35 Mother Malignant tumor of breast MIGRATION.733 [id number] Not available 12/12/2022 06:07:35 Maternal Grandmother Type 1 diabetes mellitus MIGRATION.976 [id number] Not available 12/12/2022 06:07:35 Notes:Mother 88 yea [...] EAR OR HEARING PROBLEMS N MUMPS N BOWEL PROBLEMS Y DEPRESSION (INCLUDING POST ) N STROKE/TIA N ULCERS N BENIGN PROSTATIC HYPERPLASIA N MEASLES N MYOCARDIAL INFARCTION N OBESITY N GERD/NAUSEA N ANEURYSM N URINARY/BLADDER/KIDNEY PROBLEMS N CORONARY ARTERY DISEASE (CAD) N ADDICTION CONCERNS N ENDOMETRIOSIS N Impotence N USE OF BLOOD THINNERS N SKIN [...] APNEA Y CHICKENPOX N INFECTIOUS DISEASE N HEART ARRHYTHMIA N PROSTATE N INSOMNIA Y HIGH CHOLESTEROL / HYPERLIPIDEMIA Y HYPERTHYROIDISM N EYE PROBLEMS Y EDEMA N CHRONIC PAIN SYNDROME N HYPOTHYROIDISM N CAROTID BLOCKAGE N CONSTIPATION N BACK / NECK PROBLEMS Y HAVE YOU BEEN HOSPITALIZED OR SEEN IN [facility] IN THE PAST YEAR ? Y ATHEROSCLEROSIS [...] Brain Problems N HERPES N DEMENTIA N HEADACHES/MIGRAINES Y SEIZURES/EPILEPSY N VASCULAR DISEASE N PACEMAKER N Blood Disorder N DIZZINESS N HEART DISEASE/HEART PROBLEMS N KIDNEY DISEASE N MULTIPLE SCLEROSIS N CARDIAC ARRHYTHMIA Y CANCER: SPECIFY N ATRIAL FIBRILLATION N Gall Stones N PULMONARY EMBOLISM N AUTOIMMUNE DISEASE N Gynecological History Statement/Question Response Date of Last Mammogram 02/20/2021 Date of Last Colonoscopy 02/28/2021 Obstetrics History GPAL:G 0 P 0 0 0 0 Immunizations Vaccine Type Date Status Note Provider Nam e and Address Organization Details Recorded Time pneumococcal polysaccharide PPV23 0 completed Sara Ramirez RN null, [facility] 02/19/2023 16:18:31 Pneumococcal conjugate PCV 13 0 completed Sara Ramirez RN null, [facility] 02/19/2023 16:18:49 SARS-COV-2 (COVID-19) vaccine, UNSPECIFIED 1 completed Not Available [facility] 12/12/2022 06:15:23 SARS-COV-2 (COVID-19) vaccine, UNSPECIFIED 1 completed Not Available [facility] 12/12/2022 06:15:23 Influenza, split virus, quadrivalent, preservative 2 completed Not Available [facility] 12/12/2022 06:15:23 COVID-19, mRNA, LNP-S, bivalent, PF, 10 mcg/0.2 mL dose 2 completed Not Available [facility] 12/12/2022 06:15:23 SARS-COV-2 (COVID-19) vaccine, UNSPECIFIED 1 completed Not Available [facility] 12/12/2022 06:15:23 Influenza, split virus, quadrivalent, preservative 1 completed Not Available [facility] 12/12/2022 06:15:23 Influenza, split virus, quadrivalent, PF 8 completed Not Available [facility] 12/12/2022 06:15:23 Past Encounters Encounter ID Performer Location Encounter Start Date Encounter Closed Date Diagnosis/Indication Diagnosis SNOMED-CT Code Diagnosis ICD10 Code Diagnosis Note [id number] Jorge Myers MD [facility] [place] [address] [place] [address] y , [place] [address] 12/13/2020 00:00:00 12/13/2020 14:55:46 [id number] Jorge Myers MD [facility] [place] [address] [place] [address] y , [place] [address] 04/25/2021 00:00:00 04/25/2021 17:22:51 [id number] Jorge Myers MD [facility] [place] [address] [place] [address] y , [place] [address] 08/22/2021 00:00:00 08/22/2021 17:03:57 [id number] Celine Hernandez MD [facility] [place] [address] [place] [address] 11/20/2021 00:00:00 11/20/2021 15:52:57 [id number] [facility] [place] [address] [place] [address] 01/22/2022 00:00:00 01/22/2022 15:14:03 [id number] Jorge Myers MD [facility] [place] [address] [place] [address] y , [place] [address] 02/20/2022 00:00:00 02/20/2022 16:47:44 [id number] Jorge Myers MD [facility] Internal Med [facility] [address] [facility], [facility] [address] [place] [address] 06/27/2022 00:00:00 06/27/2022 14:41:43 [id number] Jorge Myers MD [facility] [place] [address] [place] [address] [place] [address] 08/21/2022 00:00:00 08/21/2022 16:17:05 [id number] Jorge Myers MD [facility] [place] [address] [place] [address] y , [place] [address] 02/19/2023 15:42:12 02/19/2023 16:47:12 Adult health examination 529064318 Z00.00 Screening for disorder 223243687 Z13.9 Paroxysmal atrial fibrillation 310611475 I48.0 Pure hypercholesterolemia 839105365 E78.00 Type 2 debora betes mellitus 59981532 E11.9 Sleep apnea 09405967 G47 .30 [id number] Jorge Myers MD [facility] Internal [address] [place] [address] 09/20/2023 15:02:22 09/20/2023 16:09:34 Neuropathy due to diabetes mellitus 685558008 E11.40 Pure hypercholesterolemia 745311947 E78.00 Type 2 debora betes mellitus 18973345 E11.9 Migraine 33458008 G43.90 9 Paroxysmal atrial fibrillation 355344580 I48.0 Vitamin D deficiency 347 17298 E55.9 [id number] Jorge Myers MD [facility] Internal [facility] [address] [facility] , [place] [address] 12/27/2023 14:29:41 12/27/2023 15:30:31 Chronic pain syndrome 111087972 G89.4 Pure hypercholesterolemia 590616904 E78.00 Type 2 debora betes mellitus 31298927 E11.9 Paroxysmal atrial fibrillation 950990587 I48.0 Sleep apnea 89076889 G47 .30 [id number] Jorge Myers MD [facility] Internal Med [facility] [address] [address] 03/06/2024 16:56:36 07/16/2024 11:38:48 Diabetes mellitus without complication 341305766 E11.9 Chronic pain syndrome 37 4730354 G89.4 Pure hypercholesterolemia 355706815 E78.00 Paroxysmal atrial fibrillation 535659765 I48.0 [id number] Jorge Myers MD [facility] Internal Med [facility] [address] [address] 04/09/2024 12:33:03 04/10/2024 09:26:15 Acute urinary tract infection 740419291 N39.0 Chronic pain syndrome 37 9237221 G89.4 Type 2 debora betes mellitus 18971664 E11.9 Pure hypercholesterolemia [id number] E78.00 Paroxysmal atrial fibrillation [id number] I48.0 [id number] MD RAFIA [facility] [facility] [address] [place] [address] 04/28/2024 14:39:03 04/28/2024 16:02:23 Adult health examination [id number] Z00.00 Screening for disorder [id number] Z13.9 Paroxysmal atrial fibrillation [id number] I48.0 Pure hypercholesterolemia [id number] E78.00 Type 2 debora betes mellitus [id number] E11.9 Neuropathy due to diabetes mellitus [id number] E11.40 Chronic pain syndrome 37 [id number] G89.4 [id number] Jorge Myers MD [facility] [place] [facility] [address] [facility] [address] [place] [address] 08/31/2024 11:15:49 08/31/2024 12:28:08 Acute bronchitis [id number] J20.9 Goals Section Goal Description Progress Status Start Date LastModified by Organization Details LastModified Time Effectiv e Pain Manageme nt Reports or exhibits adequate pain relief as determined by appropriate pain scale Progressing active 2023 Ilana Posada RN Information not available 04/09/2024 20:44:04 Exercise Regularl y Follows a regular exercise regimen or instructed exercise plan as per care team recommendation (s) Progressing active 2023 Ilana Posada RN Information not available 04/09/2024 20:44:06 Medicati on Regimen Follows medication regimen as per care team recommendation (s) Progressing active 2023 Ilana Posada RN Information not available 05/12/2024 00:01:57 Blood Glucose Maintains blood glucose within target range Progressing active 2023 Ilana Posada RN Information not available 04/09/2024 20:44:12 Healthy Diet Stress i mportance of and maintaining a healthy diet for both Diabetes & HLD as recommended by your care team Progressing active 2023 Ilana Posada RN Information not available 04/09/2024 20:44:15 awarenes s of Heart beat Pt will report and/or schedule appt to be seen for any episodes of A-Fib Progressing active 2023 Ilana Posada RN Information not available 04/09/2024 20:44:18 Smoking Cessatio n [facility] Il[facility] Pos[facility] RN Information not available 04/09/2024 20:45:25 Exercise Regularl y Follows a regular exercise regimen or instructed exercise plan as per care team recommendation (s) [facility] active 2023 Ilana Posada RN Information not available 04/09/2024 20:45:25 Food Security Reports ability to access and obtain foods to meet [facility] Ilana Posada RN Information not available 04/09/2024 20:45:25 Activiti es of Daily Living Performs activities of daily living independently or with minimal assistance [facility] Ilana Posada RN Information not available 04/09/2024 20:45:25 Medicati on Regimen Follows medication regimen as per care team recommendation (s) [facility] active 2023 Ilana Posada RN Information not available 04/09/2024 20:45:25 Follow-u p Appointm ent(s) Attends referral and/or follow-up appointment(s) as per care team recommendation (s) [facility] 2023 Ilana Posada RN Information not available 04/09/2024 20:45:25 Vaccinat ion Status Remains up to date on vaccines as per care team recommendation (s) [facility] active 2023 Ilana Posada RN Information not available 04/09/2024 20:45:26 Decrease d Alcohol Consumpt ion Reports decreased alcohol consumption as per care team recommendation (s) [facility] active 2023 Ilana Posada RN Information not available 04/09/2024 20:45:26 Chronic Disease Symptom Manageme nt Reports no new or worsening symptoms [facility] active 2023 Ilana Posada RN Information not available 04/09/2024 20:45:26 Stroke/T IA Risk Reductio n Reduces risk factors for [facility] Ilana Posada RN Information not available 04/09/2024 20:45:26 Effectiv e Coping Manages life events with effective coping methods [facility] Ilana Posada RN Information not available 04/09/2024 20:45:26 Heart Rate Control Achieves target heart rate as defined by care team [facility] active 2023 Ilana Posada RN Information not available 04/09/2024 20:45:26 Fall Safety Reports no recent falls and/or fall injuries [facility] Ilana Posada RN Information not available 04/09/2024 20:45:26 Knowledg e of Disease or Conditio n Demonstrates understanding of disease(s) or condition(s) [facility] Ilana Posada RN Information not available 04/09/2024 20:45:26 Diet Adherenc e Follows prescribed or recommended diet [facility] Ilana Posada RN Information not available 04/09/2024 20:45:27 Financia l Stabilit y Reports financial status and/or income meets needs [facility] active 2023 Ilana Posada RN Information not available 04/09/2024 20:45:27 Chronic Conditio n Action Plan Follows action plan for any worsening of chronic condition(s) as per care team recommendation (s) [facility] active 2023 Ilana Posada RN Information not available 05/12/2024 00:01:57 Adequate Sleep Achieves adequate, well-rested sleep with minimal disruption [facility] Ilana Posada RN Information not available 04/09/2024 20:45:27 Family and Social Support Reports family and/or social support needs are met [facility] Ilana Posada RN Information not available 05/12/2024 00:01:57 Mobility Maintains or improves baseline mobility and/or moves independently [facility] Ilana Posada RN Information not available 04/09/2024 20:45:27 Home/Env ironment Safety Reports having a safe environment that promotes independence and prevents injury [facility] Ilana Posada RN Information not available 04/09/2024 20:45:27 Quality of Life Reports satisfaction with quality of life [facility] 2023 Ialna Posada RN Information not available 04/09/2024 20:45:27 Self-Adv ocacy Advocates effectively for self by communicating desires, feelings and concerns to care team [facility]23 Ilana Posada RN Information not available 04/09/2024 20:45:27 Effectiv e Pain Manageme nt Reports or exhibits adequate pain relief as determined by appropriate pain scale [facility]23 Ilana Posada RN Information not available 04/09/2024 20:45:27 Balance Maintains or improves baseline balance [facility]23 Ilana Posada RN Information not available 04/09/2024 20:45:28 Pain Manageme nt Plan Reports satisfaction with current pain management plan (e.g., medication and non-medication pain relief interventions) [facility] Ilana Posada RN Information not available 04/09/2024 20:45:28 Blood Glucose Maintains blood glucose within target range [facility]23 Ilana Posada RN Information not available 04/09/2024 20:45:28 Hemoglob in A1C Lowers or maintains hemoglobin A1C (HbA1c) as per care team recommendation (s) [TARGET: less than or equal to 7%] [facility] Ilana Posada RN Information not available 04/09/2024 20:45:28 Lipid Levels Maintains normal lipid levels as defined by care team [facility] active 2023 Ilana Posada RN Information not available 04/09/2024 20:45:28 Weight Loss Decreases body weight as per care team recommendation (s) [facility] active 2023 Ilana Posada RN Information not available 04/09/2024 20:45:28 Recreati onal Activiti es Participates in recreational activities [facility] active 2023 Ilana Posada RN Information not available 04/09/2024 20:45:29 Healthy Weight Maintain a healthy body weight as recommended by your care team [facility] active 2023 Ilana Posada RN Information not available 04/09/2024 20:45:29 Blood Pressure Maintains blood pressure goal as defined by care team [facility] active 2023 Ilana Posada RN Information not available 04/09/2024 20:45:29 Smoking Cessatio n Quits smoking [facility] active 2023 Ilana Posada RN Information not available 04/09/2024 20:49:17 Exercise Regularl y Follows a regular exercise regimen or instructed exercise plan as per care team recommendation (s) [facility] active 2023 Ilana Posada RN Information not available 04/09/2024 20:49:18 Activiti es of Daily Living Performs activities of daily living independently or with minimal assistance [facility] active 2023 Ilana Posada RN Information not available 04/09/2024 20:49:18 Food Security Reports ability to access and obtain foods to meet nutritional needs [facility] Ilana Posada RN Information not available 04/09/2024 20:49:18 Follow-u p Appointm ent(s) Attends referral and/or follow-up appointment(s) as per care team recommendation (s) [facility] active 2023 Ilana Posada RN Information not available 04/09/2024 20:49:18 Decrease d Alcohol Consumpt ion Reports decreased alcohol consumption as per care team recommendation (s) [facility] active 2023 Ilana Posada RN Information not available 04/09/2024 20:49:18 Medicati on Regimen Follows medication regimen as per care team recommendation (s) [facility] active 2023 Ilana Posada RN Information not available 04/09/2024 20:49:18 Heart Rate Control Achieves target heart rate as defined by care team [facility] active 2023 Ilana Posada RN Information not available 04/09/2024 20:49:19 Chronic Disease Symptom Manageme nt Reports no new or worsening symptoms [facility] Ilana Posada RN Information not available 04/09/2024 20:49:19 Vaccinat ion Status Remains up to date on vaccines as per care team recommendation (s) [facility] active 2023 Ilana Posada RN Information not available 04/09/2024 20:49:19 Knowledg e of Disease or Conditio n Demonstrates understanding of disease(s) or condition(s) [facility] Ilana Posada RN Information not available 04/09/2024 20:49:19 Stroke/T IA Risk Reductio n Reduces risk factors for stroke [facility] Ilana Posada RN Information not available 04/09/2024 20:49:20 Effectiv e Coping Manages life events with effective coping methods [facility] active 2023 Ilana Posada RN Information not available 04/09/2024 20:49:20 Diet Adherenc e Follows prescribed or recommended diet [facility] 2023 Ilana Posada RN Information not available 04/09/2024 20:49:20 Financia l Stabilit y Reports financial status and/or income meets needs [facility] active 2023 Ilana Posada RN Information not available 04/09/2024 20:49:20 Fall Safety Reports no recent falls and/or fall injuries [facility] Ilana Posada RN Information not available 04/09/2024 20:49:20 Chronic Conditio n Action Plan Follows action plan for any worsening of chronic condition(s) as per care team recommendation (s) [facility] active 2023 Ilana Posada RN Information not available 04/09/2024 20:49:20 Quality of Life Reports satisfaction with quality of life [facility]23 Ilana Posada RN Information not available 04/09/2024 20:49:21 Home/Env ironment Safety Reports having a safe environment that promotes independence and prevents injury [facility]23 Ilana Posada RN Information not available 04/09/2024 20:49:21 Effectiv e Pain Manageme nt Reports or exhibits adequate pain relief as determined by appropriate pain scale [facility]23 Ilana Posada RN Information not available 05/12/2024 00:01:57 Self-Adv ocacy Advocates effectively for self by communicating desires, feelings and concerns to care team [facility]23 Ilana Posada RN Information not available 04/09/2024 20:49:21 Balance Maintains or improves baseline balance [facility] 2023 Ilana Posada RN Information not available 04/09/2024 20:49:21 Family and Social Support Reports family and/or social support needs are met [facility]23 Ilana Posada RN Information not available 04/09/2024 20:49:22 Hemoglob in A1C Lowers or maintains hemoglobin A1C (HbA1c) as per care team recommendation (s) [TARGET: less than or equal to 7%] [facility]23 Ilana Posada RN Information not available 04/09/2024 20:49:22 Pain Manageme nt Plan Reports satisfaction with current pain management plan (e.g., medication and non-medication pain relief interventions) [facility] Ilana Posada RN Information not available 04/09/2024 20:49:22 Adequate Sleep Achieves adequate, well-rested sleep with minimal disruption [facility] 2023 Ilana Posada RN Information not available 04/09/2024 20:49:23 Blood Glucose Maintains blood glucose within target range [facility] 2023 Ilana Posada RN Information not available 04/09/2024 20:49:23 Mobility Maintains or improves baseline mobility and/or moves independently [facility] 2023 Ilana Posada RN Information not available 04/09/2024 20:49:23 Lipid Levels Maintains normal lipid levels as defined by care team [facility] active 2023 Ilana Posada RN Information not available 04/09/2024 20:49:23 Weight Loss Decreases body weight as per care team recommendation (s) [facility] Ilana Posada RN Information not available 04/09/2024 20:49:23 Blood Pressure Maintains blood pressure goal as defined by care team [facility] active 2023 Ilana Posada RN Information not available 04/09/2024 20:49:23 Recreati onal Activiti es Participates in recreational activities [facility] 2023 Ilana Posada RN Information not available 04/09/2024 20:49:24 Healthy Weight Maintain a healthy body weight as recommended by your care team [facility] active 2023 Ilana Posada RN Information not available 04/09/2024 20:49:24 Exercise Regularl y Follows a regular exercise regimen or instructed exercise plan as per care team recommendation (s) [facility] Ilana Posada RN Information not available 05/12/2024 00:01:57 Food Security Reports ability to access and obtain foods to meet nutritional needs [facility] active 2023 Ilana Posada RN Information not available 04/09/2024 20:57:28 Activiti es of Daily Living Performs activities of daily living independently or with minimal assistance [facility] active 2023 Ilana Posada RN Information not available 04/09/2024 20:57:28 Smoking Cessatio n Quits smoking [facility] active 2023 Ilana Posada RN Information not available 04/09/2024 20:57:28 Medicati on Regimen Follows medication regimen as per care team recommendation (s) [facility] active 2023 Ilana Posada RN Information not available 04/09/2024 20:57:28 Follow-u p Appointm ent(s) Attends referral and/or follow-up appointment(s) as per care team recommendation (s) [facility] active 2023 Ilana Posada RN Information not available 04/09/2024 20:57:28 Decrease d Alcohol Consumpt ion Reports decreased alcohol consumption as per care team recommendation (s) [facility] active 2023 Ilana Posada RN Information not available 04/09/2024 20:57:29 Chronic Disease Symptom Manageme nt Reports no new or worsening symptoms [facility]23 Ilana Posada RN Information not available 04/09/2024 20:57:29 Vaccinat ion Status Remains up to date on vaccines as per care team recommendation (s) [facility] Ilana Posada RN Information not available 04/09/2024 20:57:30 Stroke/T IA Risk Reductio n Reduces risk factors for stroke [facility]23 Ilana Posada RN Information not available 04/09/2024 20:57:30 Heart Rate Control Achieves target heart rate as defined by care team [facility] active 2023 Ilana Posada RN Information not available 04/09/2024 20:57:30 Effectiv e Coping Manages life events with effective coping methods [facility] active 2023 Ilana Posada RN Information not available 04/09/2024 20:57:30 Knowledg e of Disease or Conditio n Demonstrates understanding of disease(s) or condition(s) [facility] active 2023 Ilana Posada RN Information not available 04/09/2024 20:57:31 Diet Adherenc e Follows prescribed or recommended diet [facility] active 2023 Ilana Posada RN Information not available 04/09/2024 20:57:31 Financia l Stabilit y Reports financial status and/or income meets needs [facility]23 Ilana Posada RN Information not available 04/09/2024 20:57:31 Fall Safety Reports no recent falls and/or fall injuries [facility] active 2023 Ilana Posada RN Information not available 04/09/2024 20:57:31 Chronic Conditio n Action Plan Follows action plan for any worsening of chronic condition(s) as per care team recommendation (s) [facility]23 Ilana Posada RN Information not available 04/09/2024 20:57:31 Adequate Sleep Achieves adequate, well-rested sleep with minimal disruption [facility] 2023 Ilana Posada RN Information not available 04/09/2024 20:57:31 Quality of Life Reports satisfaction with quality of life [facility] 2023 Ilana Posada RN Information not available 04/09/2024 20:57:33 Mobility Maintains or improves baseline mobility and/or moves independently [facility] 2023 Ilana Posada RN Information not available 04/09/2024 20:57:33 Effectiv e Pain Manageme nt Reports or exhibits adequate pain relief as determined by appropriate pain scale [facility] 2023 Ilana Posada RN Information not available 04/09/2024 20:57:33 Self-Adv ocacy Advocates effectively for self by communicating desires, feelings and concerns to care team [facility] active 2023 Ilana Posada RN Information not available 04/09/2024 20:57:33 Family and Social Support Reports family and/or social support needs are met [facility] active 2023 Ilana Posada RN Information not available 04/09/2024 20:57:33 Home/Env ironment Safety Reports having a safe environment that promotes independence and prevents injury [facility]23 Ilana Posada RN Information not available 04/09/2024 20:57:33 Pain Manageme nt Plan Reports satisfaction with current pain management plan (e.g., medication and non-medication pain relief interventions) [facility]23 Ilana Posada RN Information not available 04/09/2024 20:57:34 Balance Maintains or improves baseline balance [facility] 2023 Ilana Posada RN Information not available 04/09/2024 20:57:34 Hemoglob in A1C Lowers or maintains hemoglobin A1C (HbA1c) as per care team recommendation (s) [TARGET: less than or equal to 7%] [facility]23 Ilana Posada RN Information not available 04/09/2024 20:57:34 Lipid Levels Maintains normal lipid levels as defined by care team [facility] active 2023 Ilana Posada RN Information not available 04/09/2024 20:57:34 Blood Glucose Maintains blood glucose within target range [facility] 2023 Ilana Posada RN Information not available 04/09/2024 20:57:35 Weight Loss Decreases body weight as per care team recommendation (s) [facility]23 Ilana Posada RN Information not available 04/09/2024 20:57:35 Healthy Weight Maintain a healthy body weight as recommended by your care team [facility] active 2023 Ilana Posada RN Information not available 04/09/2024 20:57:36 Recreati onal Activiti es Participates in recreational activities [facility] 2023 Ilana Posada RN Information not available 04/09/2024 20:57:36 Blood Pressure Maintains blood pressure goal as defined by care team [facility] active 2023 Ilana Posada RN Information not available 04/09/2024 20:57:36 Activiti es of Daily Living Performs activities of daily living independently or with minimal assistance [facility]23 Ilana Posada RN Information not available 04/09/2024 21:05:32 Medicati on Regimen Follows medication regimen as per care team recommendation (s) [facility] active 2023 Ilana Posada RN Information not available 04/09/2024 21:07:54 Food Security Reports ability to access and obtain foods to meet nutritional needs [facility] Ilana Posada RN Information not available 04/09/2024 21:05:33 Smoking Cessatio n Quits smoking [facility] active 2023 Ilana Posada RN Information not available 04/09/2024 21:05:33 Follow-u p Appointm ent(s) Attends referral and/or follow-up appointment(s) as per care team recommendation (s) [facility] active 2023 Ilana Posada RN Information not available 04/09/2024 21:05:33 Exercise Regularl y Follows a regular exercise regimen or instructed exercise plan as per care team recommendation (s) [facility] active 2023 Ilana Posada RN Information not available 04/09/2024 21:05:34 Decrease d Alcohol Consumpt ion Reports decreased alcohol consumption as per care team recommendation (s) [facility] active 2023 Ilana Posada RN Information not available 04/09/2024 21:05:34 Vaccinat ion Status Remains up to date on vaccines as per care team recommendation (s) [facility] active 2023 Ilana Posada RN Information not available 04/09/2024 21:05:35 Stroke/T IA Risk Reductio n Reduces risk factors for stroke [facility] Ilana Posada RN Information not available 04/09/2024 21:05:35 Heart Rate Control Achieves target heart rate as defined by care team [facility] active 2023 Ilana Posada RN Information not available 04/09/2024 21:05:36 Effectiv e Coping Manages life events with effective coping methods [facility] active 2023 Ilana Posada RN Information not available 04/09/2024 21:05:36 Chronic Disease Symptom Manageme nt Reports no new or worsening symptoms [facility] active 2023 Ilana Posada RN Information not available 05/12/2024 00:01:57 Diet Adherenc e Follows prescribed or recommended diet [facility] active 2023 lIana Posada RN Information not available 04/09/2024 21:07:35 Chronic Conditio n Action Plan Follows action plan for any worsening of chronic condition(s) as per care team recommendation (s) [facility] Ilana Posada RN Information not available 04/09/2024 21:05:37 Knowledg e of Disease or Conditio n Demonstrates understanding of disease(s) or condition(s) [facility] active 2023 Ilana Posada RN Information not available 05/12/2024 00:01:57 Fall Safety Reports no recent falls and/or fall injuries [facility] Ilana Posada RN Information not available 05/12/2024 00:01:57 Adequate Sleep Achieves adequate, well-rested sleep with minimal disruption [facility] active 2023 Ilana Posada RN Information not available 05/12/2024 00:01:57 Financia l Stabilit y Reports financial status and/or income meets needs [facility] Ilana Posada RN Information not available 04/09/2024 21:05:38 Quality of Life Reports satisfaction with quality of life [facility] Ilana Posada RN Information not available 04/09/2024 21:05:38 Mobility Maintains or improves baseline mobility and/or moves [facility] Ilana Posada RN Information not available 04/09/2024 21:05:39 Self-Adv ocacy Advocates effectively for self by communicating desires, feelings and concerns to care team Progressing active 2023 Ilana Posada RN Information not available 04/09/2024 21:07:22 Family and Social Support Reports family and/or social support needs are met [facility] Ilana Posada RN Information not available 04/09/2024 21:05:40 Home/Env ironment Safety Reports having a safe environment that promotes independence and prevents injury [facility] 2023 Ilana Posada RN Information not available 04/09/2024 21:05:40 Effectiv e Pain Manageme nt Reports or exhibits adequate pain relief as determined by appropriate pain scale [facility] 2023 Ilana Posaad RN Information not available 04/09/2024 21:05:41 Balance Maintains or improves baseline balance [facility] 2023 Ilana Posada RN Information not available 04/09/2024 21:05:41 Pain Manageme nt Plan Reports satisfaction with current pain management plan (e.g., medication and non-medication pain relief interventions) Progressing active 2023 Ilana Posada RN Information not available 04/09/2024 21:07:11 Blood Glucose Maintains blood glucose within target range [facility]23 Ilana Posada RN Information not available 04/09/2024 21:05:42 Weight Loss Decreases body weight as per care team recommendation (s) [facility]23 Ilana Posada RN Information not available 04/09/2024 21:05:43 Lipid Levels Maintains normal lipid levels as defined by care team [facility] active 2023 Ilana Posada RN Information not available 04/09/2024 21:05:43 Hemoglob in A1C Lowers or maintains hemoglobin A1C (HbA1c) as per care team recommendation (s) [TARGET: less than or equal to 7%] [facility] active 2023 Ilana Posada RN Information not available 04/09/2024 21:05:43 Health Concerns Section Related Observation LastModified by Organization Detai ls LastModified Time Free of symptoms Not Available Not Available Not Avail able Concern Status LastModified by Organization Details LastModified [...] 05/12/2024 00:01:57 Advance Directives Directive N: Payers Insurance Date Sequence Insurance Name Policy Number Policy Nguyen Covered Member ID Nguyen Member ID Guarantor Name 08/31/2024 1 [employer] (MEDICARE REPLACEMENT/A DVANTAGE - HMO) Lisa Gabriel [id number] Lisa Gabriel 08/31/2024 2 [employer] (MEDICARE SUPPLEMENT) Lisa Gabriel [id number] Lisa Gabriel 08/31/2024 1 MEDICARE-MD (MEDICARE) Lisa Gabriel [id number] Lisa Boyd Beraminah Notes Date Note Type Note Provider Name [...] and Systemic Symptoms:none Medication Reconciliation: by patient. Reqlwhwnupa90/19/2000 22: Holter monitor 14 days duration on [...] Flecainide Acetate. Rate control: rapid ventricular response [id number] Criteria: Age 65-74 for embolic phenomenon. Anticoagulation: Warfarin #4. Sleep Apnea: Type: DANNY Current doing well. No significant daytime somnolence or problems performing daily chores. Intermittently using because she cannot tolerate the apparatus. . 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 WHY0639-68 Spinal Cord Jfszqxisyz5684-64 Right Trigger Qkdhwv2884-70 Laporoscopy for Xwbvetial9570-45 Breast Arltczenj1066-96 Cory. Foot Wgacjmf7783-97 [facility] AIG9529-87 Huyzxmksvgh7712-52 Laporoscopy Preventative Gjurxsn1309/17/2022 MAMMOGRAM 3110/30/2020 ALBUMIN 4.3 G/DL N110/30/2020 MICRO ALBUMIN 9.5 UG/ML N110/30/2020 HAIC 7.0 % H002/28/2021 COLONOSCOPY (3 YEARS) /09/2021 COLOGUARD /03/2021 NMPQJLTBK43/09/2005 CT THORAX Social HistoryDoes not smoke cigarettes. Drinking Hx: 1 Cup of coffee per day.Exercise: WeeklySexual Hx: Sexually Active Family HistoryMother 88 years oldFather 45 years old3 Brothers 3 Living1 Sisters 1 LivingMother Hx: Ca of Breast, dementia, PE, DVTFather Hx: Accidental Jorge Myers MD [address] [facility], [address] [address], [place], [address], [facility] [employer] [facility] [employer] 12/27/2023 15:24:05 04/08/2024 text/html Pt currently has an UTI. Placed on Bactrim DS. Suggested Culterelle while on ATB and for 2 wks after Jorge Myers MD [address], [address] [place] [address], [place], [address], [facility] 04/09/2024 16:50:39 04/28/2024 text/html Patient Name: Ilene LindquistendsDate Of Service: Saturday ( 04.28.2024 ): 1955 [...] Systemic Symptoms:none Medication Reconciliation: from medication list. Rgkwajdokoj04/23/2023: CT scan of the abdomen and pelvis [...] Succinate Er. Rate control: controlled ventricular response [id number] Criteria: Age 65-74 for embolic phenomenon. Anticoagulation: [...] last examination. Using support device: none Medication: San Gabriel. #5. Chronic pain management for chronic neuropathy Since last examination somewhat improved Interval Testing: noneHas tried NSAIDS partial relief requiring additional medication. Pain Description: constant, exacerbated by activity and interferes with enjoyment and ability to perform activities of daily living. Currently seeing or has seen in the past a Wet Plant Operator: No .Pain - Enjoyment of Life - General Activity ScalePain on Average: 5Enjoyment of Live: 5General Activity: 4Enjoyment of Life - General Activity Scale: 5Currently regimen consists of Lyrica and [place] as prescribed with no evidence of abuse [...] D 500 MG One BidCpap 13 Cm T01Mdklhq 0.5 MG (TABLET - ORAL) Two Am [...] Abdominal DiscomfortSulfa Drugs RashGlucophage Gi Vaccination and Fyisedxqoxvf2907-88 Vhubnpkhm6672-30 Covid Jsndjr8624-70 Kpvanxnqk3184-05 Prevnar 13 Gc Surgical Lhbulwc5732-72 Laparoscopic faodvxyif9531-10 Rt. CED0295-96 Spinal Cord Agfpxzaiwx3421-89 Right Trigger Tiuplf7891-34 Laporoscopy for Arftecccz8227-65 Breast Cjzeqamaa5070-24 Cory. Foot Tfwuvig8066-09 [facility] UOO8943-15 Aqbrklhzwjm6893-22 Laporoscopy Preventative Pewiqtj7501/09/2024 MAMMOGRAM 511/ ALBUMIN 4.3 G/DL N110/30/2020 MICRO ALBUMIN 9.5 UG/ML N110/30/2020 HAIC 7.0 % H002/28/2021 COLONOSCOPY (3 YEARS) /09/2021 COLOGUARD /03/2021 ODXSOLXJF84/09/2005 CT [place] Social HistoryDoes not smoke cigarettes. Drinking Hx: 1 Cup of coffee per day.Exercise: WeeklySexual Hx: Sexually Active Family HistoryMother 88 years oldFather 45 years old3 Brothers 3 Living1 Sisters 1 LivingMother Hx: Ca of Breast, dementia, PE, DVTFather Hx: Accidental Deathental Jorge Myers MD [address] [facility], [facility] [address], [place], [address], [place] [facility] [employer] 04/28/2024 15:50:40 08/31/2024 text/html Patient Name: Ilene GabrielDate Of Service: Saturday ( 08.31.2024 ): 1955 [...] D 500 MG One BidCpap 13 Cm P57Fvzbnz 0.5 MG (TABLET - ORAL) Two Am [...] PREVNAR 13 GC( ) 2020-09 PNEUMOVAX(X) 2021-08 COVWeVideo.It Surgical Xiaplmw7336-12 Laparoscopic uefftttet4260-12 Rt. MPR5851-04 Spinal Cord Qqhilnmriw2721-86 Right Trigger Wzvtun6778-57 Laporoscopy for Ygwpusfrl2294-69 Breast Ysjmnoztr4387-79 Cory. Foot Wwdzupe9229-00 HAILEE VGC6096-94 Aremywrzjcf7577-33 Laporoscopy Preventative Testing( ) 06/29/2024 HAIC 6.6( [...] DVTFather Hx: Accidental Jorge Myers MD [address] [facility], [facility] [address], [place], [address], [place] [facility] [employer] 08/31/2024 12:24:37 OBGyn Episode No OBEpisode recorded.
--- OUTSIDE RECORDS SUMMARY | 2025-05-03 07:39 | XMS_ITS | Clinical Summary ---
Author Organization [address] Address [facility] [place] [address] Care Team Providers Care Medical Imaging Specialist Name Role Phone Yovanny Myers MD Primary [...] atrial fibrillation 02/02/2022 Disorder of breast 04/06/2015 Encounters Date Type Department Care Team Description 04/29/2025 Telephone [facility] Cardiology [address] [facility] [address] [place] [address] Emilio Harris MD 04/28/2025 10:00 AM CDT Office Visit [facility] Cardiology at [address] [place] [phone] Emilio Harris MD Paroxysmal atrial fibrillation (HCC) (Primary Dx); Lipid screening 03/19/2025 Telephone [facility] Cardiology [address] [facility] [address] [place] [address] Emilio Harris MD 03/11/2025 Anticoagulation Visit [facility] Cardiology [address] [facility] [address] [place] [phone] Anselmo Chang RN Paroxysmal atrial fibrillation (HCC) (Primary Dx) from Last 3 Months Surgical History Surgery Date Site/Laterality Comments HYSTERECTOMY SECTION FOOT SURGERY TONSILLECTOMY REDUCTION MAMMAPLASTY Medical History Medical History Date Comments Hypertension High cholesterol Diabetes (HCC) Anemia Sleep apnea Chronic back pain Chronic bronchitis (HCC) Depression Fibromyalgia Restless legs syndrome (RLS) Atrial fibrillation (HCC) Chest pain Hypomagnesemia JENNY (generalized anxiety [...] on file Legal Sex Female 2:24 AM COLLECTIONS REP Gender Identity Not on file Sexual Orientation [...] 04/28/2025 10:05 AM CDT Plan of Treatment Health Maintenance [...] 2024 07/23/2022, 08/14/2021, 01/07/2021, Additional history exists Breast Cancer Screening-Mammogram 01/08/2025 01/09/2024, 12/31/2023, 12/11/2023, Additional history exists Influenza Vaccine (#1) 2025 , 07/23/2022, 08/14/2021, Additional history exists Lipid Panel 04/28/2026 04/28/2025, 09/30/2023 Pneumococcal vaccine 65+ Completed 020, 09/20/2020, 10/14/2019, [...] Recently Relevant to Health Maintenance Insurance MEDICARE [employer] [place]ICARE [employer] [place] [place]IC[place] [address] Care Teams Medical Imaging Specialist Relationship Specialty Start Date End Date Yovanny Myers MD PCP - General 01/11/17
--- NOTE | 2025-05-03 08:35 | ECG_ITS ---
Test Date: 2025-05-03 08:48:12 Measurements Intervals [place] Rate: 67 P: 65 AL: 190 QRS: -16 QRSD: 100 T: -7 QT: 397 QTc: 422 Interpretive Statements SINUS RHYTHM ST DEVIATION AND MODERATE T-WAVE ABNORMALITY, CONSIDER ANTERIOR ISCHEMIA [-0.1+ mV T-WAVE IN V3/V4] Compared to ECG 04/10/2024 09:16:44 Low QRS voltage now present Possible ischemia now present T-wave abnormality still present Electronically Signed On 05-03-2025 11:25:57 CDT by Jarrod Garcia M.D.
[2025-05-03 09:12] LABS: Anion Gap 8 mmol/L (4-12); Blood Urea Nitrogen 14 mg/dL (7-17); Calcium 9.3 mg/dL (8.4-10.2); Carbon Dioxide 25 mmol/L (22-30); Chloride 105 mmol/L (98-107); Estimated Glomerular Filt Rate 60; Glucose 129 mg/dL (65-110); Potassium 4.1 mmol/L (3.4-5.0); Sodium 138 mmol/L (137-145)
== END 2025-05-03 07:36 | disposition home or self-care (01) ==
LOC: ANHLAB 07:37
PROVIDERS: PCP Internal Medicine; Visit Provider Anesthesiology
DX: I48.0 Paroxysmal atrial fibrillation (principal); E11.9 Type 2 diabetes mellitus without complications; R94.31 Abnormal electrocardiogram [ECG] [EKG]
CPT/HCPCS: 36415; 80048; 85610; 93005

== ENCOUNTER 2025-05-13 09:40 | Day surgery (SDC) | payer MEDICARE, OTHER, SELFPAY ==
--- NOTE | 2025-04-29 13:33 | PC.NURSE ---
RUT Wilkinson states that patient does not need to have a pre-op PT/PTT/INR drawn prior to excision mucous cyst right thumb scheduled at the [facility] on 05/13/25. RUT Wilkinson reviewed pt's PMH and medications and states pt cleared for surgery at [facility].
--- NOTE | 2025-04-29 13:44 | PC.NURSE ---
Dr. Bird states would like patient to hold Warfarin 5 days prior to procedure if datacap developer gives clearance. Pt states saw datacap developer yesterday who gave okay. Clearance form faxed to datacap developer for official approval.
--- NOTE | 2025-05-04 13:17 | SUR.PREOP ---
Pt's pre op EKG and chart reviewed by Dr. Nguyen who states pt needs to be cleared by her cement kiln operator (Dr. Harris) to be able to proceed with surgery scheduled at [facility] on 05/13/25 (Excision Mucous Cyst Right Thumb). Dr. Harris reviewed and states Pt is optimized for surgical procedure without the need for further testing. Dr. Harris states pt can hold Warfarin for 5 days prior to procedure per Dr. Bird's request. Cardiac and blood thinner hold clearance placed on chart. Pt states understanding of instructions with no further questions at this time. Per RUT Wilkinson, pt does not need to have a pre-op PT/INR/PTT drawn prior to surgery.
--- NOTE | 2025-05-13 06:56 | P.OP_ITS ---
Procedure Note - Detailed Date of Procedure 05/13/25 Pre-op Diagnosis Mucous Cyst Right Thumb Post-op Diagnosis Same Procedure Performed right thumb mucous cyst and osteophyt excision Surgeon Kizzy Bird MD [employer] Terminal Operator stephanie montenegro pa-c Anesthesia MAC Description of Procedure INFORMED CONSENT: The patient was seen and examined and marked in the pre-op area.? The patient signed the consent form. PROCEDURE IN DETAIL:The patient taken back to OR on the stretcher in supine position. Time out performed with anesthesia, surgeon and staff agreeing on patient's name site and surgery to be performed SCDs were placed on the lower extremities and inflated. A tourniquet was placed on {right} upper extremity and antibiotics given IV After anesthesia administered sedation I injected {4}cc 1%lido and 0.5% marcaine plain at the operative site The?{right upper extremity}?was prepped and draped in sterile fashion the??{right upper extremity} was? exsanguinated with Esmarch bandage and tourniquet inflated to 250mmHg I proceeded with making an elliptical incision around the thinned affected skin of the right thumb mucous cyst through skin and dermis with a 15 scalpel. Fifteen blade was used to elevate skin flaps. I proceeded with circumferential dissection of the mass down to the IP joint where was transected with bipolar cautery. I noted a large osteophyte coming off of middle phalanx. after reflextion of periosteum this was resected with rongeur til flat. I irrigated with normal saline. I repaired capsular defect with 5-0 vicryl. Skin Closure with 4-0 chromic. A dressing of xeroform, 4x4, aneesh, and tube gauze was applied after the tourniquet was let down noting the hand was warm and well perfused. The patient was then awaken from anesthesia and transferred to the recovery room in stable condition.? Complications - none EBL- 0cc Disposition - home in stable condition stephanie montenegro pa-c was essential for positioning, retraction, closure and dressing placement [facility] Billing Surgery - Charge Forward: Surgery Billing ([id number] same for stephanie adding )
--- NOTE | 2025-05-13 06:56 | WPDHPUPDATE1 ---
History and Physical Update Update Date/Time: 05/13/25 06:56 Patient seen and examined in pre-operative holding area. No interval change in medical history or symptoms. Patient recalls previous discussion of benefits and alternatives to procedure. Continues to desire to proceed with right thumb mass excision . Reviewed procedure, post-op expectations and risks including but not limited to bleeding, infection, injury to tendon/nerve/vessel, decreased hand function, stiffness, RSD, no change or worsening of symptoms, recurrence. I discussed the possible use of assistants and their participation in the case. Patient stated understanding and signed the consent form wishing to proceed.
--- OUTSIDE RECORDS SUMMARY | 2025-05-13 10:24 | XMS_ITS | Encounter Summary ---
Author Organization [facility] Healthcare Address [address] [place] [address] Care Team Providers Care Guide Delegate Name Role Phone Yovanny Myers MD Primary Care Provider Encounter Details Date Type Department Care Team (Late st Contact Info) Description 03/10/2025 Orders Only [facility] Health Information Management [address] [place] [address] Scanning, Provider Social History Tobacco Use Types Packs/Day Years Used Date Smoking Tobacco: Former Cigarettes Q uit: 02/03/2020 Comments Unknown Sex and Gender Information Value Date Recorded Sex Assigned at Not on file 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
--- OUTSIDE RECORDS SUMMARY | 2025-05-13 10:24 | XMS_ITS | Clinical Summary ---
Author Organization [address] Address [facility] [place] [address] Care Team Providers Care Flame Degreaser Name Role Phone Yovanny Myers MD Primary [...] estradioL (ESTRACE) 1 mg tablet 2 Active HYDROcodone-acet aminophen (NORCO) 5-325 mg per tablet hydrocodone 5 mg-acetaminophe n 325 mg tablet TAKE 1 TABLET BY MOUTH THREE TIMES DAILY DX: G43.90 Active hyoscyamine ER (LEVBID) 0.375 mg 12 hr tablet Acti ve glycopyrrolate (ROBINUL) 1 mg tablet 3 Active ondansetron (ZOFRAN) 4 mg tablet 3 Active warfarin (COUMADIN) 4 mg tablet TAKE 1 TABLET EVERY DAY 90 tablet 3 4 Active flecainide (TAMBOCOR) 50 mg tablet Take 1 tablet (50 mg total) by mouth 2 (two) times a day 60 tablet 5 01/16/20 26 Active warfarin (COUMADIN) 2 mg tabletIndication s:atrial fibrillation Take 1 tablet (2 mg total) by mouth daily 30 tablet 3 5 Active metoprolol XL (TOPROL-XL) 25 mg extended release tablet TAKE 1 TABLET DAILY 90 tablet 5 Active flecainide (TAMBOCOR) 50 mg tablet TAKE 1 TABLET EVERY 12 HOURS 180 tablet 5 Active Active Problems Problem Noted Date Diagnosed Date Chronic fatigue 12/25/2023 Low blood pressure reading 12/25/2023 Chronic anticoagulation 06/25/2022 Hyperlipidemia associated with type 2 diabetes m ellitus 06/25/2022 Medication monitoring encounter 06/25/2022 Former tobacco use 06/25/2022 Obstructive sleep apnea 06/25/2022 Paroxysmal atrial fibrillation 02/02/2022 Disorder of breast 04/06/2015 Encounters Date Type Department Care Team Description 05/03/2025 Orders Only [facility] Health Information Management [address] [place] [address] Scanning, Provider 05/03/2025 Anticoagulation Visit [facility] Cardiology [address] [address] [address] [place] [address] Bety Bassett RN Paroxysmal atrial fibrillation (HCC) (Primary Dx) 04/29/2025 Telephone [facility] Cardiology [address] [place] [address] Emilio Harris MD 04/28/2025 10:00 AM CDT Office Visit [facility] Cardiology at [address] [place] [phone] Emilio Harris MD Paroxysmal atrial fibrillation (HCC) (Primary Dx); Lipid screening 03/19/2025 Telephone [facility] Cardiology [address] [place] [address] Emilio Harris MD 03/11/2025 Anticoagulation Visit [facility] Cardiology [address] [facility] [address] [place] [address] Anselmo Chang RN Paroxysmal atrial fibrillation (HCC) (Primary Dx) 03/10/2025 Orders Only [facility] Health Information Management [address] [place], [place] [id number] Scanning, Provider from Last 3 Months Surgical History Surgery [...] on file Legal Sex Female 2:24 AM TRAIN EXAMINER Gender Identity Not on file Sexual Orientation [...] Date/Time Associated Diagnosis Comments SCAN - LABS 05/03/2025 PROTIME-INR Routine 05/03/2025 POCT LIPID PANEL Routine 04/28/2025 9:59 AM CDT Lipid screening SCAN - LABS 03/10/2025 PROTIME-INR Routine 03/10/2025 DIAGNOSTIC MAMMOGRAM BILATERAL W JAY Routine 01/09/2024 8:26 AM CDT Abnormal mammogram from Last 3 Months or Most Recently Relevant to Health Maintenance Results * SCAN - LABS (05/03/2025) Provider Scanning Final Result * (ABNORMAL) Protime-INR (05/03/2025) INR 1.80(A) 0.90 - 1.10 EXTERNAL LAB Blood Result [facility] Historical Provider MD LAB BLOOD ORDERABLES Liliana l Result EXTERNAL LAB * (ABNORMAL) POCT lipid panel (04/28/2025 9:59 [...] CARE TEST ORDER MARCIN Final Result * SCAN - LABS (03/10/2025) Provider Scanning Final Result * (ABNORMAL) Protime-INR (03/10/2025) INR 2.00(A) 0.90 - 1.10 EXTERNAL LAB Blood 03/10/2025 Result [facility] Historical Provider MD LAB BLOOD ORDERABLES Edit ed Result - [...] Recently Relevant to Health Maintenance Insurance [facility]ICARE [facility] MEDICARE [employer] [place] [employer]ICARE [employer] [place] Care Teams Flame Degreaser Relationship Specialty Start Date End Date Yovanny Myers MD PCP - General 01/11/17
--- OUTSIDE RECORDS SUMMARY | 2025-05-13 10:24 | XMS_ITS | Encounter Summary ---
Author Organization [facility] Healthcare Address [address] [place] [address] Care Team Providers Care Sanitation Truck Cleaner Name Role Phone Yovanny Myers MD Primary Care Provider Encounter Details Date Type Department Care Team (Late st Contact Info) Description 08/14/2024 Orders Only [facility] Health Information Management [address] [place] [address] Scanning, Provider Social History Tobacco Use Types Packs/Day Years Used Date Smoking Tobacco: Former Cigarettes Q uit: 02/03/2020 Comments Unknown Sex and Gender Information Value Date Recorded Sex Assigned at Not on file Legal Sex Female 2:24 AM 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
--- OUTSIDE RECORDS SUMMARY | 2025-05-13 10:24 | XMS_ITS | Encounter Summary ---
Author Organization [facility] Healthcare Address [address] [place] [address] Care Team Providers Care Printing Grey Cloth Tender Name Role Phone Yovanny Myers MD Primary Care Provider Encounter Details Date Type Department Care Team (Late st Contact Info) Description 06/02/2024 Orders Only [facility] Health Information Management [address] [place] [address] Scanning, Provider Social History Tobacco Use Types Packs/Day Years Used Date Smoking Tobacco: Former Cigarettes Q uit: 02/03/2020 Comments Unknown Sex and Gender Information Value Date Recorded Sex Assigned at Not on file Legal Sex Female 2:24 AM LINOLEUM TILE FLOOR LAYER Gender Identity Not on file Sexual Orientation Not on file documented as of this encounter Plan of Treatment Not on file documented as of this encounter Procedures Procedure Name Priority Date/Time Associated Diagnosis Comments SCAN - LABS 06/02/2024 documented in this encounter Results * SCAN - LABS (06/02/2024) us Provider Scanning Final Result documented in this encounter Visit Diagnoses Not on filedocumented in this encounter Care Teams Printing Grey Cloth Tender Relationship Specialty Start Date End Date Yovanny Myers MD PCP - General 01/11/17 documented as of this encounter
--- OUTSIDE RECORDS SUMMARY | 2025-05-13 10:24 | XMS_ITS | Referral Summary ---
Author Organization [place] [id number] [facility] Address [address] [place] [address] Care Team Providers Care Note Taker Name Role Phone Yovanny Myers MD Primary Care Provider Encounters Date Type Department Care Team Description 05/03/2025 Orders Only [facility] Information Management [address] [place] [address] Scanning, Provider 05/03/2025 Anticoagulation Visit [facility] Medical [facility] Cardiology [address] [place] [address] [address] [place] [address] Bety Bassett RN Paroxysmal atrial fibrillation (HCC) (Primary Dx) 04/29/2025 Telephone [facility] Medical [facility] Cardiology [address] [place] [address] [address] [place] [address] Emilio Harris MD 04/28/2025 10:00 AM CDT Office Visit [facility] Medical Group Cardiology at [address] [place] [phone] Emilio Harris MD Paroxysmal atrial fibrillation (HCC) (Primary Dx); Lipid screening 03/19/2025 Telephone [facility] Cardiology [address] [place] [address] [address] [place] [address] Emilio Harris MD 03/11/2025 Anticoagulation Visit [facility] Cardiology [address] [place] [address] [address] [place] [address] Anselmo Chang RN Paroxysmal atrial fibrillation (HCC) (Primary Dx) 03/10/2025 Orders Only [facility] Information Management [address] [place], [place] [phone] Scanning, Provider from Last 3 Months Allergies Active Allergy [...] on file Legal Sex Female 2:24 AM CHURCH WARDEN Gender Identity Not on file Sexual Orientation [...] 1.80(A) 0.90 - 1.10 EXTERNAL LAB Blood Historical Provider LAB BLOOD ORDERABLES Liliana alvarez Result EXTERNAL LAB * (ABNORMAL) POCT lipid [...] Final Result * SCAN - LABS (03/10/2025) us Provider Scanning Final Result * (ABNORMAL) Protime-INR (03/10/2025) INR 2.00(A) 0.90 - 1.10 EXTERNAL LAB Blood 03/10/2025 us Historical Provider LAB BLOOD ORDERABLES Edit ed [...] Recently Relevant to Health Maintenance Insurance MEDICARE [facility] MEDICARE [employer] [place] MEDICARE [employer] [place] Care Teams Note Taker Relationship Specialty Start Date End Date Yovanny Myers MD PCP - General 01/11/17
--- OUTSIDE RECORDS SUMMARY | 2025-05-13 10:24 | XMS_ITS | Patient Health Record ---
Author Organization [facility] Address [address] [address] Care Team Providers Care Down Filler Name Role Phone MEET MALAGON Unavailable [phone] Allergies Allergen (clinical drug ingredient) Drug/Non Drug [...] Problem Status W/U Status Risk Notes Problem [id number] Spider veins (I78.1) Active confirmed Plan Of Treatment No Information Insurance Providers Payer Name Payer Address Payer Phone Subscriber Number Group Number Insured Name Patient Relationship to Insured Coverage Start Date Coverage End Date [address] [place], [place] [id number] Lisa Gabriel Self - patient is the insured 0 Medical (General) History Medical History History ICD Code varicose veins
--- OUTSIDE RECORDS SUMMARY | 2025-05-13 10:24 | XMS_ITS | Encounter Summary ---
Author Organization [facility] Healthcare Address [address] [place] [address] Care Team Providers Care Hogshead Builder Name Role Phone Yovanny Myers MD Primary Care Provider Encounter Details Date Type Department Care Team (Late st Contact Info) Description 06/22/2024 Orders Only [facility] Health Information Management [address] [place] [address] Scanning, Provider Social History Tobacco Use Types Packs/Day Years Used Date Smoking Tobacco: Former Cigarettes Q uit: 02/03/2020 Comments Unknown Sex and Gender Information Value Date Recorded Sex Assigned at Not on file Legal Sex Female 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
[2025-05-13 10:30] VITALS: BP 102/67; PULSE 75; RESP 16; TEMP 37.3; O2SAT 97
[2025-05-13] MEDS: ACETAMINOPHEN 500 MG TABLET 1000 MG PO (10:33)
--- NOTE | 2025-05-13 11:12 | WPDANESEPPF ---
Anes - Initial Pre Proc Eval Procedure: Operation Date: 05/13/25 12:00 Proposed Procedures p Excision Mucous Cyst Right Thumb - Kizzy Bird MD Date/Time: 05/13/25 11:12 Surgeon: Kizzy Bird MD Pre Op Diagnosis: Mucous Cyst Right Thumb Patient Data Age: 69 Gender: F Height: 1.68 m Weight: 76 kg Last Vital Signs Temp 99.2 F 05/13/25 10:30 Pulse 75 05/13/25 10:30 Resp 16 05/13/25 10:30 BP 102/67 05/13/25 10:30 Pulse Ox 97 05/13/25 10:30 O2 Del Method Room Air 05/13/25 10:30 Allergies Allergy/AdvReac Type Severity Reaction Status Date / Time adhesive tape AdvReac Mild SILK TAPE= Verified 05/13/25 10:26 BLISTERS,PEELS OFF SKIN, REDNESS erythromycin base AdvReac Unknown Abdominal Verified 05/13/25 10:26 Pain Home Medications ?Medication ?Instructions ?Recorded ?Confirmed ?Type albuterol sulfate 90 mcg/actuation 2 puff inhalation QID PRN Dyspnea 08/03/20 05/13/25 History aerosol inhaler (ProAir HFA) atorvastatin 20 mg tablet 20 mg PO HS 08/03/20 05/13/25 History citalopram 40 mg tablet 40 mg PO HS 08/03/20 05/13/25 History estradiol 1 mg tablet 1 mg PO HS 08/03/20 05/13/25 History glimepiride 2 mg tablet 2 mg PO BID 08/03/20 05/13/25 History glycopyrrolate 1 mg tablet 2 mg PO Q12H 08/03/20 05/13/25 History (Antonio) lorazepam 1 mg tablet 1 mg PO QID PRN Anxiety 08/03/20 05/13/25 History metformin 500 mg tablet,extended 1,000 mg PO QAM 08/03/20 05/13/25 History release 24 hr pregabalin 100 mg capsule 100 mg PO TID 08/03/20 05/13/25 History ropinirole 0.5 mg tablet 1 mg PO Q12H 08/03/20 05/13/25 History valacyclovir 500 mg tablet 500 mg PO HS 08/03/20 05/13/25 History insulin glargine 100 unit/mL 12 unit subcut DIRECTED 12/21/21 05/13/25 History subcutaneous solution (Lantus U-100 Insulin) acetaminophen 500 mg tablet 1,000 mg PO Q6H PRN Pain (Scale 12/22/21 05/13/25 History (Acetaminophen Extra Strength) Score 4-6) metoprolol succinate 25 mg 75 mg (3 x 25 mg) PO QPM 30 days 12/23/21 05/13/25 Rx tablet,extended release 24 hr #90 tabs (Toprol XL) flecainide 50 mg tablet 50 mg PO Q12H #30 tabs 02/08/22 05/13/25 Rx warfarin 4 mg tablet See Rx Instructions .Route .COMPLEX 02/05/23 05/13/25 History ondansetron 4 mg disintegrating 4 mg PO Q8H PRN nausea and 02/23/23 05/13/25 Rx tablet vomiting #30 tabs semaglutide 0.25 mg or 0.5 mg (2 0.5 mg subcut WEEKLY 04/09/24 05/13/25 History mg/3 mL) subcutaneous pen injector (Ozempic) hydrocodone 5 mg-acetaminophen 325 1 tablet PO Q4H PRN pain #20 tabs 04/10/24 05/13/25 Rx mg tablet Laboratory Tests 05/13/25 10:38 POC Capillary Glucose 131 H mg/dl (65-105) Patient hx anesthesia problems: post op nausea/vomiting Family hx anesthesia problems: none Results Review: All pre-operative results and documents have been reviewed as part of the pre-operative evaluation. [facility] Past Medical History Medical History Anxiety Chronic back pain Chronic bronchitis Chronic pain Chronic, continuous use of opioids Depression Diabetes type 2, controlled Fibromyalgia Hepatic steatosis Noted by CT scan 05/2021 HTN (hypertension) DANNY (obstructive sleep apnea) Paroxysmal atrial fibrillation PONV (postoperative nausea and vomiting) Psychological stress RLS (restless legs syndrome) Sleep apnea Surgical History Surgical History H/O bilateral breast reduction surgery H/O foot surgery History of x2 History of hysterectomy History of tonsillectomy Family History Family History Other Breast cancer Diabetes mellitus Hypertension Social History Social History (Updated 04/13/25 @ 10:48 by Alix Joyner RN) Social History: Elderly mother lives w/ pt who is her full-time caregiver. Years smoked: 3 Smoking status: Former smoker Tobacco type: e-cigarettes/vaping Second hand tobacco smoke exposure: No Smoking end date: 04/13/19 Additional smoking assessment comments: STATES VAPES OCCASIONALLY Alcohol intake: current Alcohol use details: 2 DRINK PER MONTH Substance use: never Substance use type: does not use Living arrangements: with family Additional [facility] Spiritual care concerns: No Anes - Eval Final PreProcedure Day of Procedure 05/13/25 11:12 Heart: regular rate and rhythm Lungs: clear to auscultation Airway: Mallampati scale class IV Neurological: alert and oriented Last oral intake: >/= 8 hours ASA classification: III Anesthetic plan: proceed Anesthesia type and monitoring: monitored anesthesia care Results Review: All pre-operative results and documents have been reviewed as part of the pre-operative evaluation. Informed Consent: The patient's anesthetic plan and its attendant risks and benefits were discussed with the patient/family/POA. Questions were solicited and answers provided to the satisfaction of the patient/family/POA.
--- NOTE | 2025-05-13 12:13 | P.PNAN_ITS ---
Anes - Initial Pre Proc Eval Procedure: Operation Date: 05/13/25 12:00 Proposed Procedures p Excision Mucous Cyst Right Thumb - Kizzy Bird MD Date/Time: 05/13/25 12:13 Surgeon: Kizzy Bird MD Pre Op Diagnosis: Mucous Cyst Right Thumb Patient Data Age: 69 Gender: F Height: 1.68 m Weight: 76 kg Last Vital Signs Temp 99.2 F 05/13/25 10:30 Pulse 75 05/13/25 10:30 Resp 16 05/13/25 10:30 BP 102/67 05/13/25 10:30 Pulse Ox 97 05/13/25 10:30 O2 Del Method Room Air 05/13/25 10:30 Allergies Allergy/AdvReac Type Severity Reaction Status Date / Time adhesive tape AdvReac Mild SILK TAPE= Verified 05/13/25 10:26 BLISTERS,PEELS OFF SKIN, REDNESS erythromycin base AdvReac Unknown Abdominal Verified 05/13/25 10:26 Pain Home Medications ?Medication ?Instructions ?Recorded ?Confirmed ?Type albuterol sulfate 90 mcg/actuation 2 puff inhalation QID PRN Dyspnea 08/03/20 05/13/25 History aerosol inhaler (ProAir HFA) atorvastatin 20 mg tablet 20 mg PO HS 08/03/20 05/13/25 History citalopram 40 mg tablet 40 mg PO HS 08/03/20 05/13/25 History estradiol 1 mg tablet 1 mg PO HS 08/03/20 05/13/25 History glimepiride 2 mg tablet 2 mg PO BID 08/03/20 05/13/25 History glycopyrrolate 1 mg tablet 2 mg PO Q12H 08/03/20 05/13/25 History (Antonio) lorazepam 1 mg tablet 1 mg PO QID PRN Anxiety 08/03/20 05/13/25 History metformin 500 mg tablet,extended 1,000 mg PO QAM 08/03/20 05/13/25 History release 24 hr pregabalin 100 mg capsule 100 mg PO TID 08/03/20 05/13/25 History ropinirole 0.5 mg tablet 1 mg PO Q12H 08/03/20 05/13/25 History valacyclovir 500 mg tablet 500 mg PO HS 08/03/20 05/13/25 History insulin glargine 100 unit/mL 12 unit subcut DIRECTED 12/21/21 05/13/25 History subcutaneous solution (Lantus U-100 Insulin) acetaminophen 500 mg tablet 1,000 mg PO Q6H PRN Pain (Scale 12/22/21 05/13/25 History (Acetaminophen Extra Strength) Score 4-6) metoprolol succinate 25 mg 75 mg (3 x 25 mg) PO QPM 30 days 12/23/21 05/13/25 Rx tablet,extended release 24 hr #90 tabs (Toprol XL) flecainide 50 mg tablet 50 mg PO Q12H #30 tabs 02/08/22 05/13/25 Rx warfarin 4 mg tablet See Rx Instructions .Route .COMPLEX 02/05/23 05/13/25 History ondansetron 4 mg disintegrating 4 mg PO Q8H PRN nausea and 02/23/23 05/13/25 Rx tablet vomiting #30 tabs semaglutide 0.25 mg or 0.5 mg (2 0.5 mg subcut WEEKLY 04/09/24 05/13/25 History mg/3 mL) subcutaneous pen injector (Ozempic) hydrocodone 5 mg-acetaminophen 325 1 tablet PO Q4H PRN pain #20 tabs 04/10/24 05/13/25 Rx mg tablet Laboratory Tests 05/13/25 10:38 POC Capillary Glucose 131 H mg/dl (65-105) Patient hx anesthesia problems: post op nausea/vomiting Family hx anesthesia problems: none Results Review: All pre-operative results and documents have been reviewed as part of the pre- operative evaluation. [facility] Past Medical History Medical History Anxiety Chronic back pain Chronic bronchitis Chronic pain Chronic, continuous use of opioids Depression Diabetes type 2, controlled Fibromyalgia Hepatic steatosis Noted by CT scan 05/2021 HTN (hypertension) DANNY (obstructive sleep apnea) Paroxysmal atrial fibrillation PONV (postoperative nausea and vomiting) Psychological stress RLS (restless legs syndrome) Sleep apnea Surgical History Surgical History H/O bilateral breast reduction surgery H/O foot surgery History of x2 History of hysterectomy History of tonsillectomy Family History Family History Other Breast cancer Diabetes mellitus Hypertension Social History Social History (Updated 04/13/25 @ 10:48 by Alix Joyner RN) Social History: Elderly mother lives w/ pt who is her full-time caregiver. Years smoked: 3 Smoking status: Former smoker Tobacco type: e-cigarettes/vaping Second hand tobacco smoke exposure: No Smoking end date: 04/13/19 Additional smoking assessment comments: STATES VAPES OCCASIONALLY Alcohol intake: current Alcohol use details: 2 DRINK PER MONTH Substance use: never Substance use type: does not use Living arrangements: with family Additional [facility] Spiritual care concerns: No Anes - Eval Final PreProcedure Day of Procedure 05/13/25 12:13 Results Review: All pre-operative results and documents have been reviewed as part of the pre- operative evaluation. Informed Consent: The patient's anesthetic plan and its attendant risks and benefits were discussed with the patient/family/POA. Questions were solicited and answers provided to the satisfaction of the patient/family/POA.
[2025-05-13] MEDS: ceFAZolin SODIUM 2 GM/20 ML SW SYRINGE IV PUSH (12:22)
[2025-05-13] MEDS: LACTATED RINGERS 1,000 ML 30 ML IV CONT (12:41)
[2025-05-13] MEDS: LIDOCAINE 1% LOCAL INJ 20 ML VIAL 3 ML INFILTRATE (12:42)
[2025-05-13] MEDS: BUPivacaine HCL 0.5% 10 ML AMP INFILTRATE (12:43)
--- NOTE | 2025-05-13 12:49 | WPDANESPN ---
Anes - Prog Note Post-Op Date/Time: 05/13/25 12:49 Vital Signs: Last Vital Signs Temp 99.2 F 05/13/25 10:30 Pulse 75 05/13/25 10:30 Resp 16 05/13/25 10:30 BP 102/67 05/13/25 10:30 Pulse Ox 97 05/13/25 10:30 O2 Del Method Room Air 05/13/25 10:30 Pain Score (VAS): 0 05/13/25 10:38 POC Capillary Glucose 131 H Patient Feedback: Patient satisfied with anesthetic care.
[2025-05-13 12:50] VITALS: BP 113/64; PULSE 71; RESP 16; O2SAT 97
[2025-05-13 13:11] VITALS: BP 122/66; PULSE 71; RESP 16; O2SAT 98
--- NOTE | 2025-05-13 13:11 | SUR.PHASEII ---
Per Dr Bird, pt may restart warfarin tomorrow, Saturday, May 14, 2025.
== END 2025-05-13 13:16 | disposition home or self-care (01) ==
LOC: ASC 10:12
PROVIDERS: PCP Internal Medicine; Visit Provider Plastic Surgery
PROC: (CPT 26235; principal; 2025-05-13 12:00)
DX: M67.441 Ganglion, right hand (principal); M25.741 Osteophyte, right hand
CPT/HCPCS: 26235

== ENCOUNTER 2025-05-13 15:41 | Outpatient (NON) | payer MEDICARE, OTHER, SELFPAY ==
--- NOTE | 2025-05-13 | S_PTH ---
PATIENT: Lisa Gabriel LOC: [facility] U#:[id number] AGE/SX: 69/F ROOM: RE05/13/[address]: Kizzy Bird MD : 1955 BED: DIS: 05/13/2025 SPEC #: [id number] RECD: 05/14/25 07:03 STATUS: AYANNA REFawad #: [id number] MARGE: 05/13/25 00:[address]: Kizzy Bird DEPT: [facility] Surgical RECD BY: Blanca Kern ENTERED: 05/14/25 07:04 SP TYPE: Surgical OTHR DR: Yovanny Myers, Tissues: A - Cyst B - Soft Tissue Procedures: Hematoxylin and Eosin Stain Gross and Microscopic Level 3 Gross and Microscopic Level 4
--- OUTSIDE RECORDS SUMMARY | 2025-05-13 15:45 | XMS_ITS | Referral Summary ---
Author Organization [place] [id number] [facility] Address [address] [place] [address] Care Team Providers Care Volleyball Player Name Role Phone Yovanny Myers MD Primary Care Provider Encounters Date Type Department Care Team Description 05/03/2025 Orders Only [facility] Information Management [address] [place] [address] Scanning, Provider 05/03/2025 Anticoagulation Visit [facility] Medical [facility] Cardiology [address] [place] [address] [address] [place] [address] Bety Bassett RN Paroxysmal atrial fibrillation (HCC) (Primary Dx) 04/29/2025 Telephone [facility] Medical [facility] Cardiology [address] [place] [address] [address] [place] [address] Emilio Harris MD 04/28/2025 10:00 AM CDT Office Visit [facility] Medical Group Cardiology at [address] [place] [phone] Emilio Harris MD Paroxysmal atrial fibrillation (HCC) (Primary Dx); Lipid screening 03/19/2025 Telephone [facility] Cardiology [address] [place] [address] [address] [place] [address] Emilio Harris MD 03/11/2025 Anticoagulation Visit [facility] Cardiology [address] [place] [address] [address] [place] [address] Anselmo Chang RN Paroxysmal atrial fibrillation (HCC) (Primary Dx) 03/10/2025 Orders Only [facility] Information Management [address] [place], [place] [phone] Scanning, Provider from Last 3 Months Allergies [...] on file 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
--- OUTSIDE RECORDS SUMMARY | 2025-05-13 15:45 | XMS_ITS | Encounter Summary ---
Author Organization [facility] Healthcare Address [address] [place] [address] Care Team Providers Care Loan Coordinator Name Role Phone Yovanny Myers MD Primary Care Provider Encounter Details Date Type Department Care Team (Late st Contact Info) Description 08/14/2024 Orders Only [facility] Health Information Management [address] [place] [address] Scanning, Provider Social History Tobacco Use Types Packs/Day Years Used Date Smoking Tobacco: Former Cigarettes Q uit: 02/03/2020 Comments Unknown Sex and Gender Information Value Date Recorded Sex Assigned at Not on file 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
--- OUTSIDE RECORDS SUMMARY | 2025-05-13 15:45 | XMS_ITS | Encounter Summary ---
Author Organization [facility] Healthcare Address [address] [place] [address] Care Team Providers Care Terminal Computer Operator Name Role Phone Yovanny Myers MD Primary Care Provider Encounter Details Date Type Department Care Team (Late st Contact Info) Description 06/02/2024 Orders Only [facility] Health Information Management [address] [place] [address] Scanning, Provider Social History Tobacco Use Types Packs/Day Years Used Date Smoking Tobacco: Former Cigarettes Q uit: 02/03/2020 Comments Unknown Sex and Gender Information Value Date Recorded Sex Assigned at Not on file 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
--- OUTSIDE RECORDS SUMMARY | 2025-05-13 15:45 | XMS_ITS | Encounter Summary ---
Author Organization [facility] Healthcare Address [address] [place] [address] Care Team Providers Care Sugar Cane Planter Name Role Phone Yovanny Myers MD Primary Care Provider Encounter Details Date Type Department Care Team (Late st Contact Info) Description 03/10/2025 Orders Only [facility] Health Information Management [address] [place] [address] Scanning, Provider Social History Tobacco Use Types Packs/Day Years Used Date Smoking Tobacco: Former Cigarettes Q uit: 02/03/2020 Comments Unknown Sex and Gender Information Value Date Recorded Sex Assigned at Not on file 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
--- OUTSIDE RECORDS SUMMARY | 2025-05-13 15:45 | XMS_ITS | Encounter Summary ---
Author Organization [facility] Healthcare Address [address] [place] [address] Care Team Providers Care Silk Screen Layout Drafter Name Role Phone Yovanny Myers MD Primary Care Provider Encounter Details Date Type Department Care Team (Late st Contact Info) Description 06/22/2024 Orders Only [facility] Health Information Management [address] [place] [address] Scanning, Provider Social History Tobacco Use Types Packs/Day Years Used Date Smoking Tobacco: Former Cigarettes Q uit: 02/03/2020 Comments Unknown Sex and Gender Information Value Date Recorded Sex Assigned at Not on file 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
--- OUTSIDE RECORDS SUMMARY | 2025-05-13 15:45 | XMS_ITS | Clinical Summary ---
Author Organization [address] Address [facility] [place] [address] Care Team Providers Care Stage Technician Name Role Phone Yovanny Myers MD Primary [...] Department Care Team Description 05/03/2025 Orders Only [facility] Health Information Management [address] [place] [address] Scanning, Provider 05/03/2025 Anticoagulation Visit [facility] Medical Group Cardiology [address] [address] [address] [place] [address] Bety Bassett RN Paroxysmal atrial fibrillation (HCC) (Primary Dx) 04/29/2025 Telephone [facility] Medical Group Cardiology [address] [place] [address] Emilio Harris MD 04/28/2025 10:00 AM CDT Office Visit [facility] Medical Group Cardiology at [address] [place] [phone] Emilio Harris MD Paroxysmal atrial fibrillation (HCC) (Primary Dx); Lipid screening 03/19/2025 Telephone [facility] Cardiology [address] [place] [address] Emilio Harris MD 03/11/2025 Anticoagulation Visit [facility] Cardiology [address] [facility] [address] [place] [address] Anselmo Chang RN Paroxysmal atrial fibrillation (HCC) (Primary Dx) 03/10/2025 Orders Only [facility] Health Information Management [address] [place], [place] [id number] Scanning, Provider from Last 3 Months Surgical [...] on file 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
== END 2025-05-13 15:42 | disposition home or self-care (01) ==
LOC: ANHLAB 15:42
PROVIDERS: PCP Internal Medicine; Visit Provider Plastic Surgery
DX: M67.441 Ganglion, right hand (principal); M25.741 Osteophyte, right hand
CPT/HCPCS: 88304; 88305

== ENCOUNTER 2025-08-10 09:22 | Emergency (ER) | payer MEDICARE, OTHER, SELFPAY ==
--- NOTE | ~2025-08-10 | CT_ITS ---
Exam: CT abdomen and pelvis without contrast Clinical History: [Flank pain. Kidney stones. ] Comparison: [ 02/03/2023] Technique: Multiple axial CT images of the abdomen and pelvis were obtained without IV contrast. Sagittal and coronal reformatted images were obtained. FINDINGS: Lung bases: [Clear ] Liver: [ No mass.] [ No intrahepatic biliary duct dilatation.] Fatty liver. Gallbladder: [ No wall thickening or stones.] Common bile duct: [ Normal caliber.] [ No stones.] Spleen: [ Within normal limits.] Pancreas: [ No mass. No pancreatic fluid collection.] Adrenals: [ No masses.] Kidneys: [ No masses. No hydronephrosis.][ Tiny nonobstructing stone in the right kidney.] Lymph nodes: [ No adenopathy in the abdomen or pelvis.] Moderate amount of stool. Stomach, small bowel and colon: Small hiatal hernia. Peritoneum cavity: [ No mesenteric fat stranding or fluid.] Bladder: [ Unremarkable.] Osseous structures: [ No acute fracture lesion.] [ Multilevel degenerative change in the visualized spine.] Abdominal aorta: [ No aneurysm.] Additional findings: [ None of significance.] IMPRESSION: 1. No CT evidence for an acute process in the abdomen or pelvis at this time. 2. Moderate amount of stool. 3. Small hiatal hernia. Tear 4. Fatty liver. Reviewed, dictated and finalized at location Q.
[2025-08-10 09:28] VITALS: BP 139/54; PULSE 72; RESP 16; TEMP 36.9; O2SAT 97
[2025-08-10 09:53] LABS: Hematocrit 36.0 % (37.0-47.0); Hemoglobin 12.5 g/dL (12.0-15.0); Immature Granulocyte Percent A 0.5 % (0-0.5); Lymphocytes Absolute Auto 2.98 K/mm3 (0.9-3.2); Mean Corpuscular HGB Conc 34.7 g/dl (32-36); Mean Corpuscular Hemoglobin 31.9 pg (26-34); Mean Corpuscular Volume 91.8 fl (80-100); Nucleated Red Blood Cells Absolute Auto 0.000 K/mm3 (0.0-0.012); Nucleated Red Blood Cells Perc 0.0 % (0.0-0.2); Platelet Count Result 223 k/mm3 (150-375); Red Blood Count 3.92 M/mm3 (4.2-5.4); White Blood Count 9.1 K/mm3 (4.5-10.0)
--- NOTE | 2025-08-10 10:01 | ED.ABDPAIN ---
HPI - Abdominal Pain General Chief Complaint: Urogenital-Female Stated Complaint: possible kidney stone and bladder spasms Time Seen by Provider: 08/10/25 09:28 Source: patient Mode of arrival: ambulatory Limitations: no limitations History of Present Illness HPI narrative: This is a 69 year old female that presents to the ER for left flank pain. Ongoing since yesterday. Reports associated bladder spasms. Pain is worse wtih movement. Denies fever, vomiting, hematuria. Related Data Home Medications ?Medication ?Instructions ?Recorded ?Confirmed ?Last Taken ?Type albuterol sulfate 90 mcg/actuation 2 puff inhalation QID PRN Dyspnea 08/03/20 05/13/25 Unknown History aerosol inhaler (ProAir HFA) atorvastatin 20 mg tablet 20 mg PO HS 08/03/20 05/13/25 05/12/25 History citalopram 40 mg tablet 40 mg PO HS 08/03/20 05/13/25 05/12/25 History estradiol 1 mg tablet 1 mg PO HS 08/03/20 05/13/25 05/12/25 History glimepiride 2 mg tablet 2 mg PO BID 08/03/20 05/13/25 05/12/25 History glycopyrrolate 1 mg tablet 2 mg PO Q12H 08/03/20 05/13/25 05/13/25 06:30 History (Antonio) lorazepam 1 mg tablet 1 mg PO QID PRN Anxiety 08/03/20 05/13/25 03/16/24 History metformin 500 mg tablet,extended 1,000 mg PO QAM 08/03/20 05/13/25 04/14/24 19:00 History release 24 hr pregabalin 100 mg capsule 100 mg PO TID 08/03/20 05/13/25 04/15/24 06:00 History ropinirole 0.5 mg tablet 1 mg PO Q12H 08/03/20 05/13/25 05/13/25 06:30 History valacyclovir 500 mg tablet 500 mg PO HS 08/03/20 05/13/25 04/14/24 19:00 History insulin glargine 100 unit/mL 12 unit subcut DIRECTED 12/21/21 05/13/25 05/12/25 History subcutaneous solution (Lantus U-100 Insulin) acetaminophen 500 mg tablet 1,000 mg PO Q6H PRN Pain (Scale 12/22/21 05/13/25 05/12/25 History (Acetaminophen Extra Strength) Score 4-6) warfarin 4 mg tablet See Rx Instructions .Route .COMPLEX 02/05/23 05/13/25 05/06/25 History semaglutide 0.25 mg or 0.5 mg (2 0.5 mg subcut WEEKLY 04/09/24 05/13/25 04/03/24 History mg/3 mL) subcutaneous pen injector (Ozempic) Allergies Allergy/AdvReac Type Severity Reaction Status Date / Time adhesive tape AdvReac Mild SILK TAPE= Verified 05/25/25 09:17 BLISTERS,PEELS OFF SKIN, REDNESS erythromycin base AdvReac Unknown Abdominal Verified 05/25/25 09:17 Pain Review of Systems Review of Systems: All systems reviewed & are unremarkable except as noted in HPI and below PMFSH Past Medical History Medical History Psychological stress Sleep apnea Paroxysmal atrial fibrillation Hepatic steatosis Noted by CT scan 05/2021 PONV (postoperative nausea and vomiting) Chronic, continuous use of opioids Depression Anxiety Diabetes type 2, controlled Fibromyalgia Chronic bronchitis RLS (restless legs syndrome) Chronic pain Chronic back pain DANNY (obstructive sleep apnea) HTN (hypertension) Surgical History Surgical History H/O bilateral breast reduction surgery History of tonsillectomy H/O foot surgery History of x2 History of hysterectomy Family History Family History Other Breast cancer Diabetes mellitus Hypertension Social History Social History (Updated 05/25/25 @ 09:19 by Anne Zacarias) Social History: Elderly mother lives w/ pt who is her full-time caregiver. Caffeine-daily Years smoked: 3 Smoking status: Former smoker Tobacco type: e-cigarettes/vaping Second hand tobacco smoke exposure: No Smoking end date: 04/13/19 Additional smoking assessment comments: quit two years ago, socially about 4 per day Alcohol intake: current Alcohol use details: 2 DRINK PER MONTH Substance use: never Substance use type: does not use Living arrangements: with family Additional living arrangements comments: HUSB Spiritual care concerns: No Exam Narrative: GENERAL: Well-appearing, well-nourished, and in no acute distress. HEAD: Normocephalic, atraumatic. EYES: EOMI. CHEST: Clear to auscultation. No respiratory distress. No wheezes rales or rhonchi HEART: Regular rate and rhythm. No murmur heard. Normal peripheral pulses. ABDOMEN: Soft, nontender, nondistended, normal active bowel sounds. EXTREMITIES: Normal range of motion. No edema. SKIN: Warm, dry, no rash. NEURO: No focal deficits. Alert and oriented x3. PSYCH: Normal mood and affect Course Course Emergency Course: Patient updated on her workup, agrees with plan of care Vital Signs Vital signs: Vital Signs Temperature 98.4 F 08/10/25 09:28 Pulse Rate 72 08/10/25 09:28 Respiratory Rate 16 08/10/25 09:28 Blood Pressure 139/54 L 08/10/25 09:28 Pulse Oximetry 97 08/10/25 09:28 Oxygen Delivery Room Air 08/10/25 09:28 Temperature 98.4 F 08/10/25 09:28 Pulse Rate 72 08/10/25 09:28 Respiratory Rate 16 08/10/25 09:28 Blood Pressure 139/54 L 08/10/25 09:28 Pulse Oximetry 97 08/10/25 09:28 Oxygen Delivery Room Air 08/10/25 09:28 MDM - Abdominal Pain MDM Narrative Medical decision making narrative: Patient presents to the emergency department for back pain. Ongoing since yesterday. She is afebrile and nontoxic appearing. Her vitals are stable. CBC without leukocytosis. Metabolic panel with normal kidney function. Urine without evidence of infection. CT abdomen pelvis without acute findings. Patient updated on her workup, agrees with plan of care. She is to follow up primary provider. She was given warnings to return to the ER Differential Diagnosis Differential diagnosis: Likely calculus of kidney, constipation and other (muscle spasm, lumbar radiculopathy, UTI) Lab Data Attestation: I reviewed the patient's lab results. 08/10/25 09:42 08/10/25 09:42 Labs: Lab Results 08/10/25 Range/Units 09:42 WBC 9.1 (4.5-10.0) K/mm3 RBC 3.92 L (4.2-5.4) M/mm3 Hgb 12.5 (12.0-15.0) g/dL Hct 36.0 L (37.0-47.0) % MCV 91.8 (80-100) fl MCH 31.9 (26-34) pg MCHC 34.7 (32-36) g/dl RDW 14.2 (11.5-14.5) % Plt Count 223 (150-375) k/mm3 MPV 9.7 (7.4-10.4) fl Immature Gran % (Auto) 0.5 (0-0.5) % Neut % (Auto) 56.3 (45.5-73.1) % Lymph % (Auto) 32.6 (18.3-44.2) % Stark % (Auto) 7.7 (2.6-8.5) % Eos % (Auto) 2.5 (0-4.4) % Baso % (Auto) 0.4 (0.2-1.2) % Lymph # (Auto) 2.98 (0.9-3.2) K/mm3 Stark # (Auto) 0.7 H (0.1-0.6) K/mm3 Eos # (Auto) 0.2 (0-0.3) K/mm3 Baso # (Auto) 0.0 (0.0-0.1) K/mm3 Abs Immat Gran (auto) 0.05 H (0.00-0.031) K/mm3 Absolute Neuts (auto) 5.1 (1.3-6.7) K/mm3 Absolute Nucleated RBC 0.000 (0.0-0.012) K/mm3 Nucleated RBC % 0.0 (0.0-0.2) % PT 22.3 H (11.1-14.7) Seconds INR 2.0 APTT 37.2 H (22.3-36.8) Seconds Sodium 138 (137-145) mmol/L Potassium 4.2 (3.4-5.0) mmol/L Chloride 105 (98-107) mmol/L Carbon Dioxide 24 (22-30) mmol/L Anion Gap 9 (4-12) mmol/L BUN 11 (7-17) mg/dL Creatinine 0.81 (0.7-1.0) mg/dL Estim Creat Clear Calc 57 ml/min Estimated GFR > 60 (59 - ) Glucose 149 H (65-110) mg/dL Calcium 8.9 (8.4-10.2) mg/dL Total Bilirubin 0.7 (0.2-1.3) mg/dL AST 39 H (14-36) U/L ALT 32 (6-35) U/L Alkaline Phosphatase 99 (38-126) U/L Total Protein 7.3 (6.3-8.2) g/dL Albumin 4.3 (3.5-5.1) g/dL Lipase 27 (23-300) U/L Urine Color Yellow (Yellow) Urine Appearance Clear (Clear) Urine pH 5.0 (5.0-9.0) Ur Specific Mio 1.011 (1.001-1.035) Urine Protein Negative (Negative) mg/dL Urine Glucose (UA) Negative (Negative) mg/dL Urine Ketones Negative (Negative) mg/dL Ur Blood (Man) Negative (Negative) Urine Nitrate Negative (Negative) Urine Bilirubin Negative (Negative) Urine Urobilinogen 0.2 (<2.0) mg/dL Leukocyte Esterase Rfl Negative (Negative) ELIANA/UL Imaging Data Radiologist's impression: ITS Impressions Abdomen/Pelvis CT 08/10/25 10:40 IMPRESSION: 1. No CT evidence for an acute process in the abdomen or pelvis at this time. 2. Moderate amount of stool. 3. Small hiatal hernia. Tear 4. Fatty liver. Critical Care Time Critical Care Time Critical Care Time: No Discharge Plan Discharge Clinical Impression: Low back pain Qualifiers: Chronicity: acute Back pain laterality: left Sciatica presence: without sciatica Qualified Code(s): M54.50 - Low back pain, unspecified Patient Disposition: Home Condition: Stable Instructions: Back Pain (ED) Additional Instructions: Return to the ER if you experience weakness, numbness, bowel/bladder incontinence, or any other symptoms that are concerning to you Rest, use ice/heat, take anti-inflammatories (Aleve, Ibuprofen, Naproxen, etc) or Tylenol as needed for pain as well as muscle relaxer (Methocarbamol) as needed for pain. Muscle relaxers can make you drowsy, do not drive if you take this Follow up with your primary care doctor Patient Language: Hebrew Prescriptions: New methocarbamol 750 mg tablet 1,500 mg PO TID PRN (Reason: muscle spasm) Qty: 14 0RF No Action warfarin 4 mg tablet See Rx Instructions .ROUTE .COMPLEX Rx Instructions: 2MG-SATURDAY, SATURDAY, SATURDAY, SATURDAY, SATURDAY. 4MG- SATURDAY AND SATURDAY glycopyrrolate [Robinul] 1 mg tablet 2 mg PO Q12H Rx Instructions: EXCESSIVE SWEATING atorvastatin 20 mg tablet 20 mg PO HS citalopram 40 mg tablet 40 mg PO HS valacyclovir 500 mg tablet 500 mg PO HS glimepiride 2 mg tablet 2 mg PO BID estradiol 1 mg tablet 1 mg PO HS ropinirole 0.5 mg tablet 1 mg PO Q12H lorazepam 1 mg tablet 1 mg PO QID PRN (Reason: Anxiety) albuterol sulfate [ProAir HFA] 90 mcg/actuation HFA aerosol inhaler 2 puff INHALATION QID PRN (Reason: Dyspnea) metformin 500 mg tablet extended release 24 hr 1,000 mg PO QAM Rx Instructions: 1,000 mg orally pregabalin 100 mg capsule 100 mg PO TID insulin glargine [Lantus U-100 Insulin] 100 unit/mL Solution 12 unit SUBCUT DIRECTED Rx Instructions: Pt takes 12 units AM AND 14 UNITS PM. PLUS if <120 if >120 takes 14 units acetaminophen [Acetaminophen Extra Strength] 500 mg Tablet 1,000 mg PO Q6H PRN (Reason: Pain (Scale Score 4-6)) metoprolol succinate [Toprol XL] 25 mg Tablet Extended Release 24 Hr 75 mg PO QPM 30 Days Qty: 90 0RF flecainide 50 mg tablet 50 mg PO Q12H Qty: 30 5RF ondansetron 4 mg tablet,disintegrating 4 mg PO Q8H PRN (Reason: nausea and vomiting) Qty: 30 0RF Ozempic 0.25 mg or 0.5 mg (2 mg/3 mL) pen injector 0.5 mg SUBCUT WEEKLY Rx Instructions: FRIDAYS hydrocodone-acetaminophen 5-325 mg tablet 1 tablet PO Q4H PRN (Reason: pain) Qty: 20 0RF Follow-up/Referrals: Louis,Yovanny Garner MD [Primary Care Provider]
[2025-08-10 10:03] LABS: Add Urine Microscopic? NO; Appearance Urine Clear (Clear); Glucose Urine UA Negative (Negative); Leukocyte Esterase Ur Negative LEU/UL (Negative); Nitrate Urine Negative (Negative); Specific Grav Ur 1.011 (1.001-1.035)
[2025-08-10 10:12] LABS: Alanine Aminotransferase 32 U/L (6-35); Albumin Level 4.3 g/dL (3.5-5.1); Alkaline Phosphatase 99 U/L (38-126); Anion Gap 9 mmol/L (4-12); Aspartate Amino Transferase 39 U/L (14-36); Bilirubin,Total 0.7 mg/dL (0.2-1.3); Blood Urea Nitrogen 11 mg/dL (7-17); Calcium 8.9 mg/dL (8.4-10.2); Carbon Dioxide 24 mmol/L (22-30); Chloride 105 mmol/L (98-107); Estimated CRCL calculation 57 ml/min; Estimated Glomerular Filt Rate > 60; Glucose 149 mg/dL (65-110); Lipase 27 U/L (23-300); Potassium 4.2 mmol/L (3.4-5.0); Sodium 138 mmol/L (137-145); Total Protein 7.3 g/dL (6.3-8.2)
--- OUTSIDE RECORDS SUMMARY | 2025-08-10 10:13 | XMS_ITS | Encounter Summary ---
Author Organization [facility] Healthcare Address [address] [place] [address] Care Team Providers Care Merit System Director Name Role Phone Yovanny Myers MD Primary Care Provider Encounter Details Date Type Department Care Team (Late st Contact Info) Description 11/12/2024 Orders Only [facility] [place] [address] [place] [address] Scanning, Provider Social History Tobacco Use Types Packs/Day Years Used Date Smoking Tobacco: Former Cigarettes Q uit: 02/03/2020 Comments Unknown Sex and Gender Information Value Date Recorded Sex Assigned at Not on file 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
--- OUTSIDE RECORDS SUMMARY | 2025-08-10 10:13 | XMS_ITS | Encounter Summary ---
Author Organization [facility] Healthcare Address [address] [place] [address] Care Team Providers Care Testing And Regulating Technician Name Role Phone Yovanny Myers MD Primary Care Provider Encounter Details Date Type Department Care Team (Late st Contact Info) Description 01/22/2025 Orders Only [facility] [facility] [place] Information Management [address] [place] [phone] Scanning, Provider Social History Tobacco Use Types Packs/Day Years Used Date Smoking Tobacco: Former Cigarettes Q uit: 02/03/2020 Comments Unknown Sex and Gender Information Value Date Recorded Sex Assigned at Not on file 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
--- OUTSIDE RECORDS SUMMARY | 2025-08-10 10:13 | XMS_ITS | Encounter Summary ---
Author Organization [facility] Healthcare Address [address] [place] [address] Care Team Providers Care Broth Mixer Name Role Phone Yovanny Myers MD Primary Care Provider Encounter Details Date Type Department Care Team (Late st Contact Info) Description 09/24/2024 [place] [facility] [place] [address] [place] [id number] Scanning, Provider Social History Tobacco Use Types Packs/Day Years Used Date Smoking Tobacco: Former Cigarettes Q uit: 02/03/2020 Comments Unknown Sex and Gender Information Value Date Recorded Sex Assigned at Not on file 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
--- OUTSIDE RECORDS SUMMARY | 2025-08-10 10:13 | XMS_ITS | Encounter Summary ---
Author Organization [facility] Healthcare Address [address] [place] [address] Care Team Providers Care Facing Slitter Name Role Phone Yovanny Myers MD Primary Care Provider Encounter Details Date Type Department Care Team (Late st Contact Info) Description 01/06/2025 Orders Only [facility] [place] [address] [place] [phone] Scanning, Provider Social History Tobacco Use Types Packs/Day Years Used Date Smoking Tobacco: Former Cigarettes Q uit: 02/03/2020 Comments Unknown Sex and Gender Information Value Date Recorded Sex Assigned at Not on file 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
--- OUTSIDE RECORDS SUMMARY | 2025-08-10 10:13 | XMS_ITS | Patient Health Record ---
Author Organization [facility] Address [address] [place] [address] Care Team Providers Care Produce Laborer Name Role Phone MEET MALAGON Unavailable [phone] Allergies Allergen (clinical drug ingredient) Drug/Non Drug Allergy documented on EMR Reaction Allergy Type Onset Date Status azithromycin Azithromycin Unknown Drug Allergy A ctive Reason For Referral No Information Medications Medication SIG (Take, Route, Fr equency, Duration) Notes Start Date End Date Status CeleXA 20 MG Tablet 1 tablet Orally Once a day; Duration: 30 day(s) Active Atenolol 50 MG Tablet 1 tablet Orally On ce a day; Duration: 30 day(s) Active Robinul Active Social History Tobacco Use: Social History Observation Description Date Details (start date - stop date) Never Smoker NA - NA Social History Tobacco Use: Social Info Question Answer Notes Tobacco Use/Smoking Are you a nonsmoker Problems Problem Type SNOMED Code ICD Code Onset Dates Problem Status W/U Status Risk Notes 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
--- OUTSIDE RECORDS SUMMARY | 2025-08-10 10:13 | XMS_ITS | Encounter Summary ---
Author Organization [facility] Healthcare Address [address] [place] [address] Care Team Providers Care Slipcover Cutter Name Role Phone Yovanny Myers MD Primary Care Provider Encounter Details Date Type Department Care Team (Late st Contact Info) Description 01/15/2025 Orders Only [facility] [place] Health Information Management [address] [place] [phone] Scanning, Provider Social History Tobacco Use Types Packs/Day Years Used Date Smoking Tobacco: Former Cigarettes Q uit: 02/03/2020 Comments Unknown Sex and Gender Information Value Date Recorded Sex Assigned at Not on file 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
--- OUTSIDE RECORDS SUMMARY | 2025-08-10 10:13 | XMS_ITS | Encounter Summary ---
Author Organization [facility] Healthcare Address [address] [place] [address] Care Team Providers Care Hvac Installation Technician Name Role Phone Yovanny Myers MD Primary Care Provider Encounter Details Date Type Department Care Team (Late st Contact Info) Description 03/10/2025 Orders Only [facility] [place] Health Information Management [address] [place] [phone] Scanning, Provider Social History Tobacco Use Types Packs/Day Years Used Date Smoking Tobacco: Former Cigarettes Q uit: 02/03/2020 Comments Unknown Sex and Gender Information Value Date Recorded Sex Assigned at Not on file 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
--- OUTSIDE RECORDS SUMMARY | 2025-08-10 10:14 | XMS_ITS | Clinical Summary ---
Author Organization [address] Address [facility] [place] [address] Care Team Providers Care Electrician Apprentice Name Role Phone Yovanny Myers MD Primary [...] EVERY DAY 90 tablet 3 4 Active warfarin (COUMADIN) 2 mg tabletIndication s:atrial fibrillation Take 1 tablet (2 mg total) by mouth daily 30 tablet 3 5 Active flecainide (TAMBOCOR) 50 mg tablet TAKE 1 TABLET EVERY 12 HOURS 180 tablet 1 5 Active metoprolol XL (TOPROL-XL) 25 mg extended release tablet TAKE 1 TABLET DAILY 90 tablet 1 5 Active Active Problems Problem Noted Date Diagnosed Date Chronic fatigue 12/25/2023 Low blood pressure reading 12/25/2023 Chronic anticoagulation 06/25/2022 Hyperlipidemia associated with type 2 diabetes m ellitus 06/25/2022 Medication monitoring encounter 06/25/2022 Former tobacco use 06/25/2022 Obstructive sleep apnea 06/25/2022 Paroxysmal atrial fibrillation 02/02/2022 Disorder of breast 04/06/2015 Encounters Date Type Department Care Team Description 06/03/2025 10:15 AM CDT - 06/03/2025 11:59 PM CDT Hospital Encounter [facility] [address] [place] [address] Screening mammogram for breast cancer Discharge Disposition: Discharge to home or self care 06/02/2025 Telephone [facility] Medical [facility] Cardiology [address] [facility] [address] [place] [address] Emilio Harris MD 05/31/[address] [address] Referral, Self Appointment Request 05/28/2025 Telephone [facility] Medical Group Cardiology [address] [place] [address] Emilio Harris MD from Last 3 Months Surgical History Surgery Date Site/Laterality Comments HYSTERECTOMY SECTION FOOT SURGERY TONSILLECTOMY REDUCTION MAMMAPLASTY Medical History Medical History Date Comments Hypertension High cholesterol Diabetes Anemia Sleep apnea Chronic back pain Chronic bronchitis (HCC) Depression Fibromyalgia Restless legs syndrome (RLS) Atrial fibrillation (HCC) Chest pain Hypomagnesemia JENNY (generalized anxiety disorder) Bradycardia Family History Medical History Relation Name Comments No Known Problems Brother Father Breast cancer Maternal Grandmother Breast cancer Mother Adenocarcinoma of breast - (Added by TW Conv) Dementia Mother No Known Problems Sister Relation Name Status Comments Brother Alive Father (Age 30) Maternal Grandmother Mother Alive Sister Alive Social History Tobacco Use Types Packs/Day Years Used Date Smoking Tobacco: Former Cigarettes Q uit: 02/03/2020 Tobacco Cessation:Counseling Given: Not Answered Comments No Sex and Gender Information Value Date Recorded Sex Assigned at Not on file Legal Sex Female 2:24 AM FUNDER Gender Identity Not on file Sexual Orientation Not on file Obstetrics History Para Term AB IAB SAB Ectopic Multiple Livin g Live Births 4 2 Date Outcome GA Total Labor Labor/2nd/3rd Weight Sex Type Anes PTL Hannah A1 A5 Name Clin Last Filed Vital Signs Vital Sign Reading Time Taken Comments Blood Pressure 118/70 04/28/2025 10:05 AM CDT Pulse 82 04/28/2025 10:05 AM CDT Temperature - - Respiratory Rate - - Oxygen Saturation 97% 04/28/2025 10:05 AM CDT Inhaled Oxygen Concentration - - Weight 71.7 kg (158 lb) 06/03/2025 10:27 AM CDT Height 166.4 cm (5' 5.5) 04/28/2025 10:05 AM CD T Body Mass Index 25.89 04/28/2025 10:05 AM CDT Plan of Treatment [...] Visit 65+ 2018 Covid-19 Vaccine (5 - 2024-2 6 season) 2025 07/23/2022, 08/14/2021, 01/07/2021, Additional history exists Influenza Vaccine (#1) 2025 , 07/23/2022, 08/14/2021, Additional history exists Lipid Panel 04/28/2026 04/28/2025, 09/30/2023 Breast Cancer Screening-Mammogram 06/03/2026 06/03/2025, 01/09/2024, 12/31/2023, Additional history exists Pneumococcal vaccine 65+ Completed 020, 09/20/2020, 10/14/2019, Additional history exists Procedures Procedure Name Priority Date/Time Associated Diagnosis Comments SCREENING MAMMOGRAM BILATERAL W JAY Schedule Routine, Read Routine (OP Routine) 06/03/2025 10:34 AM CDT Screening mammogram for breast cancer POCT LIPID PANEL Routine 04/28/2025 9:59 AM CDT Lipid screening from Last 3 Months or Most Recently Relevant to Health Maintenance Results * Screening Mammogram Bilateral W Jay (06/03/2025 10:34 AM CDT) Anatomical Region Laterality Modality Breast Bilateral Mammography Impressions 06/04/2025 10:18 AM CDT Bilateral No evidence of malignancy in either breast. OVERALL BI-RADS FINAL ASSESSMENT: 2 - Benign RECOMMENDATION: Recommend bilateral annual screening mammography. If supplemental screening is desired for heterogeneously dense breast tissue, consider breast MRI every 1-2 years. If breast MRI cannot be performed, contrast-enhanced mammography is an alternative. Narrative 06/04/2025 10:18 AM CDT EXAMINATION: Screening Mammogram Bilateral W Jay: 06/03/2025 COMPARISON: Relevant prior studies available at the time of interpretation were reviewed, including the most recent mammogram on: 01/09/2024. TECHNIQUE: Mammography was performed with 2D and 3D digital breast tomosynthesis (DBT) images. CAD was utilized. BREAST PARENCHYMAL COMPOSITION: The breasts are heterogeneously dense, which may obscure small masses. FINDINGS: Bilateral 1) Post-Surgical Finding: There are post-surgical findings from a previous breast reduction seen in both breasts. There has been no interval development of a suspicious finding. This finding is benign. There is no suspicious mass, calcification, or architectural distortion in either breast. Self Referral IMG MAMMO PROCEDURES Final Resul t * (ABNORMAL) POCT lipid panel (04/28/2025 9:59 [...] OF CARE TEST ORDER MARCIN Final Result from Last 3 Months or Most Recently Relevant to Health Maintenance Insurance MEDICARE [facility] MEDICARE MEDICARE [facility] [place]ung [id number] Care Teams Electrician Apprentice Relationship Specialty Start Date End Date Yovanny Myers MD PCP - General 01/11/17
--- OUTSIDE RECORDS SUMMARY | 2025-08-10 10:14 | XMS_ITS | Encounter Summary ---
Author Organization [facility] Healthcare Address [address] [place] [address] Care Team Providers Care Therapist Phys Name Role Phone Yovanny Myers MD Primary Care Provider Encounter Details Date Type Department Care Team (Late st Contact Info) Description 08/14/2024 Orders Only [facility] [place] [address] [place] [address] Scanning, Provider Social History Tobacco Use Types Packs/Day Years Used Date Smoking Tobacco: Former Cigarettes Q uit: 02/03/2020 Comments Unknown Sex and Gender Information Value Date Recorded Sex Assigned at Not on file Legal Sex Female 2:24 AM SUGARCANE PLANTER Gender Identity Not on file Sexual Orientation [...] on filedocumented in this encounter Care Teams Therapist Phys Relationship Specialty Start Date End Date Yovanny Myers MD PCP - General 01/11/17 documented as of this encounter
[2025-08-10] MEDS: MORPHINE SULFATE (*CRX) 4 MG/ML INJ IV PUSH (10:16)
[2025-08-10] MEDS: ONDANSETRON INJ 4 MG/2 ML VIAL IV PUSH (10:16)
[2025-08-10 10:32] LABS: INR 2.0; Prothrombin Time 22.3 Seconds (11.1-14.7)
[2025-08-10 10:33] LABS: Partial Thromboplastin Time 37.2 Seconds (22.3-36.8)
[2025-08-10] MEDS: diazePAM INJ (*CRX) 10 MG/2 ML SYRINGE 5 MG IV PUSH (11:05)
[2025-08-10] MEDS: ACETAMINOPHEN 500 MG TABLET 1000 MG PO (11:07)
[2025-08-10 11:41] VITALS: BP 93/59; PULSE 67; RESP 20; TEMP 37; O2SAT 97
--- OUTSIDE RECORDS SUMMARY | 2025-08-10 11:44 | XMS_ITS | Encounter Summary ---
Author Organization [facility] Healthcare Address [address] [place] [address] Care Team Providers Care Customer Quality Engineer Name Role Phone Yovanny Myers MD Primary Care Provider Encounter Details Date Type Department Care Team (Late st Contact Info) Description 11/12/2024 Orders Only [facility] Health Information Management [address] [place] [address] Scanning, Provider Social History Tobacco Use Types Packs/Day Years Used Date Smoking Tobacco: Former Cigarettes Q uit: 02/03/2020 Comments Unknown Sex and Gender Information Value Date Recorded Sex Assigned at Not on file Legal Sex Female 2:24 AM DIESEL STATIONARY ENGINEER Gender Identity Not on file Sexual [...] on filedocumented in this encounter Care Teams Customer Quality Engineer Relationship Specialty Start Date End Date Yovanny Myers MD PCP - General 01/11/17 documented as of this encounter
--- OUTSIDE RECORDS SUMMARY | 2025-08-10 11:44 | XMS_ITS | Encounter Summary ---
Author Organization [facility] Healthcare Address [address] [place] [address] Care Team Providers Care Roll Carrier Name Role Phone Yovanny Myers MD Primary Care Provider Encounter Details Date Type Department Care Team (Late st Contact Info) Description 09/24/2024 Orders Only [facility] [place] Information Management [address] [place] [address] Scanning, Provider Social History Tobacco Use Types Packs/Day Years Used Date Smoking Tobacco: Former Cigarettes Q uit: 02/03/2020 Comments Unknown Sex and Gender Information Value Date Recorded Sex Assigned at Not on file Legal Sex Female 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
--- OUTSIDE RECORDS SUMMARY | 2025-08-10 11:44 | XMS_ITS | Encounter Summary ---
Author Organization [facility] Healthcare Address [address] [place] [address] Care Team Providers Care Weigh And Charge Worker Name Role Phone Yovanny Myers MD Primary Care Provider Encounter Details Date Type Department Care Team (Late st Contact Info) Description 01/15/2025 Orders Only [facility] Health Information Management [address] [place] [address] Scanning, Provider Social History Tobacco Use Types Packs/Day Years Used Date Smoking Tobacco: Former Cigarettes Q uit: 02/03/2020 Comments Unknown Sex and Gender Information Value Date Recorded Sex Assigned at Not on file Legal Sex Female 2:24 AM BUILDING ATTENDANT Gender Identity Not on file Sexual Orientation [...] on filedocumented in this encounter Care Teams Weigh And Charge Worker Relationship Specialty Start Date End Date Yovanny Myers MD PCP - General 01/11/17 documented as of this encounter
--- OUTSIDE RECORDS SUMMARY | 2025-08-10 11:44 | XMS_ITS | Encounter Summary ---
Author Organization [facility] Healthcare Address [address] [place] [address] Care Team Providers Care Jewel Bearing Facer Name Role Phone Yovanny Myers MD Primary Care Provider Encounter Details Date Type Department Care Team (Late st Contact Info) Description 01/06/2025 Orders Only [facility] Health Information Management [address] [place] [phone] Scanning, Provider Social History Tobacco Use Types Packs/Day Years Used Date Smoking Tobacco: Former Cigarettes Q uit: 02/03/2020 Comments Unknown Sex and Gender Information Value Date Recorded Sex Assigned at Not on file Legal Sex Female 2:24 AM LABORER GENERAL Gender Identity Not on file Sexual Orientation [...] on filedocumented in this encounter Care Teams Jewel Bearing Facer Relationship Specialty Start Date End Date Yovanny Myers MD PCP - General 01/11/17 documented as of this encounter
--- OUTSIDE RECORDS SUMMARY | 2025-08-10 11:44 | XMS_ITS | Encounter Summary ---
Author Organization [facility] Healthcare Address [address] [place] [address] Care Team Providers Care Gem Expert Name Role Phone Yovanny Myers MD Primary Care Provider Encounter Details Date Type Department Care Team (Late st Contact Info) Description 03/10/2025 Orders Only [facility] Health Information Management [address] [place] [address] Scanning, Provider Social History Tobacco Use Types Packs/Day Years Used Date Smoking Tobacco: Former Cigarettes Q uit: 02/03/2020 Comments Unknown Sex and Gender Information Value Date Recorded Sex Assigned at Not on file Legal Sex Female 2:24 AM JACQUARD LOOM CARPET WEAVER Gender Identity Not on file Sexual Orientation [...] on filedocumented in this encounter Care Teams Gem Expert Relationship Specialty Start Date End Date Yovanny Myers MD PCP - General 01/11/17 documented as of this encounter
--- OUTSIDE RECORDS SUMMARY | 2025-08-10 11:44 | XMS_ITS | Encounter Summary ---
Author Organization [facility] Healthcare Address [address] [place] [address] Care Team Providers Care Lithographic Artist Name Role Phone Yovanny Myers MD Primary Care Provider Encounter Details Date Type Department Care Team (Late st Contact Info) Description 01/22/2025 Orders Only [facility] Health Information Management [address] [place] [phone] Scanning, Provider Social History Tobacco Use Types Packs/Day Years Used Date Smoking Tobacco: Former Cigarettes Q uit: 02/03/2020 Comments Unknown Sex and Gender Information Value Date Recorded Sex Assigned at Not on file Legal Sex Female 2:24 AM ORE FIELDER Gender Identity Not on file Sexual Orientation [...] on filedocumented in this encounter Care Teams Lithographic Artist Relationship Specialty Start Date End Date Yovanny Myers MD PCP - General 01/11/17 documented as of this encounter
--- OUTSIDE RECORDS SUMMARY | 2025-08-10 11:45 | XMS_ITS | Clinical Summary ---
Author Organization [address] Address [facility] [place] [address] Care Team Providers Care Home And Family Living Professor Name Role Phone Yovanny Myers MD Primary [...] - 06/03/2025 11:59 PM CDT Hospital Encounter [facility] [address] [place] [address] Screening mammogram for breast cancer Discharge Disposition: Discharge to home or self care 06/02/2025 Telephone [facility] Medical Group Cardiology [address] [facility] [address] [place] [address] Emilio Harris MD 05/31/[address] [address] Referral, Self Appointment Request 05/28/2025 Telephone [facility] Medical Group Cardiology [address] [place] [address] Emilio Harris MD from Last [...] on file Legal Sex Female 2:24 AM CURRICULUM AND ASSESSMENT COORDINATOR Gender Identity Not on file Sexual Orientation [...] Relevant to Health Maintenance Insurance [facility] MEDIC[facility] MEDICARE [employer] [facility] [employer] Yung [id number] Care Teams Home And Family Living Professor Relationship Specialty Start Date End Date Yovanny Myers MD PCP - General 01/11/17
--- OUTSIDE RECORDS SUMMARY | 2025-08-10 11:45 | XMS_ITS | Encounter Summary ---
Author Organization [facility] Healthcare Address [address] [place] [address] Care Team Providers Care Metal Model Maker Name Role Phone Yovanny Myers MD Primary Care Provider Encounter Details Date Type Department Care Team (Late st Contact Info) Description 08/14/2024 Orders Only [facility] Health Information Management [address] [place] [phone] Scanning, Provider Social History Tobacco Use Types Packs/Day Years Used Date Smoking Tobacco: Former Cigarettes Q uit: 02/03/2020 Comments Unknown Sex and Gender Information Value Date Recorded Sex Assigned at Not on file Legal Sex Female 2:24 AM SQL PROGRAMMER Gender Identity Not on file Sexual Orientation [...] on filedocumented in this encounter Care Teams Metal Model Maker Relationship Specialty Start Date End Date Yovanny Myers MD PCP - General 01/11/17 documented as of this encounter
--- OUTSIDE RECORDS SUMMARY | 2025-08-10 11:45 | XMS_ITS | Data Portability ---
Author Organization [place] - [employer], Main Office Address [address] [place] [address] Care Team Providers Care Trademark Attorney Name Role Phone JORGE MYERS Primary Care Provider ILANA POSADA Aerodynamic Consultant Assessment No assessment recorded. Plan of Treatment Reminders Order Date Submit Date Provider Last Modified By Organization Details Last Modified Time Details Appointments None recorde d. Lab HbA1c (hemogl obin A1c), blood 024 04/28/20 24 [email or web address] [facility], [address], [place], [address], 4 17:48:22 lipid panel, serum 024 04/28/20 24 [email or web address] [facility], [address], [place], [address], 4 17:48:22 Referral None recorde d. Procedures None recorde d. Surgeries None recorde d. Imaging None recorde d. Medication Orders None recorde d. Patient TargetsNo targets recorded. Patient Instructions Encounter Date Encounter Id Patient Instructions Last Modified By Organization Details Last Modified Time 04/28/2024 [id number] dementia rating scale-2* [email or web address] Not available 04/28/2024 15:44:09 alcohol misuse* [email or web address] Not available 04/28/2024 15:44:09 depression screening* [email or web address] Not available 04/28/2024 15:44:09 Timed Up and Go test (TUG)* [email or web address] Not available 04/28/2024 15:44:09 multi-dimensiona l health assessment questionnaire* [email or web address] Not available 04/28/2024 15:44:08 Personalized [facility] Plan and Screening Recommendations Advance Directives - [...] Depression Screening: Negative I have no recommendations [email or web address] Not available 04/28/2024 15:23:42 Medicare wellnes s evaluation risk assessment stable. Follow-up for [...] with voice recognition software. Occasional wrong-word or s ound-a-like substitutions may have occurred due to the inherent limitations of voice recognition software. Read the chart carefully and recognize, using context, where substitutions have occurred. [email or web address] Not available 04/28/2024 15:43:51 08/31/2024 [id number] Bronchitis slowl y improving. Will continue on current medications. Follow-up in six months Follow Up: 6 Months Approximate Date: 02/27/2025 [email or web address] Not available 08/31/2024 12:23:44 06/10/2025 [id number] Facial surgery w ith multiple complications. At this time is already on antibiotic coverage. Does take some mild hydrocodone 5 mg for the migraine headaches. Will continue with current Rx. Recheck back in two weeks to check the assessment. Follow Up: 2 Weeks Approximate Date: 06/24/2025 Portions of record are template driven. When necessary additional context will be provided. Additionally some portions have been created with voice recognition software. Occasional wrong-word or s ound-a-like substitutions may have occurred due to the inherent limitations of voice recognition software. Read the chart carefully and recognize, using context, where substitutions may have occurred. Created: Jorge Myers M.D. 06.10.2025 02:29 PM [email or web address] Not available 06/10/2025 15:29:21 06/24/2025 [id number] Status post faci al trauma doing well. See no reason to do any further testing. Instructed may resume and take back her warfarin. Follow Up: 6 Months Approximate Date: 12/21/2025 Portions of record are template driven. When necessary additional context will be provided. Additionally some portions have been created with voice recognition software. Occasional wrong-word or s ound-a-like substitutions may have occurred due to the inherent limitations of voice recognition software. Read the chart carefully and recognize, using context, where substitutions may have occurred. Created: Jorge Myers M.D. 06.24.2025 01:55 PM [email or web address] Not available 06/24/2025 14:55:58 Reason for Referral None Reported. Results Created Date Observation Date Name Description Value Unit Range Abnormal Flag Note LastModifiedBy Organization Detail LastModifiedTime 08/04/20 24 08/04/2024 XR, foot No observ ation record ed. [address], [address], 08/04/2024 17:55:01 08/10/20 24 08/10/2024 XR, foot No observ ation record ed. [address] [place], [address], 08/11/2024 07:51:57 08/27/20 24 08/27/2024 XR, chest , 1 view No observ ation record ed. [email or web address] Not Available 2023 21:28:35 04/14/20 25 04/13/2025 XR, hand No observ ation record ed. [address] [facility] [address], [place], [address], 04/14/2025 19:41:11 Result Notes None recorded. Problems Name Problem SNOMED Code Status Onset Date Resolution Date Notes Provider Name and Address Organization Details Recorded Time Irritable bowel syndrome 82254288 Active Not Available [facility] 3 06:10:52 Menopausal symptom 42288115 Active Not Available [facility] 3 06:10:53 Sciatica 04937840 Active Not Available [facility] 3 06:10:53 Neuropathy due to diabetes mellitus 365732992 Active Not Available [facility] 3 06:10:53 Pure hypercholeste rolemia 355266053 Active Not Available [facility] 3 06:10:53 Premature beats 46736378 Active Not Available [facility] 3 06:10:53 Migraine 73503557 Active Not Available [facility] 3 06:10:53 Type 2 diabetes mellitus 80754094 Active Not Available [facility] 3 06:10:53 Cervical radiculopathy 33026130 Active Not Available [facility] 3 06:10:53 Sleep apnea 53735385 Active Not Available [facility] 3 06:10:53 Chronic pain syndrome 259597095 Active 2018 Not Available [facility] 3 06:10:53 Renewal of prescription Active 2021 Not Available [facility] 3 06:10:52 Nausea and vomiting 56110195 Active 2021 Not Available [facility] 3 06:10:53 Senile osteoporosis 65330882 Active 2021 Not Available [facility] 3 06:10:53 Paroxysmal atrial fibrillation 981832421 Active 2021 Not Available [facility] 3 06:10:53 Acute urinary tract infection 073998222 Active 2021 Not Available [facility] 3 06:10:53 Right flank pain 465547761 Active 2021 Not Available [facility] 3 06:10:52 Acute sinusitis 17739462 Active 2022 Not Available [facility] 3 06:10:52 Diabetes mellitus without complication 698464966 Active 2022 DAVID Freeman, [place] [facility] 3 16:19:33 Vitamin D deficiency 14240267 Active 2022 Jorge Myers MD [address], [address], [place], [address] , [place] [facility] 3 16:04:28 Chronic sinusitis 34687788 Active 2023 Annmarie hPam CMA null, [place] [facility] 4 12:46:04 Acute bronchitis 15704993 Active 2023 Jorge Myers MD [address], [address], [place], [address] , [place] [facility] 4 10:36:45 Wheezing 78165396 Active 2023 DAVID Freeman, [place] [facility] 4 15:36:50 Hyperhidrosis 771219505 Active 2024 DAVID Freeman, [place] [facility] 5 15:58:03 Nausea 197051167 Active 2024 Annmarie Pham CMA null, [place] [facility] 5 15:58:42 Injury of face 380836616 Active 2024 Jorge Myers MD [address], [address], [place], [address] , [place] [facility] 5 14:55:44 Problem Notes None recorded. Procedures Surgical History Date Name Laterality Status Provider Name and Address Organization Details Recorded Time 04/28/20 24 Medicare Wellness CPT Code, subsequent completed Ele Castaneda RN [facility] [employer] [facility] 04/28/2024 15:17:35 04/09/20 24 Chronic care management services completed Ilana Posada RN [facility] [employer] [facility] 04/09/2024 16:41:07 03/06/20 24 Chronic care management services completed Ilana Posada RN [facility] [employer] [facility] 03/11/2024 17:44:36 02/20/20 23 Medicare Wellness CPT Code, subsequent completed Sara Ramirez RN [facility] [employer] [facility] 02/19/2023 16:17:59 02/29/20 21 Date of Last Colonoscopy completed Not Available [facility] 12/12/2022 06:07:34 Imaging Results None recorded. Procedure Notes None recorded. Medical Equipment None Reported. Allergies Allergen ID Allergen Name Allergen Category Reaction Reaction Severity Criticality Documentation Date Start Date Code Code System Note Provider Name and Address Organization Details Recorded Time 77279 erythromy manda medicatio n nausea Not available Not available 12/12/2022 4053 RxNorm Not Available [facility] 3 06:15:34 83601 Zocor medicatio n myalgias (muscle pain) Not available Not available 12/12/2022 58670 3 RxNorm Not Available [facility] 3 06:15:34 40070 Substance with sulfonami de structure and antibacte rial mechanism of action (substanc e) medicatio n rash Not available Not available 12/12/2022 80579 8003 SNOMED Not Available [facility] 3 06:15:34 99951 codeine medicatio n other Not available Not available 12/12/2022 2670 RxNorm abdom inal pain Not Available [facility] 3 06:15:34 08335 E-Mycin medicatio n other Not available Not available 12/12/2022 14390 8 RxNorm abdom inal pain Not Available [facility] 3 06:15:35 73030 Glucophag e medicatio n other Not available Not available 12/12/2022 42441 7 RxNorm GI Distu rbanc e Not Available [facility] 3 06:15:35 Medications Name Sig Start [...] MOUTH THREE TIMES DAILY FOR 7 DAYS 06/10 completed Not Available Not Available Not Available clotrimaz ole 10 mg ty Take [...] TAKE 1 CAPSULE BY MOUTH TWICE DAILY 06/10 completed Not Available Not Available Not Available atorvasta tin 20 mg tablet TAKE 1 TABLET EVERY DAY 2024 active Not Available Not Available Not Avai lable clindamyc in HCl 300 mg capsule TAKE 1 CAPSULE BY MOUTH TWICE DAILY FOR 7 DAYS 06/10 completed Not Available Not Available Not Available citalopra m 40 mg tablet TAKE [...] 1 CAPSULE BY MOUTH THREE TIMES DAILY 06/10 completed Not Available Not Available Not Available sumatript an 100 mg tablet Take [...] ONE TABLET DAILY FOR 14 DAYS TOTAL 06/10 completed Not Available Not Available Not Available phenazopy ridine 200 mg tablet TAKE [...] BY MOUTH ONCE DAILY FOR 5 DAYS 06/10 completed Not Available Not Available Not Available alclometa sone 0.05 % topical cream 02/19 completed Not Available Not Available Not Available Tuberculi n Syringe 1 mL 02/22 completed [facility] # [id number] 2-21 Not Available Not Available Not Available metronida zole 500 mg tablet TAKE 1 TABLET BY MOUTH EVERY 8 HOURS UNTIL GONE 04/28 completed Not Available Not Available Not Available valacyclo vir 500 mg tablet TAKE 1 TABLET BY MOUTH TWICE DAILY FOR 10 DAYS NEEDED FOR OUTBREAK . active Not Available Not Available No t [...] MOUTH EVERY 6 HOURS FOR 7 DAYS 06/10 completed Not Available Not Available Not Available simvastat in 20 mg tablet TAKE [...] ondansetr on 4 mg disintegr ating tablet dissolve one tablet in mouth every 8 hours as needed for nausea and vomiting 2024 active Not Available Not Available Not [...] TAKE 1 TABLET BY MOUTH TWICE DAILY UNTIL GONE 06/24 completed Not Available Not Available Not Available [...] Not Available Not Available No t Available chlorhexi dine gluconate 0.12 % mouthwash SWISH AND SPIT 10-15ML BY MOUTH TWICE DAILY. TO START AFTER SURGERY AND USE FOR ONE WEEK. NOTHING BY MOUTH FOR 30 MINUTES AFTER USE active Not Available Not Available No t [...] Available No t Available FreeStyle Emiliano 2 Logan DAILY active Not Available Not Available Not [...] t Available Vitals Date Recorded Body height Provider Name an d Address Organization Details Last Updated DateTime 04/08/2024 170.18 cm Ilana Posada RN [facility] [employer] 04/09/2024 16:11:49 Date Recorded Body height Body mass index (BMI) Body weight Heart rate Body temperature Oxygen saturation Oxygen saturation in Arterial blood by Pulse oximetry Systolic And Diastolic Provider Name and Address Organization Details Last Updated DateTime 4 170.18 cm 25.2 kg/m2 37839.3 7 g 71 /min 97 [degF] 97 % 97 % 118/60 mm[Hg] [employer] 4 15:12:14 Date Recorded Pain severity - 0-10 verbal numeric rating [Score] - Reported Provider Name and Address Organization Details Last Updated DateTime 04/28/2024 2 Ele Castaneda RN [facility] [employer] 04/28/2024 15:17:54 Date Recorded Body height Body mass index (BMI) Body weight Heart rate Body temperature Oxygen saturation Oxygen saturation in Arterial blood by Pulse oximetry Systolic And Diastolic Provider Name and Address Organization Details Last Updated DateTime 5 170.18 cm 26.5 kg/m2 48797.1 1 g 82 /min 97.2 [degF] 97 % 97 % 120/64 mm[Hg] [employer] 5 15:15:58 Date Recorded Body height Body mass index (BMI) Body weight Heart rate Body temperature Oxygen saturation Oxygen saturation in Arterial blood by Pulse oximetry Systolic And Diastolic Provider Name and Address Organization Details Last Updated DateTime 5 170.18 cm 26.5 kg/m2 33090.9 1 g 73 /min 97.2 [degF] 99 % 99 % 118/60 mm[Hg] Yuki Corbett [facility] [employer] [facility] 5 14:47:50 Date Recorded Body height Body mass index (BMI) Body weight Heart rate Body temperature Oxygen saturation Oxygen saturation in Arterial blood by Pulse oximetry Systolic And Diastolic Provider Name and Address Organization Details Last Updated DateTime 4 170.18 cm 25.9 kg/m2 61553.5 4 g 62 /min 97 [degF] 97 % 97 % 128/70 mm[Hg] Sarah vEans Oliver [facility] [employer] [facility] 4 11:55:12 Social History Question Answer Notes LastModified by Organizat ion Details LastModified Time Tobacco Smoking Status Former Smoker Ele Castaneda RN [facility], [facility] [employer] [facility] 04/28/2024 15:18:24 Do You Have An Advance Directive? No MIGRATION.34847 [id number] Information not available 12/12/2022 Are You Blind Or Do You Have Difficulty Seeing? No MIGRATION.56394 75698 Information not available 12/12/2022 Is Blood Transfusion Acceptable In An Emergency? Yes Information not available 04/09/2024 What Is Your Level Of Caffeine Consumption? Moderate MIGRATION.34229 97927 Information not available 12/12/2022 Are You Deaf Or Do You Have Serious Difficulty Hearing? No MIGRATION.35937 68394 Information not available 12/12/2022 What Type Of Diet Are You Following? REGULAR MIGRATION.43056 02539 Information not available 12/12/2022 Have There Been Any Changes To Your Family Or Social Situation? No MIGRATION.78691 67299 Information not available 12/12/2022 What Is The Fluoride Status Of Your Home? Unknown [email or web address] Information not available 04/28/2024 Are There Any Guns Present In Your Home? No MIGRATION.12102 01953 Information not available 12/12/2022 Do You Use Insect Repellent Routinely? Yes Information not available 02/19/2023 Where Do You Live? [place]House MIGRATION.18794 09553 Information not available 12/12/2022 Presence Of Domestic [...] You Following A Low Salt Diet? No MIGRATION.09293 01015 Information not available 12/12/2022 Do You Have A Medical Power Of Hog Buyer? No MIGRATION.73643 57553 Information not available 12/12/2022 What Was The Date Of Your Most Recent Tobacco Screening? 04/28/2024 Information not available 04/28/2024 Have You Ever Been Counseled For Unhealthy Alcohol Use? No MIGRATION.53167 59892 Information not available 12/12/2022 Do You Have Any Pets? Yes [email or web address] Information not available 04/28/2024 What Is Your Relationship Status? MIGRATION.99871 05190 Information not available 12/12/2022 Do You Use Your Seat Belt Or Car Seat Routinely? Yes MIGRATION.52979 37840 Information not available 12/12/2022 Do You Have Smoke And Carbon Monoxide Detectors In Your Home? Yes MIGRATION.99677 33774 Information not available 12/12/2022 Are You Passively Exposed To Smoke? No MIGRATION.09131 66728 Information not available 12/12/2022 Are There Any Smokers In Your House? No Information not available 02/19/2023 Do You Use Sunscreen Routinely? Yes Information not available 02/19/2023 Have You Recently Traveled Abroad? No MIGRATION.01396 22178 Information not available 12/12/2022 Do You Have Difficulty Walking Or Climbing Stairs? No MIGRATION.03425 58087 Information not available 12/12/2022 Do You Have Any Dietary Restrictions? Yes Diabetic MIGRATION.36110 75431 Information not available 12/12/2022 Sex: Female Functional Status Question Answer Note LastModified by Organizat [email or web address] Details LastModified Time Do you or have you ever used any other forms of tobacco or nicotine? Yes Information not available 02/19/2023 What is your level of alcohol consumption? Occasional [email or web address] Information not available 04/28/2024 Do you have transportation difficulties? No MIGRATION.0105895 026 Information not available 12/12/2022 Are you able to walk independently without assistance or assistive devices? YESWOREST MIGRATION.4451405 026 Information not available 12/12/2022 Do you have difficulty doing errands alone? No MIGRATION.2101799 026 Information not available 12/12/2022 Are you able to care for yourself independently? Yes MIGRATION.7464818 026 Information not available 12/12/2022 Do you have difficulty dressing, bathing, grooming, or toileting? No MIGRATION.4225928 026 Information not available 12/12/2022 What is your exercise level? None [facility] Information not available 02/19/2023 Mental Status Question Answer Note LastModified by Organ[employer]at [email or web address] Details LastModified Time Do you feel stressed (tense, restless, nervous, or anxious, or unable to sleep at night)? [id number] Information not available 04/09/2024 Do you have difficulty concentrating, remembering or making decisions? No MIGRATION.06030056 26 Information not available 12/12/2022 Family History Relationship Description Onset Age of this Age Resolved Age Notes LastModified by Organization Details LastModified Time Mother Osteoporosis MIGRATION.0 30 [id number] Not available 12/12/2022 06:07:35 Mother Malignant neoplasm of breast MIGRATION.967 8001559 Not available 12/12/2022 06:07:35 Maternal Grandmother Type 1 diabetes mellitus MIGRATION.199 1824477 Not available 12/12/2022 06:07:35 Notes:Mother 88 yea [...] HAVE YOU BEEN HOSPITALIZED OR SEEN IN [facility] IN THE PAST YEAR ? Y ATHEROSCLEROSIS [...] Immunizations Vaccine Type Date Status Note Provider [facility] e and Address Organization Details Recorded Time pneumococcal polysaccharide PPV23 0 completed SUZAN Marr [facility] 02/19/2023 16:18:31 Pneumococcal conjugate PCV 13 0 completed SUZAN Marr, [facility] 02/19/2023 16:18:49 Influenza, split virus, quadrivalent, PF 11/08/201 7 completed Not Available [facility] 06/24/2025 14:47:17 Pneumococcal conjugate PCV 13 9 completed Not Available [facility] 06/24/2025 14:47:17 Influenza, split virus, quadrivalent, PF 0 completed Not Available [facility] 06/24/2025 14:47:17 SARS-COV-2 (COVID-19) vaccine, UNSPECIFIED 1 completed Not Available [facility] 12/12/2022 06:15:23 SARS-COV-2 (COVID-19) vaccine, UNSPECIFIED 1 completed Not Available [facility] 12/12/2022 06:15:23 Influenza, split virus, quadrivalent, preservative 2 completed Not Available [facility] 12/12/2022 06:15:23 COVID-19, mRNA, LNP-S, bivalent, PF, 10 mcg/0.2 mL dose 2 completed Not Available [facility] 12/12/2022 06:15:23 SARS-COV-2 (COVID-19) vaccine, UNSPECIFIED 1 completed Not Available [facility] 12/12/2022 06:15:23 Influenza, split virus, quadrivalent, preservative 1 completed Not Available [facility] 12/12/2022 06:15:23 Influenza, split virus, quadrivalent, PF 8 completed Not Available [facility] 12/12/2022 06:15:23 Past Encounters Encounter ID Performer Location Encounter Start Date Encounter Closed Date Diagnosis/Indication Diagnosis SNOMED-CT Code Diagnosis ICD10 Code Diagnosis IMO Codes Diagnosis Note [id number] Jorge Myers MD [facility] [place] [address] [place] [address] 12/13/2020 00:00:00 12/13/2020 14:55:46 [id number] MD NHUNG Thomas[facility] [place] [address] [facility] [place] [address] 04/25/2021 00:00:00 04/25/2021 17:22:51 [id number] Jorge Myers MD [facility] [place] [address] [facility] [place] [address] 08/22/2021 00:00:00 08/22/2021 17:03:57 [id number] Celine Hernandez MD [facility] [place] [address] [place] [address] 11/20/2021 00:00:00 11/20/2021 15:52:57 [id number] Celine Hernandez MD [facility] [place] [address] [place] [address] 01/22/2022 00:00:00 01/22/2022 15:14:03 [id number] Jorge Myers MD [facility] [place] [address] [place] [address] [place] [address] 02/20/2022 00:00:00 02/20/2022 16:47:44 [id number] Jorge Myers MD [facility] Internal Med [facility] [address] [facility] [address] [place] [address] 06/27/2022 00:00:00 06/27/2022 14:41:43 [id number] Jorge Myers MD [facility] [place] [address] [place] [address] [place] [address] 08/21/2022 00:00:00 08/21/2022 16:17:05 [id number] Jorge Myers MD [facility] [place] [address] [place] [address] [place] [address] 02/19/2023 15:42:12 02/19/2023 16:47:12 Adult health examination 572520236 Z00.00 Screening for disorder 266943882 Z13.9 Paroxysmal atrial fibrillation 485726653 I48.0 Pure hypercholesterolemia 585385132 E78.00 Type 2 debora betes mellitus 38195284 E11.9 Sleep apnea 64364751 G47 .30 [id number] Jorge Myers MD [facility] [place] [address] [facility] [place] [address] 09/20/2023 15:02:22 09/20/2023 16:09:34 Neuropathy due to diabetes mellitus 287809435 E11.40 Pure hypercholesterolemia 463838517 E78.00 Type 2 debora betes mellitus 00884167 E11.9 Migraine 38217967 G43.90 9 Paroxysmal atrial fibrillation 159276701 I48.0 Vitamin D deficiency 347 31737 E55.9 [id number] Jorge Myers MD [facility] [place] [address] [place] [address] [place] [address] 12/27/2023 14:29:41 12/27/2023 15:30:31 Chronic pain syndrome 924605986 G89.4 Pure hypercholesterolemia 596425189 E78.00 Type 2 debora betes mellitus 31853864 E11.9 Paroxysmal atrial fibrillation 303392483 I48.0 Sleep apnea 51391446 G47 .30 [id number] Jorge Myers MD [facility] Internal Med [facility] [address] [address] 03/06/2024 16:56:36 07/16/2024 11:38:48 Diabetes mellitus without complication 128747645 E11.9 Chronic pain syndrome 37 5457785 G89.4 Pure hypercholesterolemia 440880729 E78.00 Paroxysmal atrial fibrillation 987203540 I48.0 [id number] Jorge Myers MD [facility] Internal [facility] [address] [address] 04/09/2024 12:33:03 04/10/2024 09:26:15 Acute urinary tract infection 543445789 N39.0 Chronic pain syndrome 37 9991258 G89.4 Type 2 debora betes mellitus [id number] E11.9 Pure hypercholesterolemia [id number] E78.00 Paroxysmal atrial fibrillation [id number] I48.0 [id number] Jorge Myers MD [facility] Internal Med [place] [address] [place] [address] 04/28/2024 14:39:03 04/28/2024 16:02:23 Adult health examination [id number] Z00.00 Screening for disorder [id number] Z13.9 Paroxysmal atrial fibrillation [id number] I48.0 Pure hypercholesterolemia [id number] E78.00 Type 2 debora betes mellitus [id number] E11.9 Neuropathy due to diabetes mellitus [id number] E11.40 Chronic pain syndrome 37 [id number] G89.4 [id number] Jorge Myers MD [facility] Internal Med [facility] [address] [id number] 08/31/2024 11:15:49 08/31/2024 12:28:08 Acute bronchitis [id number] J20.9 [id number] Jorge Myers MD [facility] Internal Med [facility] [address] [address] 0 06/10/2025 14:50:40 06/10/2025 15:40:30 Paroxysmal atrial fibrillation [id number] I48.0 Pure hypercholesterolemia [id number] E78.00 Type 2 debora betes mellitus [id number] E11.9 History of surgery [id number] Z98.890 [id number] Jorge Myers MD [facility] Internal Med [facility] [address] [id number] 06/24/2025 14:46:40 06/24/2025 15:10:11 Injury of face [id number] S09.93XD [id number] Goals Section Goal Description Progress Status Start [...] 04/09/2024 20:44:18 Smoking Cessatio n Quits smoking [facility] active 2023 Ilana Posada RN Information not available 04/09/2024 20:45:25 Exercise Regularl y Follows a regular exercise regimen or instructed exercise plan as per care team recommendation (s) [facility] active 2023 Ilana Posada RN Information not available 04/09/2024 20:45:25 Food Security Reports ability to access and obtain foods to meet nutritional needs [facility] active 2023 Ilana Posada RN Information not available 04/09/2024 20:45:25 Activiti es of Daily Living Performs activities of daily living independently or with minimal assistance [facility] active 2023 Ilana Posada RN Information [...] consumption as per care team recommendation (s) [facility] Ilana Posada RN Information not available 04/09/2024 20:45:26 Chronic Disease Symptom Manageme nt Reports no new or worsening symptoms [facility] Ilana Posada RN Information not available 04/09/2024 20:45:26 Stroke/T IA Risk Reductio n Reduces risk factors for stroke [facility] Ilana Posada RN Information not available 04/09/2024 20:45:26 Effectiv e Coping Manages life events with effective coping methods [facility] Ilana Posada RN Information not available 04/09/2024 20:45:26 Heart Rate Control Achieves target heart rate as defined by care team [facility] active 2023 Ilana Posada RN Information not available 04/09/2024 20:45:26 Fall Safety Reports no recent falls and/or fall injuries [facility] Ilana Posada RN Information not available 04/09/2024 20:45:26 Knowledg e of Disease or Conditio n Demonstrates understanding of disease(s) or condition(s) [facility] active 2023 Ilana Posada RN Information not available 04/09/2024 20:45:26 Diet Adherenc e Follows prescribed or recommended diet [facility] active 2023 Ilana Posada RN Information not available 04/09/2024 20:45:27 Financia l Stabilit y Reports financial status and/or income meets needs [facility] Ilana Posada RN Information not available 04/09/2024 20:45:27 Chronic Conditio n Action Plan Follows action plan for any worsening of chronic condition(s) as per care team recommendation (s) [facility] active 2023 Ilana Posada RN Information not available 05/12/2024 00:01:57 Adequate Sleep Achieves adequate, well-rested sleep with minimal disruption [facility] Ilana Posada RN Information not available 04/09/2024 20:45:27 Family and Social Support Reports family and/or social support needs are met [facility] 20[facility] Ilana Posada RN Information not available 05/12/2024 00:01:57 Mobility Maintains or improves baseline mobility and/or moves independently [facility] active 2023 Ilana Posada RN Information not available 04/09/2024 20:45:27 Home/Env ironment Safety Reports having a safe environment that promotes independence and [facility] Ilana Posada RN Information not available 04/09/2024 20:45:27 Quality of Life Reports satisfaction with quality of life [facility] Ilana Posada RN Information not available 04/09/2024 20:45:27 Self-Adv ocacy Advocates effectively for self by communicating desires, feelings and concerns to care team [facility] 2023 Ilana Posada RN Information not available 04/09/2024 20:45:27 Effectiv e Pain Manageme nt Reports or exhibits adequate pain relief as determined by appropriate pain scale [facility] 2023 Ilana Posada RN Information not available 04/09/2024 20:45:27 Balance Maintains or improves baseline [facility] Ilana Posada RN Information not available 04/09/2024 20:45:28 Pain Manageme nt Plan Reports satisfaction with current pain management plan (e.g., medication and non-medication pain relief interventions) [facility] Ilana Posada RN Information not available 04/09/2024 20:45:28 Blood Glucose Maintains blood glucose within target range [facility] Ilana Posada RN Information not available 04/09/2024 20:45:28 Hemoglob in A1C Lowers or maintains hemoglobin A1C (HbA1c) as per care team recommendation (s) [TARGET: less than or equal to 7%] [facility] Ilana Posada RN Information not available 04/09/2024 20:45:28 Lipid Levels Maintains normal lipid levels as defined by care team [facility] active 2023 Ilana Posada RN Information not available 04/09/2024 20:45:28 Weight Loss Decreases body weight as per care team recommendation (s) Meagan [...] and obtain foods to meet nutritional needs [facility] active 2023 Ilana Posada RN Information not available 04/09/2024 20:49:18 Follow-u p Appointm ent(s) Attends referral and/or follow-up appointment(s) as per care team recommendation (s) [facility] active 2023 Ilana Posada RN Information not available 04/09/2024 20:49:18 Decrease d Alcohol Consumpt ion Reports decreased alcohol consumption as per care team recommendation (s) [facility] active 2023 Ilana Posada RN Information not available 04/09/2024 20:49:18 Medicati on Regimen Follows medication regimen as per care team recommendation (s) [facility] active 2023 Ilana Posada RN Information not available 04/09/2024 20:49:18 Heart Rate Control Achieves target heart rate as defined by care team [facility] active 2023 Ilana Posada RN Information not available 04/09/2024 20:49:19 Chronic Disease Symptom Manageme nt Reports no new or worsening symptoms [facility] Ilana Posada RN Information not available 04/09/2024 20:49:19 Vaccinat ion Status Remains up to date on vaccines as per care team recommendation (s) [facility] active 2023 Ilana Posada RN Information not available 04/09/2024 20:49:19 Knowledg e of Disease or Conditio n Demonstrates understanding of disease(s) or condition(s) [facility] active 2023 Ilana Posada RN Information not available 04/09/2024 20:49:19 Stroke/T IA Risk Reductio n Reduces risk factors for stroke [facility] active 2023 Ilana Posada RN Information not available 04/09/2024 20:49:20 Effectiv e Coping Manages life events with effective coping methods [facility] active 2023 Ilana Posada RN Information not available 04/09/2024 20:49:20 Diet Adherenc e Follows prescribed or recommended diet [facility] active 2023 Ilana Posada RN Information not available 04/09/2024 20:49:20 Financia l Stabilit y Reports financial status and/or income meets needs [facility] active 2023 Ilana Posada RN Information not available 04/09/2024 20:49:20 Fall Safety Reports no recent falls and/or fall injuries [facility] Ilana Posada RN Information not available 04/09/2024 20:49:20 Chronic Conditio n Action Plan Follows action plan for any worsening of chronic condition(s) as per care team recommendation (s) [facility] active 2023 Ilana Posada RN Information not available 04/09/2024 20:49:20 Quality of Life Reports satisfaction with quality of life [facility] 20[facility] Ilana Posada RN Information not available 04/09/2024 20:49:21 Home/Env ironment Safety Reports having a safe environment that promotes independence and prevents injury [facility] 2023 Ilana Posada RN Information not available 04/09/2024 20:49:21 Effectiv e Pain Manageme nt Reports or exhibits adequate pain relief as determined by appropriate pain scale [facility] 2023 Ilana Posada RN Information not available 05/12/2024 00:01:57 Self-Adv ocacy Advocates effectively for self by communicating desires, feelings and concerns to care team [facility] active 2023 Ilana Posada RN Information not available 04/09/2024 20:49:21 Balance Maintains or improves baseline balance [facility] 2023 Ilana Posada RN Information not available 04/09/2024 20:49:21 Family and Social Support Reports family and/or social support needs are met [facility] Ilana Posada RN Information not available 04/09/2024 20:49:22 Hemoglob in A1C Lowers or maintains hemoglobin A1C (HbA1c) as per care team recommendation (s) [TARGET: less than or equal to 7%] [facility] active 2023 Ilana Posada RN Information not available 04/09/2024 20:49:22 Pain Manageme nt Plan Reports satisfaction with current pain management plan (e.g., medication and non-medication pain relief interventions) [facility] Ilana Posada RN Information not available 04/09/2024 20:49:22 Adequate Sleep Achieves adequate, well-rested sleep with minimal disruption [facility] 2023 Ilana Posada RN Information not available 04/09/2024 20:49:23 Blood Glucose Maintains blood glucose within target range [facility] 2023 Ilana Posada RN Information not available 04/09/2024 20:49:23 Mobility Maintains or improves baseline mobility and/or moves independently [facility] Ilana Posada RN Information not available 04/09/2024 20:49:23 Lipid Levels Maintains normal lipid levels as defined by care team [facility] active 2023 Ilana Posada RN Information not available 04/09/2024 20:49:23 Weight Loss Decreases body weight as per care team recommendation (s) [facility] active 2023 Ilana Posada RN Information not available 04/09/2024 20:49:23 Blood Pressure Maintains blood pressure goal as defined by care team [facility] active 2023 Ilana Posada RN Information not available 04/09/2024 20:49:23 Recreati onal Activiti es Participates in recreational activities [facility] Ilana Posada RN Information not available 04/09/2024 20:49:24 Healthy Weight Maintain a healthy body weight as recommended by your care team [facility] active 2023 Ilana Posada RN Information not available 04/09/2024 20:49:24 Exercise Regularl y Follows a regular exercise regimen or instructed exercise plan as per care team recommendation (s) [facility] active 2023 Ilana Posada RN Information not available 05/12/2024 00:01:57 Food Security Reports ability to access and obtain foods to meet nutritional needs [facility] 2023 Ilana Posada RN Information not available 04/09/2024 20:57:28 Activiti es of Daily Living Performs activities of daily living independently or with minimal assistance [facility] 2023 Ilana Posada RN Information not available 04/09/2024 20:57:28 Smoking Cessatio n Quits smoking [facility]23 Ilana Posada RN Information not [...] nt Reports no new or worsening symptoms [facility] active 2023 Ilana Posdaa RN Information not available 04/09/2024 20:57:29 Vaccinat ion Status Remains up to date on vaccines as per care team recommendation (s) [facility] active 2023 Ilana Posada RN Information not available 04/09/2024 20:57:30 Stroke/T IA Risk Reductio n Reduces risk factors for stroke [facility]23 Ilana Posada RN Information not available 04/09/2024 20:57:30 Heart Rate Control Achieves target heart rate as defined by care team [facility] active 2023 Ilana Posada RN Information not available 04/09/2024 20:57:30 Effectiv e Coping Manages life events with effective coping methods [facility] 2023 Ilana Posada RN Information not available 04/09/2024 20:57:30 Knowledg e of Disease or Conditio n Demonstrates understanding of disease(s) or condition(s) [facility] 2023 Ilana Posada RN Information not available 04/09/2024 20:57:31 Diet Adherenc e Follows prescribed or recommended diet [facility] active 2023 Ilana Posada RN Information not available 04/09/2024 20:57:31 Financia l Stabilit y Reports financial status and/or income meets needs [facility] 2023 Ilana Posada RN Information not available 04/09/2024 20:57:31 Fall Safety Reports no recent falls and/or fall injuries [facility] 2023 Ilana Posada RN Information not available 04/09/2024 20:57:31 Chronic Conditio n Action Plan Follows action plan for any worsening of chronic condition(s) as per care team recommendation (s) [facility] 2023 Ilana Posada RN Information not available 04/09/2024 20:57:31 Adequate Sleep Achieves adequate, well-rested sleep with minimal disruption [facility] 2023 Ilana Posada RN Information not available 04/09/2024 20:57:31 Quality of Life Reports satisfaction with quality of life [facility] active 2023 Ilana Posada RN Information not available 04/09/2024 20:57:33 Mobility Maintains or improves baseline mobility and/or moves independently [facility] 2023 Ilana Posada RN Information not available 04/09/2024 20:57:33 Effectiv e Pain Manageme nt Reports or exhibits adequate pain relief as determined by appropriate pain scale [facility] active 2023 Ilana Posada RN Information not available 04/09/2024 20:57:33 Self-Adv ocacy Advocates effectively for self by communicating desires, feelings and concerns to care team [facility] 2023 Ilana Posada RN Information not available 04/09/2024 20:57:33 Family and Social Support Reports family and/or social support needs are met [facility] 2023 Ilana Posada RN Information not available 04/09/2024 20:57:33 Home/Env ironment Safety Reports having a safe environment that promotes independence and prevents injury [facility] 2023 Ilana Posada RN Information not available 04/09/2024 20:57:33 Pain Manageme nt Plan Reports satisfaction with current pain management plan (e.g., medication and non-medication pain relief interventions) [facility] active 2023 Ilana Posada RN Information not available 04/09/2024 20:57:34 Balance Maintains or improves baseline balance [facility] 2023 Ilana Posada RN Information not available 04/09/2024 20:57:34 Hemoglob in A1C Lowers or maintains hemoglobin A1C (HbA1c) as per care team recommendation (s) [TARGET: less than or equal to 7%] [facility] active 2023 Ilana Posada RN Information not available 04/09/2024 20:57:34 Lipid Levels Maintains normal lipid levels as defined by care team [facility] active 2023 Ilana Posada RN Information not available 04/09/2024 20:57:34 Blood Glucose Maintains blood glucose within target range [facility] active 2023 Ilana Posada RN Information not available 04/09/2024 20:57:35 Weight Loss Decreases body weight as per care team recommendation (s) [facility] active 2023 Ilana Posada RN Information not available 04/09/2024 20:57:35 Healthy Weight Maintain a healthy body weight as recommended by your care team [facility] active 2023 Ilana Posada RN Information not available 04/09/2024 20:57:36 Recreati onal Activiti es Participates in recreational activities [facility] active 2023 Ilana Posada RN Information not available 04/09/2024 20:57:36 Blood Pressure Maintains blood pressure goal as defined by care team [facility] active 2023 Ilana Posada RN Information not available 04/09/2024 20:57:36 Activiti es of Daily Living Performs activities of daily living independently or with minimal assistance [facility] active 2023 Ilana Posada RN Information not available 04/09/2024 21:05:32 Medicati on Regimen Follows medication regimen as per care team recommendation (s) [facility] active 2023 Ilana Posada RN Information not available 04/09/2024 21:07:54 Food Security Reports ability to access and obtain foods to meet nutritional needs [facility] active 2023 Ilana Posada RN Information not available 04/09/2024 21:05:33 Smoking Cessatio n Quits smoking [facility] active 2023 Ilana Posada RN Information not available 04/09/2024 21:05:33 Follow-u p Appointm ent(s) Attends referral and/or follow-up appointment(s) as per care team recommendation (s) [facility] Ilana Posada RN Information not available 04/09/2024 21:05:33 Exercise Regularl y Follows a regular exercise regimen or instructed exercise plan as per care team recommendation (s) [facility] active 2023 Ilana Posada RN Information not available 04/09/2024 21:05:34 Decrease d Alcohol Consumpt ion Reports decreased alcohol consumption as per care team recommendation (s) [facility] active 2023 Ilana Posada RN Information not available 04/09/2024 21:05:34 Vaccinat ion Status Remains up to date on vaccines as per care team recommendation (s) [facility] active 2023 Ilana Posada RN Information not available 04/09/2024 21:05:35 Stroke/T IA Risk Reductio n Reduces risk factors for stroke [facility] active 2023 Ilana Posada RN Information not available 04/09/2024 21:05:35 Heart Rate Control Achieves target heart rate as defined by care team [facility] active 2023 Ilana Posada RN Information not available 04/09/2024 21:05:36 Effectiv e Coping Manages life events with effective coping methods [facility] active 2023 Ilana Posada RN Information not available 04/09/2024 21:05:36 Chronic Disease Symptom Manageme nt Reports no new or worsening symptoms [facility] active 2023 Ilana Posada RN Information not available 05/12/2024 00:01:57 Diet Adherenc e Follows prescribed or recommended diet [facility] active 2023 Ilana Posada RN Information not available 04/09/2024 21:07:35 Chronic Conditio n Action Plan Follows action plan for any worsening of chronic condition(s) as per care team recommendation (s) [facility] Ilana Posada RN Information not available 04/09/2024 21:05:37 Knowledg e of Disease or Conditio n Demonstrates understanding of disease(s) or condition(s) [facility] active 2023 Ilana Posada RN Information not available 05/12/2024 00:01:57 Fall Safety Reports no recent falls and/or fall injuries [facility] active 2023 Ilana Posada RN Information not available 05/12/2024 00:01:57 Adequate Sleep Achieves adequate, well-rested sleep with minimal disruption [facility] active 2023 Ilana Posada RN Information not available 05/12/2024 00:01:57 Financia l Stabilit y Reports financial status and/or income meets needs [facility] Ilana Posada RN Information not available 04/09/2024 21:05:38 Quality of Life Reports satisfaction with quality of life [facility] Ilana Posada RN Information not available 04/09/2024 21:05:38 Mobility Maintains or improves baseline mobility and/or moves independently [facility] Ilana Posada RN Information not available 04/09/2024 21:05:39 Self-Adv ocacy Advocates effectively for self by communicating desires, feelings and concerns to care team [facility] active 2023 Ilana Posada RN Information not available 04/09/2024 21:07:22 Family and Social Support Reports family and/or social support needs are met [facility] Ilana Posada RN Information not available 04/09/2024 21:05:40 Home/Env ironment Safety Reports having a safe environment that promotes independence and prevents injury [facility]23 Ilana Posada RN Information not available 04/09/2024 21:05:40 Effectiv e Pain Manageme nt Reports or exhibits adequate pain relief as determined by appropriate pain scale [facility] 2023 Ilana Posdaa RN Information not available 04/09/2024 21:05:41 Balance Maintains or improves baseline balance [facility] 2023 Ilana Posada RN Information not available 04/09/2024 21:05:41 Pain Manageme nt Plan Reports satisfaction with current pain management plan (e.g., medication and non-medication pain relief interventions) [facility] active 2023 Ilana Posada RN Information not available 04/09/2024 21:07:11 Blood Glucose Maintains blood glucose within target range [facility] 2023 Ilana Posada RN Information not available 04/09/2024 21:05:42 Weight Loss Decreases body weight as per care team recommendation (s) [facility] active 2023 Ilana Posada RN Information not available 04/09/2024 21:05:43 Lipid Levels Maintains normal lipid levels as defined by care team [facility] active 2023 Ilana Posada RN Information not available 04/09/2024 21:05:43 Hemoglob in A1C Lowers or maintains hemoglobin A1C (HbA1c) as per care team recommendation (s) [TARGET: less than or equal to 7%] [facility] active 2023 Ilana Posada RN Information not [...] Member ID Nguyen Member ID Guarantor Name 06/10/2025 1 [employer] (MEDICARE REPLACEMENT/A DVANTAGE - HMO) Lisa Lindquistends [id number] Lisa Boyd Berends 06/23/2025 2 [employer] INSURANCE [employer] (MEDICARE SUPPLEMENT) Lisa Boyd Berends [id number] Lisa Boyd Berends 06/23/2025 1 [place] Lisa Boyd Berends [id number] Lisa Boyd Beraminah Notes Date Note Type Note Provider Name and Address Organization Details Recorded Time 04/08/2024 text/html ROS as noted in the HPI Pt currently has an UTI. Placed on Bactrim DS. Suggested [place] while on ATB and for 2 wks after Jorge Myers MD [address], [address], [facility] [employer] 04/09/2024 16:50:39 04/28/2024 text/html Patient Name: Lisa GabrielDate Of Service: Saturday ( 04.28.2024 ): [...] Systemic Symptoms:none Medication Reconciliation: from medication list. Kkmbfbdzike23/23/2023: CT scan of the abdomen and pelvis [...] Succinate Er. Rate control: controlled ventricular response [id number] Criteria: Age 65-74 for embolic phenomenon. Anticoagulation: [...] last examination. Using support device: none Medication: [place]. #5. Chronic pain management for chronic neuropathy Since last examination somewhat improved Interval Testing: noneHas tried NSAIDS partial relief requiring additional medication. Pain Description: constant, exacerbated by activity and interferes with enjoyment and ability to perform activities of daily living. Currently seeing or has seen in the past a [employer] Professional: No .Pain - Enjoyment of Life - General Activity ScalePain on Average: 5Enjoyment of Live: 5General Activity: 4Enjoyment of Life - General Activity Scale: 5Currently regimen consists of Lyrica and [place] as prescribed with no evidence of abuse [...] D 500 MG One BidCpap 13 Cm U91Thhgdk 0.5 MG (TABLET - ORAL) Two Am [...] Abdominal DiscomfortSulfa Drugs RashGlucophage Gi Vaccination and Wbuotgfinnmi9062-84 Okwxpzhrk5016-18 Covid Xjqqow7951-20 Spqkdqcte6088-60 Prevnar 13 Gc Surgical Gknylel4284-80 Laparoscopic myqueqiwx7512-85 Rt. BRX9969-27 Spinal Cord Vogzrdcsiq8125-14 Right Trigger Muhcoe2995-63 Laporoscopy for Ezlhscurn8829-60 Breast Ahmedxbhb3793-17 Cory. Foot Qknyfnx7778-06 [facility] SZP1280-53 Vgmtkbhxoos0135-67 Laporoscopy Preventative Gnxrduf1501/09/2024 MAMMOGRAM 511/ ALBUMIN 4.3 G/DL N110/30/2020 MICRO ALBUMIN 9.5 UG/ML N110/30/2020 HAIC 7.0 % H002/28/2021 COLONOSCOPY (3 YEARS) /09/2021 COLOGUARD /03/2021 THPTOCQCS14/09/2005 CT THORAX Social HistoryDoes not smoke cigarettes. Drinking Hx: 1 Cup of coffee per day.Exercise: WeeklySexual Hx: Sexually Active Family HistoryMother 88 years oldFather 45 years old3 Brothers 3 Living1 Sisters 1 LivingMother Hx: Ca of Breast, dementia, PE, DVTFather Hx: Accidental Deathental Jorge Myers MD [address] [facility], [place], [address], [place] [facility] [employer] 04/28/2024 15:50:40 08/31/2024 text/html Patient Name: Lisa Lukete Of Service: Saturday ( 08.31.2024 ): 1955 [...] D 500 MG One BidCpap 13 Cm M81Nxpcxf 0.5 MG (TABLET - ORAL) Two Am [...] 2019-10 PREVNAR 13 GC( ) 2020-09 PNEUMOVAX(X) 2020- COVShopLogic Surgical Swenzer9274-27 Laparoscopic haqphqihq4562-33 Rt. EBT1112-30 Spinal Cord Jlxmplxkkb2458-93 Right Trigger Gjvzwm8596-21 Laporoscopy for Edzqzvreo3771-98 Breast Ffkhkatcz7431-53 Cory. Foot Grpkqfh1930-42 [facility] OYB5051-68 Mlwnujntjmp2656-06 Laporoscopy Preventative Testing( ) 06/29/2024 HAIC 6.6( [...] DVTFather Hx: Accidental Jorge Myers MD [address] [facility], [facility] [address], [place], [address], [facility] [employer] [facility] 08/31/2024 12:24:37 06/24/2025 text/html Patient Name: Lisa GabrielDate Of Service: June ( 06.24.2025 ): 1955 Age: 69 Vital Signs:Blood Pressure: Sitting Rt. Arm 118/60Pulse: Sitting 73 /min and RegularRespiratory Rate: 16Height 67 in or 1.7 mWeight 169.5 lb or 76.9 kgBMI 26.5Temperature: 97 F or 36.1 CPulse Oximetry: 99 % at rest on no oxygen Chief Complaint: Addressed in HPI Problems or conditions discussed in the HPI were the only ones reviewed during the encounter.Only social and family history addressed in the HPI were reviewed during this encounter. Attendants(s) + NoneConstitutional and Systemic Symptoms:none Medication Reconciliation: from medication list. History of Present Illness #1. Follow-up from recent facial trauma. Much improved since last examination. He is doing quite well. Instructed patient that she now may resume and take her warfarin once again.: Active Medication ListEstradiol 1 MG (TABLET - ORAL) DailyRobinul 1 MG (TABLET - ORAL) Two Am And Three HsAtivan 1 MG (TABLET - ORAL) 1-2 Tablets At BedtimeOs-marie D 500 MG One BidCpap 13 Cm B37Ggbqfm 0.5 MG (TABLET - ORAL) Two Am [...] 500 MG (TABLET - ORAL) Qd Prn Jorge Myers MD [address] [address] [place], [address], [place] [facility] [employer] [facility] 06/24/2025 14:56:32 OBGyn Episode No OBEpisode recorded.
== END 2025-08-10 11:52 | disposition home or self-care (01) ==
PROVIDERS: Emergency Provider Physician Assistant; PCP Internal Medicine
DX: M54.50 Low back pain, unspecified (principal); I48.0 Paroxysmal atrial fibrillation; I10 Essential (primary) hypertension; E11.9 Type 2 diabetes mellitus without complications; M79.7 Fibromyalgia; G47.33 Obstructive sleep apnea (adult) (pediatric); G25.81 Restless legs syndrome; F41.9 Anxiety disorder, unspecified; F32.A Depression, unspecified; Z87.891 Personal history of nicotine dependence; Z90.710 Acquired absence of both cervix and uterus; K76.0 Fatty (change of) liver, not elsewhere classified; K44.9 Diaphragmatic hernia without obstruction or gangrene; Z79.01 Long term (current) use of anticoagulants; Z79.84 Long term (current) use of oral hypoglycemic drugs; Z79.4 Long term (current) use of insulin; Z79.85 Long-term (current) use of injectable non-insulin antidiabetic drugs; Z79.899 Other long term (current) drug therapy
CPT/HCPCS: 36415; 74176; 80053; 81003; 83690; 85025; 85610; 85730; 96374; 96375; 99284; A9270; J2270; J2405; J3360

== ENCOUNTER 2025-08-30 08:39 | Outpatient (CLI) | payer MEDICARE, OTHER, SELFPAY ==
--- NOTE | ~2025-08-30 | XR_ITS ---
XR thoracic spine 2V Indication: Back pain, thoracic Comparison: None Findings: Moderate loss of vertebral heights. No fracture or subluxation. Moderate loss of disc height throughout. Soft tissues unremarkable Spinal canal catheter terminates at T9. Impression: No acute abnormality. Reviewed, dictated and finalized at location P. ICIAN GYNECOLOGIST Impression: No acute abnormality.
--- NOTE | ~2025-08-30 | XR_ITS ---
XR lumbar spine 2-3V Indication: Other low back pain Comparison: None Findings: Mild loss of vertebral height, no fracture or subluxation. Moderate loss of disc at L1-2, L2-3, L4-5 and L5-S1. Soft tissues unremarkable Spinal canal catheter is noted. Impression: No acute abnormality. Reviewed, dictated and finalized at location P. 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
== END 2025-08-30 08:40 | disposition home or self-care (01) ==
LOC: MICIMG 08:42
PROVIDERS: PCP Nurse Practitioner Family; Visit Provider Nurse Practitioner Family
DX: M54.6 Pain in thoracic spine (principal)
CPT/HCPCS: 72070; 72100